=== PATIENT | male | born 1990 | race Caucasian/White ===

== ENCOUNTER 2017-02-22 13:22 | Emergency (ER) | payer OTHER ==
[~2017-02-22] VITALS: Ht 165.1 cm; Wt 83.9 kg
[~2017-02-22 13:22] MED LIST: BACTRIM DS TAB1 EACH PO; CLINDAMYCIN HC300 MG PO; LOVENOX80 MG SUB-Q; SUBOXONE 2 MG-1 EAC2 SL; WARFARIN SODIUM5 MG PO
[2017-02-22] MEDS ORDERED: CLONIDINE HCL0.1 MG PO (14:59)
[2017-02-22] MEDS ORDERED: LOMOTIL TABLET1 EACH PO (14:59)
[2017-02-22] MEDS ORDERED: ATIVAN1 MG PO (14:59)
[2017-02-22] MEDS ORDERED: ZOFRAN ODT4 MG PO (14:59)
== END 2017-02-22 15:17 | disposition home or self-care (01) ==
LOC: ED 13:22
DX: F10.239 Alcohol dependence with withdrawal, unspecified (principal); F11.23 Opioid dependence with withdrawal; R56.9 Unspecified convulsions; F17.200 Nicotine dependence, unspecified, uncomplicated; Z88.0 Allergy status to penicillin
CPT/HCPCS: 36415; 80053; 81001; 85025; 96374; 99284; G0480; J2060

== ENCOUNTER 2019-08-14 18:57 | Inpatient (IN) | payer OTHER ==
[~2019-08-14] VITALS: Ht 165.1 cm; Wt 89.4 kg
--- OUTSIDE RECORDS SUMMARY | ~2019-08-14 | XMS | Encounter Summary ---
Demographics + + + | Address | [address] | | | [place] [address] | + + + | Home Phone | | + + + | Preferred Language | Unknown | + + + | Marital Status | Single | + + + | Restorationism Affiliation | NRP | + + + | Race | Unknown | + + + | Ethnic Group | Not or | + + + Author + + + | Author | [facility] | + + + | Organization | [facility] | + + + | Address | Unknown | + + + | Phone | Unavailable | + + + Support + + +---------+ + | Name | Relationship | Address | Phone | + + +---------+ + | Isabel Pablo | ECON | Unknown | | + + +---------+ + Care Team Providers + +------+ + | Care Dietary Services Director Name | Role | Phone | + +------+ + | Jessica Bal PA-C | PCP | | + +------+ + Encounter Details +--------+ + + + + | Date | Type | Department | Care Team | Description | +--------+ + + + + | 01/15/ | Procedure | Diagnostic Imaging | | | | 2017 | Pass | Services at [facility] | | | | | | [address] | | | | | | Adeola Shah [facility] | | | | | | [address] | | | | | | [place], [place] | | | | | | [address] | | | | | | [phone] | | | +--------+ + + + + Social History + +-------+ +--------+ + | Tobacco Use | Types | Packs/Day | Years | Date | | | | | Used | | + +-------+ +--------+ + | Current Every Day | | 0.5 | | Started: 2005 | | Smoker | | | | | + +-------+ +--------+ + + +------+---+---+ | Smokeless Tobacco: | Chew | | | | Former User | | | | + +------+---+---+ + + +---------+ + | Alcohol Use | Drinks/Week | oz/Week | Comments | + + +---------+ + | No | | | | + + +---------+ + + + + | Sex Assigned at | Date Recorded | | | | + + + | Not on file | | + + + + + + + | Job Start Date | Occupation | Industry | + + + + | Not on file | Not on file | Not on file | + + + + + + + + | Travel History | Travel Start | Travel End | + + + + + + | No recent travel history available. | + + documented as of this encounter Functional Status + + + + | Functional Status | Response | Date of Assessment | + + + + | Because of a physical, mental, or emotional | No - was having | 01/15/2018 | | condition, do you have serious difficulty | coordination issues | | | doing errands alone such as visiting the | prior to admission | | | doctor? | | | + + + + + + + + | Cognitive Status | Response | Date of Assessment | + + + + | Because of a physical, mental, or emotional | No | 01/15/2018 | | condition, do you have serious difficulty | | | | concentrating, remembering, or making | | | | decisions? (5 years old or older) | | | + + + + documented as of this encounter Plan of Treatment Not on filedocumented as of this encounter Visit Diagnoses Not on filedocumented in this encounter Additional Health Concerns + + + + | Infection | Noted Time | Resolved Time | + + + + | Methicillin Resistant Staph Aureus | 01/16/2018 1:00 PM | | | | PDT | | + + + + documented as of this encounter"
--- OUTSIDE RECORDS SUMMARY | ~2019-08-14 | XMS | Encounter Summary ---
Demographics + + + | Address | [address] | | | [place] [address] | + + + | Home Phone | | + + + | Preferred Language | Unknown | + + + | Marital Status | Single | + + + | Anabaptist Affiliation | NRP | + + + | Race | Unknown | + + + | Ethnic Group | Not or | + + + Author + + + | Author | [facility] | + + + | Organization | [facility] | + + + | Address | Unknown | + + + | Phone | Unavailable | + + + Support + + +---------+ + | Name | Relationship | Address | Phone | + + +---------+ + | Isabel Pablo | ECON | Unknown | | + + +---------+ + Care Team Providers + +------+ + | Care Vascular Surgeon Name | Role | Phone | + +------+ + | Jessica Bal PA-C | PCP | | + +------+ + Encounter Details +--------+ + + + + | Date | Type | Department | Care Team | Description | +--------+ + + + + | 01/19/ | Pharmacy | Outpatient Retail | | | | 2017 | Visit | Clinic Pharmacy | | | | | | [address] | | | | | | [address] [place], [place] | | | | | | [address] | | | | | | [phone] | | | +--------+ + + + [...]
--- OUTSIDE RECORDS SUMMARY | ~2019-08-14 | XMS | Clinical Summary ---
Demographics + + + | Address | [address] | | | [place] [address] | + + + | Home Phone | | + + + | Preferred Language | Unknown | + + + | Marital Status | Single | + + + | Jehovah'S Witness Affiliation | NRP | + + + | Race | Unknown | + + + | Ethnic Group | Not or | + + + Author + + + | Author | [facility] | + + + | Organization | [facility] | + + + | Address | Unknown | + + + | Phone | Unavailable | + + + Support + + +---------+ + | Name | Relationship | Address | Phone | + + +---------+ + | Isabel Pablo | ECON | Unknown | | + + +---------+ + Care Team Providers + +------+ + | Care Woven Paper Hat Mender Name | Role | Phone | + +------+ + | Jessica Bal PA-C | PCP | | + +------+ + Source Comments TERESITA is fully live on both [facility] and [facility] Allergies + + + + + + | Active Allergy | Reactions | Severity | Noted | Comments | | | | | Date | | + + + + + + | Penicillins | Nausea and Vomiting | | 11/13/19 | | | | | | 14 | | + + + + + + Medications + + + +---------+------+------+-------+ | Medication | Sig | Dispensed | Refills | Star | End | Statu | | | | | | t | Date | s | | | | | | Date | | | + + + +---------+------+------+-------+ | naloxone 4 | Instill 1 spray in | 2 each | 0 | 09/2 | | Activ | | mg/actuation nasal | nose as needed for | | | 5/20 | | e | | spray,non-aerosol | suspected opioid | | | 18 | | | | | overdose. Repeat | | | | | | | | with second device | | | | | | | | into other nostril | | | | | | | | after 2-3 min if | | | | | | | | no/minimal response. | | | | | | + + + +---------+------+------+-------+ | apixaban 5 mg oral | Take 0.5 tablets by | 60 | 0 | 09/2 | | Activ | | tablet | mouth two times | tablet | | 9/20 | | e | | | daily. | | | 18 | | | + + + +---------+------+------+-------+ | doxycycline | Take 1 capsule by | 1 | 0 | 09/2 | | Activ | | monohydrate 100 mg | mouth two times | capsule | | 9/20 | | e | | oral | daily. (Pharmacist | | | 18 | | | | capsuleIndications: | to substitute salt | | | | | | | soft tissue | form as needed) | | | | | | | infection | Indications: skin | | | | | | | | infection | | | | | | + + + +---------+------+------+-------+ | pyridostigmine 60 | Take 1.5 tablets by | 180 | 3 | 09/2 | | Activ | | mg oral | mouth every six | tablet | | 01/11 | | e | | tabletIndications: | hours. | | | 18 | | | | Myasthenia (HCC) | | | | | | | + + + +---------+------+------+-------+ Active Problems + + + | Problem | Noted Date | + + + | Myasthenia gravis | 01/20/2018 | + + + | Congenital myasthenia gravis | 01/19/2018 | + + + | Dysphagia | 01/13/2018 | + + + + + | Last Assessment & Plan: Originally had increased difficulty | | swallowing. Failed first bedside and SPECIAL MAKEUP FX ARTIST INSTRUCTOR evaluation. - Appreciate | | SPECIAL MAKEUP FX ARTIST INSTRUCTOR following, per report swallow improved and recommend minimal | | chew thin liquid- DHT placed due to swallow failure, consider | | d/c if PO improves - TF d/c | + + + + + | Dysarthria | 01/13/2018 | + + + + + | Last Assessment & Plan: See dysphagia plan | + + +---------+ + | Abscess | 01/13/2018 | +---------+ + + + | Last Assessment & Plan: WBC decreased to 10. R hip induration | | and without clear pocket for drainage on soft tissue ultrasound. | | Open wound on L thigh without purulent drainage. CT lower | | extremities does not show any deep abcess. Wound cultures with 1+ | | MRSA. Blood cultures negative. -Vancomycin started 01/15 evening, | | originally on flagyl for botulism concern will cont. Per ID | | recs. -Appreciate ID assistance-Wound care recs: Cleanse gently | | with normal saline. Pat dry. Apply cavilon skin barrier to | | periwound skin. Cut Aquacel AG to just larger than wound and | | place onto wound bed. Cover with an allevyn 4 x 4 dressing. | | Change M-W-F. | + + + + + | Polysubstance abuse | 01/13/2018 | + + + + + | Last Assessment & Plan: History of methamphetamine, heroin, | | cocaine use. Last heroin use 01/12 - usual dose 1.5 g. Had been | | prescribed suboxone and took first dose 3x 8mg sublingual morning | | of 01/12. Mild withdrawal symptoms.- Now off Precedex, no | | withdrawal symptoms. Cover withdrawal symptoms with clonidine | | 0.1mg prn- Continue suboxone treatment- [facility] consult pending | + + + + + | Tobacco abuse | 01/13/2018 | + + + + + | Last Assessment & Plan: Active tobacco use. Consider nicotine | | patch PRN. | + + + + + | Respiratory distress | 01/13/2018 | + + + + + | Last Assessment & Plan: Progressive increased difficulty | | breathing. Comfortable at rest, saturating appropriately.- Q4H | | NIFs and FVCs - if down trending and concerning clinical picture, | | patient has agreed to elective intubation-NIF -40 most recently, | | improving | + + + + + | Weakness | 01/13/2018 | + + + + + | Last Assessment & Plan: Descending paralysis with notable | | ptosis, dysarthria/dysphagia, proximal arm weakness, mild | | ophthalmoplegia. Multiple family members with similar sxs | | concerning for environmental vs genetic component, grandmother | | diagnosed with LEMS, cousin dx'd with MG though work up unclear. | | Typical presentation for MG aside from demographic as males are | | more likely to present later in life. Botulism strongly | | considered as well given active skin popping and multiple soft | | tissue abscesses on exam. Family history raises concern for | | genetic condition, such as oculopharyngeal muscular dystrophy, | | though acute presentation would be atypical (pt does describe | | history of shoulder weakness in the past). 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 | + + + + + | Botulism, wound | 01/13/2018 | + + + + + | Last Assessment & Plan: On differential, s/p dose of botulism | | antitoxin. -Now on Vancomycin 01/16 (day 2)-re-start flagyl per | | ID recs for botulism concern, no stop date known at this time-EMG | | per above-supportive care per above-ID following | |-supportive care per above | |-ID following | + + + + + | At risk for electrolyte imbalance | 01/13/2018 | + + + + + | Last Assessment & Plan: ICU electrolyte protocol | | -repleted phos and K | + + Resolved Problems + + + + | Problem | Noted | Resolved | | | Date | Date | + + + + | SAH (subarachnoid hemorrhage) | 01/16/20 | | | | 18 | 8 | + + + + | Pulmonary embolism | 11/15/19 | | | | 14 | 8 | + + + + Family History + + +------+ + | Medical History | Relation | Name | Comments | + + +------+ + | No Known Problems | Brother | | | + + +------+ + | No Known Problems | Father | | | + + +------+ + | Neuromuscular | Grandmoth | | onset age 56, admitted to [facility] | | disorder | er | | 12/2017, bulbar onset | + + +------+ + | Other | Mother | | reported healthy but also has many skin | | | | | scabs and disheveled appearance, suspect | | | | | substance use | + + +------+ + | Neuromuscular | Paternal | | bulbar symptoms onset middle age, remitted | | disorder | Cousin | | | + + +------+ + | No Known Problems | Sister | | | + + +------+ + + +------+--------+ + | Relation | Name | Status | Comments | + +------+--------+ + | Brother | | Alive | | + +------+--------+ + | Father | | Alive | | + +------+--------+ + | Grandmother | | Alive | | + +------+--------+ + | Mother | | Alive | | + +------+--------+ + | Paternal Cousin | | Alive | | + +------+--------+ + | Sister | | Alive | | + +------+--------+ + Social History + +-------+ +--------+ + | Tobacco Use | Types | Packs/Day | Years | Date | | | | | Used | | + +-------+ +--------+ + | Current Every Day | | 0.5 | | Started: 2004 | | Smoker | | | | [...] recent travel history available. | + + Last Filed Vital Signs + + + + + | Vital Sign | Reading | Time Taken | Comments | + + + + + | Blood Pressure | 113/66 | 01/20/2018 3:30 PM | | | | | PDT | | + + + + + | Pulse | 84 | 01/20/2018 3:30 PM | | | | | PDT | | + + + + + | Temperature | 36.7 C (98.1 F) | 01/20/2018 3:30 PM | | | | | PDT | | + + + + + | Respiratory Rate | 16 | 01/20/2018 3:30 PM | | | | | PDT | | + + + + + | Oxygen Saturation | 96% | 01/20/2018 3:30 PM | | | | | PDT | | + + + + + | Inhaled Oxygen | - | - | | | Concentration | | | | + + + + + | Weight | 73 kg (161 lb) | 01/16/2018 4:30 AM | | | | | PDT | | + + + + + | Height | 170.2 cm (5' 7.01") | 01/16/2018 4:30 AM | | | | | PDT | | + + + + + | Body Mass Index | 25.21 | 01/16/2018 4:30 AM | | | | | PDT | | + + + + + Plan of Treatment + + + + + | Health Maintenance | Due Date | Last Done | Comments | + + + + + | Pneumococcal | | | | | vaccination (1 of 1 | 6 | | | | - PPSV23) | | | | + + + + + | Influenza (Flu) | | | | | vaccination (#1) | 9 | | | + + + + + Results Not on filefrom Last 3 Months Additional Health Concerns + + + + | Infection | Noted Time | Resolved Time | + + + + | Methicillin Resistant Staph Aureus | 01/16/2018 1:00 PM | | | | PDT | | + + + + Insurance + +--------+ +--------+-------+---------+--------+ | Payer | Benefi | Subscriber | Effect | Phone | Address | Type | | | t Plan | ID | rita | | | | | | / | | Dates | | | | | | Group | | | | | | + +--------+ +--------+-------+---------+--------+ | [employer] | [employer] | xxxxxxxx | Effect | | | Medica | | | [place] | | rita | | | id | | | [place] | | for | | | | | | | | all | | | | | | | | dates | | | | + +--------+ +--------+-------+---------+--------+ + +--------+ +--------+ + + | Guarantor Name | Accoun | Relation to | Date | Phone | Billing Address | | | t Type | Patient | of | | | | | | | | | | + +--------+ +--------+ + + | Dylna Pablo | Person | Self [birth year] | | [place] | al/Fam | | 1991 | [phone] | [place] [address] | | | [place] | | | 3 (Home) | | + +--------+ +--------+ + + Advance Directives + + + + + | Code Status | Date | Date | Comments | | | Activated | Inactivated | | + + + + + | Full Code | 01/13/2018 | 01/20/2018 | | | | 5:07 AM | 11:37 PM | | + + + + +
--- OUTSIDE RECORDS SUMMARY | ~2019-08-14 | XMS | Encounter Summary ---
Demographics + + + | Address | [address] | | | [place] [address] | + + + | Home Phone | | + + + | Preferred Language | Unknown | + + + | Marital Status | Single | + + + | Sikh Affiliation | NRP | + + + | Race | Unknown | + + + | Ethnic Group | Not or | + + + Author + + + | Author | [facility] | + + + | Organization | [facility] | + + + | Address | Unknown | + + + | Phone | Unavailable | + + + Support + + +---------+ + | Name | Relationship | Address | Phone | + + +---------+ + | Isabel Pablo | ECON | Unknown | | + + +---------+ + Care Team Providers + +------+ + | Care Supervisor Fusing Room Name | Role | Phone | + +------+ + | Jessica Bal PA-C | PCP | | + +------+ + Encounter Details +--------+ + + + + | Date | Type | Department | Care Team | Description | +--------+ + + + + | 01/20/ | Pharmacy | Outpatient Retail | | | | 2017 | Visit | Clinic Pharmacy | | | | | | [address] | | | | | | [address] [place], [place] | | | | | | [address] | | | | | | [phone] | | | +--------+ + + + [...]
--- OUTSIDE RECORDS SUMMARY | ~2019-08-14 | XMS | Encounter Summary ---
Demographics + + + | Address | [address] | | | [place] [address] | + + + | Home Phone | | + + + | Preferred Language | Unknown | + + + | Marital Status | Single | + + + | Buddhism Affiliation | NRP | + + + | Race | Unknown | + + + | Ethnic Group | Not or | + + + Author + + + | Author | [facility] | + + + | Organization | [facility] | + + + | Address | Unknown | + + + | Phone | Unavailable | + + + Support + + +---------+ + | Name | Relationship | Address | Phone | + + +---------+ + | Isabel Pablo | ECON | Unknown | | + + +---------+ + Care Team Providers + +------+ + | Care Fruit Buyer Name | Role | Phone | + +------+ + | Jessica Bal PA-C | PCP | | + +------+ + Encounter Details +--------+ + + + + | Date | Type | Department | Care Team | Description | +--------+ + + + + | 01/15/ | Procedure | Diagnostic Imaging | | | | 2017 | Pass | [facility] | | | | | | [address] | | | | | | [facility]ola [facility] | | | | | | [address] | | | | | | [place], [place] | | | | | | [address] | | | | | | [phone] | | | +--------+ + + + [...]
--- OUTSIDE RECORDS SUMMARY | ~2019-08-14 | XMS | Encounter Summary ---
Demographics + + + | Address | [address] | | | [place] [address] | + + + | Home Phone | | + + + | Preferred Language | Unknown | + + + | Marital Status | Single | + + + | Mu-Ism Affiliation | NRP | + + + | Race | Unknown | + + + | Ethnic Group | Not or | + + + Author + + + | Author | [facility] | + + + | Organization | [facility] | + + + | Address | Unknown | + + + | Phone | Unavailable | + + + Support + + +---------+ + | Name | Relationship | Address | Phone | + + +---------+ + | Isabel Pablo | ECON | Unknown | | + + +---------+ + Care Team Providers + +------+ + | Care Audio Experience Expert Name | Role | Phone | + +------+ + | eJssica Bal PA-C | PCP | | + +------+ + Reason for Referral Physical Therapy (Routine) +--------+--------+ + + + + | Status | Reason | Specialty | Diagnoses / | Referred By | Referred To | | | | | Procedures | Contact | Contact | +--------+--------+ + + + + | Closed | | Physical | Diagnoses | Gage | | | | | Therapy | Weakness | Selene Hughes, | | | | | | Myasthenia | [address] | | | | | | ([facility]) | [address] | | | | | | Procedures | [address] | | | | | | PHYSICAL | Rd | | | | | | THERAPY | [place], [place] | | | | | | REFERRAL | [address] | | | | | | | Phone: | | | | | | | [phone] | | | | | | | Fax: | | | | | | | [phone] | | +--------+--------+ + + + + Reason for Visit + + + | Reason | Comments | + + + | Weakness | | + + + AUTH/CERT +--------+--------+ + + + + | Status | Reason | Specialty | Diagnoses / | Referred By | Referred To | | | | | Procedures | Contact | Contact | +--------+--------+ + + + + | | | Adult | | | [facility] | | | | Critical Care | | | [facility] | | | | | | | [address] | | | | | | | [address] | | | | | | | Pablo | | | | | | | [id number] | | | | | | | [facility] | | | | | | | [place], | | | | | | | [place] [address] | | | | | | | Phone: | | | | | | | [phone] | | | | | | | Fax: | | | | | | | [phone] | +--------+--------+ + + + + Encounter Details +--------+ + + + + | Date | Type | Department | Care Team | Description | +--------+ + + + + | 01/12/ | Hospital | [facility] [address] | [place], | | | 2018 - | Encounter | [address] | [address] | | | | | /[id number] [facility] | [facility] | | | 01/20/ | | [facility], | [place], [place] | | | 2018 | | [place] [address] | [address] | | | | | [phone] | [phone] | | | | | | | | | | | | Amina Voss, | | | | | | Armaan Salazar | | | | | | MD Yaakov [address] | | | | | | e [place], [place] | | | | | | [address] | | | | | | [phone] | | | | | | | | +--------+ + + + [...] + + documented as of this encounter Last Filed Vital Signs + + + [...] | | + + + + + documented in this encounter Functional Status + + + [...] + + documented as of this encounter Discharge Summaries Dashawn Fitzpatrick MD - 01/20/2018 9:39 AM PDT INPATIENT PHYSICIAN DISCHARGE SUMMARY Admission Date: 01/12/2018 Discharge Date: 01/20/2018 Service: Neurology inpatient Patient PCP: Jessica Bal PA-C Discharging Attending: Armaan Herrmann MD Discharging Resident: Tip Roe Principal Final Diagnosis: #Myasthenia Gravis, congenital type Other Diagnoses Treated During Hospitalization: #Left lateral thigh SSTI Procedures: EMG/NCS [01/16/18] Summary Nerve conduction studies: 1. Left median-APB CMAP had normal amplitude, distal latency and conduction velocity. There was no facilitation after 10 seconds of exercise. 2. Left ulnar-ADM CMAP had normal amplitude, distal latency and slowed conduction velocity across the elbow. 3. Left peroneal-EDB CMAP had normal amplitude, distal latency and conduction velocity. 4. Left tibial-AH CMAP had low amplitude, normal DL and CV. 5. Left spinal accessory-trapezius CMAP had low amplitude. There was no facilitation after 10 seconds of exercise. 6. Left median-DII SNAP had prolonged peak latency and low amplitude. 7. Left ulnar-DV SNAP had normal amplitude and peak latency.. 8. Left sural SNAP had normal amplitude and peak latency. 9. Two Hz repetitive stimulation of the left facial-nasalis at rest was performed for 6 imp ulses repeated three times, 1 minute. Two Hz repetitive stimulation was repeated after maxim al voluntary exercise for 1 minute immediately and at 1, 2, 3 and 4 minutes apart. There was no significant decrement during the test. 10. Two Hz repetitive stimulation of the left ulnar-ADM at rest was performed for 6 impulse s repeated three times, 1 minute. Two Hz repetitive stimulation was repeated after maximal v oluntary exercise for 1 minute immediately and at 1, 2, 3 and 4 minutes apart. There was no significant decrement during the test. 11. Two Hz repetitive stimulation of the left spinal accessory-trapezius at rest was perfor med for 6 impulses repeated three times, 1 minute. Two Hz repetitive stimulation was repeate d after maximal voluntary exercise for 1 minute immediately and at 1, 2, 3 and 4 minutes apa rt. There was some technical issues with the study, but there appear to be consistent decrem ent at baseline with maximum of 38% with repair of the decrement to 16% after exercise and p ost exercise exhaustion to maximum of 31%. EMG: Needle examination of selected muscles of the left upper limb showed myopathic MUP's i n the muscles examined. Conclusion Abnormal study. There is a suggestive evidence for postsynaptic defect of neuromuscular tra nsmission as can be seen in MG. There is no evidence for presynaptic defect or GBS. Admitting Presentation: From H&P of Emile Jewell MD on 01/13/18 "27 year old man with history of polysubstance abuse (IV heroin, cocaine, meth, tobacco) an d possible history of unprovoked PE many years ago, who presents to [facility] ER on 01/12/18 by pr ivate vehicle (mom) for second opinion regarding sudden onset rapidly progressive bulbar wea kness, shortness of breath, and proximal arm weakness which began 1 week prior to arrival. P kris initially presented to [facility] for evaluation and was admitted from 01/08 to 01/10 but h e left AMA 01/10. During that admission he had a CTA and a MRI brain and c-spine. Pt reports that multiple family members living in the same home on the [facility] have been diagnosed with myasthenia and lambert eaton over the last year. All family members are IVDU. Pt's grandmother, 56 yo, was diagnosed in 01/2017. Pt denies michelle. Galdino cribes a transient episode of upper extremity weakness approximately a year ago. Pt also has a poorly healing wound on his L thigh and new area of fluctuance on his R thigh. Patient had ongoing and progressive symptoms so his mom drove him to [facility]. In the ED, shahzad nt was mildly tachycardic to the low 100s with labile blood pressures ranging from the low 1 00s to the 130s. No labs were able to be obtained given poor access given his significant dr sanchez use. NIF was (-) 30 which was reportedly decreased from [facility] where is was less than (-) 35. Patient was seen by Neurology with recommendation for NSICU admission for close monitor ing of his respiratory status and further work-up of his symptoms." Brief Hospital Course: #Myasthenia Gravis, suspect congenital cause # bulbar weakness # dysphagia - improved # neuromuscular respiratory failure (NIF -30 in ER at 0230 on 01/13) improved #right hip induration w/out pocket for drainage Etiology of acute presentation of bulbar and extremity weakness initially unclear. Presenta tion was suggestive of a NMJ disorder, although not a perfect fit with either LEMS or MG. Tee tulism considered, but intact pupillary responses suggests against this. Absence of sensory symptoms suggests against demyelinating polyneuropathy. Not likely GBS variant like Roe F isher given normal reflexes. Not likely MMN or vasculitis process given symmetric presentati on. Given some family history of similar presentations in the past, especially the mother wi th similar symptoms, congenital/familial association considered. Underwent EMG/NCS which betzaida wed post synaptic NMJ dysfunction. With the help of our neuromuscular colleagues, it was det ermined that his presentation and EMG/NCS that a congenital Myasthenic syndrome was most lik dejan overall. Received 5 daily infusions of IVIg, was started on pyridostigmine. Patient sign ificantly improved throughout hospital course with improved speech, return to normal swallow ing function, better proximal BUE strength. Seen by PT, OT, who recommended home with assist and outpatient PT and OT referrals. SOIL CHECKER consulted who followed and guided us with patient s afely eating, initially requiring DHT placement and TF, but improved to take PO allowing for DHT removal and subsequently returned to normal PO intake without issue. Respiratory status was monitored during his stay via NIF and FVC which improved throughout course. Initially b renate treatment with prednisone, but after decision that most consistent with congenital myas thenic syndrome, stopped this as congenital mg syndromes are not immune mediated. - continue pyridostigmine 90 mg PO q6h - follow up results of [facility] congenital myasthenic syndrome genetic panel (10-21 day turn ound after arriving at lab) - outpatient neuromuscular follow up - f/u botulism toxin results - no immune suppression treatment given suspecting congenital myasthenic syndrome instead o f classical MG. #Left lateral thigh SSTI Secondary to patients IM heroin drug use beginning 2 months prior to discharge. Initial con cern given unclear depth of wound. US and CT of LE without drainable abscess nor osteomyelit is. Initially treated with vancomycin, then transitioned to oral doxycycline. Last dose on to complete 7 day course. #Polysubstance abuse Seen by tang at this hospital stay. Prior to admission, was followed by provider and pres cribed suboxone for heroin addiction. Suboxone continued during this hospital stay. Thanks t o the assistance of [employer], coordinating with outpatient suboxone provider to ensure smooth transition and prescription availability on discharge. Some anxiety present during hospital stay, treated with intermittent clonidine that improved during hospital stay. -continue suboxone - [employer] already involved and helping to coordinate with outpatient suboxone provider to en sure smooth transition when discharging back to outpatient. - naloxone kit on discharge #HCV, new diagnosis Given IVDU, HCV Ab obtained with positive result. Subsequent HCV quantitative viral load wi . Discussed this with patient and mother, who seemed to understand. No concern for a cute hepatitis or hepatic encephalopathy during hospital stay. Primary next step is repeat H CV viral load in 3-6 via PCP. Some patients can resolve HCV acute infections, but if load is increased, would recommend referral to mold shifter for management. 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 He was on therapeutic AC for 1 year. He presented thereafter with superficial phle bitis 2/2 venipuncture. Due to clinical history and that he is a carrier for factor V Leiden , long-term AC (coumadin or novel oral agents) was recommended. After further discussions, likely that original PE was actually unprovoked and will require lifelong anticoag. Patient self discontinued coumadin as he felt there were too many diet restrictions. Patient amenabl e to restarting anticoagulation. Given somewhat unclear nature of his PE, although confirmed unprovoked, would recommend that patient follow up with transit planning director on outpatient, which p kris already knows and will obtain appointment within 1 month of discharge. - recommend outpatient transit planning director follow up; patient amenable and will schedule. - Apixaban 2.5 mg PO BID Labs: ACh R binding ab: 0.1 (ARUP) MuSK antibody negative 0.0 Hepatitis A screen positive; IgM neg HBV S ag neg HBV core ab positive HBV surface ab positive HCV ab positive HCV pcr positive HCV QNT 62597 IU/mL HIV PCR negative Anti-MOG negative Arsenic <10 Lead <2 Mercury <3 CK 50 UDS: Amphetamines >5400 Opiates positive Opiate conc >75524 Cannabinoids positive Cannabinoid conc 115 Methadone negative Oxycodone negative Imaging: CT c/a/p [01/16/18] FINDINGS: CHEST: Heart and great vessels are unremarkable. No lymphadenopathy. There is a small amoun t of residual thymic tissue in the anterior mediastinum, within normal limits for age, witho ut evidence of thymoma. The lungs are clear aside from minimal dependent atelectasis. No pneumothorax or effusion. LIVER: Unremarkable. BILIARY: Unremarkable. PANCREAS: Unremarkable. SPLEEN: Unremarkable. ADRENALS: Unremarkable. KIDNEYS/URETERS: Unremarkable. PELVIC ORGANS/BLADDER: Unremarkable. GI TRACT: Dobbhoff tube terminates in the 2nd portion of duodenum. The bowel is otherwise n ormal. PERITONEUM: Small amount of free fluid in the pelvis. No pneumoperitoneum. LYMPH NODES: No lymphadenopathy. VESSELS: Unremarkable. BONES AND SOFT TISSUES: Soft tissue infiltration in the right upper gluteal subcutaneous fa t is nonspecific and may be contusion /small hematoma versus medication injection site. No suspicious bone lesion. IMPRESSION: 1. Normal appearance of the thymus without evidence of thymoma. 2. No evidence of malignancy. CT Left Lower Extremity [01/15/18] FINDINGS: No CT evidence of acute osteomyelitis. No radiodense foreign bodies. Within the limits of a CT, no significant hip joint effusion. No knee joint effusion. No organized, drainable fluid collection to suggest abscess formation. No subcutaneous kevin facial gas. Scattered regions of focal subcutaneous soft tissue thickening are present. Induration of t he subcutaneous soft tissues overlying the lateral aspect of the thigh may represent a contu ruth in the posttraumatic setting. Focal subcutaneous gas along the lateral aspect of the di stal thigh with overlying soft tissue defect. Within the limits of CT, no significant fascial thickening. Preservation of normal musculat ure architecture. No lymphadenopathy. Limited views of the pelvis demonstrate no atypical free fluid. IMPRESSION: Scattered regions of focal subcutaneous soft tissue thickening without abscess formation. US LE 01/13/2018 Subtle echogenic focus in the right hip soft tissues, surrounding hypoechoic fluid may repr esent a developing injection granuloma, resolving infectious/inflammatory change, or possibl y a retained foreign body with surrounding edema. Further evaluation can be obtained with CT as clinically indicated. No soft tissue drainable collection. Discharge Medications: Medication List START taking these medications apixaban 5 mg Tab Commonly known as: ELIQUIS Take 0.5 tablets by mouth two times daily. Requesting to run through insurance to evaluate for cost. Please page wayne to [phone]. Thanks! doxycycline monohydrate 100 mg Cap Commonly known as: MONODOX Take 1 capsule by mouth two times daily. (Pharmacist to substitute salt form as needed) Ind ications: skin infection naloxone 4 mg/actuation [place] Instill 1 spray in nose as needed for suspected opioid overdose. Repeat with second device into other nostril after 2-3 min if no/minimal response. pyridostigmine 60 mg Tab Commonly known as: MESTINON Take 1.5 tablets by mouth every six hours. STOP taking these medications buprenorphine HCl 8 mg Subl Commonly known as: SUBUTEX Diet: Regular Diet Discharge Activity: You may be tired and still somewhat weak on discharge. You can return to your regular activ ities for the most part, but would recommend that you take it easy, especially at first. Ple ase avoid over exerting yourself. Pay close attention to your level of fatigue. Follow Up Appointments: - Please call to schedule outpatient neuromuscular appointment with Myrtle Martínez MD with in 1-2 months following discharge. Schedule the following appointment(s) when you get home Jessica Bal PA-C. Go on 02/01/2018. Specialty: Physician Lead Network Architect Why: Follow-up Appointment at 11am. Please bring your hospital discharge documents with marisol andriy. Contact information [address] [place] [address] Zully Villalpando On 01/23/2018. Why: 12 pm, individual outpatient counseling Contact information [facility] [address], [address] [place] [address] Dr. Raza On 02/01/2018. Why: 5:45 pm, Suboxone follow up Contact information [facility] [address], [address] [place] [address] Outstanding labs/studies: Lab Orders - In Process (Through next 24h) Start Ordered 01/16/181999 LAB OTHER: antibodies to lipoprotein-related protein 4 (LRP4) sent to [facility] ADD ON Question: Test Name? Answer: antibodies to lipoprotein-related protein 4 (LRP4) sent to [facility] 01/16/18 1951 01/15/18 0900 LAB OTHER: Botulinum toxin testing ONCE Question: Test Name? Answer: Botulinum toxin testing 01/15/18 0854 01/14/18 2230 MG/LES EVALUATION W/REFLEX Entered by lab 01/14/182230 Discharge Physical Exam: BP 118/67 | Pulse 88 | Temp 37 C (98.6 F) | RR 16 | Ht 1.702 m (5' 7.01") | Wt 73 kg (1 61 lb) | SpO2 95% | BMI 25.21 kg/(m^2) Constitutional: young well nourished, man with numerous tattoos and skin lesions Neurological: Mental Status: AAOX3, Cooperative and follows commands. Cranial Nerves: II: Pupils 3 mm and equally reactive, visual loyola full to finger counting bilaterally III, IV, : EOM normal, sustained upgaze V: Sensation intact and symmetric to light touch V1-V3 VII: orbicularis oculi 5/5 bilat. orbicularis brock 4/5, cheek puff 4/5 VIII: Intact to finger rub bilaterally IX: Palate elevates symmetrically, phonation and voice improved. X: weak cough XI: SCMs 5/5 bilaterally, traps/shrug 5/5 bilaterally XII: Tongue protrudes midline, 3/5 strength Motor: Normal tone in all groups. Patient continues to have weakness with arm raise. Delt Tri Bi WE DI HF KF KE APF ADF Left 4 4 5- 5 5 5 5 5 5 5 Right 4 4 5- 5 5 5 5 5 5 5 Neck flexion 4+/5 Neck extension 5-/5 Sensation: Light touch: Intact and symmetric in the bilateral upper and lower extremiti es. Temp: Intact and symmetric in the bilateral upper and lower extremities. Pin prick: Intact and symmetric in the bilateral upper and lower extremities . Vibration: Intact and symmetric in the bilateral upper and lower extremities . Proprioception: Intact and symmetric in the bilateral upper and lower extrem ities. DTRs: Biceps Triceps Brachioradialis Knee Ankle Left 2+ 2+ 2+ 2+ 2+ Right 2+ 2+ 2+ 2+ 2+ Plantar response is flexors bilaterally Coordination: Fine finger movements are of normal speed and fluency. HEENT: non icteric, moist mucus membranes Cardiovascular: RRR Respiratory: clear lungs GI: non tender, nondistended, no masses Extremities: no edema, cyanosis, or clubbing Skin: multiple tattoos, skin abrasions and lesions all over arms and legs Tip [place] Neu[facility] Resident, PGY-2 Neurology wards pager [phone] Associated attestation - Armaan Herrmann MD - 01/20/2018 11:55 AM PDTFormatting of this no te might be different from the original. NEUROLOGY ATTENDING ATTESTATION I personally interviewed the patient, performed the pertinent parts of the history & physic al examination and personally formulated the plan with the resident. I reviewed the document ed findings, all data and the recent imaging available. I saw and evaluated the patient at t he bedside. I agree with the resident's documentation and have documented any additions or e xceptions. Patient Active Problem List Diagnosis Dysphagia Dysarthria Abscess Polysubstance abuse Tobacco abuse Respiratory distress Weakness Bulbar palsy (HCC) Botulism, wound At risk for electrolyte imbalance Congenital myasthenia gravis (HCC) Myasthenia gravis (HCC) I spent 36 minutes in the care of this patient. Greater than 50% of the time was spent on c ounseling and coordination of care, including bulbar palsy, dysphagia, dysarthria secondary to congenital myasthenia gravis. Date of service: 01/20/2018 Armaan Herrmann MD [employer] Department of Neurology [facility] Pager [phone] in this encounter Discharge Instructions Instructions Dashawn Fitzpatrick MD - 01/20/2018Some other items of importance that you should b e aware of. 1. I would like to mention that it would be great if you would signed up for the MGFA MG Pa tient Registry if you have not already done so. Let me know if I have not given you one of the handouts about this new program. Please go to the [email or web address] web site for more infor matmichelle. This MG Registry is teaching us more about the manifestations, natural history and t reatments of MG. Please consider signing up for this voluntary program. Thank you. 2. Please report any worsening of your MG. If significant (e.g. worsening shortness of rita th, neck weakness, slurred speech, swallowing trouble), you should consider the emergency ro om. 3. Please note that there are certain drugs, that might be prescribed by other doctors, ryan t can potentially worsen your MG (see below). Also, this list of drugs can be found on the " MyMG" cell phone claudio or at the [email or web address] website. If your doctor wants to start a medic ation, please review with him or her this list. Below is the statement we (the Medical/Scien tific Advisory Board of the MGFA) created (see below) in 2013. The MGFA statement below als o provides advice on vaccinations (see below also). Drugs to Avoid, if possible: "Many different drugs have been associated with worsening myas thenia gravis (MG). However, these drug associations do not necessarily mean that a patient with MG should not be prescribed these medications because in many instances the reports are very rare and in some instances they might only be a chance association (i.e. not cau faina). Also some of these drugs may be necessary for a patient s treatment. Therefore, some of these drugs should not necessarily be considered off limits for MG patients. Careful thought needs to go into decisions about prescription. It is advisable that patient s and physicians recognize and discuss the possibility that a particular drug might worsen t he patient s MG. They should also consider, when appropriate, the pros and cons of an alte rnate treatment, if available. It is important that the patient notify his or her physicians if the symptoms of MG worsen after starting any new medication." Read more here. Below, I am only listing the more common prescription drugs with the strongest evidence sug gesting an association with worsening MG. Should you have ANY questions about medications th at your are prescribed please call the office or have your physician call us. Some of the more common prescription drugs associated with worsening MG. (See read this first for more information. Also see [email or web address] for more information.) Telithromycin (Ketek) inpatient drug for serious pneumonia. Should not be used in patie nts with MG. FDA has designated a BLACK BOX warning on this drug in MG patients. Ciprofloxacin and levofloxacin commonly prescribed antibiotics that are rarely associat ed with worsening MG. FDA has designated a BLACK BOX warning on Ciprofloxacin. Use cau tiously, if at all. Zithromax (e.g. Z-tricia ) commonly prescribed but potentially dangerous in MG. Use c autiously, if at all. Gentamycin, neomycin (aminoglycoside antibiotics; tobramycin may be least offensive) us e cautiously if no alternative treatment available. Other antibiotics have been rarely reported with worsening MG. Please discuss with physicia n. Botulinum toxin (e.g. Botox ) avoid. Steroids (e.g. prednisone) steroids are a common treatment for MG but patients who star t steroids may have transient worsening of their MG during the first two weeks prior to an i mprovement in their MG. Thus, patients need to monitor carefully for this possibility. Quinine - sometimes used for leg cramps. Procainamide - cardiac drug used for irregular heart rhythm. Magnesium in patients with kidney disease; potentially dangerous if given intravenous, for example, for eclampsia treatment during late . (Many multivitamins contain small am ounts of magnesium, which is okay.) D-penicillamine - drug rarely used these days but strongly associated with causing MG. Beta-blockers commonly prescribed for hypertension, heart disease and migraine but pote ntially dangerous in MG. Use cautiously, if necessary. Some are safer than others. Call if there are questions. Vaccinations Vaccinations: It is generally believed that vaccinations (e.g. influenza) are safe in patie nts with MG (with a major caveat below). The evidence suggests that vaccine-related worsenin g of MG is rare and thus most MG specialists believe the benefits of immunization outweigh a ny small risk related to possible transient worsening of MG symptoms. Exception/caveat: If you are taking immunosuppressive medication, such as Prednisone, Azath ioprine or Mycophenolate, it is usually recommended that you avoid LIVE, ATTENUATED vaccines . Examples of live, attenuated vaccines include the shingles vaccine and the nasal spray for m of the influenza vaccine (the influenza injection is inactivated and thus not alive, so it is much safer in immunosuppressed patients). You need to discuss this with any doctor when considering a vaccine. If you are not sure, you should ask your doctor if you are taking imm unosuppressive drugs and, if so, if the vaccine is safe in that setting. It s worth noting that most vaccines are inactivated (e.g. or built in a test tube), but because there a re a few vaccines that are live and attenuated (i.e. the pathogen is alive but not very viru lent and thus immunizes the patient without causing the disease) and because the live, atten uated vaccines carry higher risk for those who are immunosuppressed, this technicality about vaccines is important and is always worth consideration. 4. The [employer] publishes a comprehensive book for healthcare providers that you should be awar e of; Myasthenia Gravis. Handbook for the Healthcare Provider is available on line at [email or web address], or may be purchased from the [employer] in book format. It is also available as a n iBook through the [employer] claudio on you iPhone or iPad. I recommend that you download the Titl e Page, Table of Contents and the appropriate chapter(s) for your particular healthcare prov ider, e.g. primary care physician, dentist, pharmacist, etc. There are additional special c hapters for therapists, anesthesiologists, social workers that you will find valuable. 5. The "MyMG" cell phone claudio is available in both iPhone or Android versions from [employer] respectively. This claudio will allow you to track your MG symptoms, record notes that you may think explain changes in your symptoms. The claudio will chart your results so yo u can discuss these changes with your physician at the time of your visit. If you have the "MyMG" cell phone claudio please bring it with you to each clinic visit in order that we may rev iew the data you have gathered. 6. Should you need prescription refills please give us at least 5 days to complete your req uest. Often pharmacies must order specialty drugs and do not have them in stock. 7. Please call the office if you have any questions. documented in this encounter Medications at Time of Discharge + + + +---------+ + + | Medication | Sig | Dispensed | Refills | Start | End Date | | | | | | Date | | + + + +---------+ + + | apixaban 5 mg oral | Take 0.5 tablets by | 60 | 0 | 01/21/20 | | | tablet | mouth two times | tablet | | 18 | | | | daily. | | | | | + + + +---------+ + + | doxycycline | Take 1 capsule by | 1 | 0 | 01/21/20 | | | monohydrate 100 mg | mouth two times | capsule | | 18 | | | oral | daily. (Pharmacist | | | | | | capsuleIndications: | to substitute salt | | | | | | soft tissue | form as needed) | | | | | | infection | Indications: skin | | | | | | | infection | | | | | + + + +---------+ + + | naloxone 4 | Instill 1 spray in | 2 each | 0 | 01/17/20 | | | mg/actuation nasal | nose as needed for | | | 18 | | | spray,non-aerosol | suspected opioid | | | | | | | overdose. Repeat | | | | | | | with second device | | | | | | | into other nostril | | | | | | | after 2-3 min if | | | | | | | no/minimal response. | | | | | + + + +---------+ + + | pyridostigmine 60 | Take 1.5 tablets by | 180 | 3 | 01/21/20 | | | mg oral | mouth every six | tablet | | 18 | | | tabletIndications: | hours. | | | | | | Myasthenia (HCC) | | | | | | + + + +---------+ + + documented as of this encounter Progress Notes Donna Nino - 01/19/2018 2:59 PM PDTFormatting of this note might be different from the o riginal. Neurology Follow Up Note Author: DONNA NINO Follow Up Time: 01/19/2018 3:00 PM Requesting Attending: Armaan Herrmann MD ID: Dylan Pablo is a 27 year old right handed male with a history of polysubsta nce abuse (IV heroin, cocaine, meth, tobacco), history of unprovoked pulmonary embolism in 2 008, and a family history of neuromuscular junction disorders, who presented to [facility] ED on for a second opinion regarding sudden onset of rapidly progressive bulbar weakness, prox imal arm weakness and shortness of breath that began one week prior to arrival. Interval Events: - DHT removed yesterday, patient has been eating a lot more since removal - Discussed with neuromuscular who believes this is a congenital form of MG - Checked patient insurance policy for DOAC pricing upon discharge, which will be free for patient. -NIF has remained stable at -40, FVC 2.35 - Patient feels better/a little stronger today Current Facility-Administered Medications Medication Dose Route Frequency acetaminophen (TYLENOL) tablet 650 mg 650 mg oral Q6H PRN alteplase (CATHFLO ACTIVASE) injection 2 mg 2 mg Intracatheter DAILY PRN apixaban (ELIQUIS) tablet 5 mg 5 mg oral BID bisacodyl (DULCOLAX) suppository 10 mg 10 mg rectal DAILY PRN buprenorphine-naloxone (SUBOXONE) 8-2 mg film 3 Film 3 Film sublingual DAILY cloNIDine HCl (CATAPRES) tablet 0.1 mg 0.1 mg oral BID PRN doxycycline monohydrate (MONODOX) capsule 100 mg 100 mg oral BID nicotine (NICOTROL) 14 mg/24 hr 1 patch 1 patch transdermal DAILY ondansetron (ZOFRAN) injection 4 mg 4 mg intravenous Q12H PRN polyethylene glycol (MIRALAX) packet 34 g 34 g oral TID PRN pyridostigmine (MESTINON) 30 mg, pyridostigmine (MESTINON) 60 mg 90 mg oral Q6H senna-docusate (SENOKOT S) 8.6-50 mg 1 tablet 1 tablet oral BID PE: BP 120/74 | Pulse 85 | Temp 36.9 C (98.4 F) | RR 15 | Ht 1.702 m (5' 7.01") | Wt 73 kg (161 lb) | SpO2 98% | BMI 25.21 kg/(m^2) Admission Weight: Weight: 73 kg (161 lb) (01/16/18 0430) Constitutional:Cooperative and pleasant youngman laying comfortably in bed in no acute distress Neurological: Mental Status: Level of consciousness: Awake, alert Orientation: Oriented to person, place, time and situation Concentration/Attention Span: Normal Comprehension/Praxis: Able to perform a three step command. Language: Fluent and linearwithout evidence of aphasia. Mild slurred speech present. Comp rehension and repetition intact. Cranial Nerves: I: Not tested II: PERRL, VFF III, IV, : EOMI, no nystagmus, sustained upgaze V: Sensation intact and symmetric to light touch VII: Eye closure strength normal. Decreased strength in puffing of cheeks VIII: Intact to finger rub bilaterally IX: Palate elevates symmetrically X: Weakcough XI: Normal shrug bilaterally XII: Tongue midline. Weak bilaterally, only slight indentation of c heek present. No fasciculations Motor: Normal tone in all groups. Patient continues to have weakness with arm raise. Delt Tri Bi WE DI HF KF KE APF ADF Left 4 5 5- 5 5 5 5 5 5 5 Right 4 5 5- 5 5 5 5 5 5 5 Neck flexion 4/5 Neck extension 5-/5 Sensation: Light touch: Intact and symmetric in the bilateral upper and lower extremities. Temp: Intact and symmetric in the bilateral upper and lower e xtremities. Pin prick: Intact and symmetric in the bilateral upper and lo wer extremities. Vibration: Intact and symmetric in the bilateral upper and lo wer extremities. Proprioception: Intact and symmetric in the bilateral upper a nd lower extremities. DTRs: Biceps Triceps Brachioradialis Knee Ankle Left 2+ 2+ 2+ 2+ 2+ Right 2+ 2+ 2+ 2+ 2+ Plantar response is flexors bilaterally Coordination: Fine finger movements are of normal speed and fluency. HEENT:non icteric,moist mucus membranes Cardiovascular:RRR Respiratory:clear to auscultation GI:non tender, nondistended, no masses Extremities: no edema, cyanosis, or clubbing Skin:skin abrasions and lesions coveringarms and legs. Multiple tattoos. Labs: Recent Labs 01/13/18 0543 01/14/18 0120 01/15/18 0135 01/17/18 1245 01/17/18 1729 01/18/18 0941 01/18/18 1221 NA 136 | 136 140 137 -- 135* -- -- -- K 3.9 | 3.9 3.7 3.7 -- 4.1 -- -- -- CL 101 | 101 107 105 -- 101 -- -- -- BICARB 26 | 26 26 25 -- 27 -- -- -- BUN 17 | 17 15 13 -- 11 -- -- -- CR 0.60* | 0.60* 0.50* 0.50* -- 0.54* -- -- -- GLU 93 | 93 99 95 < > 122* 98 73 89 CA 9.2 | 9.2 8.8 8.4* -- 8.9 -- -- -- AST 47* -- -- -- -- -- -- -- ALT 132* -- -- -- -- -- -- -- AP 78 -- -- -- -- -- -- -- TBILI 0.8 -- -- -- -- -- -- -- TP 9.6* -- -- -- -- -- -- -- ALB 3.6 | 3.6 3.0* 2.7* -- 2.9* -- -- -- < > = values in this interval not displayed. Recent Labs 01/13/18 0543 01/14/18 0120 01/15/18 0135 WBC 17.56* 12.43* 10.20 HB 16.2 13.1* 12.0* HCT 46.7 38.1* 35.0* PLT 376 282 265 ACh R binding ab: 0.1 ([facility]) MuSK antibody negative 0.0 Hepatitis A screen positive; IgM neg HBV S ag neg HBV core ab positive HBV surface ab positive HCV ab positive HCV pcr positive HCV QNT 21,265 IU/mL HIV pcr negative Pending: Botulinum toxin testing LRP-4 ab (sent after IVIG initation, results may be inaccurate) IMAGING: CTA abdomen and pelvis w IV contrast01/17/2018 IMPRESSION - Normal appearance of thymus without evidence of thymoma No evidence of malignancy MRI brain wwo 01/09/2018 ([facility]): IMPRESSION - No acute intracranial abnormality identified. No suspicious enhancement or other evidence for mass or mass effect. 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 MRI cervical spine 01/09/2018 ([facility]): IMPRESSION- 1. No acute abnormality. 2. No contour or signal abnormality or abnormal enhancement of the cervical or upper thoracic spinal cord. 3. No significant disc protrusion.Minimal bulging disc annulus at several levels.No central canal stenosis or foraminal stenosis. 4. Normal bone marrow. CTA head and neck 01/09/2018 ([facility]): IMPRESSION 1.No evidence of intracranial disease. Intracranial and cervical arterial systems are w idely patent 2. Low lying cerebellar tonsils 3.Straightened cervical lordosis with left foraminal narrowing at C3-4 4.Dental caries PROCEDURES: EMG/NERVE CONDUCTION STUDY IMPRESSION - There is suggestive evidence for postsynaptic defect of neuromuscular transmission as can b e seen in MG. There is no evidence of presynaptic defect or GBS. Assessment: Mr. Pablo is a 27yo male who presented to [facility] on 01/12 with bulbar weakness, proximal upper extremity weakness and shortness of breath concerning for myasthenia gravis. #Myasthenia Gravis #Bulbar weakness #Proximal UE weakness Myasthenia Gravis suspected. EMG showed postsynaptic defect suggestive of MG process. Argum ents against MG include improved weakness with muscle use and family history of LEMS. Howev er, symptoms seem to be improving with pyridostigmine. NIF and FVC have remained stable.CT chest shows normal thymus with no evidence of thymoma which could have been a potential cau se of MG. 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 This is autosomal dominant and can present later in life. Genetic anshu ting will be sent for evaluation. Prednisone will be discontinued as an immunologic process is no longer suspected. Drug induced exacerbation of patient's congenital MG was considered , as patient reports taking antibiotics two days before his symptoms began. However, after emma schaefer review, it was found that patient was taking cephalexin, which is not commonly associ ated with myasthenic exacerbations. Botulism is possible, however intact pupillary responses argue against this along with EMG results showing a postsynaptic defect. Botulism toxin res ults are pending. Pyridostigmine dose changed to 90mg q6h Prednisone discontinued Send genetic testing regarding congenital myasthenic syndrome caused by GFPT1 mutation Patient has received botulism antitoxin. #Left thigh abscess MRSA+ ID following, last day of doxycycline will be tomorrow, 01/20 #Polysubstance abuse Continue suboxone 3 film sublingual once daily Clonidine 0.1mg BID PRN IMPACT involved in patient's care #Hx of unprovoked PE #Hx of superficial thrombophlebitis #Factor V Leiden carrier Per note from 10/2013, patient had an unprovoked pulmonary embolism at age 17. He was on therapeutic anticoagulation for one year, but then decided to discontinue this on his own. Nallely quiroz subsequently had an episode of superficial phlebitis during venipuncture. Patient is a car rier for factor V Leiden. 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 We discussed this with the patient and he is willing to begin anticoagulation again. After checking with patient insur juan m, found apixaban would be of no cost to patient. Will start patient on apixaban today. P atient can follow up with hematology in an outpatient setting On lovenox for DVT prophylaxis as inpatient Start apixaban 5mg oral tablet BID Follow up at hematology clinic as outpatient. #Hepatitis C Ab and pcr detected HCV QNT 21,265 IU/mL - Will send order to check levels in 3-6 months upon discharge. PCP to review results, if still increased at that time may refer to hepatology. Discharge planned for tomorrow 01/20 This patient has been seen and staffed with Dr. Herrmann, attending physician, who agrees with the above assessment and plan. DONNA NINO Medical Student [facility] Pager: [phone] Associated attestation - Tip Roe MD - 01/19/2018 6:45 PM PDTAgree with excellent medical student progress note. Tip Roe Neurology PGY2 [facility]ards pager [phone] Donna Nino - 01/18/2018 1:17 PM PDTFormatting of this note might be different from the o riginal. Neurology Follow Up Note Author: DONNA NINO Follow Up Time: 01/18/2018 1:20 PM Requesting Attending: Armaan Herrmann MD ID: Dylan Pablo is a 27 year old right handed male with a history of polysubstan ce abuse (IV heroin, cocaine, meth, tobacco), possible history of unprovoked pulmonary embol ism in 2007, and a family history of neuromuscular junction disorders, who presented to [facility] ED on 01/12 for a second opinion regarding sudden onset of rapidly progressive bulbar weakne ss, proximal arm weakness and shortness of breath that began one week prior to arrival. Interval Events: - Episode of nausea and emesis this morning when taking meds - Patient began prednisone 20mg yesterday and has been tolerating well - IVIG course completed yesterday - NIF has remained stable at -40, FVC 1.65 - Patient feels better/a little stronger today Current Facility-Administered Medications Medication Dose Route Frequency acetaminophen (TYLENOL) tablet 650 mg 650 mg feeding tube Q6H PRN alteplase (CATHFLO ACTIVASE) injection 2 mg 2 mg Intracatheter DAILY PRN bisacodyl (DULCOLAX) suppository 10 mg 10 mg rectal DAILY PRN buprenorphine-naloxone (SUBOXONE) 8-2 mg film 3 Film 3 Film sublingual DAILY cloNIDine HCl (CATAPRES) tablet 0.1 mg 0.1 mg oral BID PRN diphenhydrAMINE (BENADRYL) injection 25-50 mg 25-50 mg intravenous PRN doxycycline monohydrate (MONODOX) capsule 100 mg 100 mg oral BID enoxaparin (LOVENOX) injection 40 mg 40 mg subcutaneous QPM EPINEPHrine HCl (PF) (ADRENALIN PF) injection 0.3 mg 0.3 mg intramuscular PRN famotidine (PEPCID) injection 20 mg 20 mg intravenous PRN hydrocortisone sodium succinate (PF) (SOLU-CORTEF) injection 100 mg 100 mg intravenous PRN nicotine (NICOTROL) 21 mg/24 hr patch 1 patch 1 patch transdermal DAILY ondansetron (ZOFRAN) injection 4 mg 4 mg intravenous Q12H PRN polyethylene glycol (MIRALAX) packet 34 g 34 g oral TID PRN [START ON 01/19/2018] predniSONE (DELTASONE) tablet 40 mg 40 mg oral DAILY pyridostigmine (MESTINON) tablet 60 mg 60 mg feeding tube Q4H senna-docusate (SENOKOT S) 8.6-50 mg 1 tablet 1 tablet feeding tube BID sodium chloride 0.9 % (NS) IV infusion 1,000 mL intravenous PRN PE: BP 118/73 | Pulse 78 | Temp 37.3 C (99.1 F) | RR 18 | Ht 1.702 m (5' 7.01") | Wt 73 kg (161 lb) | SpO2 97% | BMI 25.21 kg/(m^2) Admission Weight: Weight: 73 kg (161 lb) (01/16/18 0430) Constitutional:Cooperative and pleasant young man laying comfortably in bed in no acute d istress Neurological: Mental Status: Level of consciousness: Awake, alert Orientation: Oriented to person, place, time and situation Concentration/Attention Span: Normal Comprehension/Praxis: Able to perform a three step command. Language: Fluent and linearwithout evidence of aphasia. Mild slurred speech present. Comp rehension and repetition intact. Cranial Nerves: I: Not tested II: PERRL, VFF III, IV, : EOMI, no nystagmus, sustained upgaze V: Sensation intact and symmetric to light touch VII: Eye closure strength normal. Decreased strength in puffing of cheeks VIII: Intact to finger rub bilaterally IX: Palate elevates symmetrically X: Weak cough XI: Normal shrug bilaterally XII: Tongue midline. Weak bilaterally, only slight indentation of c heek present. No fasciculations Motor: Normal tone in all groups. Patient continues to have weakness with arm raise. Delt Tri Bi WE DI HF KF KE APF ADF Left 4 5 5- 5 5 5 5 5 5 5 Right 4 5 5- 5 5 5 5 5 5 5 Neck flexion 4/5 Neck extension 5-/5 Sensation: Light touch: Intact and symmetric in the bilateral upper and lower extremities. Temp: Intact and symmetric in the bilateral upper and lower e xtremities. Pin prick: Intact and symmetric in the bilateral upper and lo wer extremities. Vibration: Intact and symmetric in the bilateral upper and lo wer extremities. Proprioception: Intact and symmetric in the bilateral upper a nd lower extremities. DTRs: Biceps Triceps Brachioradialis Knee Ankle Left 2+ 2+ 2+ 2+ 2+ Right 2+ 2+ 2+ 2+ 2+ Plantar response is flexors bilaterally Coordination: Fine finger movements are of normal speed and fluency. HEENT:non icteric,moist mucus membranes Cardiovascular:RRR Respiratory:clear to auscultation GI:non tender, nondistended, no masses Extremities: no edema, cyanosis, or clubbing Skin:skin abrasions and lesions covering arms and legs. Multiple tattoos. Labs: Recent Labs 01/13/18 0543 01/14/18 0120 01/15/18 0135 01/17/18 1245 01/17/18 1729 01/18/18 0941 01/18/18 1221 NA 136 | 136 140 137 -- 135* -- -- -- K 3.9 | 3.9 3.7 3.7 -- 4.1 -- -- -- CL 101 | 101 107 105 -- 101 -- -- -- BICARB 26 | 26 26 25 -- 27 -- -- -- BUN 17 | 17 15 13 -- 11 -- -- -- CR 0.60* | 0.60* 0.50* 0.50* -- 0.54* -- -- -- GLU 93 | 93 99 95 < > 122* 98 73 89 CA 9.2 | 9.2 8.8 8.4* -- 8.9 -- -- -- AST 47* -- -- -- -- -- -- -- ALT 132* -- -- -- -- -- -- -- AP 78 -- -- -- -- -- -- -- TBILI 0.8 -- -- -- -- -- -- -- TP 9.6* -- -- -- -- -- -- -- ALB 3.6 | 3.6 3.0* 2.7* -- 2.9* -- -- -- < > = values in this interval not displayed. Recent Labs 01/13/18 0543 01/14/18 01201/15/18 0135 WBC 17.56* 12.43* 10.20 HB 16.2 13.1* 12.0* HCT 46.7 38.1* 35.0* PLT 376 282 265 ACh R binding ab: 0.1 ([facility]) MuSK antibody negative 0.0 Hepatitis A screen positive; IgM neg HBV S ag neg HBV core ab positive HBV surface ab positive HCV ab positive HCV pcr positive HCV QNT 21,265 IU/mL Pending: Botulinum toxin testing HIV pcr LRP-4 ab (sent after IVIG initation, results may be inaccurate) IMAGING: CTA abdomen and pelvis w IV contrast 01/17/2018 IMPRESSION - Normal appearance of thymus without evidence of thymoma No evidence of malignancy MRI brain wwo 01/09/2018 ([facility]): IMPRESSION - No acute intracranial abnormality identified. No suspicious enhancement or other evidence for mass or mass effect. 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 MRI cervical spine 01/09/2018 ([facility]): IMPRESSION- 1. No acute abnormality. 2. No contour or signal abnormality or abnormal enhancement of the cervical or upper thoracic spinal cord. 3. No significant disc protrusion.Minimal bulging disc annulus at several levels.No central canal stenosis or foraminal stenosis. 4. Normal bone marrow. CTA head and neck 01/09/2018 ([facility]): IMPRESSION 1.No evidence of intracranial disease. Intracranial and cervical arterial systems are w idely patent 2. Low lying cerebellar tonsils 3.Straightened cervical lordosis with left foraminal narrowing at C3-4 4.Dental caries PROCEDURES: EMG/NERVE CONDUCTION STUDY IMPRESSION - There is suggestive evidence for postsynaptic defect of neuromuscular transmission as can b e seen in MG. There is no evidence of presynaptic defect or GBS. Assessment: Mr. Pablo is a 27yo male who presented to [facility] on 01/12 with bulbar weakness, p roximal upper extremity weakness and shortness of breath concerning for myasthenia gravis. #Myasthenia Gravis #Bulbar weakness #Proximal UE weakness Myasthenia Gravis suspected. EMG showed postsynaptic defect suggestive of MG process. Argum ents against MG include improved weakness with muscle use and family history of LEMS. Howeve r, symptoms seem to be improving with IVIG, pyridostigmine and prednisone, which is consiste nt with MG. NIF and FVC have remained stable. CT chest shows normal thymus with no evidence of thymoma which could have been a potential cause of MG. A Randomized Trial of Thymectomy in Myasthenia Gravis ([facility] 2016) showed that thymectomy improved clinical outcomes over a 3 year period in patients with nonthymomatous MG. However, patient has inconsistent symptoms, making the results of this study less applicable. Because patient has symptoms inconsistent with autoimmune MG, congenital MG is something to consider. Neuromuscular department will be consulted regarding the workup of congenital MG. Botulism is possible, however intact pupil tom responses argue against this along with EMG results showing a postsynaptic defect. Botu lism toxin results are pending. Continue pyridostigmine 60mg q4h. Continue prednisone 20mg, increase to 40mg on 01/19, gradually to 60mg to avoid MG exacer bation. Calorie count to evaluate if DHT still needed. NIF and FVC have remained stable, check q8hrs while awake. Consult neuromuscular regarding congenital MG for possible diagnosis. Patient has received botulism antitoxin. #Left thigh abscess MRSA+ ID following, last day of doxycycline will be 01/20 #Polysubstance abuse Continue suboxone 3 film sublingual once daily Clonidine 0.1mg BID PRN #Hx of unprovoked PE #Hx of superficial thrombophlebitis #Factor V Leiden carrier Per note from 10/2013, patient had an unprovoked pulmonary embolism at age 17. He was on the rapeutic anticoagulation for one year, but then decided to discontinue this on his own. He s ubsequently had an episode of superficial phlebitis during venipuncture. Patient is a sarah r for factor V Leiden. USP anticoagulation is indicated. We discussed this with the jolanta reynoso today and he is willing to begin anticoagulation again. Patient can follow up with hem atology in an outpatient setting to discuss what therapy will be most beneficial/manageable (warfarin vs. DOAC). On lovenox for DVT prophylaxis as inpatient Follow up at hematology clinic as outpatient. #Hepatitis C Ab and pcr detected HCV QNT 21,265 IU/mL - ID is following. Will check levels in 3-6 months, if still increa sed at that time will refer to hepatology. This patient has been seen and staffed with Dr. Herrmann, attending physician, who agrees with the above assessment and plan. DONNA NINO Medical Student [employer] [place] [facility] Pager: [phone] signed by Tip Roe MD at 01/18/2018 7:52 PM PDT Associated attestation - Tip Roe MD - 01/18/2018 7:52 PM PDTAgree with excellent medical student progress note. Tip Roe Neurology PGY2 Wards pager [phone] Donna Nino - 01/17/2018 1:08 PM PDTFormatting of this note might be different from the o riginal. Neurology Follow Up Note Author: DONNA NINO Follow Up Time: 01/17/2018 1:08 PM Requesting Attending: Armaan Herrmann MD ID: Dylan Pablo is a 27 year old right handed male with a history of polysubstan ce abuse (IV heroin, cocaine, meth, tobacco), possible history of unprovoked pulmonary embol ism in 2007, and a family history of neuromuscular junction disorders, who presented to [facility] ED on 01/12 for a second opinion regarding sudden onset of rapidly progressive bulbar weakne ss, proximal arm weakness and shortness of breath that began one week prior to arrival. Interval Events: - NAEO - Patient slept well - Ptosis is improved today - NIF has remained stable at -40 - Patient feels better/a little stronger today Current Facility-Administered Medications Medication Dose Route Frequency acetaminophen (TYLENOL) tablet 650 mg 650 mg feeding tube Q6H PRN alteplase (CATHFLO ACTIVASE) injection 2 mg 2 mg Intracatheter DAILY PRN bisacodyl (DULCOLAX) suppository 10 mg 10 mg rectal DAILY PRN buprenorphine-naloxone (SUBOXONE) 8-2 mg film 3 Film 3 Film sublingual DAILY cloNIDine HCl (CATAPRES) tablet 0.1 mg 0.1 mg oral BID PRN diphenhydrAMINE (BENADRYL) injection 25-50 mg 25-50 mg intravenous PRN doxycycline monohydrate (MONODOX) capsule 100 mg 100 mg oral BID enoxaparin (LOVENOX) injection 40 mg 40 mg subcutaneous QPM EPINEPHrine HCl (PF) (ADRENALIN PF) injection 0.3 mg 0.3 mg intramuscular PRN famotidine (PEPCID) injection 20 mg 20 mg intravenous PRN hydrocortisone sodium succinate (PF) (SOLU-CORTEF) injection 100 mg 100 mg intravenous PRN immune globulin (GAMUNEX-C) 10% IV 25 g intravenous DAILY nicotine (NICOTROL) 21 mg/24 hr patch 1 patch 1 patch transdermal DAILY ondansetron (ZOFRAN) injection 4 mg 4 mg intravenous Q12H PRN polyethylene glycol (MIRALAX) packet 34 g 34 g oral TID PRN predniSONE (DELTASONE) tablet 20 mg 20 mg oral DAILY pyridostigmine (MESTINON) tablet 60 mg 60 mg feeding tube Q8H senna-docusate (SENOKOT S) 8.6-50 mg 1 tablet 1 tablet feeding tube BID sodium chloride 0.9 % (NS) IV infusion 1,000 mL intravenous PRN PE: BP 140/86 | Pulse 64 | Temp 36.6 C (97.9 F) | RR 16 | Ht 1.702 m (5' 7.01") | Wt 73 kg (161 lb) | SpO2 98% | BMI 25.21 kg/(m^2) Admission Weight: Weight: 73 kg (161 lb) (01/16/18 0430) Constitutional: Cooperative and pleasant young man laying comfortably in bed in no acute di stress Neurological: Mental Status: Level of consciousness: Awake, alert Orientation: Oriented to person, place, time and situation Concentration/Attention Span: Normal Comprehension/Praxis: Able to perform a three step command. Language: Fluent and linear without evidence of aphasia. Mild slurred speech present. Compr ehension and repetition intact. Cranial Nerves: I: Not tested II: PERRL, VFF III, IV, : EOMI, no nystagmus, sustained upgaze V: Sensation intact and symmetric to light touch VII: Eye closure strength normal. Decreased strength in puffing of cheeks VIII: Intact to finger rub bilaterally IX: Palate elevates symmetrically X: Weak cough XI: Normal shrug bilaterally XII: Tongue midline. Weak bilaterally, cannot indent cheek bilaterally. No fasc iculations Motor: Normal tone in all groups. Patient continues to have weakness with arm raise. Delt Tri Bi WE DI HF KF KE APF ADF Left 3 4 5- 5 5 5 5 5 5 5 Right 3 4 5- 5 5 5 5 5 5 5 Neck flexion 4/5 Neck extension 5-/5 Sensation: Light touch: Intact and symmetric in the bilateral upper and lower extremiti es. Temp: Intact and symmetric in the bilateral upper and lower extremities. Pin prick: Intact and symmetric in the bilateral upper and lower extremities . Vibration: Intact and symmetric in the bilateral upper and lower extremities . Proprioception: Intact and symmetric in the bilateral upper and lower extrem ities. DTRs: Biceps Triceps Brachioradialis Knee Ankle Left 2+ 2+ 2+ 2+ 2+ Right 2+ 2+ 2+ 2+ 2+ Plantar response is flexors bilaterally Coordination: Fine finger movements are of normal speed and fluency. HEENT: non icteric, moist mucus membranes Cardiovascular: RRR Respiratory: clear to auscultation GI: non tender, nondistended, no masses Extremities: no edema, cyanosis, or clubbing Skin: skin abrasions and lesions covering arms and legs. Multiple tattoos. Labs: Recent Labs 01/13/18 0501/14/18 01201/15/18 0135 01/17/18 1128 NA 136 | 136 140 137 -- K 3.9 | 3.9 3.7 3.7 -- CL 101 | 101 107 105 -- BICARB 26 | 26 26 25 -- BUN 17 | 17 15 13 -- CR 0.60* | 0.60* 0.50* 0.50* -- GLU 93 | 93 99 95 85 CA 9.2 | 9.2 8.8 8.4* -- AST 47* -- -- -- ALT 132* -- -- -- AP 78 -- -- -- TBILI 0.8 -- -- -- TP 9.6* -- -- -- ALB 3.6 | 3.6 3.0* 2.7* -- Recent Labs 01/13/1854201/14/1811901/15/18 013 WBC 17.56* 12.43* 10.20 HB 16.2 13.1* 12.0* HCT 46.7 38.1* 35.0* PLT 376 282 265 ACh R binding ab: 0.1 ([facility]) MuSK antibody negative 0.0 Hepatitis A screen positive; IgM neg HBV S ag neg HBV core ab positive HBV surface ab positive HCV ab positive HCV pcr positive HCV QNT 21,265 IU/mL Pending: Botulinum toxin testing HIV pcr LRP-4 ab IMAGING: CTA abdomen and pelvis w IV contrast 01/17/2018 IMPRESSION - Normal appearance of thymus without evidence of thymoma No evidence of malignancy MRI brain o 01/09/2018 ([facility]): IMPRESSION - No acute intracranial abnormality identified. No suspicious enhancement or other evidence for mass or mass effect. 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 MRI cervical spine 01/09/2018 ([facility]): IMPRESSION- 1. No acute abnormality. 2. No contour or signal abnormality or abnormal enhancement of the cervical or upper thoracic spinal cord. 3. No significant disc protrusion.Minimal bulging disc annulus at several levels.No central canal stenosis or foraminal stenosis. 4. Normal bone marrow. CTA head and neck 01/09/2018 ([facility]): IMPRESSION 1.No evidence of intracranial disease. Intracranial and cervical arterial systems are w idely patent 2. Low lying cerebellar tonsils 3.Straightened cervical lordosis with left foraminal narrowing at C3-4 4.Dental caries PROCEDURES: EMG/NERVE CONDUCTION STUDY IMPRESSION - There is suggestive evidence for postsynaptic defect of neuromuscular transmission as can b e seen in MG. There is no evidence of presynaptic defect or GBS. Assessment: Mr. Pablo is a 27yo male who presented to [facility] on 01/12 with bulbar weakness, p roximal upper extremity weakness and shortness of breath concerning for myasthenia gravis. #Myasthenia Gravis #Bulbar weakness #Proximal UE weakness Myasthenia Gravis suspected. EMG showed postsynaptic defect suggestive of MG process. Argum ents against MG include improved weakness with muscle use and family history of LEMS. Howeve r, symptoms seem to be improving with IVIG and pyridostigmine which is consistent with MG. C T chest shows normal thymus with no evidence of thymoma which could have been a potential ca use of MG. However, A Randomized Trial of Thymectomy in Myasthenia Gravis (NEJ 2016) showed that thymectomy improved clinical outcomes over a 3 year period in patients with nonthymoma tous MG. Thymectomy should therefore be considered for this patient. Botulism is possible, however intact pupillary responses argue against this along with EMG results showing a posts ynaptic defect. Botulism toxin results are pending. IVIG course complete today 01/17 Continue pyridostigmine 60mg q4h Consulted neuromuscular, start prednisone 20mg, increase to 40mg on 01/19, gradually to 6 0mg to avoid MG exacerbation. Consult neurology fellow regarding thymectomy, as study results show potential benefit. Patient has received botulism antitoxin. #Left thigh abscess MRSA+ ID following, changed vancomycin and metronidazole treatment to only doxycycline 100mg B ID #Polysubstance abuse Continue suboxone 3 film sublingual once daily Clonidine 0.1mg BID PRN #Hx of unprovoked PE #Hx of superficial thrombophlebitis #Factor V Leiden carrier Per note from 10/2013, patient had an unprovoked pulmonary embolism at age 17. He was on the rapeutic anticoagulation for one year, but then decided to discontinue this on his own. He s ubsequently had an episode of superficial phlebitis during venipuncture. Patient is a sarah r for factor V Leiden. Although retirement anticoagulation is indicated, due to previous zoya ent self-discontinuation of anticoagulation, further follow-up does not appear to be indicat ed at this time. Patient can follow up with hematology in an outpatient setting. On lovenox for DVT prophylaxis as inpatient Follow up at hematology clinic as outpatient. #Hepatitis C Ab and pcr detected HCV QNT 21,265 IU/mL - ID has been notified. Will continue to follow-up. This patient has been seen and staffed with Dr. Herrmann, attending physician, who agrees with the above assessment and plan. DONNA NINO Medical Student [facility] [place] [facility] Pager: [phone] ealy, Gagan Khalil MD - 01/16/2018 11:10 AM PDT . Neuroscience Intensive Care Unit Attending Progress Note Attending Pager #[phone] Hospital admission dx: Data Unavailable 3 Days in ICU 4 Days in Hospital Abbreviated HPI / Daily Assessment 27 year old man with history of polysubstance abuse (IV heroin, cocaine, meth, tobacco) an d possible history of unprovoked PE many years ago, who presents to [facility] ER on 01/12/18 by pr ivate vehicle (mom) for second opinion regarding sudden onset rapidly progressive bulbar wea kness, shortness of breath, and proximal arm weakness which began 1 week prior to arrival. Felix ponce initially presented to [facility] for evaluation and was admitted from 01/08 to 01/10 but h e left AMA 01/10. During that admission he had a CTA and a MRI brain and c-spine. Pt reports that multiple family members living in the same home on the [facility] have been diagnosed with myasthenia and lambert eaton over the last year. All family members are IVDU. Pt's grandmother, 56 yo, was diagnosed in 01/2017. Pt denies michelle. Galdino cribes a transient episode of upper extremity weakness approximately a year ago. Pt also has a poorly healing wound on his L thigh and new area of fluctuance on his R thigh. Patient had ongoing and progressive symptoms so his mom drove him to [facility]. In the ED, patie nt was mildly tachycardic to the low 100s with labile blood pressures ranging from the low 1 00s to the 130s. No labs were able to be obtained given poor access given his significant dr sanchez use. NIF was (-) 30 which was reportedly decreased from [facility] where is was less than (-) 35. Patient was seen by Neurology with recommendation for NSICU admission for close monitor ing of his respiratory status and further work-up of his symptoms. Medical Decision Making 27 yo M presenting with progressive worsening bulbar weakness, etiology unclear: myastheni a v concern for botulism infection (reported history of cohabitants suffering from similar). Diagnostic workup is still in process, CSF and serum assays are pending, EMG to be complete d this morning. Will get CT chest and abdomen to screen for thymoma contributing to MG or po ssible malignancy that would make lambert-eaton myasthenia more likely. Neurology follows, d eferring steroids for now. Overall his strength has improved substantially, NIFs are maxed a nd FVCs have steadily increased to 40%+ of predicted (1.91 liters). We are concurrently adrian ating for myasthenic-type process with mestinon and IVIg, he also received botulinum antitox in for concern for wound botulism associated with subcutaneous/intramuscular injection of he roin and possible right hip abscess. We are continuing to monitor him closely given risk for progressive respiratory insufficiency requiring intubation. I think that this risk is subst antially lower at this point, will discuss transfer with Neurology team. ID follows for poss ible infectious etiology related to soft-tissue abscesses, MRSA grown out of culture. Contin ue vanc and metronidazole (for possible botulism) for now. For anxiety and history of IVDU/o pioid dependence on suboxone maintenance, we are continuing his suboxone. For anxiety, restl essness and agitation related to recent suboxone induction and nature of his disease we are continuing clonidine with additional PRN doses. Dysphagia: SOIL CHECKER follows and approved for soft diet. We will stop TFs and allow him to eat, keep DHT until he proves intake. SCDs and enox aparin for DVT PPX. [facility] team has been consulted will see him today. Constitutional: He appears well-developed and well-nourished Cardiovascular: normal rate and regular rhythm Pulmonary: effort normal. vitals and nursing note reviewed. Physical exam His GCS eye subscore is 4 (Eyes open spontaneously). GCS verbal subscore is 5 (Fully orient ed verbal response). GCS motor subscore is 6 (Obeys commands). GCS Score is 15. Hospital Problems Priority POA Nervous * (Principal)Bulbar palsy (HCC) Yes Respiratory/Chest Respiratory distress Yes Digestive Dysphagia Yes Infectious Disease Botulism, wound Yes Other Dysarthria Yes Abscess Yes Polysubstance abuse Yes Tobacco abuse Yes Weakness At risk for electrolyte imbalance Yes NSICU treatment team members Provider Role Specialty Ipt Critical Care Nsicu #[id number] Treatment Team Ipt Neuro Non Stroke #[id number] Treatment Team Neurology Code Status Code Status Full Code Quality section CVC necessity reviewed: Poor peripheral IV access I have spent a total of 41 minutes in the direct care and management of this patient indepe ndent of any time spent teaching or performing any separately billable procedures. I reviewe d the documented findings, all data and the recent imaging available. I saw and evaluated t he patient at the bedside together with Dr. Jessy Alberto.Please see their note for details . I agree with the assessment and plan as described in the resident's note with the followin g exceptions/additions as noted. Date of Service: 01/16/2018 [facility] DEPARTMENT: ANE ICU NEURO Place of Service:- Inpatient CSN: [id number] Suggested Modifier: GC - Resident Involved Suggested CPT: TO TRAVELING SECRETARY Author:GAGAN BROOKS MD [address] [place] [id number] signed by Gagan Brooks MD at 01/16/2018 11:12 AM Jessy Payne MD - 01/16/2018 7:22 AM PDT . Neuroscience Intensive Care Unit Team Progress Note NSICU ASSIGNED #[id number] Admission dx: Data Unavailable 3 Days in ICU 4 Days in Hospital Abbreviated HPI / Daily Assessment 27 year old man with history of polysubstance abuse (IV heroin, cocaine, meth, tobacco) an d possible history of unprovoked PE many years ago, who presents to [facility] ER on 01/12/18 by pr ivate vehicle (mom) for second opinion regarding sudden onset rapidly progressive bulbar wea kness, shortness of breath, and proximal arm weakness which began 1 week prior to arrival. Felix ponce initially presented to [facility] for evaluation and was admitted from 01/08 to 01/10 but h e left AMA 01/10. During that admission he had a CTA and a MRI brain and c-spine. Pt reports that multiple family members living in the same home on the [facility] have been diagnosed with myasthenia and lambert eaton over the last year. All family members are IVDU. Pt's grandmother, 56 yo, was diagnosed in 01/2017. Pt denies michelle. Galdino cribes a transient episode of upper extremity weakness approximately a year ago. Pt also has a poorly healing wound on his L thigh and new area of fluctuance on his R thigh. Patient had ongoing and progressive symptoms so his mom drove him to [facility]. In the ED, patie nt was mildly tachycardic to the low 100s with labile blood pressures ranging from the low 1 00s to the 130s. No labs were able to be obtained given poor access given his significant dr ug use. NIF was (-) 30 which was reportedly decreased from [facility] where is was less than (-) 35. Patient was seen by Neurology with recommendation for NSICU admission for close monitor ing of his respiratory status and further work-up of his symptoms. 24 Hour events -Off precedex overnight, no withdrawal symptoms -Strength improving -No acute events, IVIG day 3 -1+ MRSA in wound culture, switched to Vancomycin overnight, flagyl discontinued Active Diagnosis with Assessment & Plan Priority Class POA Nervous * (Principal)Bulbar palsy (HCC) Yes Current Assessment & Plan - see plan in weakness Respiratory/Chest Respiratory distress Yes Current Assessment & Plan Progressive increased difficulty breathing. Comfortable at rest, saturating appropriately . - Q4H NIFs and FVCs - if down trending and concerning clinical picture, patient has agreed to elective intubation Digestive Dysphagia Yes Current Assessment & Plan Increased difficulty swallowing. Failed bedside and SOIL CHECKER evaluation. Plan for further rafat um swallow eval on 01/15 - appreciate SOIL CHECKER following - DHT placed due to swallow failure - TF at goal Infectious Disease Botulism, wound Yes Current Assessment & Plan On differential, s/p dose of botulism antitoxin. -Originally on Flagyl for open wound, now on Vancomycin 01/16 (day 2) -f/u ID consult -EMG per above -supportive care per above Other Dysarthria Yes Current Assessment & Plan See dysphagia plan Abscess Yes Current Assessment & Plan WBC decreased to 10. R hip induration and without clear pocket for drainage on soft tissu e ultrasound. Open wound on L thigh without purulent drainage. CT lower extremities does not show any deep abcess. Wound cultures with 1+ MRSA. Blood cultures negative. -Vancomycin started 01/15 evening, originally on flagyl for botulism concern -Appreciate ID assistance -Wound care recs: Cleanse gently with normal saline. Pat dry. Apply cavilon skin barrier to periwound skin. Cut Aquacel AG to just larger than wound and place onto wound bed. Cover wi th an allevyn 4 x 4 dressing. Change M-W-F. Polysubstance abuse Yes Current Assessment & Plan History of methamphetamine, heroin, cocaine use. Last heroin use 01/12 - usual dose 1.5 g. Had been prescribed suboxone and took first dose 3x 8mg sublingual morning of 01/12. Mild wi thdrawal symptoms. - Now off Precedex, no withdrawal symptoms. Cover withdrawal symptoms with clonidine 0.1mg TID - Continue suboxone treatment - IMPACT consult pending Tobacco abuse Yes Current Assessment & Plan Active tobacco use. Consider nicotine patch PRN. Weakness Current Assessment & Plan Descending paralysis with notable ptosis, dysarthria/dysphagia, proximal arm weakness, mi ld ophthalmoplegia. Multiple family members with similar sxs concerning for environmental vs genetic component, grandmother diagnosed with LEMS, cousin dx'd with MG though work up uncl ear. Typical presentation for MG aside from demographic as males are more likely to present later in life. Botulism strongly considered as well given active skin popping and multiple s oft tissue abscesses on exam. Family history raises concern for genetic condition, such as o culopharyngeal muscular dystrophy, though acute presentation would be atypical (pt does desc ribe history of shoulder weakness in the past). - f/u [facility] medical records - LP, MRI brain, MRI C-spine - neurology primary, appreciate recs - Continue mestinon - obtain anti-AChR, MuSK Antibodies, LEMS abs - heavy metals panel - HIV PCR pending/HCV/Hep B - IVIG 2g/kg over 5 days (day #4) - f/u Blood cultures - r/o thymoma, obtain CT C/A/P per Neurology team recs - received single dose botulism antitoxin 01/13/18 - neurology to arrange for inpatient EMG with rep stim on 01/16 At risk for electrolyte imbalance Yes Current Assessment & Plan ICU electrolyte protocol -repleted phos and K Code Status Code Status Full Code HENT: Head:normocephalic Neck: normal range of motion Pulmonary: effort normal and breath sounds normal. Abdominal: Abdomen is soft. Physical exam Comments Constitutional: He appears well-developed and well-nourished HENT: Head:normocephalic Neck: normal range of motion neck supple Cardiovascular: normal rate Pulmonary: effort normal. Abdominal: Abdomen is soft. Musculoskeletal: normal range of motion. Skin: Skin is warm and dry. vitals and nursing note reviewed. Physical exam His GCS eye subscore is 4 (Eyes open spontaneously). GCS verbal subscore is 5 (Fully orient ed verbal response). GCS motor subscore is 6 (Obeys commands). GCS Score is 15. He is alert He is oriented. Comments Moderate cheek puff bilaterally Neck flexion 3/5 Neck extension 4-/5 Fatigable upgaze.. NSICU treatment team members Provider Role Specialty Ipt Critical Care Nsicu #[id number] Treatment Team Ipt Neuro Non Stroke #[id number] Treatment Team Neurology Patient Lines/Drains/Airways Status Active Lines, Drains and Airways Name: Placement date: Placement time: Site: Days: PICC - Double Lumen Non-tunneled;Valved Right Arm Basilic 5 Fr 1:Red 2:Purple 01/13/18 1 115 Basilic 2 Wound Left Lateral leg Abscess 01/13/18 1200 leg 2 Feeding Tube Small-bore feeding tube Left Nare 01/14/18 1345 Left Nare 1 Quality section CVC necessity reviewed: Poor peripheral IV access, Medication requires central access and L callie term IV medication FAST HUG Feeding: Tube Feeds: PO diet Analgesia: Tylenol scheduled Sedation: n/a Thromboprophylaxis: Lovenox Head of Bed: Head of Bed Ad myles Ulcer Prophylaxis: Famotidine Glycemic Control: not indicated Created by MD Jessy MANCUSO MD Author:JESSY ALBERTO MD [address] [place] [id number] signed by Jsesy Alberto MD at 01/16/2018 2:01 PM PDTLuke Krishnamurthy MD - 01/15/2018 1:09 PM PDTFormatting of this note might be different f rom the original. . Neuroscience Intensive Care Unit Team Progress Note NSICU ASSIGNED #[id number] Admission dx: Data Unavailable 2 Days in ICU 3 Days in Hospital Abbreviated HPI / Daily Assessment 27 year old man with history of polysubstance abuse (IV heroin, cocaine, meth, tobacco) an d possible history of unprovoked PE many years ago, who presents to [facility] ER on 01/12/18 by pr ivate vehicle (mom) for second opinion regarding sudden onset rapidly progressive bulbar wea kness, shortness of breath, and proximal arm weakness which began 1 week prior to arrival. Felix ponce initially presented to [facility] for evaluation and was admitted from 01/08 to 01/10 but h e left AMA 01/10. During that admission he had a CTA and a MRI brain and c-spine. Pt reports that multiple family members living in the same home on the [facility] have been diagnosed with myasthenia and lambert eaton over the last year. All family members are IVDU. Pt's grandmother, 56 yo, was diagnosed in 01/2017. Pt denies michelle. Galdino cribes a transient episode of upper extremity weakness approximately a year ago. Pt also has a poorly healing wound on his L thigh and new area of fluctuance on his R thigh. Patient had ongoing and progressive symptoms so his mom drove him to [facility]. In the ED, shahzad nt was mildly tachycardic to the low 100s with labile blood pressures ranging from the low 1 00s to the 130s. No labs were able to be obtained given poor access given his significant dr ug use. NIF was (-) 30 which was reportedly decreased from [facility] where is was less than (-) 35. Patient was seen by Neurology with recommendation for NSICU admission for close monitor ing of his respiratory status and further work-up of his symptoms. 24 Hour events Improved strength this AM. Active Diagnosis with Assessment & Plan Priority Class POA Nervous * (Principal)Bulbar palsy (HCC) Yes Current Assessment & Plan - see plan in weakness Respiratory/Chest Respiratory distress Yes Current Assessment & Plan Progressive increased difficulty breathing. Comfortable at rest, saturating appropriately . - Q4H NIFs and FVCs - if down trending and concerning clinical picture, patient has agreed to elective intubation Digestive Dysphagia Yes Current Assessment & Plan Increased difficulty swallowing. Failed bedside and SOIL CHECKER evaluation. Plan for further rafat um swallow eval on 01/15 - appreciate SOIL CHECKER following - DHT placed due to swallow failure - TF at goal Infectious Disease Botulism, wound Yes Current Assessment & Plan On differential, s/p dose of botulism antitoxin. -On empiric flagyl for open wound -f/u ID consult -EMG per above -supportive care per above Other Dysarthria Yes Current Assessment & Plan See dysphagia plan Abscess Yes Current Assessment & Plan WBC decreased to 10. R hip induration and without clear pocket for drainage on soft tissu e ultrasound. Open wound on L thigh without purulent drainage. CT lower extremities does not show any deep abcess. Wound cultures with GPC (initially listed GPR on prelim). -On flagyl for empiric anaerobic coverage (pencillin allergy) -Appreciate ID assistance Polysubstance abuse Yes Current Assessment & Plan History of methamphetamine, heroin, cocaine use. Last heroin use 01/12 - usual dose 1.5 g. Had been prescribed suboxone and took first dose 3x 8mg sublingual morning of 01/12. Mild wi thdrawal symptoms. - On Precedex at low dose (0.2) and will wean as possible. Cover withdrawal symptoms with c lonidine 0.1mg prn - Continue suboxone treatment - [facility] consult Tobacco abuse Yes Current Assessment & Plan Active tobacco use. Consider nicotine patch PRN. Weakness Current Assessment & Plan Descending paralysis with notable ptosis, dysarthria/dysphagia, proximal arm weakness, mi ld ophthalmoplegia. Multiple family members with similar sxs concerning for environmental vs genetic component, grandmother diagnosed with LEMS, cousin dx'd with MG though work up uncl ear. Typical presentation for MG aside from demographic as males are more likely to present later in life. Botulism strongly considered as well given active skin popping and multiple s oft tissue abscesses on exam. Family history raises concern for genetic condition, such as o culopharyngeal muscular dystrophy, though acute presentation would be atypical (pt does desc ribe history of shoulder weakness in the past). - f/u [facility] medical records - LP, MRI brain, MRI C-spine - neurology primary, appreciate recs - Restarted mestinon - obtain anti-AChR, MuSK Antibodies, LEMS abs - heavy metals panel - IVIG 2g/kg over 5 days (day #3) - f/u Blood cultures - r/o thymoma, obtain CT C/A/P per Neurology team recs - received single dose botulism antitoxin 01/13/18 - neurology to arrange for inpatient EMG with rep stim on 01/16 At risk for electrolyte imbalance Yes Current Assessment & Plan ICU electrolyte protocol -repleted phos and K Code Status Code Status Full Code Constitutional: He appears well-developed and well-nourished HENT: Head:normocephalic Neck: normal range of motion neck supple Cardiovascular: normal rate Pulmonary: effort normal. Abdominal: Abdomen is soft. Musculoskeletal: normal range of motion. Skin: Skin is warm and dry. vitals and nursing note reviewed. Physical exam His GCS eye subscore is 4 (Eyes open spontaneously). GCS verbal subscore is 5 (Fully orient ed verbal response). GCS motor subscore is 6 (Obeys commands). GCS Score is 15. He is alert He is oriented. Comments Moderate cheek puff bilaterally Neck flexion 3/5 Neck extension 4-/5 Fatigable upgaze. NSICU treatment team members Provider Role Specialty Ipt Critical Care Nsicu #[id number] Treatment Team Ipt Neuro Non Stroke #[id number] Treatment Team Neurology Patient Lines/Drains/Airways Status Active Lines, Drains and Airways Name: Placement date: Placement time: Site: Days: PICC - Double Lumen Non-tunneled;Valved Right Arm Basilic 5 Fr 1:Red 2:Purple 01/13/18 1 115 Basilic 2 Wound Left Lateral leg Abscess 01/13/18 1200 leg 2 Feeding Tube Small-bore feeding tube Left Nare 01/14/18 1345 Left Nare less than 1 Quality section CVC necessity reviewed: Medication requires central access FAST HUG Feeding: Tube Feeds: Replete @ 50 mL/hr Analgesia: adequate Sedation: none Thromboprophylaxis: SCDs, Lovenox Head of Bed: Head of Bed Ad myles Ulcer Prophylaxis: not indicated Glycemic Control: not indicated Created by MD Luke GUAMAN MD Author:LUKE KRISHNAMURTHY MD [address] [id number] signed by Gagan Brooks MD at 01/15/2018 2:59 PM PDTKim, Gagan Khalil MD - 01/15/2018 11:05 AM PDT . Neuroscience Intensive Care Unit Attending Progress Note Attending Pager #[phone] Hospital admission dx: Data Unavailable 2 Days in ICU 3 Days in Hospital Abbreviated HPI / Daily Assessment 27 year old man with history of polysubstance abuse (IV heroin, cocaine, meth, tobacco) an d possible history of unprovoked PE many years ago, who presents to [facility] ER on 01/12/18 by pr ivate vehicle (mom) for second opinion regarding sudden onset rapidly progressive bulbar wea kness, shortness of breath, and proximal arm weakness which began 1 week prior to arrival. Felix ponce initially presented to [facility] for evaluation and was admitted from 01/08 to 01/10 but h e left AMA 01/10. During that admission he had a CTA and a MRI brain and c-spine. Pt reports that multiple family members living in the same home on the [facility] have been diagnosed with myasthenia and lambert eaton over the last year. All family members are IVDU. Pt's grandmother, 56 yo, was diagnosed in 01/2017. Pt denies michelle. Galdino cribes a transient episode of upper extremity weakness approximately a year ago. Pt also has a poorly healing wound on his L thigh and new area of fluctuance on his R thigh. Patient had ongoing and progressive symptoms so his mom drove him to [facility]. In the ED, shahzad martines was mildly tachycardic to the low 100s with labile blood pressures ranging from the low 1 00s to the 130s. No labs were able to be obtained given poor access given his significant dr ug use. NIF was (-) 30 which was reportedly decreased from [facility] where is was less than (-) 35. Patient was seen by Neurology with recommendation for NSICU admission for close monitor ing of his respiratory status and further work-up of his symptoms. Medical Decision Making 27 yo M presenting with progressive worsening bulbar weakness, etiology unclear: myastheni a v concern for botulism infection (reported history of cohabitants suffering from similar). Diagnostic workup is still in process, CSF and serum assays are pending, EMG to be complete d tomorrow. Neurology follows, deferring steroids for now. Will get CT chest and abdomen to screen for thymoma contributing to MG or possible malignancy that would make lambert-eaton m yasthenia more likely. We are concurrently treating for myasthenic-type process with mestino n and IVIg, he also received botulinum antitoxin for concern for wound botulism associated w ith subcutaneous/intramuscular injection of heroin and possible right hip abscess. His NIFs and FVC have been stable (though FVCs are depressed in the 30 - 35% of predicted range), bul bar strength seems gradually improved. We are continuing to monitor him closely given risk f or progressive respiratory insufficiency requiring intubation. ID follows for possible infec tious etiology related to soft-tissue abscesses, Staph aureus growing from wound culture, se nsitivities pending. Continue vanc and metronidazole for now. CT wwo of his hip does not dem onstrate a focus for additional aspiration or debridement. EGS follows for these wounds. For anxiety and history of IVDU/opioid dependence on suboxone maintenance, we are continuing hi s suboxone. For anxiety, restlessness and agitation, he has been requiring dexmedetomidine i nfusion which we will attempt to stop today, planning to replace with clonidine if needed. H e denies symptoms of opiate withdrawal at this time. Dysphagia: continue TFs via DHT. SCDs a nd enoxaparin for DVT PPX. [facility] team has been consulted and hopefully will be able to see him today. Constitutional: He appears well-developed and well-nourished Cardiovascular: normal rate and regular rhythm Pulmonary: effort normal. vitals and nursing note reviewed. Physical exam His GCS eye subscore is 3 (Eyes open to speech). GCS verbal subscore is 5 (Fully oriented v erbal response). GCS motor subscore is 6 (Obeys commands). GCS Score is 14. Hospital Problems Priority POA Nervous * (Principal)Bulbar palsy (HCC) Yes Respiratory/Chest Respiratory distress Yes Digestive Dysphagia Yes Infectious Disease Botulism, wound Yes Other Dysarthria Yes Abscess Yes Polysubstance abuse Yes Tobacco abuse Yes Weakness At risk for electrolyte imbalance Yes NSICU treatment team members Provider Role Specialty Ipt Critical Care Nsicu #[id number] Treatment Team Ipt Neuro Non Stroke #[id number] Treatment Team Neurology Code Status Code Status Full Code Quality section CVC necessity reviewed: Poor peripheral IV access I have spent a total of 42 minutes in the direct care and management of this patient indepe ndent of any time spent teaching or performing any separately billable procedures. I reviewe d the documented findings, all data and the recent imaging available. I saw and evaluated t he patient at the bedside together with Dr. Luke Krishnamurthy.Please see their note for details. I agree with the assessment and plan as described in the resident's note with the following e xceptions/additions as noted. Date of Service: 01/15/2018 [facility] DEPARTMENT: ANE ICU NEURO Place of Service:- Inpatient CSN: [id number] Suggested Modifier: GC - Resident Involved Suggested CPT: TO TRAVELING SECRETARY Author:GAGAN BROOKS MD [address] [phone] signed by Gagan Brooks MD at 01/15/2018 4:39 PM Gagan Dominique RCP - 01/15/2018 6:00 AM PDTWith trending trials of NIF/FVC unsure i f it is just poor effort or if during therapy pt is progressively getting weaker. Pts NIF ayoub s been great, both trials during my shift were with great effort. During FVC trials pt was m ore awake during my first round and not in any distress. My early childhood aide classroom second round with attempting the FVC pt was not widely awake and during therapy pt did have some coughing spel ls along with SOB. Pt needed sxt in which he was able to sxt himself via the yaunker. So I w as unable to distinguish and accomplish great therapy and effort. Hector Roberts MD - 01/14/2018 10:46 PM PDTF ormatting of this note might be different from the original. . Neuroscience Intensive Care Unit Attending Progress Note Attending Pager #[phone] Hospital admission dx: Data Unavailable 1 Days in ICU 2 Days in Hospital Abbreviated HPI / Daily Assessment 27 year old man with history of polysubstance abuse (IV heroin, cocaine, meth, tobacco) an d possible history of unprovoked PE many years ago, who presents to [facility] ER on 01/12/18 by pr ivate vehicle (mom) for second opinion regarding sudden onset rapidly progressive bulbar wea kness, shortness of breath, and proximal arm weakness which began 1 week prior to arrival. Felix ponce initially presented to [facility] for evaluation and was admitted from 01/08 to 01/10 but h gabriella left AMA 01/10. During that admission he had a CTA and a MRI brain and c-spine. Pt reports that multiple family members living in the same home on the [facility] have been diagnosed with myasthenia and lambert eaton over the last year. All family members are IVDU. Pt's grandmother, 56 yo, was diagnosed in 01/2017. Pt denies michelle. Galdino cribes a transient episode of upper extremity weakness approximately a year ago. Pt also has a poorly healing wound on his L thigh and new area of fluctuance on his R thigh. Patient had ongoing and progressive symptoms so his mom drove him to [facility]. In the ED, shahzad martines was mildly tachycardic to the low 100s with labile blood pressures ranging from the low 1 00s to the 130s. No labs were able to be obtained given poor access given his significant dr ug use. NIF was (-) 30 which was reportedly decreased from [facility] where is was less than (-) 35. Patient was seen by Neurology with recommendation for NSICU admission for close monitor ing of his respiratory status and further work-up of his symptoms. Medical Decision Making Received botulinum antitoxin last night for concern for wound botulism associated with sub cutaneous/intramuscular injection of heroin and possible right hip abscess. Neurologic exam: significant bulbar weakness, dysarthria, dysphagia. This evening has improved strength of neck flexors, proximal UE muscles and tongue. Monito ring NIF and VC; remains at risk of respiratory insufficiency due to neuromuscular weakness and need for intubation. . We are continuing to treat for possible myasthenia gravis and crisis concurrently, giving IVIG and mestinon, as diagnosis remains unclear. The strong family history of neuromuscular weakness suggests an infectious source such as botulism. Blood was sent to [facility] for testing. No clear abscess fluid on US of R hip lesion, so have not been able to obtain wound material for cultures. Thigh wound growing Staph aureus today. ID consulted; requests CT of leg. Continue flagyl and vanc. Neuromuscular antibody panel was sent to [place], results are pending. Will obtain EMG with r epetitive stimulation on Monday, which will help with diagnosis. Waiting another day for johnnie roid Rx, in view of concern for exacerbation of weakness and risk of needing intubation. ID consulted for abx treatment for potential botulism. Cultures from the superficial thigh wound are non-conclusive, and would not be the source of an anaerobic infection in any case. Blood cultures are pending. Leukocytosis is improving, which is reassuring. Mr. Pablo was q uite anxious and agitated overnight, removing his DHT and refusing replacement. He required dexmedetomidine for safety. This morning, he is tired and cooperative. Denies symptoms of op iate withdrawal. Didn't need dexmedetomidine this morning. He agreed to DHT placement. Co ntinuing suboxone therapy. [facility] team has been consulted and hopefully will be able to see him on Monday. Code Status Updated to: FULL Hospital Problems Priority POA Nervous * (Principal)Bulbar palsy (HCC) Yes Respiratory/Chest Respiratory distress Unknown Digestive Dysphagia Infectious Disease Botulism, wound Yes Other Dysarthria Unknown Abscess Polysubstance abuse Unknown Tobacco abuse Unknown Weakness At risk for electrolyte imbalance Unknown NSICU treatment team members Provider Role Specialty Ipt Critical Care Nsicu #[id number] Treatment Team Ipt Neuro Non Stroke #[id number] Treatment Team Neurology Code Status Code Status Full Code This patient does not have an Advanced Care Note for this Admission. Please use the Goal of care section of your ICU navigator to document the advanced care discussion. Quality section CVC necessity reviewed: Poor peripheral IV access I have spent a total of 36 minutes in the direct care and management of this patient indepe ndent of any time spent teaching or performing any separately billable procedures. I reviewe d the documented findings, all data and the recent imaging available. Date of Service: 01/14/2018 Author:HECTOR PAIZ MD [address] [place] [id number] signed by Hector Paiz MD at 01/14/2018 10:46 PM PD Eduar Conner MD - 01/14/2018 1:04 PM PDT . Neuroscience Intensive Care Unit Team Progress Note NSICU ASSIGNED #[id number] Admission dx: Data Unavailable 1 Days in ICU 2 Days in Hospital Abbreviated HPI / Daily Assessment 27 year old man with history of polysubstance abuse (IV heroin, cocaine, meth, tobacco) an d possible history of unprovoked PE many years ago, who presents to [facility] ER on 01/12/18 by pr ivate vehicle (mom) for second opinion regarding sudden onset rapidly progressive bulbar wea kness, shortness of breath, and proximal arm weakness which began 1 week prior to arrival. Felix ponce initially presented to [facility] for evaluation and was admitted from 01/08 to 01/10 but h e left AMA 01/10. During that admission he had a CTA and a MRI brain and c-spine. Pt reports that multiple family members living in the same home on the [facility] have been diagnosed with myasthenia and lambert eaton over the last year. All family members are IVDU. Pt's grandmother, 56 yo, was diagnosed in 01/2017. Pt denies michelle. Galdino cribes a transient episode of upper extremity weakness approximately a year ago. Pt also has a poorly healing wound on his L thigh and new area of fluctuance on his R thigh. Patient had ongoing and progressive symptoms so his mom drove him to [facility]. In the ED, shahzad martines was mildly tachycardic to the low 100s with labile blood pressures ranging from the low 1 00s to the 130s. No labs were able to be obtained given poor access given his significant dr sanchez use. NIF was (-) 30 which was reportedly decreased from [facility] where is was less than (-) 35. Patient was seen by Neurology with recommendation for NSICU admission for close monitor ing of his respiratory status and further work-up of his symptoms. 24 Hour events Received botulism antitoxin yesterday. Became agitated overnight, requesting additional pain meds and Ativan by name, pulled out DHT and refused replacement. Started on precedex gtt and has since done better from behavioral perspective. Otherwise unchanged subjectively. Active Diagnosis with Assessment & Plan Priority Class POA Nervous * (Principal)Bulbar palsy (HCC) Yes Current Assessment & Plan - see plan in weakness Respiratory/Chest Respiratory distress Unknown Current Assessment & Plan Progressive increased difficulty breathing. Comfortable at rest, saturating appropriately . - Q4H NIFs and FVCs - if down trending and concerning clinical picture, patient has agreed to elective intubation Digestive Dysphagia Current Assessment & Plan Increased difficulty swallowing. Failed bedside and SOIL CHECKER evaluation. Plan for further rafat um swallow eval on 01/15 - appreciate SOIL CHECKER following - barium swallow on 01/15 - attempt to replace DHT if pt is amenable - TF, nutrition consult Infectious Disease Botulism, wound Yes Current Assessment & Plan Suspected, s/p dose of botulism antitoxin. -started empiric flagyl for open wound -ID consult -EMG per above -supportive care per above Other Dysarthria Unknown Current Assessment & Plan See dysphagia plan Abscess Current Assessment & Plan WBC 17.56 but afebrile. R hip induration and without clear pocket for drainage on soft ti ssue ultrasound. Open wound on L thigh without purulent drainage. Concerning site of potenti al clostridium botulinum infection accounting for presenting sxs. Wound cultures with GPC (i nitially listed GPR on prelim). -started flagyl for empiric anaerobic coverage (pencillin allergy) -ID consult to further guide necessity of abx Polysubstance abuse Unknown Current Assessment & Plan History of methamphetamine, heroin, cocaine use. Last heroin use 01/12 - usual dose 1.5 g. Had been prescribed suboxone and took first dose 3x 8mg sublingual morning of 01/12. Mild wi thdrawal symptoms. - wean precedex as tolerated - Continue suboxone treatment - [facility] consult Tobacco abuse Unknown Current Assessment & Plan Active tobacco use. Consider nicotine patch PRN. Weakness Current Assessment & Plan Descending paralysis with notable ptosis, dysarthria/dysphagia, proximal arm weakness, mi ld ophthalmoplegia. Multiple family members with similar sxs concerning for environmental vs genetic component, grandmother diagnosed with LEMS, cousin dx'd with MG though work up uncl ear. Typical presentation for MG aside from demographic as males are more likely to present later in life. Botulism strongly considered as well given active skin popping and multiple s oft tissue abscesses on exam. Family history raises concern for genetic condition, such as o culopharyngeal muscular dystrophy, though acute presentation would be atypical (pt does desc ribe history of shoulder weakness in the past). - f/u [facility] medical records - LP, MRI brain, MRI C-spine - neurology primary, appreciate recs - consider restarting mestinon once DHT replaced and if pt can tolerate his secretions - obtain anti-AChR, MuSK Antibodies, LEMS abs - heavy metals panel - IVIG 2g/kg over 4 days (day #2) - f/u Blood cultures - r/o thymoma, consider CT if not obtained at OSH - received single dose botulism antitoxin 01/13/18 - neurology to arrange for possible inpatient EMG with rep stim on 01/15 At risk for electrolyte imbalance Unknown Current Assessment & Plan ICU electrolyte protocol Code Status Code Status Full Code Constitutional: He appears well-developed and well-nourished HENT: Head:normocephalic and atraumatic Neck: Weakness with flexion, o/w supple Cardiovascular: normal rate and regular rhythm Pulmonary: effort normal and breath sounds normal. Abdominal: Abdomen is soft. Skin: Innumerable small pinpoint areas of erythema and scabbing suggestive of skin popping on the limbs and torso, there is a 3cm ovoid open wound on the left lateral thigh without dr berkowitz with two small open tracts. There is an 8cm area of erythema with induration over the right hip/gluteus Physical exam NEURO: MS: awake, drowsy, AO x person, place, time. Follows commands. Mildly dysphoric. CN: PERRL, VF intact, mildly limited upgaze, facial diplegia with mild ptosis, symmetric, t ongue is weak when pushed into the cheek, mildly dysphonic Motor: reduced tone throughout, neck flexion is 2/5, delts 2/5, biceps 4/5, proximal legs 4 /5 NSICU treatment team members Provider Role Specialty Ipt Critical Care Nsicu #[id number] Treatment Team Ipt Neuro Non Stroke #[id number] Treatment Team Neurology Patient Lines/Drains/Airways Status Active Lines, Drains and Airways Name: Placement date: Placement time: Site: Days: PICC - Double Lumen Non-tunneled;Valved Right Arm Basilic 5 Fr 1:Red 2:Purple 01/13/18 1 115 Basilic 1 Wound Left Lateral leg Abscess 01/13/18 1200 leg 1 Quality section CVC necessity reviewed: Poor peripheral IV access and USP IV medication FAST HUG Feeding: NPO Analgesia: suboxone Sedation: precedex Thromboprophylaxis: Lovenox Head of Bed: Head of Bed >30 degrees Ulcer Prophylaxis: not clinically indicated Glycemic Control: not indicated Created by Eduar Lawton MD Author:Eduar Lawton MD [address] [id number] signed by Eduar Lawton MD at 01/14/2018 1:41 P M Kimberly Wilkerson MD - 01/14/2018 10:36 AM PDT . Neuroscience Intensive Care Unit Attending Progress Note Attending Pager #[phone] Hospital admission dx: Data Unavailable 1 Days in ICU 2 Days in Hospital Abbreviated HPI / Daily Assessment 27 year old man with history of polysubstance abuse (IV heroin, cocaine, meth, tobacco) an d possible history of unprovoked PE many years ago, who presents to [facility] ER on 01/12/18 by pr ivate vehicle (mom) for second opinion regarding sudden onset rapidly progressive bulbar wea kness, shortness of breath, and proximal arm weakness which began 1 week prior to arrival. Felix ponce initially presented to [facility] for evaluation and was admitted from 01/08 to 01/10 but h e left AMA 01/10. During that admission he had a CTA and a MRI brain and c-spine. Pt reports that multiple family members living in the same home on the [facility] have been diagnosed with myasthenia and lambert eaton over the last year. All family members are IVDU. Pt's grandmother, 56 yo, was diagnosed in 01/2017. Pt denies michelle. Galdino cribes a transient episode of upper extremity weakness approximately a year ago. Pt also has a poorly healing wound on his L thigh and new area of fluctuance on his R thigh. Patient had ongoing and progressive symptoms so his mom drove him to [facility]. In the ED, shahzad nt was mildly tachycardic to the low 100s with labile blood pressures ranging from the low 1 00s to the 130s. No labs were able to be obtained given poor access given his significant dr laura use. NIF was (-) 30 which was reportedly decreased from [facility] where is was less than (-) 35. Patient was seen by Neurology with recommendation for NSICU admission for close monitor ing of his respiratory status and further work-up of his symptoms. Medical Decision Making Received botulinum antitoxin last night for concern for wound botulism associated with sub cutaneous/intramuscular injection of heroin and possible right hip abscess. Neurologic exam is unchanged, still with significant bulbar weakness, dysarthria, dysphagia. breathes easily , pulmonary function has remained stable, no indication or intubation currently. We are cont inuing to treat for possible myasthenia gravis and crisis concurrently, giving IVIG and mest inon, as diagnosis remains unclear. Blood was [facility] to [facility] for testing. N o clear abscess fluid on US of R hip lesion, so have not been able to obtain wound material for cultures. Neuromuscular antibody panel was sent to [place], results are pending. Will obtai n EMG on Monday, which will help with diagnosis. Holding off on prednisone today, would star t tomorrow, as I am concerned about worsening respiratory function. Have also asked ID team to weigh in on need for abx treatment for potential botulism. Cultures from the superficial thigh wound are non-conclusive, and would not be the source of an anaerobic infection in any case. Blood cultures are pending. Leukocytosis is improving, which is reassuring. Mr. Pablo was quite anxious and agitated overnight, removing his DHT and refusing replacement. He req uired dexmedetomidine for safety. This morning, he is tired and cooperative. Denies symptoms of opiate withdrawal. Will stop dexmedetomidine. Continuing suboxone therapy. IMPACT team h as been consulted and hopefully will be able to see him on Monday. Continuing iv hydration, as we lack enteral access. Will replace DHT as soon as Mr. Pablo agrees, to be able to give him mestinon and provide enteral nutrition. Code Status Updated to: FULL Physical exam His GCS eye subscore is 4 (Eyes open spontaneously). GCS verbal subscore is 5 (Fully orient ed verbal response). GCS motor subscore is 6 (Obeys commands). GCS Score is 15. He is alert He is oriented. Comments Dysarthria, dysphagia. . Hospital Problems Priority POA Nervous * (Principal)Bulbar palsy (HCC) Yes Respiratory/Chest Respiratory distress Unknown Digestive Dysphagia Infectious Disease Botulism, wound Yes Other Dysarthria Unknown Abscess Polysubstance abuse Unknown Tobacco abuse Unknown Weakness At risk for electrolyte imbalance Unknown NSICU treatment team members Provider Role Specialty Ipt Critical Care Nsicu #[id number] Treatment Team Ipt Neuro Non Stroke #[id number] Treatment Team Neurology Code Status Code Status Full Code Quality section CVC necessity reviewed: Poor peripheral IV access I have spent a total of 65 minutes in the direct care and management of this patient indepe ndent of any time spent teaching or performing any separately billable procedures. I reviewe d the documented findings, all data and the recent imaging available. I saw and evaluated t he patient at the bedside together with Dr. Lawton.Please see their note for details. I ag ree with the assessment and plan as described in the resident's note with the following exce ptions/additions as noted. Date of Service: 01/14/2018 [facility] DEPARTMENT: [facility] ICU NEURO Place of Service:- Inpatient CSN: [id number] Suggested Modifier: GC - Resident Involved Suggested CPT: TO TRAVELING SECRETARY Author:KIMBERLY PLEITEZ MD [address] [id number] signed by Kimberly Pleitez MD at 01/14/2018 2:07 PM Hector Webb MD - 01/14/2018 12:33 AM PDTFormatting of this note might be different fro m the original. . Neuroscience Intensive Care Unit Attending Progress Note Attending Pager #[phone] Hospital admission dx: Data Unavailable 1 Days in ICU 2 Days in Hospital Abbreviated HPI / Daily Assessment 27 year old man with history of polysubstance abuse (IV heroin, cocaine, meth, tobacco) an d possible history of unprovoked PE many years ago, who presents to [facility] ER on 01/12/18 by pr ivate vehicle (mom) for second opinion regarding sudden onset rapidly progressive bulbar wea kness, shortness of breath, and proximal arm weakness which began 1 week prior to arrival. Felix ponce initially presented to [facility] for evaluation and was admitted from 01/08 to 01/10 but h e left AMA 01/10. During that admission he had a CTA and a MRI brain and c-spine. Pt reports that multiple family members living in the same home on the [facility] have been diagnosed with myasthenia and lambert eaton over the last year. All family members are IVDU. Pt's grandmother, 56 yo, was diagnosed in 01/2017. Pt denies michelle. Galdino cribes a transient episode of upper extremity weakness approximately a year ago. Pt also has a poorly healing wound on his L thigh and new area of fluctuance on his R thigh. Patient had ongoing and progressive symptoms so his mom drove him to [facility]. In the ED, patie nt was mildly tachycardic to the low 100s with labile blood pressures ranging from the low 1 00s to the 130s. No labs were able to be obtained given poor access given his significant dr laura use. NIF was (-) 30 which was reportedly decreased from [facility] where is was less than (-) 35. Patient was seen by Neurology with recommendation for NSICU admission for close monitor ing of his respiratory status and further work-up of his symptoms. Medical Decision Making Rapid-onset bulbar, oropharyngeal, extraocular and descending weakness with a curious conc urrent family history of similar sx. Wounds and clinical presentation raise deep concern fo r botulism. Per Neurology, plan is to continue Mestinon for now, along with IVIG, until EMG with repeti tive stimulation may clarify the diagnosis. Receiving antitoxin treatment tonight for botulism. Cultures and serology pending. He pulled out his DHT and is wildly emphatic that it not be re-inserted. Physically and emotionally agitated; will begin low dose dexmedetomidine. He may require intubation for airway protection/respiratory failure. Currently, protects h is airway well despite significant bulbar symptoms. no respiratory distress. NIF stable. Sav l monitor closely. On high dose suboxone and it's not entirely clear how exact his history r eflects what has recently happened. Will consult [facility] team to see him on Monday. He endors es motivation to break his addiction, feels it has been difficult with three generations of his family actively using heroin. Code Status Updated to: FULL Hospital Problems Priority POA Nervous * (Principal)Bulbar palsy (HCC) Yes Respiratory/Chest Respiratory distress Unknown Digestive Dysphagia Infectious Disease Botulism, wound Yes Other Dysarthria Unknown Abscess Polysubstance abuse Unknown Tobacco abuse Unknown Weakness At risk for electrolyte imbalance Unknown NSICU treatment team members Provider Role Specialty Ipt Critical Care Nsicu #[id number] Treatment Team Ipt Neuro Non Stroke #[id number] Treatment Team Neurology Code Status Code Status Full Code This patient does not have an Advanced Care Note for this Admission. Please use the Goal of care section of your ICU navigator to document the advanced care discussion. Quality section CVC necessity reviewed: Poor peripheral IV access I have spent a total of 39 minutes in the direct care and management of this patient indepe ndent of any time spent teaching or performing any separately billable procedures. I reviewe d the documented findings, all data and the recent imaging available. Date of Service: 01/13/2018 Author:HECTOR PAIZ MD [address] [id number] signed by Hector Paiz MD at 01/14/2018 12:33 AM PD Kimberly Blackwood MD - 01/13/2018 10:33 AM PDTFormatting of this note might be different fro m the original. . Neuroscience Intensive Care Unit Attending Progress Note Attending Pager #[phone] Hospital admission dx: Data Unavailable Days in ICU 1 Days in Hospital Abbreviated HPI / Daily Assessment 27 year old man with history of polysubstance abuse (IV heroin, cocaine, meth, tobacco) an d possible history of unprovoked PE many years ago, who presents to [facility] ER on 01/12/18 by pr ivate vehicle (mom) for second opinion regarding sudden onset rapidly progressive bulbar wea kness, shortness of breath, and proximal arm weakness which began 1 week prior to arrival. Felix ponce initially presented to [facility] for evaluation and was admitted from 01/08 to 01/10 but h e left AMA 01/10. During that admission he had a CTA and a MRI brain and c-spine. Pt reports that multiple family members living in the same home on the [facility] have been diagnosed with myasthenia and lambert eaton over the last year. All family members are IVDU. Pt's grandmother, 56 yo, was diagnosed in 01/2017. Pt denies michelle. Galdino cribes a transient episode of upper extremity weakness approximately a year ago. Pt also has a poorly healing wound on his L thigh and new area of fluctuance on his R thigh. Patient had ongoing and progressive symptoms so his mom drove him to [facility]. In the ED, patigabriella martines was mildly tachycardic to the low 100s with labile blood pressures ranging from the low 1 00s to the 130s. No labs were able to be obtained given poor access given his significant dr ug use. NIF was (-) 30 which was reportedly decreased from [facility] where is was less than (-) 35. Patient was seen by Neurology with recommendation for NSICU admission for close monitor ing of his respiratory status and further work-up of his symptoms. Medical Decision Making Young man presents with significant bulbar weakness, ptosis, proximal>distal weakness. Dif ferential is wide, suspicious for myasthenia gravis vs Lambert-Eaton syndrome. Interestingly , several family members (paternal grandmother and uncle) have had similar presentations in the last year, and have received varying diagnoses. Mr. Pablo shares that both family member s use heroin regularly, as does he, which raises my concern for wound botulism associated wi th black tar heroin. On examination, he has a 4 cm round open wound on his L thigh and a 10 cm fluctuating and erhythematous swelling on his R hip, suspicious for abscess associated wi th subcutaneous/intramuscular injection. Bulbar symptoms/descending weakness/dry mouth/absen ce of fever/present leukocytosis would all be in line with botulism. My concern is high enou gh that we discussed with the CDC and [facility] and decided to pursue empiric antitoxin treatment while awaiting toxin test results. Simultaneously, will continue further workup for possible myasthenia, sending antibody panel to [place]. Started pyridostigmine (wit hout improvement) and IVIG. We consulted the EGS team to help with evaluation/treatment of h is presumed abscesses. May need debridement for source control. Failed swallow eval, placed feeding tube for access. He may require intubation for airway protection/respiratory failure . Currently, protects his airway well despite significant bulbar symptoms. no respiratory di stress. NIF stable. Will monitor closely. He understands he may need intubation, and has agr eed to it. He is also dehydrated after not having been able to eat much for days. His headac he responded well to fluid bolus, will continue to hydrate. At risk for opiate withdrawal, r eports that he has initiated suboxone regimen yesterday, taking 24 mg (which he endorses hav ing taken all at once at 10 am yesterday). No symptoms of withdrawal currently, which would support high dose. We will continue suboxone protocol. Will consult IMP[employer] team to see him o n Monday. He endorses motivation to break his addiction, feels it has been difficult with th ree generations of his family actively using heroin. Code Status Updated to: FULL Physical exam His GCS eye subscore is 4 (Eyes open spontaneously). GCS verbal subscore is 5 (Fully orient ed verbal response). GCS motor subscore is 6 (Obeys commands). GCS Score is 15. He is alert He is oriented. Deltoid strength R 2/5 L 2/5. Bicep strength R 3/5 L 3/5. Tricep strength R 4/5 L 4/5. Comments Dysarthria, dysphagia. . Hospital Problems Priority POA Nervous * (Principal)Bulbar palsy (HCC) Yes Respiratory/Chest Respiratory distress Unknown Digestive Dysphagia Infectious Disease Botulism, wound Yes Other Dysarthria Unknown Abscess Polysubstance abuse Unknown Tobacco abuse Unknown Weakness At risk for electrolyte imbalance Unknown NSICU treatment team members Provider Role Specialty Ipt Critical Care Nsicu #[id number] Treatment Team Ipt Neuro Non Stroke #[id number] Treatment Team Neurology Code Status Code Status Full Code Quality section I have spent a total of 97 minutes in the direct care and management of this patient indepe ndent of any time spent teaching or performing any separately billable procedures. I reviewe d the documented findings, all data and the recent imaging available. I saw and evaluated t he patient at the bedside together with Dr. Jewell.Please see their note for details. I ag ree with the assessment and plan as described in the resident's note with the following exce ptions/additions as noted. Date of Service: 01/13/2018 [facility] DEPARTMENT: [facility] ICU NEURO Place of Service:- Inpatient CSN: [id number] Suggested Modifier: GC - Resident Involved Suggested CPT: TO TRAVELING SECRETARY Author:KIMBERLY PLEITEZ MD [address] [place] [id number] signed by Kimberly Pleitez MD at 01/13/2018 4:01 PM P DTdocumented in this encounter Plan of Treatment Not on filedocumented as of this encounter Procedures + +--------+ + + + | Procedure Name | Priori | Date/Time | Associated Diagnosis | Comments | | | ty | | | | + +--------+ + + + | LAB OTHER | Routin | 01/20/2018 | | Results for this | | | e | 10:28 AM | | procedure are in the | | | | PDT | | results section. | + +--------+ + + + | CARDIOLOGY | | 01/20/2018 | | Results for this | | | | 12:00 AM | | procedure are in the | | | | PDT | | results section. | + +--------+ + + + | CARDIOLOGY | | 01/19/2018 | | Results for this | | | | 12:00 AM | | procedure are in the | | | | PDT | | results section. | + +--------+ + + + | CARDIOLOGY | | 01/19/2018 | | Results for this | | | | 12:00 AM | | procedure are in the | | | | PDT | | results section. | + +--------+ + + + | CARDIOLOGY | | 01/19/2018 | | Results for this | | | | 12:00 AM | | procedure are in the | | | | PDT | | results section. | + +--------+ + + + | NURSING | Routin | 01/18/2018 | | | | COMMUNICATION #1 - | e | 4:24 PM | | | | [facility] | | PDT | | | + +--------+ + + + | CAPILLARY BLOOD | Routin | 01/18/2018 | Myasthenia (HCC) | Results for this | | GLUCOSE (NO CHG), | e | 12:21 PM | | procedure are in the | | POC | | PDT | | results section. | + +--------+ + + + | CAPILLARY BLOOD | Routin | 01/18/2018 | Myasthenia (HCC) | Results for this | | GLUCOSE (NO CHG), | e | 9:41 AM | | procedure are in the | | POC | | PDT | | results section. | + +--------+ + + + | CARDIOLOGY | | 01/18/2018 | | Results for this | | | | 12:00 AM | | procedure are in the | | | | PDT | | results section. | + +--------+ + + + | CARDIOLOGY | | 01/18/2018 | | Results for this | | | | 12:00 AM | | procedure are in the | | | | PDT | | results section. | + +--------+ + + + | CAPILLARY BLOOD | Routin | 01/17/2018 | Myasthenia (HCC) | Results for this | | GLUCOSE (NO CHG), | e | 5:29 PM | | procedure are in the | | POC | | PDT | | results section. | + +--------+ + + + | RENAL FUNCTION SET | Urgent | 01/17/2018 | | Results for this | | (NA,K,CL,CO2,BUN,CRE | | 12:45 PM | | procedure are in the | | AT,GLUC,CA,PHOS,ALB | | PDT | | results section. | | ) | | | | | + +--------+ + + + | CAPILLARY BLOOD | Routin | 01/17/2018 | Dysphasia | Results for this | | GLUCOSE (NO CHG), | e | 11:28 AM | | procedure are in the | | POC | | PDT | | results section. | + +--------+ + + + | CARDIOLOGY | | 01/17/2018 | | Results for this | | | | 12:00 AM | | procedure are in the | | | | PDT | | results section. | + +--------+ + + + | CARDIOLOGY | | 01/17/2018 | | Results for this | | | | 12:00 AM | | procedure are in the | | | | PDT | | results section. | + +--------+ + + + | CT CHEST, ABDOMEN | Routin | 01/16/2018 | | Results for this | | AND PELVIS W IV | e | 11:03 PM | | procedure are in the | | CONTRAST | | PDT | | results section. | + +--------+ + + + | VANCOMYCIN, TROUGH | Urgent | 01/16/2018 | | Results for this | | | | 5:40 PM | | procedure are in the | | | | PDT | | results section. | + +--------+ + + + | CARDIOLOGY | | 01/16/2018 | | Results for this | | | | 12:00 AM | | procedure are in the | | | | PDT | | results section. | + +--------+ + + + | CARDIOLOGY | | 01/16/2018 | | Results for this | | | | 12:00 AM | | procedure are in the | | | | PDT | | results section. | + +--------+ + + + | EMG/NERVE CONDUCTION | Routin | 01/16/2018 | | Results for this | | STUDIES,ADULT - | e | 12:00 AM | | procedure are in the | | NEUROLOGY | | PDT | | results section. | + +--------+ + + + | HIV QUANTITATIVE | Urgent | 01/15/2018 | | Results for this | | PCR, PLASMA | | 4:37 PM | | procedure are in the | | | | PDT | | results section. | + +--------+ + + + | HEPATITIS C | Urgent | 01/15/2018 | | Results for this | | QUANTITATIVE, PLASMA | | 4:37 PM | | procedure are in the | | | | PDT | | results section. | + +--------+ + + + | HEPATITIS B SURFACE | Urgent | 01/15/2018 | | Results for this | | AB QUAL, SERUM | | 4:37 PM | | procedure are in the | | | | PDT | | results section. | + +--------+ + + + | VANCOMYCIN, TROUGH | Urgent | 01/15/2018 | | Results for this | | | | 3:32 PM | | procedure are in the | | | | PDT | | results section. | + +--------+ + + + | CAPILLARY BLOOD | Routin | 01/15/2018 | Myasthenia (HCC) | Results for this | | GLUCOSE (NO CHG), | e | 12:01 PM | | procedure are in the | | POC | | PDT | | results section. | + +--------+ + + + | RAINBOW HOLD TUBE - | Urgent | 01/15/2018 | | | | RED TOP | | 10:07 AM | | | | | | PDT | | | + +--------+ + + + | LAB OTHER | Urgent | 01/15/2018 | | Results for this | | | | 10:07 AM | | procedure are in the | | | | PDT | | results section. | + +--------+ + + + | CBC (HEMOGRAM) ONLY | Urgent | 01/15/2018 | | Results for this | | | | 1:35 AM | | procedure are in the | | | | PDT | | results section. | + +--------+ + + + | RENAL FUNCTION SET | Urgent | 01/15/2018 | | Results for this | | (NA,K,CL,CO2,BUN,CRE | | 1:35 AM | | procedure are in the | | AT,GLUC,CA,PHOS,ALB | | PDT | | results section. | | ) | | | | | + +--------+ + + + | CBC ONLY | Urgent | 01/15/2018 | | Results for this | | | | 1:35 AM | | procedure are in the | | | | PDT | | results section. | + +--------+ + + + | CT LOWER EXTREMITY | Routin | 01/15/2018 | | Results for this | | LEFT W CONTRAST | e | 12:27 AM | | procedure are in the | | | | PDT | | results section. | + +--------+ + + + | MG/LES EVALUATION | Urgent | 01/14/2018 | | Results for this | | W/REFLEX | | 10:00 PM | | procedure are in the | | | | PDT | | results section. | + +--------+ + + + | HEPATITIS B SURFACE | Routin | 01/14/2018 | | Results for this | | AG W/REFLEX IF | e | 10:00 PM | | procedure are in the | | INDICATED | | PDT | | results section. | + +--------+ + + + | MUSK QUANTITATIVE | Urgent | 01/14/2018 | | Results for this | | ANTIBODY | | 10:00 PM | | procedure are in the | | | | PDT | | results section. | + +--------+ + + + | HEP C PCR | Routin | 01/14/2018 | | Results for this | | CONFIRMATION: REFLEX | e | 10:00 PM | | procedure are in the | | ONLY | | PDT | | results section. | + +--------+ + + + | LAB OTHER | Routin | 01/14/2018 | | Results for this | | | e | 10:00 PM | | procedure are in the | | | | PDT | | results section. | + +--------+ + + + | HIV-1,2 AB/HIV-1 P24 | Urgent | 01/14/2018 | | Results for this | | AG SCRN | | 10:00 PM | | procedure are in the | | | | PDT | | results section. | + +--------+ + + + | HEPATITIS A AB IGM, | Routin | 01/14/2018 | | Results for this | | SERUM | e | 10:00 PM | | procedure are in the | | | | PDT | | results section. | + +--------+ + + + | HEPATITIS B CORE AB, | Routin | 01/14/2018 | | Results for this | | SERUM | e | 10:00 PM | | procedure are in the | | | | PDT | | results section. | + +--------+ + + + | HEPATITIS A AB | Routin | 01/14/2018 | | Results for this | | SCREEN, SERUM | e | 10:00 PM | | procedure are in the | | | | PDT | | results section. | + +--------+ + + + | HEPATITIS C VIRUS | Routin | 01/14/2018 | | Results for this | | W/CONFIRMATION | e | 10:00 PM | | procedure are in the | | | | PDT | | results section. | + +--------+ + + + | X-RAY ABD LTD | Routin | 01/14/2018 | | Results for this | | FEEDING TUBE EVAL | e | 2:23 PM | | procedure are in the | | PORTABLE | | PDT | | results section. | + +--------+ + + + | CULTURE, BLOOD BACTI | Urgent | 01/14/2018 | | Results for this | | & YEAST [facility] | | 5:28 AM | | procedure are in the | | | | PDT | | results section. | + +--------+ + + + | CULTURE, BLOOD BACTI | Urgent | 01/14/2018 | | Results for this | | & YEAST | | 5:28 AM | | procedure are in the | | | | PDT | | results section. | + +--------+ + + + | CBC (HEMOGRAM) ONLY | Urgent | 01/14/2018 | | Results for this | | | | 1:20 AM | | procedure are in the | | | | PDT | | results section. | + +--------+ + + + | RENAL FUNCTION SET | Urgent | 01/14/2018 | | Results for this | | (NA,K,CL,CO2,BUN,CRE | | 1:20 AM | | procedure are in the | | AT,GLUC,CA,PHOS,ALB | | PDT | | results section. | | ) | | | | | + +--------+ + + + | CBC ONLY | Urgent | 01/14/2018 | | Results for this | | | | 1:20 AM | | procedure are in the | | | | PDT | | results section. | + +--------+ + + + | SPECIMEN ROUTING | Routin | 01/13/2018 | | | | | e | 6:53 PM | | | | | | PDT | | | + +--------+ + + + | LAB OTHER | Urgent | 01/13/2018 | | Results for this | | | | 6:53 PM | | procedure are in the | | | | PDT | | results section. | + +--------+ + + + | US LOWER EXT | Urgent | 01/13/2018 | | Results for this | | NON-VASCULAR RT | | 3:53 PM | | procedure are in the | | | | PDT | | results section. | + +--------+ + + + | CULTURE, WOUND | Urgent | 01/13/2018 | | Results for this | | ABSCESS OR ASPIRATE | | 2:35 PM | | procedure are in the | | W/ ANAEROBE | | PDT | | results section. | + +--------+ + + + | RAINBOW HOLD TUBE - | Urgent | 01/13/2018 | | | | BLUE TOP | | 2:35 PM | | | | | | PDT | | | + +--------+ + + + | HEAVY METALS | Urgent | 01/13/2018 | | Results for this | | (ARSENIC, LEAD, | | 2:35 PM | | procedure are in the | | MERCURY), BLOOD | | PDT | | results section. | + +--------+ + + + | CULTURE, BLOOD BACTI | Urgent | 01/13/2018 | | Results for this | | & YEAST [facility] | | 2:03 PM | | procedure are in the | | | | PDT | | results section. | + +--------+ + + + | CULTURE, BLOOD BACTI | Urgent | 01/13/2018 | | Results for this | | & YEAST | | 2:03 PM | | procedure are in the | | | | PDT | | results section. | + +--------+ + + + | X-RAY PORTABLE CHEST | Urgent | 01/13/2018 | | Results for this | | PICC LINE | | 12:11 PM | | procedure are in the | | CHECK | | PDT | | results section. | | | | | | | + +--------+ + + + | PICC LINE | Routin | 01/13/2018 | | Results for this | | | e | 11:24 AM | | procedure are in the | | | | PDT | | results section. | + +--------+ + + + | VAT: PICC INSERTION | Routin | 01/13/2018 | | Results for this | | W/US | e | 10:57 AM | | procedure are in the | | | | PDT | | results section. | + +--------+ + + + | OPIATE CONFIRM FOR | Routin | 01/13/2018 | | Results for this | | POC USE ONLY | e | 8:35 AM | | procedure are in the | | | | PDT | | results section. | + +--------+ + + + | AMPHETAMINE/METHAMPH | Routin | 01/13/2018 | | Results for this | | ETAMINE CONFIRM FOR | e | 8:35 AM | | procedure are in the | | POC USE ONLY | | PDT | | results section. | + +--------+ + + + | DRUG | Urgent | 01/13/2018 | | Results for this | | SCREEN,URINE;W/CONFI | | 8:35 AM | | procedure are in the | | RM | | PDT | | results section. | + +--------+ + + + | CONFIRMATORY ABO/RH | Routin | 01/13/2018 | | Results for this | | | e | 8:06 AM | | procedure are in the | | | | PDT | | results section. | + +--------+ + + + | CBC (HEMOGRAM) ONLY | Urgent | 01/13/2018 | | Results for this | | | | 5:43 AM | | procedure are in the | | | | PDT | | results section. | + +--------+ + + + | INR | Urgent | 01/13/2018 | | Results for this | | | | 5:43 AM | | procedure are in the | | | | PDT | | results section. | + +--------+ + + + | ACETYLCHOLINE | Urgent | 01/13/2018 | | Results for this | | RECEPTOR BINDING AB, | | 5:43 AM | | procedure are in the | | SERUM | | PDT | | results section. | + +--------+ + + + | COMPLETE METABOLIC | Urgent | 01/13/2018 | | Results for this | | SET | | 5:43 AM | | procedure are in the | | (NA,K,CL,CO2,BUN,CRE | | PDT | | results section. | | AT,GLUC,CA,AST,ALT,B | | | | | | RIDDHI TOTAL,ALK | | | | | | PHOS,ALB,PROT TOTAL) | | | | | + +--------+ + + + | RENAL FUNCTION SET | Urgent | 01/13/2018 | | Results for this | | (NA,K,CL,CO2,BUN,CRE | | 5:43 AM | | procedure are in the | | AT,GLUC,CA,PHOS,ALB | | PDT | | results section. | | ) | | | | | + +--------+ + + + | CBC ONLY | Urgent | 01/13/2018 | | Results for this | | | | 5:43 AM | | procedure are in the | | | | PDT | | results section. | + +--------+ + + + | ANTIBODY SCREEN | Urgent | 01/13/2018 | | Results for this | | | | 5:43 AM | | procedure are in the | | | | PDT | | results section. | + +--------+ + + + | TYPE AND SCREEN | Urgent | 01/13/2018 | | Results for this | | | | 5:43 AM | | procedure are in the | | | | PDT | | results section. | + +--------+ + + + | ABO & RH TYPE | Urgent | 01/13/2018 | | Results for this | | | | 5:43 AM | | procedure are in the | | | | PDT | | results section. | + +--------+ + + + | MAGNESIUM, PLASMA | Urgent | 01/13/2018 | | Results for this | | | | 5:43 AM | | procedure are in the | | | | PDT | | results section. | + +--------+ + + + | CK, PLASMA | Urgent | 01/13/2018 | | Results for this | | | | 5:43 AM | | procedure are in the | | | | PDT | | results section. | + +--------+ + + + documented in this encounter Results LAB OTHER (01/20/2018 10:28 AM PDT) + + + + + + | Component | Value | Ref Range | Performed | Pathologist | | | | | At | Signature | + + + + + + | MISC REF | [facility] | | [facility] | | | TEST NAME | Myasthenic Syndrome | | LABORATORY | | | | Panel, WB EDTA | | SERVICES, | | | | | | CORE | | + + + + + + | MISC REF | NegativeComment: No | | [facility] | | | TEST RESULT | Pathogenic sequence | | REFERENCE | | | | variants or | | LAB | | | | deletions/duplications | | | | | | identified. | | | | + + + + + + | NORMAL | | | [facility] | | | RANGE | | | REFERENCE | | | | | | LAB | | + + + + + + | REFERRAL | Test Performed by | | [facility] | | | LAB NAME | [id number] [facility] | | REFERENCE | | | | FANNY Garsia [id number]) | | LAB | | | | [phone] | | | | + + + + + + + + | Specimen | + + | Blood - Blood | | (substance) | + + + + + | Narrative | Performed At | + + + | See scanned | [facility] | | report for Technical Results and further Interpretation and Comments. | REFERENCE LAB | | | | | | | + + + + + + + + | Performing | Address | City/State/Zipcode | Phone Number | | Organization | | | | + + + + + | [facility] | | | | + + + + + | [facility] | [address] | [place] [address] | | | SERVICES, CORE | [address] [place] | | | + + + + + | [facility] | see below | | | + + + + + CARDIOLOGY (01/20/2018 12:00 AM PDT) + + + | Narrative | Performed At | + + + | | | + + + CARDIOLOGY (01/19/2018 12:00 AM PDT) + + + | Narrative | Performed At | + + + | | | + + + CARDIOLOGY (01/19/2018 12:00 AM PDT) + + + | Narrative | Performed At | + + + | | | + + + CARDIOLOGY (01/19/2018 12:00 AM PDT) + + + | Narrative | Performed At | + + + | | | + + + CAPILLARY BLOOD GLUCOSE (NO CHG), POC (01/18/2018 12:21 PM PDT) + +-------+ + + + | Component | Value | Ref Range | Performed | Pathologist | | | | | At | Signature | + +-------+ + + + | BLOOD | 89 | 60 - 99 mg/dL | [facility] | | | GLUCOSE, | | | [facility] | | | POC | | | [place] [place] | | | | | | OF CARE | | | | | | TESTS | | + +-------+ + + + + + | Specimen | + + | | + + + + + + + | Performing | Address | City/State/Zipcode | Phone Number | | Organization | | | | + + + + + | [facility] | [address] | [place], [place] | | | [facility] | [address] | [address] | | | TESTS | | | | + + + + + CAPILLARY BLOOD GLUCOSE (NO CHG), POC (01/18/2018 9:41 AM PDT) + +-------+ + + + | Component | Value | Ref Range | Performed | Pathologist | | | | | At | Signature | + +-------+ + + + | BLOOD | 73 | 60 - 99 mg/dL | [facility] | | | GLUCOSE, | | | [facility] | | | POC | | | [facility] | | | | | | OF CARE | | | | | | TESTS | | + +-------+ + + + + + | Specimen | + + | | + + + + + + + | Performing | Address | City/State/Zipcode | Phone Number | | Organization | | | | + + + + + | [facility] | [address] | [place], [place] | | | [facility] | [address] | [address] | | | TESTS | | | | + + + + + CARDIOLOGY (01/18/2018 12:00 AM PDT) + + + | Narrative | Performed At | + + + | | | + + + CARDIOLOGY (01/18/2018 12:00 AM PDT) + + + | Narrative | Performed At | + + + | | | + + + CAPILLARY BLOOD GLUCOSE (NO CHG), POC (01/17/2018 5:29 PM PDT) + +-------+ + + + | Component | Value | Ref Range | Performed | Pathologist | | | | | At | Signature | + +-------+ + + + | BLOOD | 98 | 60 - 99 mg/dL | [facility] | | | GLUCOSE, | | | [facility] | | | POC | | | [facility] | | | | | | OF CARE | | | | | | TESTS | | + +-------+ + + + + + | Specimen | + + | | + + + + + + + | Performing | Address | City/State/Zipcode | Phone Number | | Organization | | | | + + + + + | [facility] | [address] | [place], [place] | | | [facility] | [address] | [address] | | | TESTS | | | | + + + + + RENAL FUNCTION SET (NA,K,CL,CO2,BUN,CREAT,GLUC,CA,PHOS,ALB ) (01/17/2018 12:45 PM PDT) + + + + + + | Component | Value | Ref Range | Performed | Pathologist | | | | | At | Signature | + + + + + + | GLUCOSE, | 122 (H) | 70 - 99 mg/dL | [facility] | | | PLASMA | | | LABORATORY | | | (LAB) | | | SERVICES, | | | | | | CORE | | + + + + + + | BUN, PLASMA | 11 | 6 - 20 mg/dL | [facility] | | | (LAB) | | | LABORATORY | | | | | | SERVICES, | | | | | | CORE | | + + + + + + | CREATININE | 0.54 (L) | 0.70 - 1.30 | [facility] | | | PLASMA | | mg/dL | LABORATORY | | | (LAB) | | | SERVICES, | | | | | | CORE | | + + + + + + | EGFR | >60 | >60 mL/min | [facility] | | | - | | | LABORATORY | | | POLISH | | | SERVICES, | | | | | | CORE | | + + + + + + | EGFR NON | >60 | >60 mL/min | [facility] | | | -[place] | | | LABORATORY | | | RICAN | | | SERVICES, | | | | | | CORE | | + + + + + + | SODIUM, | 135 (L) | 136 - 145 | [facility] | | | PLASMA | | mmol/L | LABORATORY | | | (LAB) | | | SERVICES, | | | | | | CORE | | + + + + + + | POTASSIUM, | 4.1 | 3.4 - 5.0 | [facility] | | | PLASMA | | mmol/L | LABORATORY | | | (LAB) | | | SERVICES, | | | | | | CORE | | + + + + + + | CHLORIDE, | 101 | 97 - 108 mmol/L | [facility] | | | PLASMA | | | LABORATORY | | | (LAB) | | | SERVICES, | | | | | | CORE | | + + + + + + | TOTAL CO2, | 27 | 21 - 32 mmol/L | [facility] | | | PLASMA | | | LABORATORY | | | (LAB) | | | SERVICES, | | | | | | CORE | | + + + + + + | CALCIUM, | 8.9 | 8.6 - 10.2 | [facility] | | | PLASMA | | mg/dL | LABORATORY | | | (LAB) | | | SERVICES, | | | | | | CORE | | + + + + + + | CALCIUM(ALB | 9.8 | 8.6 - 10.2 | [facility] | | | CORRECTED) | | mg/dL | LABORATORY | | | | | | SERVICES, | | | | | | CORE | | + + + + + + | ALBUMIN, | 2.9 (L) | 3.5 - 4.7 g/dL | [facility] | | | PLASMA | | | LABORATORY | | | (LAB) | | | SERVICES, | | | | | | CORE | | + + + + + + | PHOSPHORUS, | 3.2 | 2.4 - 4.7 mg/dL | [facility] | | | PLASMA | | | LABORATORY | | | (LAB) | | | SERVICES, | | | | | | CORE | | + + + + + + | POTASSIUM | No Hemo | | [facility] | | | CMNT | | | LABORATORY | | | | | | SERVICES, | | | | | | CORE | | + + + + + + | ANION GAP | 7 | 4 - 11 mmol/L | [facility] | | | | | | LABORATORY | | | | | | SERVICES, | | | | | | CORE | | + + + + + + | ANION | 9 | 4 - 11 mmol/L | [facility] | | | GAP(ALB | | | LABORATORY | | | CORRECTED) | | | SERVICES, | | | | | | CORE | | + + + + + + + + | Specimen | + + | Blood - Blood | | (substance) | + + + + + | Narrative | Performed At | + + + | GFR is estimated using the MDRD equation recommended by the | [facility] | | National Kidney Disease Education Program. Estimated GFR | LABORATORY | | Interpretive Information: <60 mL/min/1.73 sq m | SERVICES, CORE | | Chronic Kidney Disease <15 mL/min/1.73 sq m | | | Kidney Failure Estimated GFR greater that 60 mL/min/1.73 sq m is of | | | limited clinical value. The MDRD equation is not valid in the | | | following situations: - Patients under 18 years of age - Severe | | | malnutrition or obesity - Vegetarian diet - Rapidly changing kidney | | | function - Amputees, paraplegics, or other muscle-wasting diseses | | + + + + + + + + | Performing | Address | City/State/Zipcode | Phone Number | | Organization | | | | + + + + + | [facility] | [address] | [place] [address] | | | SERVICES, [place] | [address] | | | + + + + + CAPILLARY BLOOD GLUCOSE (NO CHG), POC (01/17/2018 11:28 AM PDT) + +-------+ + + + | Component | Value | Ref Range | Performed | Pathologist | | | | | At | Signature | + +-------+ + + + | BLOOD | 85 | 60 - 99 mg/dL | [facility] | | | GLUCOSE, | | | [facility] | | | POC | | | [facility] | | | | | | OF CARE | | | | | | TESTS | | + +-------+ + + + + + | Specimen | + + | | + + + + + + + | Performing | Address | City/State/Zipcode | Phone Number | | Organization | | | | + + + + + | [facility] | [address] | [place], [place] | | | [facility] | [address] | [address] | | | TESTS | | | | + + + + + CARDIOLOGY (01/17/2018 12:00 AM PDT) + + + | Narrative | Performed At | + + + | | | + + + CARDIOLOGY (01/17/2018 12:00 AM PDT) + + + | Narrative | Performed At | + + + | | | + + + CT CHEST, ABDOMEN AND PELVIS W IV CONTRAST (01/16/2018 11:03 PM PDT) + + | Specimen | + + | | + + + + + | Narrative | Performed At | + + + | EXAM: CT of the chest, abdomen and pelvis WITH intravenous contrast. | [facility] | | HISTORY: new myasthenia vs Lambert-Eaton Syndrome, eval for | RADIOLOGY VOICE | | thymoma was well as occult malignancy COMPARISON: None available. | RECOGNITION 2 | | TECHNIQUE: CT of the chest, abdomen and pelvis WITH intravenous | | | contrast. Coronal and sagittal reformats were generated and reviewed. | | | FINDINGS: CHEST: Heart and great vessels are unremarkable. No | | | lymphadenopathy. There is a small amount of residual thymic tissue in | | | the anterior mediastinum, within normal limits for age, without | | | evidence of thymoma. The lungs are clear aside from minimal | | | dependent atelectasis. No pneumothorax or effusion. LIVER: | | | Unremarkable. BILIARY: Unremarkable. PANCREAS: Unremarkable. | | | SPLEEN: Unremarkable. ADRENALS: Unremarkable. KIDNEYS/URETERS: | | | Unremarkable. PELVIC ORGANS/BLADDER: Unremarkable. GI TRACT: | | | Dobbhoff tube terminates in the 2nd portion of duodenum. The bowel is | | | otherwise normal. PERITONEUM: Small amount of free fluid in the | | | pelvis. No pneumoperitoneum. LYMPH NODES: No lymphadenopathy. | | | VESSELS: Unremarkable. BONES AND SOFT TISSUES: Soft tissue | | | infiltration in the right upper gluteal subcutaneous fat is | | | nonspecific and may be contusion /small hematoma versus medication | | | injection site. No suspicious bone lesion. IMPRESSION: 1. | | | Normal appearance of the thymus without evidence of thymoma. 2. | | | No evidence of malignancy. I have personally reviewed the images | | | and, if necessary, edited the report. I agree with the report as now | | | presented. Final signature: Matthew Guillaume MD 01/17/2018 8:57 | | | AM Preliminary: Matthew Guillaume MD Dictation initiated: Matthew Guillaume MD 01/17/2018 8:51 AM | | + + + + + | Procedure Note | + + | Service Account, Radiant Res In Interface - 01/17/2018 8:58 AM PDT EXAM: CT of the | | chest, abdomen and pelvis WITH intravenous contrast. HISTORY: new myasthenia vs | | Lambert-Eaton Syndrome, eval for thymoma was well as occult malignancy COMPARISON: None | | available. TECHNIQUE: CT of the chest, abdomen and pelvis WITH intravenous contrast. | | Coronal and sagittal reformats were generated and reviewed. FINDINGS: CHEST: Heart and | | great vessels are unremarkable. No lymphadenopathy. There is a small amount of residual | | thymic tissue in the anterior mediastinum, within normal limits for age, without | | evidence of thymoma. The lungs are clear aside from minimal dependent atelectasis. No | | pneumothorax or effusion. LIVER: Unremarkable.BILIARY: Unremarkable.PANCREAS: | | Unremarkable. SPLEEN: Unremarkable.ADRENALS: Unremarkable.KIDNEYS/URETERS: | | Unremarkable.PELVIC ORGANS/BLADDER: Unremarkable. GI TRACT: Dobbhoff tube terminates in | | the 2nd portion of duodenum. The bowel is otherwise normal.PERITONEUM: Small amount of | | free fluid in the pelvis. No pneumoperitoneum. LYMPH NODES: No lymphadenopathy.VESSELS: | | Unremarkable. BONES AND SOFT TISSUES: Soft tissue infiltration in the right upper | | gluteal subcutaneous fat is nonspecific and may be contusion /small hematoma versus | | medication injection site. No suspicious bone lesion. IMPRESSION: 1. Normal appearance | | of the thymus without evidence of thymoma. 2. No evidence of malignancy. I have | | personally reviewed the images and, if necessary, edited the report. I agree with the | | report as now presented. Final signature: Matthew Guillaume MD 01/17/2018 8:57 AM | | Preliminary: Matthew Guillaume MD Dictation initiated: Matthew Guillaume MD 01/17/2018 | | 8:51 AM | |PELVIC ORGANS/BLADDER: Unremarkable. | | | |GI TRACT: Dobbhoff tube terminates in the 2nd portion of duodenum. The bowel is otherwise n ormal. | |PERITONEUM: Small amount of free fluid in the pelvis. No pneumoperitoneum. | | | |LYMPH NODES: No lymphadenopathy. | |VESSELS: Unremarkable. | | | |BONES AND SOFT TISSUES: Soft tissue infiltration in the right upper gluteal subcutaneous fa t is nonspecific and may be contusion /small hematoma versus medication injection site. | | | |No suspicious bone lesion. | | | |IMPRESSION: | | | |1. Normal appearance of the thymus without evidence of thymoma. | | | |2. No evidence of malignancy. | | | |I have personally reviewed the images and, if necessary, edited the report. I agree with th e report as now presented. | | | |Final signature: Matthew Guillaume MD 01/17/2018 8:57 AM | |Preliminary: Matthew Guillaume MD | |Dictation initiated: Matthew Guillaume MD 01/17/2018 8:51 AM | + + + +---------+ + + | Performing | Address | City/State/Zipcode | Phone Number | | Organization | | | | + +---------+ + + | [facility] | | | | | VOICE RECOGNITION 2 | | | | + +---------+ + + VANCOMYCIN, TROUGH (01/16/2018 5:40 PM PDT) + +-------+ + + + | Component | Value | Ref Range | Performed | Pathologist | | | | | At | Signature | + +-------+ + + + | VANCOMYCIN, | 12.6 | 10.0 - 20.0 | [facility] | | | TROUGH | | ug/mL | LABORATORY | | | | | | SERVICES, | | | | | | CORE | | + +-------+ + + + + + | Specimen | + + | Blood - Blood | | (substance) | + + + + + | Narrative | Performed At | + + + | Please draw vancomycin trough immediately prior to 1700 dose on | [facility] | | 01/16. Contact pharmacy with questions (pager [phone]). Thanks! | LABORATORY | | | SERVICES, CORE | + + + + + + + + | Performing | Address | City/State/Zipcode | Phone Number | | Organization | | | | + + + + + | [facility] | [address] | [place] [address] | | | SERVICES, [place] | [address] | | | + + + + + EMG/NERVE CONDUCTION STUDIES,ADULT - NEUROLOGY (01/16/2018 12:00 AM PDT) + + + | Impressions | Performed At | + + + | Patient Name: Dylan Pablo Date of : 1990 | [facility] - | | Date of Test: 01/16/2018 Place of | [facility] | | Service: [phone] Department: [id number] [facility] Nerve | POINT OF CARE | | Conduction Studies/Electromyography Patient History 27 y/o | TESTS | | male IV drug abuse and hepatitis C with rapid progressive, ptosis, | | | facial, bulbar and proximal muscle wekaness. Summary Nerve | | | conduction studies: 1. Left median-APB CMAP had normal amplitude, | | | distal latency and conduction velocity. There was no facilitation | | | after 10 seconds of exercise. 2. Left ulnar-ADM CMAP had normal | | | amplitude, distal latency and slowed conduction velocity across the | | | elbow. 3. Left peroneal-EDB CMAP had normal amplitude, distal | | | latency and conduction velocity. 4. Left tibial-AH CMAP had low | | | amplitude, normal DL and CV. 5. Left spinal accessory-trapezius CMAP | | | had low amplitude. There was no facilitation after 10 seconds of | | | exercise. 6. Left median-DII SNAP had prolonged peak latency and low | | | amplitude. 7. Left ulnar-DV SNAP had normal amplitude and peak | | | latency.. 8. Left sural SNAP had normal amplitude and peak latency. | | | 9. Two Hz repetitive stimulation of the left facial-nasalis at rest | | | was performed for 6 impulses repeated three times, 1 minute. Two Hz | | | repetitive stimulation was repeated after maximal voluntary exercise | | | for 1 minute immediately and at 1, 2, 3 and 4 minutes apart. There was | | | no significant decrement during the test. 10. Two Hz repetitive | | | stimulation of the left ulnar-ADM at rest was performed for 6 impulses | | | repeated three times, 1 minute. Two Hz repetitive stimulation was | | | repeated after maximal voluntary exercise for 1 minute immediately and | | | at 1, 2, 3 and 4 minutes apart. There was no significant decrement | | | during the test. 11. Two Hz repetitive stimulation of the left | | | spinal accessory-trapezius at rest was performed for 6 impulses | | | repeated three times, 1 minute. Two Hz repetitive stimulation was | | | repeated after maximal voluntary exercise for 1 minute immediately and | | | at 1, 2, 3 and 4 minutes apart. There was some technical issues with | | | the study, but there appear to be consistent decrement at baseline | | | with maximum of 38% with repair of the decrement to 16% after exercise | | | and post exercise exhaustion to maximum of 31%. 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 Conclusion Abnormal | | | study. There is a suggestive evidence for postsynaptic defect of | | | neuromuscular transmission as can be seen in MG. There is no evidence | | | for presynaptic defect or GBS. Marisol Kapoor MD Suggested | | | Modifier: None Suggested CPT: 42660 7-8 Nerve Conduction studies | | | 07833 EMG -Each Extremity, Limited (<4 Muscles) w/NCS, qty 1 [id number] | | | Neuromuscular Junction, qty 3 Suggested Dx: G70.01 Myasthenia | | | Gravis w/ Acute exacerbation Electronically signed on 01/16/2018 at | | | 9:03 PM Marisol Kapoor MD. | | + + + + + + | Narrative | Performed At | + + + | | | + + + + + + + + | Performing | Address | City/State/Zipcode | Phone Number | | Organization | | | | + + + + + | [facility] | [address] | [place], [place] | | | [facility] | [address] | [address] | | | TESTS | | | | + + + + + CARDIOLOGY (01/16/2018 12:00 AM PDT) + + + | Narrative | Performed At | + + + | | | + + + CARDIOLOGY (01/16/2018 12:00 AM PDT) + + + | Narrative | Performed At | + + + | | | + + + HEPATITIS C QUANTITATIVE, PLASMA (01/15/2018 4:37 PM PDT) + + + + + + | Component | Value | Ref Range | Performed | Pathologist | | | | | At | Signature | + + + + + + | HEP C PCR | 13,000 (H) | Undetected | [facility] | | | QUANT, | | IU/mL | DIAGNOSTIC | | | VALUE | | | | | | | | | LABORATORIE | | | | | | S | | + + + + + + + + | Specimen | + + | Blood - Blood | | (substance) | + + + + + | Narrative | Performed At | + + + | Reportable Range: 12-100,000,000 IU/mL Low levels or serial | [facility] | | declines in the HCV viral load may indicate the relative efficacy of | DIAGNOSTIC | | anti-viral therapy. Viral load changes of less than approximately 3 | LABORATORIES | | fold may not be biologically significant and should be interpreted | | | cautiously. Undetected results are suggestive of either the absence | | | of HCV viremia or the presence of low-level HCV viremia below the | | | assay's detection limit. | | + + + + + + + + | Performing | Address | City/State/[place] [facility] | Phone Number | | Organization | | | | + + + + + | [facility] | [address] | [place] [address] | | | DIAGNOSTIC | [address] | | | | LABORATORIES | | | | + + + + + HEPATITIS B SURFACE AB QUAL, SERUM (01/15/2018 4:37 PM PDT) + + + + + + | Component | Value | Ref Range | Performed | Pathologist | | | | | At | Signature | + + + + + + | HEP B | Detected (A) | Not Detected | [facility] | | | SURFACE AB | | | LABORATORY | | | QUAL | | | SERVICES, | | | | | | CORE | | + + + + + + + + | Specimen | + + | Blood - Blood | | (substance) | + + + + + | Narrative | Performed At | + + + | "Detected" >=10 mIU/mL indicates immunity to Hepatitis B. | [facility] | | | LABORATORY | | | [facility] [place] | + + + + + + + + | Performing | Address | City/State/Zipcode | Phone Number | | Organization | | | | + + + + + | [facility] | [address] | [place] [address] | | | [place] | [address] | | | + + + + + HIV QUANTITATIVE PCR, PLASMA (01/15/2018 4:37 PM PDT) + + + + + + | Component | Value | Ref Range | Performed | Pathologist | | | | | At | Signature | + + + + + + | HIV-1 RNA | Not Detected | Not Detected | [facility] | | | QUAL | | | DIAGNOSTIC | | | | | | | | | | | | LABORATORIE | | | | | | S | | + + + + + + | HIV-1 RNA | <40 | <40 copies/mL | [facility] | | | QUANT | | copies/mL | DIAGNOSTIC | | | | | | | | | | | | LABORATORIE | | | | | | S | | + + + + + + | HIV-1 RNA | <1.6 | <1.6 copies/mL | [facility] | | | LOG10 | | log copies/mL | DIAGNOSTIC | | | | | | | | | | | | LABORATORIE | | | | | | S | | + + + + + + | HIV-1 RNA | HIV-1 was not detected | | [facility] | | | INTERPRETAT | in this sample. These | | DIAGNOSTIC | | | ION | results are most likely | | | | | | suggestive of either the | | LABORATORIE | | | | absence of HIV viremia | | S | | | | or the presence of | | | | | | low-level HIV viremia at | | | | | | or below the assays | | | | | | lower limit of | | | | | | detection. Reportable | | | | | | Quantification Range: | | | | | | 40-10,000,000 HIV-1 RNA | | | | | | copies/mL (1.6-7.0 | | | | | | HIV-1 RNA log copies/mL) | | | | | | High or serially rising | | | | | | HIV viral loads are a | | | | | | poor prognostic | | | | | | indicator for antiviral | | | | | | therapy efficacy and | | | | | | predict a more rapid HIV | | | | | | disease progression. | | | | | | Viral load changes of | | | | | | less than approximately | | | | | | 3 fold may not be | | | | | | biologically significant | | | | | | and must be interpreted | | | | | | cautiously. | | | | + + + + + + + + | Specimen | + + | Blood - Blood | | (substance) | + + + + + + + | Performing | Address | City/State/Zipcode | Phone Number | | Organization | | | | + + + + + | [facility] | [address] | [place] [address] | | | DIAGNOSTIC | [address] | | | | LABORATORIES | | | | + + + + + VANCOMYCIN, TROUGH (01/15/2018 3:32 PM PDT) + +---------+ + + + | Component | Value | Ref Range | Performed | Pathologist | | | | | At | Signature | + +---------+ + + + | VANCOMYCIN, | 8.6 (L) | 10.0 - 20.0 | [facility] | | | TROUGH | | ug/mL | LABORATORY | | | | | | SERVICES, | | | | | | CORE | | + +---------+ + + + + + | Specimen | + + | Blood - Blood | | (substance) | + + + + + | Narrative | Performed At | + + + | Please draw vancomycin trough immediately prior to 1600 dose on | [facility] | | 01/15. Questions, contact pharmacy (pager [phone]). Thanks! | LABORATORY | | | SERVICES, CORE | + + + + + + + + | Performing | Address | City/State/Zipcode | Phone Number | | Organization | | | | + + + + + | [facility] | [address] | [place] [address] | | | SERVICES, CORE | [address] | | | + + + + + CAPILLARY BLOOD GLUCOSE (NO CHG), POC (01/15/2018 12:01 PM PDT) + +---------+ + + + | Component | Value | Ref Range | Performed | Pathologist | | | | | At | Signature | + +---------+ + + + | BLOOD | 113 (H) | 60 - 99 mg/dL | [facility] | | | GLUCOSE, | | | [facility] | | | POC | | | [facility] | | | | | | OF CARE | | | | | | TESTS | | + +---------+ + + + + + | Specimen | + + | | + + + + + + + | Performing | Address | City/State/Zipcode | Phone Number | | Organization | | | | + + + + + | [facility] | [address] | [place], [place] | | | ANASTACIA SMITH | [facility] | [address] | | | TESTS | | | | + + + + + LAB OTHER (01/15/2018 10:07 AM PDT) + + + + + + | Component | Value | Ref Range | Performed | Pathologist | | | | | At | Signature | + + + + + + | MISC REF | Muscle-Specific Kinase | | [facility] | | | TEST NAME | (MuSK) Autoantibody, | | LABORATORY | | | | Serum | | SERVICES, | | | | | | CORE | | + + + + + + | MISC REF | 0.00 nmol/L | | [facility] | | | TEST RESULT | | | REFERENCE | | | | | | LAB | | + + + + + + | NORMAL | 0.00-0.02 | | [facility] | | | RANGE | | | REFERENCE | | | | | | LAB | | + + + + + + | REFERRAL | Test performed by: | | [facility] | | | LAB NAME | [facility] | | REFERENCE | | | | [address] | | LAB | | | | [place] [address] | | | | + + + + + + + + | Specimen | + + | Blood - Blood | | (substance) | + + + + + | Narrative | Performed At | + + + | See scanned | [facility] | | report for Technical Results and further Interpretation and Comments. | REFERENCE LAB | | | | | | | + + + + + + + + | Performing | Address | City/State/Zipcode | Phone Number | | Organization | | | | + + + + + | [facility] | | | | + + + + + | [facility] | [address] | [place] [address] | | | SERVICES, CORE | [address] | | | + + + + + | [facility] | see below | | | + + + + + RAINBOW HOLD TUBE - RED TOP (01/15/2018 10:07 AM PDT) + + | Specimen | + + | Blood - Blood | | (substance) | + + + + + + + | Performing | Address | City/State/Zipcode | Phone Number | | Organization | | | | + + + + + | [facility] | [address] | [place] [address] | | | SERVICES, CORE | [address] | | | + + + + + CBC (HEMOGRAM) ONLY (01/15/2018 1:35 AM PDT) + + + + + + | Component | Value | Ref Range | Performed | Pathologist | | | | | At | Signature | + + + + + + | WHITE CELL | 10.20 | 3.50 - 10.80 | [facility] | | | COUNT | | K/cu mm | LABORATORY | | | | | | SERVICES, | | | | | | CORE | | + + + + + + | RED CELL | 4.22 (L) | 4.50 - 6.00 | [facility] | | | COUNT | | M/cu mm | LABORATORY | | | | | | SERVICES, | | | | | | CORE | | + + + + + + | HEMOGLOBIN | 12.0 (L) | 13.5 - 17.5 | [facility] | | | | | g/dL | LABORATORY | | | | | | SERVICES, | | | | | | CORE | | + + + + + + | HEMATOCRIT | 35.0 (L) | 41.0 - 53.0 % | [facility] | | | | | | LABORATORY | | | | | | SERVICES, | | | | | | CORE | | + + + + + + | MCV | 82.9 | 80.0 - 100.0 fL | [facility] | | | | | | LABORATORY | | | | | | SERVICES, | | | | | | CORE | | + + + + + + | MCHC | 34.3 | 32.0 - 36.0 | [facility] | | | | | g/dL | LABORATORY | | | | | | SERVICES, | | | | | | CORE | | + + + + + + | RDW SD | 38.5 | 35.1 - 46.3 fL | [facility] | | | | | | LABORATORY | | | | | | SERVICES, | | | | | | CORE | | + + + + + + | PLATELET | 265 | 150 - 400 K/cu | [facility] | | | COUNT | | mm | LABORATORY | | | | | | SERVICES, | | | | | | CORE | | + + + + + + | MPV | 9.4 (L) | 9.7 - 12.3 fL | [facility] | | | | | | LABORATORY | | | | | | SERVICES, | | | | | | CORE | | + + + + + + | NRBC% | 0.0 | 0.0 - 0.3 % | [facility] | | | | | | LABORATORY | | | | | | SERVICES, | | | | | | CORE | | + + + + + + | NRBC# | 0.00 | 0.00 - 0.02 | [facility] | | | | | K/cu mm | LABORATORY | | | | | | SERVICES, | | | | | | CORE | | + + + + + + + + | Specimen | + + | Blood - Blood | | (substance) | + + + + + | Narrative | Performed At | + + + | New reference ranges for MCV, MCHC, PLT, IG% and IG# effective | [facility] | | 08/31/2017 | LABORATORY | | | SERVICES, CORE | + + + + + + + + | Performing | Address | City/State/Zipcode | Phone Number | | Organization | | | | + + + + + | [facility] | [address] | [place] [address] | | | SERVICES, CORE | [address] | | | + + + + + RENAL FUNCTION SET (NA,K,CL,CO2,BUN,CREAT,GLUC,CA,PHOS,ALB ) (01/15/2018 1:35 AM PDT) + + + + + + | Component | Value | Ref Range | Performed | Pathologist | | | | | At | Signature | + + + + + + | GLUCOSE, | 95 | 70 - 99 mg/dL | [facility] | | | PLASMA | | | LABORATORY | | | (LAB) | | | SERVICES, | | | | | | CORE | | + + + + + + | BUN, PLASMA | 13 | 6 - 20 mg/dL | [facility] | | | (LAB) | | | LABORATORY | | | | | | SERVICES, | | | | | | CORE | | + + + + + + | CREATININE | 0.50 (L) | 0.70 - 1.30 | [facility] | | | PLASMA | | mg/dL | LABORATORY | | | (LAB) | | | SERVICES, | | | | | | CORE | | + + + + + + | EGFR | >60 | >60 mL/min | [facility] | | | - | | | LABORATORY | | | POLISH | | | SERVICES, | | | | | | CORE | | + + + + + + | EGFR NON | >60 | >60 mL/min | [facility] | | | -[place] | | | LABORATORY | | | RICAN | | | SERVICES, | | | | | | CORE | | + + + + + + | SODIUM, | 137 | 136 - 145 | [facility] | | | PLASMA | | mmol/L | LABORATORY | | | (LAB) | | | SERVICES, | | | | | | CORE | | + + + + + + | POTASSIUM, | 3.7 | 3.4 - 5.0 | [facility] | | | PLASMA | | mmol/L | LABORATORY | | | (LAB) | | | SERVICES, | | | | | | CORE | | + + + + + + | CHLORIDE, | 105 | 97 - 108 mmol/L | [facility] | | | PLASMA | | | LABORATORY | | | (LAB) | | | SERVICES, | | | | | | CORE | | + + + + + + | TOTAL CO2, | 25 | 21 - 32 mmol/L | [facility] | | | PLASMA | | | LABORATORY | | | (LAB) | | | SERVICES, | | | | | | CORE | | + + + + + + | CALCIUM, | 8.4 (L) | 8.6 - 10.2 | [facility] | | | PLASMA | | mg/dL | LABORATORY | | | (LAB) | | | SERVICES, | | | | | | CORE | | + + + + + + | CALCIUM(ALB | 9.4 | 8.6 - 10.2 | [facility] | | | CORRECTED) | | mg/dL | LABORATORY | | | | | | SERVICES, | | | | | | CORE | | + + + + + + | ALBUMIN, | 2.7 (L) | 3.5 - 4.7 g/dL | [facility] | | | PLASMA | | | LABORATORY | | | (LAB) | | | SERVICES, | | | | | | CORE | | + + + + + + | PHOSPHORUS, | 2.0 (L) | 2.4 - 4.7 mg/dL | [facility] | | | PLASMA | | | LABORATORY | | | (LAB) | | | SERVICES, | | | | | | CORE | | + + + + + + | POTASSIUM | No Hemo | | [facility] | | | CMNT | | | LABORATORY | | | | | | SERVICES, | | | | | | CORE | | + + + + + + | ANION GAP | 7 | 4 - 11 mmol/L | [facility] | | | | | | LABORATORY | | | | | | SERVICES, | | | | | | CORE | | + + + + + + | ANION | 10 | 4 - 11 mmol/L | [facility] | | | GAP(ALB | | | LABORATORY | | | CORRECTED) | | | SERVICES, | | | | | | CORE | | + + + + + + + + | Specimen | + + | Blood - Blood | | (substance) | + + + + + | Narrative | Performed At | + + + | GFR is estimated using the MDRD equation recommended by the | [facility] | | National Kidney Disease Education Program. Estimated GFR | LABORATORY | | Interpretive Information: <60 mL/min/1.73 sq m | [facility] | | Chronic Kidney Disease <15 mL/min/1.73 sq m | | | Kidney Failure Estimated GFR greater that 60 mL/min/1.73 sq m is of | | | limited clinical value. The MDRD equation is not valid in the | | | following situations: - Patients under 18 years of age - Severe | | | malnutrition or obesity - Vegetarian diet - Rapidly changing kidney | | | function - Amputees, paraplegics, or other muscle-wasting diseses | | + + + + + + + + | Performing | Address | City/State/Zipcode | Phone Number | | Organization | | | | + + + + + | [facility] | [address] | [place] [address] | | | [facility] AD[facility] | [address] | | | + + + + + CT LOWER EXTREMITY LEFT W CONTRAST (01/15/2018 12:27 AM PDT) + + | Specimen | + + | | + + + + + | Narrative | Performed At | + + + | EXAM: CT EXT LWR LEFT W CONTRAST HISTORY: Left upper leg wound, | [facility] | | eval for occult abscess COMPARISON: Chest 2018 TECHNIQUE: | RADIOLOGY VOICE | | Axial CT images of the left upper leg were acquired. Sagittal and | RECOGNITION 2 | | coronal reformations were completed. Iodinated IV contrast was | | | administered. FINDINGS: No CT evidence of acute osteomyelitis. | | | No radiodense foreign bodies. Within the limits of a CT, no | | | significant hip joint effusion. No knee joint effusion. No | | | organized, drainable fluid collection to suggest abscess formation. No | | | subcutaneous perifacial gas. Scattered regions of focal | | | subcutaneous soft tissue thickening are present. Induration of the | | | subcutaneous soft tissues overlying the lateral aspect of the thigh | | | may represent a contusion in the posttraumatic setting. Focal | | | subcutaneous gas along the lateral aspect of the distal thigh with | | | overlying soft tissue defect. Within the limits of CT, no | | | significant fascial thickening. Preservation of normal musculature | | | architecture. No lymphadenopathy. Limited views of the pelvis | | | demonstrate no atypical free fluid. IMPRESSION: Scattered | | | regions of focal subcutaneous soft tissue thickening without abscess | | | formation. I have personally reviewed the images and, if | | | necessary, edited the report. I agree with the report as now | | | presented. Final signature: Lucio Esteban MD 01/15/2018 | | | 9:15 AM Preliminary: Anirudh Shell MD Dictation initiated: | | | Anirudh Shell MD 01/15/2018 12:50 AM | | + + + + + | Procedure Note | + + | Service Account, Radiant Res In Interface - 01/15/2018 9:16 AM PDT EXAM: CT EXT LWR | | LEFT W CONTRAST HISTORY: Left upper leg wound, eval for occult abscess COMPARISON: Chest | | 2018 TECHNIQUE: Axial CT images of the left upper leg were acquired. Sagittal and | | coronal reformations were completed. Iodinated IV contrast was administered. FINDINGS: | | No CT evidence of acute osteomyelitis. No radiodense foreign bodies. Within the limits | | of a CT, no significant hip joint effusion. No knee joint effusion. No organized, | | drainable fluid collection to suggest abscess formation. No subcutaneous perifacial gas. | | Scattered regions of focal subcutaneous soft tissue thickening are present. Induration | | of the subcutaneous soft tissues overlying the lateral aspect of the thigh may represent | | a contusion in the posttraumatic setting. Focal subcutaneous gas along the lateral | | aspect of the distal thigh with overlying soft tissue defect. Within the limits of CT, | | no significant fascial thickening. Preservation of normal musculature architecture. No | | lymphadenopathy. Limited views of the pelvis demonstrate no atypical free fluid. | | IMPRESSION: Scattered regions of focal subcutaneous soft tissue thickening without | | abscess formation. I have personally reviewed the images and, if necessary, edited the | | report. I agree with the report as now presented. Final signature: Lucio Esteban MD | | 01/15/2018 9:15 AM Preliminary: Anirudh Shell MD Dictation initiated: Anirudh | Sonny Shell MD 01/15/2018 12:50 AM | | | |Within the limits of CT, no significant fascial thickening. Preservation of normal musculat ure architecture. | | | |No lymphadenopathy. Limited views of the pelvis demonstrate no atypical free fluid. | | | |IMPRESSION: | | | |Scattered regions of focal subcutaneous soft tissue thickening without abscess formation. | | | |I have personally reviewed the images and, if necessary, edited the report. I agree with th e report as now presented. | | | |Final signature: Lucio Esteban MD 01/15/2018 9:15 AM | |Preliminary: Anirudh Shell MD | |Dictation initiated: Anirudh Shell MD 01/15/2018 12:50 AM | + + + +---------+ + + | Performing | Address | City/State/Zipcode | Phone Number | | Organization | | | | + +---------+ + + | [facility] | | | | | VOICE RECOGNITION 2 | | | | + +---------+ + + HEPATITIS A AB IGM, SERUM (01/14/2018 10:00 PM PDT) + + + + + + | Component | Value | Ref Range | Performed | Pathologist | | | | | At | Signature | + + + + + + | HEPATITIS A | Negative | Negative | [facility] | | | AB, IGM | | | [facility] | | | | | | [place] | | + + + + + + + + | Specimen | + + | Blood - Blood | | (substance) | + + + + + + + | Performing | Address | City/State/Zipcode | Phone Number | | Organization | | | | + + + + + | [facility] | [address] | [place] [address] | | | [place] | | | | + + + + + HEP C PCR CONFIRMATION: REFLEX ONLY (01/14/2018 10:00 PM PDT) + + + + + + | Component | Value | Ref Range | Performed | Pathologist | | | | | At | Signature | + + + + + + | HCV QNT BY | 21,265 | IU/mL | [facility] | | | NAAT | | | REG UNIV | | | (IU/ML) | | | PTH - [facility] | | + + + + + + | HCV QNT BY | 4.33Comment: | log IU/mL | [facility] | | | NAAT (LOG | INTERPRETIVE | | REG UNIV | | | IU/ML) | INFORMATION: HCV by | | PTH - [facility] | | | | Quantitative NAAT Normal | | | | | | range for this assay is | | | | | | "Not Detected".The | | | | | | quantitative range of | | | | | | this assay is 10 - | | | | | | 100,000,000 IU/mL (1.0 - | | | | | | 8.0 log IU/mL). Lower | | | | | | limit of quantitation | | | | | | (LLoQ):10 IU/mL (1.0 log | | | | | | IU/mL)LLoQ values do | | | | | | not apply to diluted | | | | | | specimens.A result of | | | | | | "Not Detected" does not | | | | | | rule out the presence of | | | | | | inhibitors in the | | | | | | patient specimen or | | | | | | hepatitis C virus RNA | | | | | | concentrations below the | | | | | | level of detection of | | | | | | the test. Care should be | | | | | | taken when interpreting | | | | | | any single viral load | | | | | | determination. This test | | | | | | should not be used for | | | | | | blood donor screening, | | | | | | associated re-entry | | | | | | protocols, or for | | | | | | screening Human Cell, | | | | | | Tissues and Cellular | | | | | | Tissue-Based Products | | | | | | (HCT/P).Performed by | | | | | | [facility] | | | | | [address], [facility] [place] | | | | | | [address] | | | | | | [phone] | | | | | | Lex briones MD, | | | | | | Lab. Director | | | | + + + + + + + + | Specimen | + + | Blood - Blood | | (substance) | + + + + + + + | Performing | Address | City/State/[facility] | Phone Number | | Organization | | | | + + + + + | [facility] | [address] | [place], [place] | | | UNIV PTH - [facility] | | [address] | | + + + + + MUSK QUANTITATIVE ANTIBODY (01/14/2018 10:00 PM PDT) + + + + + + | Component | Value | Ref Range | Performed | Pathologist | | | | | At | Signature | + + + + + + | MUSK | 0.00Comment: A negative | 0.00 - 0.02 | [facility] | | | ANTIBODY | result does not exclude | nmol/L | MEDICAL | | | QUANT | the diagnosis of | | LAB-[facility] | | | | autoimmune myasthenia | | | | | | gravis. Testing for | | | | | | acetylcholine receptor | | | | | | binding and modulating | | | | | | antibodies, and | | | | | | striational antibody | | | | | | should be considered. | | | | | | ADD | | | | | | ITIONAL | | | | | | INFORMATION | | | | | | ------ This test was | | | | | | developed using an | | | | | | analyte specific | | | | | | reagent. Its | | | | | | performance | | | | | | characteristics were | | | | | | determined by [facility] | | | | | | [facility] in a manner | | | | | | consistent with CLIA | | | | | | requirements. This | | | | | | test has not been | | | | | | cleared or approved by | | | | | | the U.S. Food and Drug | | | | | | Administration. Test | | | | | | Performed by: [facility] | | | | | | [facility] - | | | | | | [facility] | | | | | | [address], | | | | | | [place] [address] | | | | + + + + + + + + | Specimen | + + | Blood - Blood | | (substance) | + + + + + + + | Performing | Address | City/State/[facility] | Phone Number | | Organization | | | | + + + + + | [facility] | [address] | [place], [place] | | | [facility] | [place] | [address] | | + + + + + MG/LES EVALUATION W/REFLEX (01/14/2018 10:00 PM PDT) + + + + + + | Component | Value | Ref Range | Performed | Pathologist | | | | | At | Signature | + + + + + + | MG | SEE COMMENTSComment: A | | [facility] | | | LAMBERT-EAT | negative result does not | | MEDICAL | | | ON | exclude autoimmune | | [facility] | | | INTERPRETAT | myasthenia gravis or | | | | | ION, S | Lambert-Eaton syndrome. | | | | + + + + + + | P/Q-TYPE | 0.00Comment: | <=0.02 nmol/L | [facility] | | | CALCIUM | ADD | | MEDICAL | | | CHANNEL AB | ITIONAL | | [facility] | | | | INFORMATION | | | | | | ------ This test was | | | | | | developed and its | | | | | | performance | | | | | | characteristics | | | | | | determined by [facility] | | | | | | [facility] in a manner | | | | | | consistent with CLIA | | | | | | requirements. This | | | | | | test has not been | | | | | | cleared or approved by | | | | | | the U.S. Food and Drug | | | | | | Administration. | | | | + + + + + + | N-TYPE | 0.00Comment: | <=0.03 nmol/L | [facility] | | | CALCIUM | ADD | | MEDICAL | | | CHANNEL AB | ITIONAL | | [facility] | | | | INFORMATION | | | | | | ------ This test was | | | | | | developed and its | | | | | | performance | | | | | | characteristics | | | | | | determined by [facility] | | | | | | [facility] in a manner | | | | | | consistent with CLIA | | | | | | requirements. This | | | | | | test has not been | | | | | | cleared or approved by | | | | | | the U.S. Food and Drug | | | | | | Administration. | | | | + + + + + + | [facility] | 0.00Comment: | <=0.02 nmol/L | [facility] | | | RECEPTOR | ADD | | MEDICAL | | | (MUSCLE) | ITIONAL | | [facility] | | | BINDING AB | INFORMATION | | | | | | ------ This test was | | | | | | developed and its | | | | | | performance | | | | | | characteristics | | | | | | determined by [facility] | | | | | | [facility] in a manner | | | | | | consistent with CLIA | | | | | | requirements. This | | | | | | test has not been | | | | | | cleared or approved by | | | | | | the U.S. Food and Drug | | | | | | Administration. | | | | + + + + + + | [facility] | 0Comment: | % | [facility] | | | RECEPTOR | REF | | MEDICAL | | | (MUSCLE) | ERENCE | | [facility] | | | MODULATING | VALUE | | | | | AB | ------- 0-20% (reported | | | | | | as _% loss of [facility]ChR) | | | | | | ADD | | | | | | ITIONAL | | | | | | INFORMATION | | | | | | ------ This test was | | | | | | developed and its | | | | | | performance | | | | | | characteristics | | | | | | determined by [facility] | | | | | | [facility] in a manner | | | | | | consistent with CLIA | | | | | | requirements. This | | | | | | test has not been | | | | | | cleared or approved by | | | | | | the U.S. Food and Drug | | | | | | Administration. | | | | + + + + + + | STRIATED | NegativeComment: | <1:120 titer | [facility] | | | MUSCLE AB | ADD | | MEDICAL | | | TITER | ITIONAL | | [facility] | | | | INFORMATION | | | | | | ------ This test was | | | | | | developed and its | | | | | | performance | | | | | | characteristics | | | | | | determined by [facility] | | | | | | [facility] in a manner | | | | | | consistent with CLIA | | | | | | requirements. This | | | | | | test has not been | | | | | | cleared or approved by | | | | | | the U.S. Food and Drug | | | | | | Administration. Test | | | | | | Performed by: [facility] | | | | | | [facility] - | | | | | | [facility] | | | | | | [address], | | | | | | [place] [address] | | | | + + + + + + + + | Specimen | + + | Blood - Blood | | (substance) | + + + + + + + | Performing | Address | City/State/Zipcode | Phone Number | | Organization | | | | + + + + + | [facility] | [address] | [place] | | | [facility] | [place] | [address] | | + + + + + LAB OTHER (01/14/2018 10:00 PM PDT) + + + + + + | Component | Value | Ref Range | Performed | Pathologist | | | | | At | Signature | + + + + + + | MISC REF | Myelin Oligodendrocyte | | [facility] | | | TEST NAME | Glycoprotein (MOG-IgG1) | | LABORATORY | | | | Fluorescence-Activated | | SERVICES, | | | | Cell Sorting (FACS) | | CORE | | | | Assay, Serum | | | | + + + + + + | MISC REF | Negative | | [facility] | | | TEST RESULT | | | REFERENCE | | | | | | LAB | | + + + + + + | NORMAL | Negative | | [facility] | | | RANGE | | | REFERENCE | | | | | | LAB | | + + + + + + | REFERRAL | Test performed by: | | [facility] | | | LAB NAME | [facility] | | REFERENCE | | | | [address] | | LAB | | | | [place] [address] | | | | + + + + + + + + | Specimen | + + | Blood - Blood | | (substance) | + + + + + | Narrative | Performed At | + + + | See scanned | [facility] | | report for Technical Results and further Interpretation and Comments. | REFERENCE LAB | | | | | | | + + + + + + + + | Performing | Address | City/State/Zipcode | Phone Number | | Organization | | | | + + + + + | [facility] | | | | + + + + + | [facility] | [address] | [place] [address] | | | SERVICES, CORE | [address] | | | + + + + + | [facility] | see below | | | + + + + + HEP C AB; W/CONFIRMATION BY QUANTITATIVE PCR (01/14/2018 10:00 PM PDT) + + + + + + | Component | Value | Ref Range | Performed | Pathologist | | | | | At | Signature | + + + + + + | HEP C AB | Detected (A) | Not Detected | [facility] | | | | | | LABORATORY | | | | | | SERVICES, | | | | | | CORE | | + + + + + + + + | Specimen | + + | Blood - Blood | | (substance) | + + + + + | Narrative | Performed At | + + + | Confirmation by Quantitative PCR. | [facility] | | | LABORATORY | | | [facility] | + + + + + + + + | Performing | Address | City/State/Zipcode | Phone Number | | Organization | | | | + + + + + | [facility] | [address] | [place] [address] | | | [facility] | [address] | | | + + + + + HEPATITIS B CORE AB, SERUM (01/14/2018 10:00 PM PDT) + + + + + + | Component | Value | Ref Range | Performed | Pathologist | | | | | At | Signature | + + + + + + | HEP B CORE | Detected (A) | Not Detected | [facility] | | | AB | | | LABORATORY | | | | | | SERVICES, | | | | | | CORE | | + + + + + + + + | Specimen | + + | Blood - Blood | | (substance) | + + + + + + + | Performing | Address | City/State/Zipcode | Phone Number | | Organization | | | | + + + + + | [facility] | [address] | [place] [address] | | | SERVICES, CORE | [address] | | | + + + + + HEPATITIS B SURFACE AG W/REFLEX CONFIRMATION IF INDETERMINATE RESULTS (01/14/2018 10:00 PM PDT) + + + + + + | Component | Value | Ref Range | Performed | Pathologist | | | | | At | Signature | + + + + + + | HEPATITIS B | | | [facility] | | | SURFACE | | | LABORATORY | | | AG, SERUM | | | SERVICES, | | | | | | CORE | | + + + + + + | HEP B | Not Detected | Not Detected | [facility] | | | SURFACE AG | | | LABORATORY | | | | | | SERVICES, | | | | | | CORE | | + + + + + + + + | Specimen | + + | Blood - Blood | | (substance) | + + + + + + + | Performing | Address | City/State/Zipcode | Phone Number | | Organization | | | | + + + + + | [facility] | [address] | [place] [address] | | | SERVICES, CORE | [address] | | | + + + + + HEPATITIS A AB SCREEN, SERUM (01/14/2018 10:00 PM PDT) + + + + + + | Component | Value | Ref Range | Performed | Pathologist | | | | | At | Signature | + + + + + + | HEPATITIS A | Positive (A) | Negative | [facility] - | | | AB TOTAL | | | [facility] | | | | | | [place] | | + + + + + + + + | Specimen | + + | Blood - Blood | | (substance) | + + + + + + + | Performing | Address | City/State/Zipcode | Phone Number | | Organization | | | | + + + + + | [facility] | [id number] | [place] [address] | | | [place] | | | | + + + + + HIV-1,2 AB/HIV-1 P24 AG SCRN (01/14/2018 10:00 PM PDT) + + + + + + | Component | Value | Ref Range | Performed | Pathologist | | | | | At | Signature | + + + + + + | HIV-1,2 | Negative | Negative | [facility] | | | AB/HIV-1 | | | LABORATORY | | | P24 AG | | | SERVICES, | | | SCREEN | | | SPECIAL [facility] | | | | | | + [place] | | + + + + + + + + | Specimen | + + | Blood - Blood | | (substance) | + + + + + | Narrative | Performed At | + + + | HIV-1 p24 Ag and HIV-1,2 Ab not detected. Test modified from | [facility] | | original medical research assistant's approved specifications. The performance | LABORATORY | | of the PERFUMER HIV Combo test, with or without confirmation, was not | SERVICES, | | tested in pediatric patients less than 2 years of age. [facility] | SPECIAL IMM + | | guidelines recommend virologic assays (i.e. HIV 1 VIRAL LOAD) that | [employer] | | directly detect HIV for diagnosis of HIV infection in infants younger | | | than 2 years. | | + + + + + + + + | Performing | Address | City/State/Zipcode | Phone Number | | Organization | | | | + + + + + | [facility] | [address] | [place] [address] | | | SERVICES, SPECIAL | [address] | | | | IMM + [place] | | | | + + + + + X-RAY ABD LTD FEEDING TUBE EVAL PORTABLE (01/14/2018 2:23 PM PDT) + + | Specimen | + + | | + + + + + | Narrative | Performed At | + + + | EXAM: PA ABD LTD FEEDING TUBE EVAL INDICATION: Feeding tube | [facility] | | placement. TECHNIQUE: Semi-upright portable view of the upper | RADIOLOGY VOICE | | abdomen. Comparison: Same-day chest radiograph. | RECOGNITION 2 | | FINDINGS/IMPRESSION: The Dobbhoff tube has been advanced, now | | | with tip projecting over the peripyloric region/proximal duodenum. | | | Partially visualized right PICC, with tip projecting over the | | | cavoatrial junction. The visualized colon is stool and air-filled but | | | nondilated. Paucity of small bowel gas limits its evaluation. I | | | have personally reviewed the images and, if necessary, edited the | | | report. I agree with the report as now presented. Final | | | signature: Gopi Curiel MD 01/14/2018 3:57 PM Preliminary: Gopi Cisse | | | MD Moisés Dictation initiated: Gopi Curiel MD 01/14/2018 3:55 PM | | + + + + + | Procedure Note | + + | Service Account, Radiant Res In Interface - 01/14/2018 3:58 PM PDT EXAM: PA ABD LTD | | FEEDING TUBE EVAL INDICATION: Feeding tube placement. TECHNIQUE: Semi-upright portable | | view of the upper abdomen. Comparison: Same-day chest radiograph. FINDINGS/IMPRESSION: | | The Dobbhoff tube has been advanced, now with tip projecting over the peripyloric | | region/proximal duodenum. Partially visualized right PICC, with tip projecting over the | | cavoatrial junction. The visualized colon is stool and air-filled but nondilated. | | Paucity of small bowel gas limits its evaluation. I have personally reviewed the images | | and, if necessary, edited the report. I agree with the report as now presented. Final | | signature: Gopi Curiel MD 01/14/2018 3:57 PM Preliminary: Gopi Curiel MD Dictation | | initiated: Gopi Curiel MD 01/14/2018 3:55 PM | |The Dobbhoff tube has been advanced, now with tip projecting over the peripyloric region/pr oximal duodenum. Partially visualized right PICC, with tip projecting over the cavoatrial ju nction. The visualized colon is | |stool and air-filled but nondilated. Paucity of small bowel gas limits its evaluation. | | | |I have personally reviewed the images and, if necessary, edited the report. I agree with th e report as now presented. | | | |Final signature: Gopi Curile MD 01/14/2018 3:57 PM | |Preliminary: Gopi Curiel MD | |Dictation initiated: Gopi Curiel MD 01/14/2018 3:55 PM | + + + +---------+ + + | Performing | Address | City/State/Zipcode | Phone Number | | Organization | | | | + +---------+ + + | [facility] | | | | | VOICE RECOGNITION 2 | | | | + +---------+ + + CULTURE, BLOOD BACTI & YEAST TERESITA (01/14/2018 5:28 AM PDT) + + + + + + | Component | Value | Ref Range | Performed | Pathologist | | | | | At | Signature | + + + + + + | CULTURE | Final Report:No Bacteria | | [facility] | | | RESULT | or Yeast isolated at 5 | | LABORATORY | | | | days. | | SERVICES, | | | | | | CORE | | + + + + + + + + | Specimen | + + | Blood - Radial | + + + + + + + | Performing | Address | City/State/Zipcode | Phone Number | | Organization | | | | + + + + + | [facility] | [address] | [place] [address] | | | SERVICES, CORE | [address] | | | + + + + + CBC (HEMOGRAM) ONLY (01/14/2018 1:20 AM PDT) + + + + + + | Component | Value | Ref Range | Performed | Pathologist | | | | | At | Signature | + + + + + + | WHITE CELL | 12.43 (H) | 3.50 - 10.80 | [facility] | | | COUNT | | K/cu mm | LABORATORY | | | | | | SERVICES, | | | | | | CORE | | + + + + + + | RED CELL | 4.69 | 4.50 - 6.00 | [facility] | | | COUNT | | M/cu mm | LABORATORY | | | | | | SERVICES, | | | | | | CORE | | + + + + + + | HEMOGLOBIN | 13.1 (L) | 13.5 - 17.5 | [facility] | | | | | g/dL | LABORATORY | | | | | | SERVICES, | | | | | | CORE | | + + + + + + | HEMATOCRIT | 38.1 (L) | 41.0 - 53.0 % | [facility] | | | | | | LABORATORY | | | | | | SERVICES, | | | | | | CORE | | + + + + + + | MCV | 81.2 | 80.0 - 100.0 fL | [facility] | | | | | | LABORATORY | | | | | | SERVICES, | | | | | | CORE | | + + + + + + | MCHC | 34.4 | 32.0 - 36.0 | [facility] | | | | | g/dL | LABORATORY | | | | | | SERVICES, | | | | | | CORE | | + + + + + + | RDW SD | 37.4 | 35.1 - 46.3 fL | [facility] | | | | | | LABORATORY | | | | | | SERVICES, | | | | | | CORE | | + + + + + + | PLATELET | 282 | 150 - 400 K/cu | [facility] | | | COUNT | | mm | LABORATORY | | | | | | SERVICES, | | | | | | CORE | | + + + + + + | MPV | 9.1 (L) | 9.7 - 12.3 fL | [facility] | | | | | | LABORATORY | | | | | | SERVICES, | | | | | | CORE | | + + + + + + | NRBC% | 0.0 | 0.0 - 0.3 % | [facility] | | | | | | LABORATORY | | | | | | SERVICES, | | | | | | CORE | | + + + + + + | NRBC# | 0.00 | 0.00 - 0.02 | [facility] | | | | | K/cu mm | LABORATORY | | | | | | SERVICES, | | | | | | CORE | | + + + + + + + + | Specimen | + + | Blood - Blood | | (substance) | + + + + + | Narrative | Performed At | + + + | New reference ranges for MCV, MCHC, PLT, IG% and IG# effective | [facility] | | 08/31/2017 | LABORATORY | | | SERVICES, CORE | + + + + + + + + | Performing | Address | City/State/Zipcode | Phone Number | | Organization | | | | + + + + + | [facility] | [address] | [place] [address] | | | SERVICES, CORE | [address] | | | + + + + + RENAL FUNCTION SET (NA,K,CL,CO2,BUN,CREAT,GLUC,CA,PHOS,ALB ) (01/14/2018 1:20 AM PDT) + + + + + + | Component | Value | Ref Range | Performed | Pathologist | | | | | At | Signature | + + + + + + | GLUCOSE, | 99 | 70 - 99 mg/dL | [facility] | | | PLASMA | | | LABORATORY | | | (LAB) | | | SERVICES, | | | | | | CORE | | + + + + + + | BUN, PLASMA | 15 | 6 - 20 mg/dL | [facility] | | | (LAB) | | | LABORATORY | | | | | | SERVICES, | | | | | | CORE | | + + + + + + | CREATININE | 0.50 (L) | 0.70 - 1.30 | [facility] | | | PLASMA | | mg/dL | LABORATORY | | | (LAB) | | | SERVICES, | | | | | | CORE | | + + + + + + | EGFR | >60 | >60 mL/min | [facility] | | | - | | | LABORATORY | | | POLISH | | | SERVICES, | | | | | | CORE | | + + + + + + | EGFR NON | >60 | >60 mL/min | [facility] | | | -[place] | | | LABORATORY | | | RICAN | | | SERVICES, | | | | | | CORE | | + + + + + + | SODIUM, | 140 | 136 - 145 | [facility] | | | PLASMA | | mmol/L | LABORATORY | | | (LAB) | | | SERVICES, | | | | | | CORE | | + + + + + + | POTASSIUM, | 3.7 | 3.4 - 5.0 | [facility] | | | PLASMA | | mmol/L | LABORATORY | | | (LAB) | | | SERVICES, | | | | | | CORE | | + + + + + + | CHLORIDE, | 107 | 97 - 108 mmol/L | [facility] | | | PLASMA | | | LABORATORY | | | (LAB) | | | SERVICES, | | | | | | CORE | | + + + + + + | TOTAL CO2, | 26 | 21 - 32 mmol/L | [facility] | | | PLASMA | | | LABORATORY | | | (LAB) | | | SERVICES, | | | | | | CORE | | + + + + + + | CALCIUM, | 8.8 | 8.6 - 10.2 | [facility] | | | PLASMA | | mg/dL | LABORATORY | | | (LAB) | | | SERVICES, | | | | | | CORE | | + + + + + + | CALCIUM(ALB | 9.6 | 8.6 - 10.2 | [facility] | | | CORRECTED) | | mg/dL | LABORATORY | | | | | | SERVICES, | | | | | | CORE | | + + + + + + | ALBUMIN, | 3.0 (L) | 3.5 - 4.7 g/dL | [facility] | | | PLASMA | | | LABORATORY | | | (LAB) | | | SERVICES, | | | | | | CORE | | + + + + + + | PHOSPHORUS, | 2.4 | 2.4 - 4.7 mg/dL | [facility] | | | PLASMA | | | LABORATORY | | | (LAB) | | | SERVICES, | | | | | | CORE | | + + + + + + | POTASSIUM | No Hemo | | [facility] | | | CMNT | | | LABORATORY | | | | | | SERVICES, | | | | | | CORE | | + + + + + + | ANION GAP | 7 | 4 - 11 mmol/L | [facility] | | | | | | LABORATORY | | | | | | SERVICES, | | | | | | CORE | | + + + + + + | ANION | 9 | 4 - 11 mmol/L | [facility] | | | GAP(ALB | | | LABORATORY | | | CORRECTED) | | | SERVICES, | | | | | | CORE | | + + + + + + + + | Specimen | + + | Blood - Blood | | (substance) | + + + + + | Narrative | Performed At | + + + | GFR is estimated using the MDRD equation recommended by the | [facility] | | National Kidney Disease Education Program. Estimated GFR | LABORATORY | | Interpretive Information: <60 mL/min/1.73 sq m | SERVICES, CORE | | Chronic Kidney Disease <15 mL/min/1.73 sq m | | | Kidney Failure Estimated GFR greater that 60 mL/min/1.73 sq m is of | | | limited clinical value. The MDRD equation is not valid in the | | | following situations: - Patients under 18 years of age - Severe | | | malnutrition or obesity - Vegetarian diet - Rapidly changing kidney | | | function - Amputees, paraplegics, or other muscle-wasting diseses | | + + + + + + + + | Performing | Address | City/State/Zipcode | Phone Number | | Organization | | | | + + + + + | [facility] | [address] | [place] [address] | | | SERVICES, CORE | [address] | | | + + + + + LAB OTHER (01/13/2018 6:53 PM PDT) + + + + + + | Component | Value | Ref Range | Performed | Pathologist | | | | | At | Signature | + + + + + + | MISC REF | Botulinum Toxin; Serum | | [facility] | | | TEST NAME | and E-swab | | REFERENCE | | | | | | LAB | | + + + + + + | MISC REF | | | [facility] | | | TEST RESULT | | | REFERENCE | | | | | | LAB | | + + + + + + | NORMAL | | | [facility] | | | RANGE | | | REFERENCE | | | | | | LAB | | + + + + + + | REFERRAL | Test performed by: | | [facility] | | | LAB NAME | [facility] | | REFERENCE | | | | [facility] [id number] | | LAB | | | | [address] | | | | | | [address] [place] [address] | | | | | | | | | | + + + + + + + + | Specimen | + + | Blood - Blood | | (substance) | + + + + + | Narrative | Performed At | + + + | See scanned | [facility] | | report for Technical Results and further Interpretation and Comments. | REFERENCE LAB | | | | | | | + + + + + + + + | Performing | Address | City/State/Zipcode | Phone Number | | Organization | | | | + + + + + | [facility] | | | | + + + + + | [facility] | see below | | | + + + + + SPECIMEN ROUTING (01/13/2018 6:53 PM PDT) + + | Specimen | + + | Blood - Blood | | (substance) | + + + + + + + | Performing | Address | City/State/Zipcode | Phone Number | | Organization | | | | + + + + + | [facility] | [address] | [place] [address] | | | ANGIE, YANNA | [address] | | | + + + + + US LOWER EXT NON-VASCULAR RT (01/13/2018 3:53 PM PDT) + + | Specimen | + + | | + + + + + | Narrative | Performed At | + + + | EXAM: US LWR EXT Non-vascular RIGHT HISTORY: Abscess - RLE at | [facility] | | hip/gluteus COMPARISON: None TECHNIQUE: Grayscale sonographic | RADIOLOGY VOICE | | evaluation of the right hip soft tissues. FINDINGS: Focused | RECOGNITION 2 | | ultrasound in the area of clinical concern demonstrates an echogenic | | | to isoechoic focus with surrounding hypoechoic fluid, this measures in | | | total 1.1 x 1.3 x 0.6 cm and demonstrates little to no vascularity. | | | There is mild subcutaneous edema. No abscess or fluid collection. | | | IMPRESSION: Subtle echogenic focus in the right hip soft tissues, | | | surrounding hypoechoic fluid may represent a developing injection | | | granuloma, resolving infectious/inflammatory change, or possibly a | | | retained foreign body with surrounding edema. Further evaluation can | | | be obtained with CT as clinically indicated. No soft tissue | | | drainable collection. These results were discussed with Dr. Baptiste | | | Best on 01/13/2018 4:15 PM by Cipriano Cisneros MD. I have | | | personally reviewed the images and, if necessary, edited the report. | | | I agree with the report as now presented. Final signature: Demi Sonny | | Emilio Grant MD 01/14/2018 10:16 AM Preliminary: Cipriano Dennis | Sonny Cisneros MD Dictation initiated: Cipriano Cisneros MD | | | 01/13/2018 3:50 PM | | + + + + + | Procedure Note | + + | Service Account, Radiant Res In Interface - 01/14/2018 10:17 AM PDT EXAM: US LWR EXT | | Non-vascular RIGHT HISTORY: Abscess - RLE at hip/gluteus COMPARISON: None TECHNIQUE: | | Grayscale sonographic evaluation of the right hip soft tissues. FINDINGS: Focused | | ultrasound in the area of clinical concern demonstrates an echogenic to isoechoic focus | | with surrounding hypoechoic fluid, this measures in total 1.1 x 1.3 x 0.6 cm and | | demonstrates little to no vascularity. There is mild subcutaneous edema. No abscess or | | fluid collection. IMPRESSION: Subtle echogenic focus in the right hip soft tissues, | | surrounding hypoechoic fluid may represent a developing injection granuloma, resolving | | infectious/inflammatory change, or possibly a retained foreign body with surrounding | | edema. Further evaluation can be obtained with CT as clinically indicated. No soft | | tissue drainable collection. These results were discussed with Dr. Emile Jewell on | | 01/13/2018 4:15 PM by Cipriano Cisneros MD. I have personally reviewed the images | | and, if necessary, edited the report. I agree with the report as now presented. Final | | signature: Demi Grant MD 01/14/2018 10:16 AM Preliminary: Cipriano Cisneros | | Dictation initiated: Cipriano Cisneros MD 01/13/2018 3:50 PM | |Subtle echogenic focus in the right hip soft tissues, surrounding hypoechoic fluid may repr esent a developing injection granuloma, resolving infectious/inflammatory change, or possibl y a retained foreign body with | |surrounding edema. Further evaluation can be obtained with CT as clinically indicated. | | | |No soft tissue drainable collection. | | | |These results were discussed with Dr. Emile Jewell on 01/13/2018 4:15 PM by Cipriano peterson MD. | | | |I have personally reviewed the images and, if necessary, edited the report. I agree with th e report as now presented. | | | |Final signature: Demi Grant MD 01/14/2018 10:16 AM | |Preliminary: Cipriano Cisneros MD | |Dictation initiated: Cipriano Cisneros MD 01/13/2018 3:50 PM | + + + +---------+ + + | Performing | Address | City/State/Zipcode | Phone Number | | Organization | | | | + +---------+ + + | [facility] | | | | | VOICE RECOGNITION 2 | | | | + +---------+ + + RAINBOW HOLD TUBE - BLUE TOP (01/13/2018 2:35 PM PDT) + + | Specimen | + + | Blood - Blood | | (substance) | + + + + + + + | Performing | Address | City/State/Zipcode | Phone Number | | Organization | | | | + + + + + | [facility] | [address] | [place] [address] | | | SERVICES, CORE | [address] | | | + + + + + CULTURE, WOUND ABSCESS OR ASPIRATE W/ ANAEROBE (01/13/2018 2:35 PM PDT) + + + + + + | Component | Value | Ref Range | Performed | Pathologist | | | | | At | Signature | + + + + + + | CULTURE | Staphylococcus aureus, | | [facility] | | | RESULT | Methicillin Resistant | | [facility] | | | | (A) | | [place] | | + + + + + + + + | Specimen | + + | Aspirate - Wound | | (morphologic | | abnormality) | + + + + + | Narrative | Performed At | + + + | Culture Report: 1+ Methicillin Resistant Staphylococcus aureus | [facility] | | No anaerobic organisms isolated Gram Stain: No squamous | [facility] - | | epithelial cells Moderate polymorphonuclear cells Few Gram | [place] | | positive cocci | | + + + + + + + + | Organism | Antibiotic | Method | Susceptibility | + + + + + | Staphylococcus | Cefazolin | [facility] | Resistant | | aureus, Methicillin | | | | | Resistant | | | | + + + + + | Staphylococcus | Clindamycin | [facility] | Sensitive | | aureus, Methicillin | | | | | Resistant | | | | + + + + + | Staphylococcus | Erythromycin | [facility] | Resistant | | aureus, Methicillin | | | | | Resistant | | | | + + + + + | Staphylococcus | Oxacillin | [facility] | Resistant | | aureus, Methicillin | | | | | Resistant | | | | + + + + + | Staphylococcus | Penicillin | [facility] | Resistant | | aureus, Methicillin | | | | | Resistant | | | | + + + + + | Staphylococcus | Trimethoprim/Sulfa | [facility] | Sensitive | | aureus, Methicillin | | | | | Resistant | | | | + + + + + | Staphylococcus | Tetracycline | [facility] | Sensitive | | aureus, Methicillin | | | | | Resistant | | | | + + + + + | Staphylococcus | Vancomycin | [facility] | Sensitive | | aureus, Methicillin | | | | | Resistant | | | | + + + + + + + + + + | Performing | Address | City/State/Zipcode | Phone Number | | Organization | | | | + + + + + | [facility] | [address] | [place] [address] | | | [place] | | | | + + + + + HEAVY METALS (ARSENIC, LEAD, MERCURY), BLOOD (01/13/2018 2:35 PM PDT) + + + + + + | Component | Value | Ref Range | Performed | Pathologist | | | | | At | Signature | + + + + + + | ARSENIC | <10.0Comment: | 0.0 - 13.0 ug/L | [facility] | | | BLOOD | INTERPRETIVE | | REG UNIV | | | | INFORMATION: Arsenic, | | PTH - [facility] | | | | Blood Potentially toxic | | | | | | ranges for blood | | | | | | arsenic: Greater than | | | | | | or equal to 600 ug/L. | | | | | | Blood arsenic is for the | | | | | | detection of recent | | | | | | exposure only. Blood | | | | | | arsenic levels in | | | | | | healthy subjects vary | | | | | | considerably with | | | | | | exposure to arsenic in | | | | | | the diet and the | | | | | | environment. A 24-hour | | | | | | urine arsenic is useful | | | | | | for the detection of | | | | | | chronic exposure. Test | | | | | | developed and | | | | | | characteristics | | | | | | determined by [facility] | | | | | | Laboratories. See | | | | | | Compliance Statement B: | | | | | | [email or web address] | | | | + + + + + + | LEAD, BLOOD | <2.0Comment: | 0.0 - 4.9 ug/dL | [facility] | | | | INTERPRETIVE | | REG UNIV | | | | INFORMATION: Lead, Blood | | PTH - [facility] | | | | (Venous) Elevated | | | | | | results may be due to | | | | | | skin or | | | | | | collection-related | | | | | | contamination, including | | | | | | use of a noncertified | | | | | | lead-free tube. Elevated | | | | | | levels of blood lead | | | | | | should be confirmed with | | | | | | a second specimen | | | | | | collected in a lead-free | | | | | | tube. Information | | | | | | sources for reference | | | | | | intervals and | | | | | | interpretive comments | | | | | | include the CDC Response | | | | | | to the 2012 Advisory | | | | | | Committee on Childhood | | | | | | Lead Poisoning | | | | | | Prevention Report and | | | | | | the Recommendations for | | | | | | Medical Management of | | | | | | Adult Lead Exposure, | | | | | | Environmental Health | | | | | | Perspectives, 2007. | | | | | | Thresholds and time | | | | | | intervals for retesting, | | | | | | medical evaluation, and | | | | | | response vary by state | | | | | | and regulatory body. | | | | | | Contact your State | | | | | | Department of Health | | | | | | and/or applicable | | | | | | regulatory agency for | | | | | | specific guidance on | | | | | | medical management | | | | | | recommendations. Age | | | | | | | | | | | | Concentration | | | | | | Comment All ages | | | | | | 5-9.9 ug/dL | | | | | | Adverse health effects | | | | | | are | | | | | | | | | | | | possible, | | | | | | particularly in | | | | | | | | | | | | children | | | | | | under 6 years of | | | | | | | | | | | | age and | | | | | | women. | | | | | | | | | | | | Discuss | | | | | | health risks | | | | | | | | | | | | associated | | | | | | with continued | | | | | | | | | | | | lead | | | | | | exposure. For children | | | | | | | | | | | | and | | | | | | women who are or may | | | | | | | | | | | | | | | | | | become , reduce | | | | | | | | | | | | | | | | | | lead exposure. | | | | | | All ages | | | | | | 10-19.9 ug/dL | | | | | | Reduced lead exposure | | | | | | and | | | | | | | | | | | | increased biological | | | | | | | | | | | | | | | | | | monitoring are | | | | | | recommended. All ages | | | | | | 20-69.9 ug/dL | | | | | | Removal from lead | | | | | | exposure | | | | | | | | | | | | and prompt medical | | | | | | | | | | | | | | | | | | evaluation are | | | | | | recommended. | | | | | | | | | | | | Consider | | | | | | chelation therapy | | | | | | | | | | | | when | | | | | | concentrations exceed | | | | | | | | | | | | 50 | | | | | | ug/dL and symptoms of | | | | | | | | | | | | lead | | | | | | toxicity are present. | | | | | | Less than 19 | | | | | | Greater than Critical. | | | | | | Immediate medicalyears | | | | | | of age 44.9 ug/dL | | | | | | evaluation is | | | | | | recommended. | | | | | | | | | | | | Consider | | | | | | chelation therapy | | | | | | | | | | | | when | | | | | | symptoms of lead | | | | | | | | | | | | toxicity | | | | | | are present. Greater | | | | | | than 19 Greater than | | | | | | Critical. Immediate | | | | | | medicalyears of age | | | | | | 69.9 ug/dL | | | | | | evaluation is | | | | | | recommended | | | | | | | | | | | | Consider | | | | | | chelation therapy | | | | | | | | | | | | when | | | | | | symptoms of lead | | | | | | | | | | | | toxicity | | | | | | are present. Test | | | | | | developed and | | | | | | characteristics | | | | | | determined by [facility] | | | | | | Laboratories. See | | | | | | Compliance Statement B: | | | | | | [email or web address] | | | | + + + + + + | MERCURY,BLO | <3Comment: INTERPRETIVE | 0 - 10 ug/L | [facility] | | | OD | INFORMATION: Mercury, | | REG UNIV | | | | Blood Blood mercury | | PTH - [facility] | | | | levels predominantly | | | | | | reflect recent exposure | | | | | | and are most useful in | | | | | | the diagnosis of acute | | | | | | poisoning as blood | | | | | | mercury concentrations | | | | | | rise sharply and fall | | | | | | quickly over several | | | | | | days after ingestion. | | | | | | Blood concentrations in | | | | | | unexposed individuals | | | | | | rarely exceed 20 ug/L. | | | | | | The provided reference | | | | | | interval relates to | | | | | | inorganic mercury | | | | | | concentrations. Dietary | | | | | | and non-occupational | | | | | | exposure to organic | | | | | | mercury forms may | | | | | | contribute to an | | | | | | elevated total mercury | | | | | | result. Clinical | | | | | | presentation after toxic | | | | | | exposure to organic | | | | | | mercury may include | | | | | | dysarthria, ataxia and | | | | | | constricted vision | | | | | | loyola with mercury | | | | | | blood concentrations | | | | | | from 20 to 50 ug/L. | | | | | | Test developed and | | | | | | characteristics | | | | | | determined by [facility] | | | | | | Laboratories. See | | | | | | Compliance Statement B: | | | | | | [email or web address] | | | | | | by [facility],[address] | | | | | [address] [facility] [place] | | | | | | [address] | | | | | | [phone]. | | | | | | comLex MD, | | | | | | Lab. Director | | | | + + + + + + + + | Specimen | + + | Blood - Blood | | (substance) | + + + + + + + | Performing | Address | City/State/Zipcode | Phone Number | | Organization | | | | + + + + + | [facility] | [address] | [place], [place] | | | UNIV PTH - INT[facility] | | [phone] | | + + + + + CULTURE, BLOOD BACTI & YEAST TERESITA (01/13/2018 2:03 PM PDT) + + + + + + | Component | Value | Ref Range | Performed | Pathologist | | | | | At | Signature | + + + + + + | CULTURE | Final Report:No Bacteria | | [facility] | | | RESULT | or Yeast isolated at 5 | | LABORATORY | | | | days. | | SERVICES, | | | | | | CORE | | + + + + + + + + | Specimen | + + | Blood - PICC red | | port | + + + + + + + | Performing | Address | City/State/Zipcode | Phone Number | | Organization | | | | + + + + + | [facility] | [address] | [place] [address] | | | SERVICES, CORE | [address] | | | + + + + + X-RAY PORTABLE CHEST PICC LINE CHECK (01/13/2018 12:11 PM PDT) + + | Specimen | + + | | + + + + + | Narrative | Performed At | + + + | EXAM: PA CHEST PICC LINE CHECK HISTORY: new picc placement | [facility] | | COMPARISON: None available at the time of dictation. FINDINGS: | RADIOLOGY VOICE | | There is a right upper extremity PICC, with tip projecting over the | RECOGNITION 2 | | cavoatrial junction. An enteric tube is in place, which is looped | | | within the gastric body, with tip projecting over the proximal gastric | | | body, in proximity to the gastroesophageal junction. The | | | cardiomediastinal contour is normal. The lungs are hypoexpanded but | | | clear. No definite pleural effusion or appreciable pneumothorax. No | | | acute osseous abnormality. IMPRESSION: 1. Right upper | | | extremity PICC tip projects over the cavoatrial junction. 2. | | | Enteric tube is looped within the stomach, its tip projecting over the | | | proximal gastric body, in close proximity to the gastroesophageal | | | junction. 3. No acute cardiopulmonary disease. I have | | | personally reviewed the images and, if necessary, edited the report. I | | | agree with the report as now presented. Final signature: Gopi Dennis | | MD Moisés 01/13/2018 12:54 PM Preliminary: Gopi Curiel MD | | | Dictation initiated: Gopi Curiel MD 01/13/2018 12:52 PM | | + + + + + | Procedure Note | + + | Service Account, Radiant Res In Interface - 01/13/2018 12:55 PM PDT EXAM: PA CHEST | | PICC LINE CHECK HISTORY: new picc placement COMPARISON: None available at the time of | | dictation. FINDINGS: There is a right upper extremity PICC, with tip projecting over the | | cavoatrial junction. An enteric tube is in place, which is looped within the gastric | | body, with tip projecting over the proximal gastric body, in proximity to the | | gastroesophageal junction. The cardiomediastinal contour is normal. The lungs are | | hypoexpanded but clear. No definite pleural effusion or appreciable pneumothorax. No | | acute osseous abnormality. IMPRESSION: 1. Right upper extremity PICC tip projects over | | the cavoatrial junction. 2. Enteric tube is looped within the stomach, its tip | | projecting over the proximal gastric body, in close proximity to the gastroesophageal | | junction. 3. No acute cardiopulmonary disease. I have personally reviewed the images | | and, if necessary, edited the report. I agree with the report as now presented. Final | | signature: Gopi Curiel MD 01/13/2018 12:54 PM Preliminary: Gopi Curiel MD Dictation | | initiated: Gopi Curiel MD 01/13/2018 12:52 PM | | | |1. Right upper extremity PICC tip projects over the cavoatrial junction. | | | |2. Enteric tube is looped within the stomach, its tip projecting over the proximal gastric body, in close proximity to the gastroesophageal junction. | | | |3. No acute cardiopulmonary disease. | | | |I have personally reviewed the images and, if necessary, edited the report. I agree with th e report as now presented. | | | |Final signature: Gopi Curiel MD 01/13/2018 12:54 PM | |Preliminary: Gopi Curiel MD | |Dictation initiated: Gopi Curiel MD 01/13/2018 12:52 PM | + + + +---------+ + + | Performing | Address | City/State/Zipcode | Phone Number | | Organization | | | | + +---------+ + + | [facility] | | | | | VOICE RECOGNITION 2 | | | | + +---------+ + + PICC LINE (01/13/2018 11:24 AM PDT) + + + | Narrative | Performed At | + + + | Patricia Allen RN 01/13/2018 12:10 PM PICC LINE | | | Performed by: PATRICIA ALLEN Authorized by: AMINA VOSS | | | L PICC/Midline Insertion Procedure Note | | | Indications:Administration IV fluids and meds and Frequent lab draws | | | (Difficult Access) Procedure location: Unit:N Room: 11 | | | Providers: Attending name: Attending physically present: No PICC | | | Nurse name: Patricia Allen RN,BSN,VAT Assisted by Opal Muhammad | | | RN Pre-Procedure Consent: written consent obtained Consent | | | given by: Patient Patient identity confirmed per protocol: Yes | | | Team Pause: Immediatly prior to the procedure a pause per protocol was | | | called. A pause verifies correct patient, procedure, equipment, | | | call center support consultant and site/side marked as required. CLABSI Prevention | | | Bundle: Skin preparation: Chloraprep Protective barrier: | | | Cap, Mask, Hand scrub, Gown, Gloves and Full body drape. Cap and | | | mask worn by assistive personnel.Sterile Ultrasound techniques | | | (sterile gel, and sterile probe cover) used Dressing: | | | Dressing applied prior of removal of full barrier drape | | | and hemostatic agent applied Procedure Details Patient was placed | | | in appropriate position The vascular anatomy was identified by | | | Ultrasound Guidance.wire through the needle, introducer over the | | | wire, then catheter through the introducer Tip was placed using TLS | | | (Tip Locating System) and TPS (Tip Positioning System). . A | | | non-tunneled PICC Double lumen 5 Fr was placed in the Right Arm | | | area Basilic vein. Catheter lot number: [id number] with a length of 55 | | | cm was selected and trimmed 8 to a remaining length of 47 cm | | | All ports aspirated for blood and flushed with saline Procedure | | | comments: Vessel diameter .43 In diameter arm cicrumference 30. | | | Bilateral UE weakness. Power-injectable line: yes Attempts 1 | | | attempt(s) were made Complications None PICC catheter tip | | | location Chest radiograph ordered to verify placement and Line | | | verified by radiograph Adjustments made after chest film obtained: | | | none External measurement of catheter exposed: 4 cm. PICC catheter | | | tip location: Cavo-Atrial Junction Estimated blood loss: <10mL | | + + + VAT: PICC INSERTION W/US (01/13/2018 10:57 AM PDT) + + | Specimen | + + | | + + + + + | Narrative | Performed At | + + + | See procedure note. | | + + + OPIATE CONFIRM FOR POC USE ONLY (01/13/2018 8:35 AM PDT) + + + + + + | Component | Value | Ref Range | Performed | Pathologist | | | | | At | Signature | + + + + + + | CODEINE UR, | 178.6 (H) | <25 ng/mL | [facility] | | | CONFIRM | | | LABORATORY | | | | | | SERVICES, | | | | | | SPECIAL IMM | | | | | | + COAG | | + + + + + + | MORPHINE | [phone] (H) | <25 ng/mL | [facility] | | | UR, CONFIRM | | | LABORATORY | | | | | | SERVICES, | | | | | | SPECIAL IMM | | | | | | + COAG | | + + + + + + | HYDROCODONE | <25 | <25 ng/mL | [facility] | | | UR, | | | LABORATORY | | | CONFIRM | | | SERVICES, | | | | | | SPECIAL IMM | | | | | | + COAG | | + + + + + + | HYDROMORPHO | 31.3 (H) | <25 ng/mL | [facility] | | | NE UR, | | | LABORATORY | | | CONFRIM | | | SERVICES, | | | | | | SPECIAL IMM | | | | | | + COAG | | + + + + + + | OXYCODONE | <25 | <25 ng/mL | [facility] | | | UR, CONFIRM | | | LABORATORY | | | | | | SERVICES, | | | | | | SPECIAL IMM | | | | | | + COAG | | + + + + + + | OXYMORPHONE | <25 | <25 ng/mL | [facility] | | | UR, | | | LABORATORY | | | CONFIRM | | | SERVICES, | | | | | | SPECIAL IMM | | | | | | + COAG | | + + + + + + | CODEINE-GLU | [phone] (H) | <50 ng/ml | [facility] | | | CURONIDE | | | LABORATORY | | | CONFIRM | | | SERVICES, | | | | | | SPECIAL IMM | | | | | | + COAG | | + + + + + + | OPIATE | Positive (A) | Not Detected | [facility] | | | METABOLITE | | | LABORATORY | | | CONFIRM | | | SERVICES, | | | | | | SPECIAL IMM | | | | | | + COAG | | + + + + + + + + | Specimen | + + | Urine - Urine | | (substance) | + + + + + + + | Performing | Address | City/State/Zipcode | Phone Number | | Organization | | | | + + + + + | [facility] | [address] | [place] [address] | | | SERVICES, SPECIAL | [address] | | | | IMM + COAG | | | | + + + + + AMPHETAMINE/METHAMPHETAMINE CONFIRM FOR POC USE ONLY (01/13/2018 8:35 AM PDT) + + + + + + | Component | Value | Ref Range | Performed | Pathologist | | | | | At | Signature | + + + + + + | AMPHETAMINE | 624 (H) | Not Detected | [facility] | | | UR, | | ng/mL | LABORATORY | | | CONFIRM | | | SERVICES, | | | | | | SPECIAL IMM | | | | | | + COAG | | + + + + + + | METHAMPHETA | >5000 (H) | Not Detected | [facility] | | | MINE UR, | | ng/mL | LABORATORY | | | CONFIRM | | | SERVICES, | | | | | | SPECIAL IMM | | | | | | + COAG | | + + + + + + | MDMA UR, | <200 | Not Detected | [facility] | | | CONFIRM | | ng/mL | LABORATORY | | | | | | SERVICES, | | | | | | SPECIAL IMM | | | | | | + COAG | | + + + + + + | MDA, | Not Detected | Not Detected | [facility] | | | CONFIRM | | | LABORATORY | | | | | | SERVICES, | | | | | | SPECIAL IMM | | | | | | + COAG | | + + + + + + | MDEA, | Not Detected | Not Detected | [facility] | | | CONFIRM | | | LABORATORY | | | | | | SERVICES, | | | | | | SPECIAL IMM | | | | | | + COAG | | + + + + + + | EPHED/PSEUD | Not Detected | Not Detected | [facility] | | | OEPHEDRINE, | | | LABORATORY | | | CONF | | | SERVICES, | | | | | | SPECIAL IMM | | | | | | + COAG | | + + + + + + | METHYLPHENI | Not Detected | Not Detected | [facility] | | | DATE UR | | | LABORATORY | | | CONFIRM | | | SERVICES, | | | | | | SPECIAL IMM | | | | | | + COAG | | + + + + + + + + | Specimen | + + | Urine - Urine | | (substance) | + + + + + | Narrative | Performed At | + + + | A result of "<" means no drug was detected above the cutoff, | [facility] | | interpret this as negative. Confirmation Cut-off: | LABORATORY | | Amphetamine, Methamphetamine, MDA, MDMA, and MDEA are reported as | SERVICES, | | positive if >200ng/ml Ephedrine/Pseudoephedrine are reported | SPECIAL IMM + | | as positive if >50ng/ml Methylphenidate is reported as positive | COAG | | if >25ng/ml The presence of amphetamines in urine at | | | concentrations >500 ng/mL is a strong indicator that the patient has | | | used these drugs within the past 3 days. Methylenedioxyamphetamine | | | (MDA) is a metabolite of MDMA and MDEA. This test will produce | | | positive results for urine specimens collected from patients who are | | | administered Adderall and Benzedrine; Desoxyn and Vicks Vaporub; | | | Selegiline (metabolized to methamphetamine and amphetamine); and | | | clobenzorex, famprofazone, fenethylline, fenproporex, and mefenorex, | | | which are amphetamine pro-drugs. Results confirmed by mass | | | spectroscopy. This is a lab-developed test not evaluated by the FDA. | | | The results are not intended to be used as the sole means for clinical | | | diagnosis or patient management decisions. | | + + + + + + + + | Performing | Address | City/State/Zipcode | Phone Number | | Organization | | | | + + + + + | [facility] | [address] | [place] [address] | | | SERVICES, SPECIAL | [address] | | | | IMM + COAG | | | | + + + + + DRUG SCREEN,URINE;W/CONFIRM (01/13/2018 8:35 AM PDT) + + + + + + | Component | Value | Ref Range | Performed | Pathologist | | | | | At | Signature | + + + + + + | AMPHETAMINE | Positive (A)Comment: To | Negative | [facility] | | | , URINE | be confirmed by | | LABORATORY | | | | alternate method | | SERVICES, | | | | | | CORE | | + + + + + + | AMPHETAMINE | >5400 (H) | <1,000 ng/mL | [facility] | | | CONC, | | | LABORATORY | | | URINE | | | SERVICES, | | | | | | CORE | | + + + + + + | BARBITURATE | Negative | Negative | [facility] | | | S, URINE | | | LABORATORY | | | | | | SERVICES, | | | | | | CORE | | + + + + + + | BARBITURATE | <20 | <200 ng/mL | [facility] | | | S CONC, | | | LABORATORY | | | URINE | | | SERVICES, | | | | | | CORE | | + + + + + + | BENZODIAZEP | Negative | Negative | [facility] | | | KIMBERLY, URINE | | | LABORATORY | | | | | | SERVICES, | | | | | | CORE | | + + + + + + | BENZODIAZEP | <30 | <200 ng/mL | [facility] | | | INE CONC, | | | LABORATORY | | | URINE | | | SERVICES, | | | | | | CORE | | + + + + + + | Cocaine, | Negative | Negative | [facility] | | | Urine | | | LABORATORY | | | | | | SERVICES, | | | | | | CORE | | + + + + + + | COCAINE | <35 | <300 ng/mL | [facility] | | | CONC, URINE | | | LABORATORY | | | | | | SERVICES, | | | | | | CORE | | + + + + + + | OPIATES, | Positive (A)Comment: To | Negative | [facility] | | | URINE | be confirmed by | | LABORATORY | | | | alternate method | | SERVICES, | | | | | | CORE | | + + + + + + | OPIATE | >23815 (H) | <300 ng/mL | [facility] | | | CONC, URINE | | | LABORATORY | | | | | | SERVICES, | | | | | | CORE | | + + + + + + | CANNABINOID | Positive (A)Comment: Not | Negative | [facility] | | | S, URINE | confirmed. | | LABORATORY | | | | | | SERVICES, | | | | | | CORE | | + + + + + + | CANNABINOID | 115 (H) | <50 ng/mL | [facility] | | | CONC, | | | LABORATORY | | | URINE | | | SERVICES, | | | | | | CORE | | + + + + + + | METHADONE, | Negative | Negative | [facility] | | | URINE | | | LABORATORY | | | | | | SERVICES, | | | | | | CORE | | + + + + + + | METHADONE | <107 | <300 ng/mL | [facility] | | | CONC, URINE | | | LABORATORY | | | | | | SERVICES, | | | | | | CORE | | + + + + + + | OXYCODONE, | Negative | Negative | [facility] | | | URINE | | | LABORATORY | | | | | | SERVICES, | | | | | | CORE | | + + + + + + + + | Specimen | + + | Urine - Urine | | (substance) | + + + + + | Narrative | Performed At | + + + | Minimum drug concentration yielding a positive urine drug screen | [facility] | | Amphetamines >=1000 ng/mL | LABORATORY | | Barbiturates >=200 ng/mL | SERVICES, CORE | | Benzodiazepine >=200 ng/mL Cocaine | | | >=300 ng/mL Methadone | | | >=300 ng/mL Opiates >=300 ng/mL | | | Oxycodone >=100 ng/mL THC - | | | Cannabinoid >=50 ng/mL Screening results are not | | | confirmed by alternate method unless requested. Results are to be | | | used for medical (i.e. treatment) purposes only. The reported | | | result is an estimated concentration of drug that can be detected by | | | the method of analysis. Amphetamine Note: Benzphetamine and | | | Selegiline may produce positive results with this assay. Opiates | | | Notes: Therapeutic doses of Ofloxcin (Floxin) or Levofloxacin | | | (Levaquin) may produce positive results with this assay. The | | | substaces being tested for must include Amphetamines, Benzodiazepines, | | | Cocaine, Alcohol, Cannabinoids, Opiates. | | + + + + + + + + | Performing | Address | City/State/Zipcode | Phone Number | | Organization | | | | + + + + + | [facility] | [address] | [place] [address] | | | YANNA ADAMS | [address] | | | + + + + + CONFIRMATORY ABO/RH (01/13/2018 8:06 AM PDT) + + + + + + | Component | Value | Ref Range | Performed | Pathologist | | | | | At | Signature | + + + + + + | ABO Group | A | | [facility] | | | | | | LABORATORY | | | | | | SERVICES, | | | | | | TRANSFUSION | | | | | | MEDICINE | | + + + + + + | Rh Type | Positive | | [facility] | | | | | | LABORATORY | | | | | | SERVICES, | | | | | | TRANSFUSION | | | | | | MEDICINE | | + + + + + + + + | Specimen | + + | Blood - Blood | | (substance) | + + + + + + + | Performing | Address | City/State/Zipcode | Phone Number | | Organization | | | | + + + + + | [facility] | [address] | [place] [address] | | | SERVICES, | [address] | | | | TRANSFUSION MEDICINE | | | | + + + + + CK, PLASMA (01/13/2018 5:43 AM PDT) + +-------+ + + + | Component | Value | Ref Range | Performed | Pathologist | | | | | At | Signature | + +-------+ + + + | CK | 50 | 49 - 397 U/L | [facility] | | | | | | LABORATORY | | | | | | SERVICES, | | | | | | CORE | | + +-------+ + + + + + | Specimen | + + | Blood - Blood | | (substance) | + + + + + + + | Performing | Address | City/State/Zipcode | Phone Number | | Organization | | | | + + + + + | [facility] | [address] | [place] [address] | | | SERVICES, CORE | [address] | | | + + + + + CBC (HEMOGRAM) ONLY (01/13/2018 5:43 AM PDT) + + + + + + | Component | Value | Ref Range | Performed | Pathologist | | | | | At | Signature | + + + + + + | WHITE CELL | 17.56 (H) | 3.50 - 10.80 | [facility] | | | COUNT | | K/cu mm | LABORATORY | | | | | | SERVICES, | | | | | | CORE | | + + + + + + | RED CELL | 5.69 | 4.50 - 6.00 | [facility] | | | COUNT | | M/cu mm | LABORATORY | | | | | | SERVICES, | | | | | | CORE | | + + + + + + | HEMOGLOBIN | 16.2 | 13.5 - 17.5 | [facility] | | | | | g/dL | LABORATORY | | | | | | SERVICES, | | | | | | CORE | | + + + + + + | HEMATOCRIT | 46.7 | 41.0 - 53.0 % | [facility] | | | | | | LABORATORY | | | | | | SERVICES, | | | | | | CORE | | + + + + + + | MCV | 82.1 | 80.0 - 100.0 fL | [facility] | | | | | | LABORATORY | | | | | | SERVICES, | | | | | | CORE | | + + + + + + | MCHC | 34.7 | 32.0 - 36.0 | [facility] | | | | | g/dL | LABORATORY | | | | | | SERVICES, | | | | | | CORE | | + + + + + + | RDW SD | 39.1 | 35.1 - 46.3 fL | [facility] | | | | | | LABORATORY | | | | | | SERVICES, | | | | | | CORE | | + + + + + + | PLATELET | 376 | 150 - 400 K/cu | [facility] | | | COUNT | | mm | LABORATORY | | | | | | SERVICES, | | | | | | CORE | | + + + + + + | MPV | 9.1 (L) | 9.7 - 12.3 fL | [facility] | | | | | | LABORATORY | | | | | | SERVICES, | | | | | | CORE | | + + + + + + | NRBC% | 0.0 | 0.0 - 0.3 % | [facility] | | | | | | LABORATORY | | | | | | SERVICES, | | | | | | CORE | | + + + + + + | NRBC# | 0.00 | 0.00 - 0.02 | [facility] | | | | | K/cu mm | LABORATORY | | | | | | SERVICES, | | | | | | CORE | | + + + + + + + + | Specimen | + + | Blood - Blood | | (substance) | + + + + + | Narrative | Performed At | + + + | New reference ranges for MCV, MCHC, PLT, IG% and IG# effective | [facility] | | 08/31/2017 | LABORATORY | | | SERVICES, CORE | + + + + + + + + | Performing | Address | City/State/Zipcode | Phone Number | | Organization | | | | + + + + + | [facility] | [address] | [place] [address] | | | SERVICES, CORE | [address] | | | + + + + + ANTIBODY SCREEN (01/13/2018 5:43 AM PDT) + + + + + + | Component | Value | Ref Range | Performed | Pathologist | | | | | At | Signature | + + + + + + | Antibody | Negative | | [facility] | | | Screen | | | LABORATORY | | | | | | SERVICES, | | | | | | TRANSFUSION | | | | | | MEDICINE | | + + + + + + + + | Specimen | + + | Blood - Blood | | (substance) | + + + + + + + | Performing | Address | City/State/Zipcode | Phone Number | | Organization | | | | + + + + + | [facility] | [address] | [place] [address] | | | SERVICES, | [address] | | | | TRANSFUSION MEDICINE | | | | + + + + + ABO & RH TYPE (01/13/2018 5:43 AM PDT) + + + + + + | Component | Value | Ref Range | Performed | Pathologist | | | | | At | Signature | + + + + + + | ABO Group | A | | [facility] | | | | | | LABORATORY | | | | | | SERVICES, | | | | | | TRANSFUSION | | | | | | MEDICINE | | + + + + + + | Rh Type | Positive | | [facility] | | | | | | LABORATORY | | | | | | SERVICES, | | | | | | TRANSFUSION | | | | | | MEDICINE | | + + + + + + + + | Specimen | + + | Blood - Blood | | (substance) | + + + + + + + | Performing | Address | City/State/Zipcode | Phone Number | | Organization | | | | + + + + + | [facility] | [address] | [place] [address] | | | SERVICES, | [address] | | | | TRANSFUSION MEDICINE | | | | + + + + + ACETYLCHOLINE RECEPTOR BINDING AB, SERUM (01/13/2018 5:43 AM PDT) + + + + + + | Component | Value | Ref Range | Performed | Pathologist | | | | | At | Signature | + + + + + + | ACETYLCHOLI | 0.1Comment: INTERPRETIVE | 0.0 - 0.4 | [facility] | | | NE RECEPTOR | INFORMATION: | nmol/L | REG UNIV | | | BINDING AB | Acetylcholine Binding Ab | | PTH - INTFC | | | | Negative ....... 0.0 | | | | | | - 0.4 nmol/L Positive | | | | | | ....... 0.5 nmol/L or | | | | | | greater Approximately | | | | | | 85-90 percent of | | | | | | patients with myasthenia | | | | | | gravis (MG) express | | | | | | antibodies to the | | | | | | acetylcholine receptor | | | | | | (AChR), which can be | | | | | | divided into binding, | | | | | | blocking, and modulating | | | | | | antibodies. Binding | | | | | | antibody can activate | | | | | | complement and lead to | | | | | | loss of AChR. Blocking | | | | | | antibody may impair | | | | | | binding of acetylcholine | | | | | | to the receptor, | | | | | | leading to poor muscle | | | | | | contraction. Modulating | | | | | | antibody causes receptor | | | | | | endocytosis resulting | | | | | | in loss of AChR | | | | | | expression, which | | | | | | correlates most closely | | | | | | with clinical severity | | | | | | of disease. | | | | | | Approximately 10-15 | | | | | | percent of individuals | | | | | | with confirmed | | | | | | myasthenia gravis have | | | | | | no measurable binding, | | | | | | blocking, or modulating | | | | | | antibodies. Test | | | | | | developed and | | | | | | characteristics | | | | | | determined by [facility] | | | | | | Laboratories. See | | | | | | Compliance Statement B: | | | | | | [facility]CSPerformed | | | | | | by [facility] | | | | | | [address] [facility] [place] | | | | | | [phone] | | | | | | [phone]. | | | | | | [facility], Lex Rivas MD, | | | | | | Lab. Director | | | | + + + + + + + + | Specimen | + + | Blood - Blood | | (substance) | + + + + + + + | Performing | Address | City/State/Zipcode | Phone Number | | Organization | | | | + + + + + | [facility] | [address] | [place], [place] | | | UNIV PTH - INT[facility] | | [phone] | | + + + + + RENAL FUNCTION SET (NA,K,CL,CO2,BUN,CREAT,GLUC,CA,PHOS,ALB ) (01/13/2018 5:43 AM PDT) + + + + + + | Component | Value | Ref Range | Performed | Pathologist | | | | | At | Signature | + + + + + + | GLUCOSE, | 93 | 70 - 99 mg/dL | [facility] | | | PLASMA | | | LABORATORY | | | (LAB) | | | SERVICES, | | | | | | CORE | | + + + + + + | BUN, PLASMA | 17 | 6 - 20 mg/dL | [facility] | | | (LAB) | | | LABORATORY | | | | | | SERVICES, | | | | | | CORE | | + + + + + + | CREATININE | 0.60 (L) | 0.70 - 1.30 | [facility] | | | PLASMA | | mg/dL | LABORATORY | | | (LAB) | | | SERVICES, | | | | | | CORE | | + + + + + + | EGFR | >60 | >60 mL/min | [facility] | | | - | | | LABORATORY | | | POLISH | | | SERVICES, | | | | | | CORE | | + + + + + + | EGFR NON | >60 | >60 mL/min | [facility] | | | -[place] | | | LABORATORY | | | RICAN | | | SERVICES, | | | | | | CORE | | + + + + + + | SODIUM, | 136 | 136 - 145 | [facility] | | | PLASMA | | mmol/L | LABORATORY | | | (LAB) | | | SERVICES, | | | | | | CORE | | + + + + + + | POTASSIUM, | 3.9 | 3.4 - 5.0 | [facility] | | | PLASMA | | mmol/L | LABORATORY | | | (LAB) | | | SERVICES, | | | | | | CORE | | + + + + + + | CHLORIDE, | 101 | 97 - 108 mmol/L | [facility] | | | PLASMA | | | LABORATORY | | | (LAB) | | | SERVICES, | | | | | | CORE | | + + + + + + | TOTAL CO2, | 26 | 21 - 32 mmol/L | [facility] | | | PLASMA | | | LABORATORY | | | (LAB) | | | SERVICES, | | | | | | CORE | | + + + + + + | CALCIUM, | 9.2 | 8.6 - 10.2 | [facility] | | | PLASMA | | mg/dL | LABORATORY | | | (LAB) | | | SERVICES, | | | | | | CORE | | + + + + + + | CALCIUM(ALB | 9.5 | 8.6 - 10.2 | [facility] | | | CORRECTED) | | mg/dL | LABORATORY | | | | | | SERVICES, | | | | | | CORE | | + + + + + + | ALBUMIN, | 3.6 | 3.5 - 4.7 g/dL | [facility] | | | PLASMA | | | LABORATORY | | | (LAB) | | | SERVICES, | | | | | | CORE | | + + + + + + | PHOSPHORUS, | 3.6 | 2.4 - 4.7 mg/dL | [facility] | | | PLASMA | | | LABORATORY | | | (LAB) | | | SERVICES, | | | | | | CORE | | + + + + + + | POTASSIUM | No Hemo | | [facility] | | | CMNT | | | LABORATORY | | | | | | SERVICES, | | | | | | CORE | | + + + + + + | ANION GAP | 9 | 4 - 11 mmol/L | [facility] | | | | | | LABORATORY | | | | | | SERVICES, | | | | | | CORE | | + + + + + + | ANION | 10 | 4 - 11 mmol/L | [facility] | | | GAP(ALB | | | LABORATORY | | | CORRECTED) | | | SERVICES, | | | | | | CORE | | + + + + + + + + | Specimen | + + | Blood - Blood | | (substance) | + + + + + | Narrative | Performed At | + + + | GFR is estimated using the MDRD equation recommended by the | [facility] | | National Kidney Disease Education Program. Estimated GFR | LABORATORY | | Interpretive Information: <60 mL/min/1.73 sq m | SERVICES, CORE | | Chronic Kidney Disease <15 mL/min/1.73 sq m | | | Kidney Failure Estimated GFR greater that 60 mL/min/1.73 sq m is of | | | limited clinical value. The MDRD equation is not valid in the | | | following situations: - Patients under 18 years of age - Severe | | | malnutrition or obesity - Vegetarian diet - Rapidly changing kidney | | | function - Amputees, paraplegics, or other muscle-wasting diseses | | + + + + + + + + | Performing | Address | City/State/Zipcode | Phone Number | | Organization | | | | + + + + + | [facility] | [address] | [place] [address] | | | SERVICES, CORE | [address] | | | + + + + + INR (01/13/2018 5:43 AM PDT) + + + + + + | Component | Value | Ref Range | Performed | Pathologist | | | | | At | Signature | + + + + + + | INR | 1.21 (H) | 0.90 - 1.20 INR | [facility] | | | | | | LABORATORY | | | | | | SERVICES, | | | | | | CORE | | + + + + + + + + | Specimen | + + | Blood - Blood | | (substance) | + + + + + | Narrative | Performed At | + + + | INR Therapeutic ranges for full anticoagulation: INR for | [facility] | | Venous Thromboembolism (2.0 - 3.0) INR INR for | LABORATORY | | most patients with mech. valves (2.5 - 3.5) INR | SERVICES, CORE | + + + + + + + + | Performing | Address | City/State/Zipcode | Phone Number | | Organization | | | | + + + + + | [facility] | [address] | [place] [address] | | | SERVICES, CORE | [address] | | | + + + + + MAGNESIUM, PLASMA (01/13/2018 5:43 AM PDT) + +-------+ + + + | Component | Value | Ref Range | Performed | Pathologist | | | | | At | Signature | + +-------+ + + + | MAGNESIUM,P | 2.1 | 1.6 - 2.6 mg/dL | [facility] | | | LASMA | | | LABORATORY | | | | | | SERVICES, | | | | | | CORE | | + +-------+ + + + + + | Specimen | + + | Blood - Blood | | (substance) | + + + + + | Narrative | Performed At | + + + | Reference range change effective 12/06/16. | [facility] | | | LABORATORY | | | ANGIE, YANNA | + + + + + + + + | Performing | Address | City/State/Zipcode | Phone Number | | Organization | | | | + + + + + | [facility] | [address] | [place] [address] | | | SERVICES, CORE | [address] | | | + + + + + COMPLETE METABOLIC SET (NA,K,CL,CO2,BUN,CREAT,GLUC,CA,AST,ALT,BILI TOTAL,ALK PHOS,ALB,PROT TOTAL) (01/13/2018 5:43 AM PDT) + + + + + + | Component | Value | Ref Range | Performed | Pathologist | | | | | At | Signature | + + + + + + | GLUCOSE, | 93 | 70 - 99 mg/dL | [facility] | | | PLASMA | | | LABORATORY | | | (LAB) | | | SERVICES, | | | | | | CORE | | + + + + + + | BUN, PLASMA | 17 | 6 - 20 mg/dL | [facility] | | | (LAB) | | | LABORATORY | | | | | | SERVICES, | | | | | | CORE | | + + + + + + | CREATININE | 0.60 (L) | 0.70 - 1.30 | [facility] | | | PLASMA | | mg/dL | LABORATORY | | | (LAB) | | | SERVICES, | | | | | | CORE | | + + + + + + | EGFR | >60 | >60 mL/min | [facility] | | | - | | | LABORATORY | | | POLISH | | | SERVICES, | | | | | | CORE | | + + + + + + | EGFR NON | >60 | >60 mL/min | [facility] | | | -[place] | | | LABORATORY | | | RICAN | | | SERVICES, | | | | | | CORE | | + + + + + + | SODIUM, | 136 | 136 - 145 | [facility] | | | PLASMA | | mmol/L | LABORATORY | | | (LAB) | | | SERVICES, | | | | | | CORE | | + + + + + + | POTASSIUM, | 3.9 | 3.4 - 5.0 | [facility] | | | PLASMA | | mmol/L | LABORATORY | | | (LAB) | | | SERVICES, | | | | | | CORE | | + + + + + + | CHLORIDE, | 101 | 97 - 108 mmol/L | [facility] | | | PLASMA | | | LABORATORY | | | (LAB) | | | SERVICES, | | | | | | CORE | | + + + + + + | TOTAL CO2, | 26 | 21 - 32 mmol/L | [facility] | | | PLASMA | | | LABORATORY | | | (LAB) | | | SERVICES, | | | | | | CORE | | + + + + + + | CALCIUM, | 9.2 | 8.6 - 10.2 | [facility] | | | PLASMA | | mg/dL | LABORATORY | | | (LAB) | | | SERVICES, | | | | | | CORE | | + + + + + + | CALCIUM(ALB | 9.5 | 8.6 - 10.2 | [facility] | | | CORRECTED) | | mg/dL | LABORATORY | | | | | | SERVICES, | | | | | | CORE | | + + + + + + | BILIRUBIN | 0.8 | 0.3 - 1.2 mg/dL | [facility] | | | TOTAL | | | LABORATORY | | | | | | SERVICES, | | | | | | CORE | | + + + + + + | TOTAL | 9.6 (H) | 6.4 - 8.2 g/dL | [facility] | | | PROTEIN, | | | LABORATORY | | | PLASMA | | | SERVICES, | | | (LAB) | | | CORE | | + + + + + + | ALBUMIN, | 3.6 | 3.5 - 4.7 g/dL | [facility] | | | PLASMA | | | LABORATORY | | | (LAB) | | | SERVICES, | | | | | | CORE | | + + + + + + | ALK PHOS | 78 | 53 - 128 U/L | [facility] | | | | | | LABORATORY | | | | | | SERVICES, | | | | | | CORE | | + + + + + + | AST(SGOT) | 47 (H) | <=41 U/L | [facility] | | | | | | LABORATORY | | | | | | SERVICES, | | | | | | CORE | | + + + + + + | ALT (SGPT) | 132 (H) | <=60 U/L | [facility] | | | | | | LABORATORY | | | | | | SERVICES, | | | | | | CORE | | + + + + + + | ANION GAP | 9 | 4 - 11 mmol/L | [facility] | | | | | | LABORATORY | | | | | | SERVICES, | | | | | | CORE | | + + + + + + | ANION | 10 | 4 - 11 mmol/L | [facility] | | | GAP(ALB | | | LABORATORY | | | CORRECTED) | | | SERVICES, | | | | | | CORE | | + + + + + + | POTASSIUM | No Hemo | | [facility] | | | CMNT | | | LABORATORY | | | | | | SERVICES, | | | | | | CORE | | + + + + + + | BILI T CMNT | No Hemo | | [facility] | | | | | | LABORATORY | | | | | | SERVICES, | | | | | | CORE | | + + + + + + | AST CMNT | No Hemo | | [facility] | | | | | | LABORATORY | | | | | | SERVICES, | | | | | | CORE | | + + + + + + + + | Specimen | + + | Blood - Blood | | (substance) | + + + + + | Narrative | Performed At | + + + | GFR is estimated using the MDRD equation recommended by the | [facility] | | National Kidney Disease Education Program. Estimated GFR | LABORATORY | | Interpretive Information: <60 mL/min/1.73 sq m | SERVICES, CORE | | Chronic Kidney Disease <15 mL/min/1.73 sq m | | | Kidney Failure Estimated GFR greater that 60 mL/min/1.73 sq m is of | | | limited clinical value. The MDRD equation is not valid in the | | | following situations: - Patients under 18 years of age - Severe | | | malnutrition or obesity - Vegetarian diet - Rapidly changing kidney | | | function - Amputees, paraplegics, or other muscle-wasting diseses | | + + + + + + + + | Performing | Address | City/State/Zipcode | Phone Number | | Organization | | | | + + + + + | [facility] | [address] | [place] [address] | | | SERVICES, CORE | [address] | | | + + + + + documented in this encounter Visit Diagnoses + + | Diagnosis | + + | Bulbar palsy (HCC) - Primary Progressive bulbar palsy | + + | Dysphasia Other speech disturbance | + + | Dysarthria | + + | Weakness Other malaise and fatigue | + + | Myasthenia (HCC) Myasthenia gravis without exacerbation | + + | Dysphagia | + + | Abscess Cellulitis and abscess of unspecified site | + + | Polysubstance abuse (HCC) Other, mixed, or unspecified nondependent drug abuse, | | unspecified | + + | Tobacco abuse Tobacco use disorder | + + | Respiratory distress Other dyspnea and respiratory abnormality | + + | Botulism, wound Wound botulism | + + | At risk for electrolyte imbalance Other specified conditions influencing health | | status | + + | SAH (subarachnoid hemorrhage) (HCC) Subarachnoid hemorrhage | + + | Congenital myasthenia gravis (HCC) Myasthenia gravis without exacerbation | + + | Myasthenia gravis (HCC) | + + documented in this encounter Administered Medications + +--------+ +--------+------+------+ | Medication Order | MAR | Action | Dose | Rate | Site | | | Action | Date | | | | + +--------+ +--------+------+------+ | acetaminophen (TYLENOL) tablet | Given | 01/14/20 | 650 mg | | | | 325-650 mg 325-650 mg, oral, | | 18 12:32 | | | | | EVERY 4 HOURS NEEDED, Starting | | PM PDT | | | | | 01/13/18 at 1228, Until Sun | | | | | | | 01/14/18 at 1227, mild pain, | | | | | | | headache, fever, malaise | | | | | | + +--------+ +--------+------+------+ +---+---+ | | | +---+---+ + +-------+ +--------+---+---+ | acetaminophen (TYLENOL) tablet | Given | 01/16/20 | 650 mg | | | | 650 mg 650 mg, feeding tube, | | 18 11:54 | | | | | DAILY, 3 doses, First dose (after | | AM PDT | | | | | last modification) on Mon | | | | | | | 01/15/18 at 1200, Last dose on Mon | | | | | | | 01/17/18 at 1200 | | | | | | + +-------+ +--------+---+---+ +---+---+ | | | +---+---+ + +-------+ +--------+---+---+ | acetaminophen (TYLENOL) tablet | Given | 01/17/20 | 650 mg | | | | 650 mg 650 mg, oral, DAILY, | | 18 12:11 | | | | | doses, First dose (after last | | PM PDT | | | | | modification) on Mon01/16/18 at | | | | | | | 1200, Last dose on Mon01/17/18 at | | | | | | | 1200 | | | | | | + +-------+ +--------+---+---+ +---+---+ | | | +---+---+ + +-------+ +--------+---+---+ | acetaminophen (TYLENOL) tablet | Given | 01/17/20 | 650 mg | | | | 650 mg 650 mg, oral, EVERY | | 18 8:43 | | | | | HOURS NEEDED, Starting Mon | | PM PDT | | | | | 01/16/18 at 2002, Until Mon | | | | | | | 01/17/18 at 5, mild pain | | | | | | + +-------+ +--------+---+---+ +---+---+ | | | +---+---+ + +-------+ +--------+---+---+ | acetaminophen (TYLENOL) tablet | Given | 01/18/20 | 650 mg | | | | 650 mg 650 mg, feeding tube, | | 18 1:04 | | | | | DAILY, 1 dose, First dose (after | | PM PDT | | | | | last modification) on Mon01/17/18 | | | | | | | at 1300 | | | | | | + +-------+ +--------+---+---+ +---+---+ | | | +---+---+ + +-------+ +--------+---+---+ | acetaminophen (TYLENOL) tablet | Given | 01/18/20 | 650 mg | | | | 650 mg 650 mg, feeding tube, | | 18 9:31 | | | | | EVERY 6 HOURS NEEDED, Starting | | PM PDT | | | | | 01/17/18 at 0114, Until Fri | | | | | | | 01/19/18 at 1439, mild pain | | | | | | + +-------+ +--------+---+---+ + +---+ | | | + +---+ | acetaminophen (TYLENOL) tablet | | | 650 mg 650 mg, oral, EVERY 6 | | | HOURS NEEDED, Starting Fri | | | 01/19/18 at 1438, Until Sat | | | 01/20/18 at 2332, mild pain, | | | multimodal pain control | | + +---+ | | | + +---+ + + + +------+---+------+ | alteplase (CATHFLO ACTIVASE) | Line | 01/18/20 | 2 mg | | PICC | | injection 2 mg 2 mg, | Lock | 18 4:47 | | | | | Intracatheter, DAILY NEEDED, | Instille | AM PDT | | | | | Starting 01/17/18 at 0404, | d | | | | | | Until 01/20/18 at 2332, For | | | | | | | PICC clearance | | | | | | + + + +------+---+------+ +---+---+ | | | +---+---+ + +-------+ +--------+---+---+ | apixaban (ELIQUIS) tablet 2.5 | Given | 01/21/20 | 2.5 mg | | | | mg 2.5 mg, oral, TWICE DAILY, | | 18 11:48 | | | | | First dose (after last | | AM PDT | | | | | modification) on Mon01/19/18 at | | | | | | | 2100, Until Discontinued | | | | | | + +-------+ +--------+---+---+ +-------+ +--------+---+---+ | Given | 01/20/20 | 2.5 mg | | | | | 18 9:46 | | | | | | PM PDT | | | | +-------+ +--------+---+---+ +---+---+ | | | +---+---+ + +-------+ +-------+---+---+ | bisacodyl (DULCOLAX) | Given | 01/16/20 | 10 mg | | | | suppository 10 mg 10 mg, rectal, | | 18 12:02 | | | | | DAILY NEEDED, Starting Sat | | PM PDT | | | | | 01/13/18 at 0507, Until Sat | | | | | | | 01/20/18 at 2332, 2nd line for no | | | | | | | BM in past 2 days or if no | | | | | | | response to MIRALAX or if patient | | | | | | | unable to tolerate oral | | | | | | + +-------+ +-------+---+---+ +---+---+ | | | +---+---+ + +-------+ +------+---+---+ | buprenorphine-naloxone | Given | 01/14/20 | 2 mg | | | | (SUBOXONE) 2 mg 2 mg, | | 18 3:21 | | | | | sublingual, EVERY 2 HOURS | | PM PDT | | | | | NEEDED, 4 doses, Starting Sat | | | | | | | 01/13/18 at 0959, Until Sat | | | | | | | 01/13/18 at 1956, COWS score 10 OR | | | | | | | GREATER or patient report of | | | | | | | craving | | | | | | + +-------+ +------+---+---+ +---+---+ | | | +---+---+ + +-------+ +--------+---+---+ | buprenorphine-naloxone | Given | 01/16/20 | 1 Film | | | | (SUBOXONE) 8-2 mg film 1 Film 1 | | 18 11:46 | | | | | Film, sublingual, EVERY 8 HOURS, | | PM PDT | | | | | 8 doses, First dose on Sat | | | | | | | 01/13/18 at 1645, Last dose on Mon | | | | | | | 01/16/18 at 0045 | | | | | | + +-------+ +--------+---+---+ +-------+ +--------+---+---+ | Given | 01/16/20 | 1 Film | | | | | 18 4:55 | | | | | | PM PDT | | | | +-------+ +--------+---+---+ | Given | 01/16/20 | 1 Film | | | | | 18 8:37 | | | | | | AM PDT | | | | +-------+ +--------+---+---+ +---+---+ | | | +---+---+ + +-------+ +--------+---+---+ | buprenorphine-naloxone | Given | 01/21/20 | 3 Film | | | | (SUBOXONE) 8-2 mg film 3 Film 3 | | 18 11:48 | | | | | Film, sublingual, DAILY, First | | AM PDT | | | | | dose on Mon01/16/18 at 0900, | | | | | | | Until Discontinued | | | | | | + +-------+ +--------+---+---+ +-------+ +--------+---+---+ | Given | 01/20/20 | 3 Film | | | | | 18 11:32 | | | | | | AM PDT | | | | +-------+ +--------+---+---+ | Given | 01/19/20 | 3 Film | | | | | 18 8:39 | | | | | | AM PDT | | | | +-------+ +--------+---+---+ +---+---+ | | | +---+---+ + +-------+ +--------+---+---+ | cloNIDine HCl (CATAPRES) tablet | Given | 01/17/20 | 0.1 mg | | | | 0.1 mg 0.1 mg, feeding tube, | | 18 8:16 | | | | | THREE TIMES DAILY, First dose on | | AM PDT | | | | | 01/15/18 at 1700, Until | | | | | | | Discontinued | | | | | | + +-------+ +--------+---+---+ +-------+ +--------+---+---+ | Given | 01/16/20 | 0.1 mg | | | | | 18 9:16 | | | | | | PM PDT | | | | +-------+ +--------+---+---+ | Given | 01/16/20 | 0.1 mg | | | | | 18 4:54 | | | | | | PM PDT | | | | +-------+ +--------+---+---+ +---+---+ | | | +---+---+ + +-------+ +--------+---+---+ | cloNIDine HCl (CATAPRES) tablet | Given | 01/17/20 | 0.1 mg | | | | 0.1 mg 0.1 mg, oral, THREE | | 18 7:47 | | | | | TIMES DAILY NEEDED, Starting | | PM PDT | | | | | 01/16/18 at 1246, Until Wed | | | | | | | 01/17/18 at 0115, | | | | | | | sweating/agitation. Hold for | | | | | | | sedation/dizziness | | | | | | + +-------+ +--------+---+---+ +---+---+ | | | +---+---+ + +-------+ +--------+---+---+ | cloNIDine HCl (CATAPRES) tablet | Given | 01/20/20 | 0.1 mg | | | | 0.1 mg 0.1 mg, oral, TWICE | | 18 11:20 | | | | | DAILY NEEDED, Starting Wed | | PM PDT | | | | | 01/17/18 at 1138, Until Sat | | | | | | | 01/20/18 at 2332, anxiety | | | | | | + +-------+ +--------+---+---+ +-------+ +--------+---+---+ | Given | 01/19/20 | 0.1 mg | | | | | 18 10:34 | | | | | | PM PDT | | | | +-------+ +--------+---+---+ | Given | 01/19/20 | 0.1 mg | | | | | 18 3:22 | | | | | | AM PDT | | | | +-------+ +--------+---+---+ +---+---+ | | | +---+---+ + + + + +-------+---+ | dexmedetomidine (PRECEDEX) 400 | Rate/Dos | 01/16/20 | 0.2 | 3.71 | | | mcg in NaCl 0.9 % (NS) 100 mL (4 | e Verify | 18 3:40 | mcg/kg/h | mL/hr | | | mcg/mL) IV infusion 0.2-0.7 | | PM PDT | r | | | | mcg/kg/hr | | | | | | | 74.2 kg (3.71-12.985 mL/hr, | | | | | | | rounded to 3.71-12.99 mL/hr), | | | | | | | intravenous, CONTINUOUS, Starting | | | | | | | 01/14/18 at 0030, Until Mon | | | | | | | 01/15/18 at 1640 | | | | | | + + + + +-------+---+ + + + +-------+---+ | Rate/Dose Verify | 01/16/20 | 0.2 | 3.71 | | | | 18 2:00 | mcg/kg/h | mL/hr | | | | PM PDT | r | | | + + + +-------+---+ | Rate/Dose Verify | 01/16/20 | 0.2 | 3.71 | | | | 18 1:50 | mcg/kg/h | mL/hr | | | | PM PDT | r | | | + + + +-------+---+ +---+---+ | | | +---+---+ + +-------+ +-------+---+---+ | diphenhydrAMINE (BENADRYL) | Given | 01/14/20 | 25 mg | | | | capsule 25 mg 25 mg, oral, | | 18 12:32 | | | | | DAILY, 5 doses, First dose on Sat | | PM PDT | | | | | 01/13/18 at 1200, Last dose on | | | | | | | Mon01/17/18 at 1200 | | | | | | + +-------+ +-------+---+---+ +---+---+ | | | +---+---+ + +-------+ +--------+---+---+ | doxycycline monohydrate | Given | 01/19/20 | 100 mg | | | | (MONODOX) capsule 100 mg 100 mg, | | 18 10:34 | | | | | oral, TWICE DAILY, First dose on | | PM PDT | | | | | 01/17/18 at 1200, Until | | | | | | | Discontinued | | | | | | + +-------+ +--------+---+---+ +-------+ +--------+---+---+ | Given | 01/19/20 | 100 mg | | | | | 18 8:39 | | | | | | AM PDT | | | | +-------+ +--------+---+---+ | Given | 01/18/20 | 100 mg | | | | | 18 8:36 | | | | | | PM PDT | | | | +-------+ +--------+---+---+ +---+---+ | | | +---+---+ + +-------+ +--------+---+---+ | doxycycline monohydrate | Given | 01/21/20 | 100 mg | | | | (MONODOX) capsule 100 mg 100 mg, | | 18 11:48 | | | | | oral, TWICE DAILY, 4 doses, | | AM PDT | | | | | First dose (after last | | | | | | | modification) on Mon01/19/18 at | | | | | | | 0900, Last dose on Mon01/20/18 at | | | | | | | 2100 | | | | | | + +-------+ +--------+---+---+ +-------+ +--------+---+---+ | Given | 01/20/20 | 100 mg | | | | | 18 9:46 | | | | | | PM PDT | | | | +-------+ +--------+---+---+ | Given | 01/20/20 | 100 mg | | | | | 18 9:38 | | | | | | AM PDT | | | | +-------+ +--------+---+---+ +---+---+ | | | +---+---+ + +-------+ +-------+---+---------+ | enoxaparin (LOVENOX) injection | Given | 01/19/20 | 40 mg | | Abdomen | | 40 mg 40 mg, subcutaneous, EVERY | | 18 9:17 | | | | | EVENING, First dose on Sat | | PM PDT | | | | | 01/13/18 at 2100, Until | | | | | | | Discontinued | | | | | | + +-------+ +-------+---+---------+ +-------+ +-------+---+---------+ | Given | 01/18/20 | 40 mg | | Abdomen | | | 18 8:37 | | | | | | PM PDT | | | | +-------+ +-------+---+---------+ | Given | 01/17/20 | 40 mg | | Abdomen | | | 18 9:19 | | | | | | PM PDT | | | | +-------+ +-------+---+---------+ +---+---+ | | | +---+---+ + + + +------+-------+---+ | immune globulin (GAMUNEX-C) 10% | Rate/Dos | 01/18/20 | 25 g | 280 | | | IV 25 g, intravenous, DAILY, 5 | e Change | 18 3:53 | | mL/hr | | | doses, First dose on Mon01/13/18 | | PM PDT | | | | | at 1300, Last dose on Mon01/17/18 | | | | | | | at 1400 | | | | | | + + + +------+-------+---+ + + +------+ +---+ | Rate/Dose Change | 01/18/20 | 25 g | 140 | | | | 18 3:15 | | mL/hr | | | | PM PDT | | | | + + +------+ +---+ | Rate/Dose Change | 01/18/20 | 25 g | 70 mL/hr | | | | 18 2:42 | | | | | | PM PDT | | | | + + +------+ +---+ +---+---+ | | | +---+---+ + +---------+ +--------+---+---+ | iohexol (OMNIPAQUE) 350 mg | IV Push | 01/16/20 | 100 mL | | | | iodine/mL injection 100 mL 100 | | 18 12:26 | | | | | mL, intravenous, PROCEDURE ONCE, | | AM PDT | | | | | 1 dose, 01/15/18 at 0030 | | | | | | + +---------+ +--------+---+---+ +---+---+ | | | +---+---+ + +---------+ +--------+---+---+ | iohexol (OMNIPAQUE) 350 mg | IV Push | 01/17/20 | 100 mL | | | | iodine/mL injection 100 mL 100 | | 18 11:45 | | | | | mL, intravenous, ONCE, 1 dose, | | PM PDT | | | | | 01/16/18 at 2345 | | | | | | + +---------+ +--------+---+---+ +---+---+ | | | +---+---+ + +---------+ + +---+---+ | lactated Ringers IV 1,000 mL, | New Bag | 01/14/20 | 1,000 mL | | | | intravenous, ONCE, 1 dose, Sat | | 18 5:59 | | | | | 01/13/18 at 0100 | | AM PDT | | | | + +---------+ + +---+---+ +---+---+ | | | +---+---+ + +---------+ + +-------+---+ | lactated Ringers IV 1,000 mL, | New Bag | 01/14/20 | 1,000 mL | 999 | | | intravenous, ONCE, 1 dose, Sat | | 18 12:24 | | mL/hr | | | 01/13/18 at 1115 | | PM PDT | | | | + +---------+ + +-------+---+ +---+---+ | | | +---+---+ + +---------+ + +-------+---+ | lactated Ringers IV 1,000 mL, | New Bag | 01/14/20 | 1,000 mL | 500 | | | intravenous, ONCE, 1 dose, Sat | | 18 4:45 | | mL/hr | | | 01/13/18 at 1715 | | PM PDT | | | | + +---------+ + +-------+---+ +---+---+ | | | +---+---+ + +---------+ +--------+---+---+ | metroNIDAZOLE (FLAGYL) IV 500 | New Bag | 01/16/20 | 500 mg | | | | mg 500 mg, intravenous, EVERY 8 | | 18 10:34 | | | | | HOURS, First dose on 01/14/18 | | PM PDT | | | | | at 0730, Until Discontinued | | | | | | + +---------+ +--------+---+---+ +---------+ +--------+---+---+ | New Bag | 01/16/20 | 500 mg | | | | | 18 3:40 | | | | | | PM PDT | | | | +---------+ +--------+---+---+ | New Bag | 01/16/20 | 500 mg | | | | | 18 7:41 | | | | | | AM PDT | | | | +---------+ +--------+---+---+ +---+---+ | | | +---+---+ + +-------+ +--------+---+---+ | metroNIDAZOLE (FLAGYL) tablet | Given | 01/17/20 | 500 mg | | | | 500 mg 500 mg, oral, THREE TIMES | | 18 4:08 | | | | | DAILY, First dose on Mon01/16/18 | | PM PDT | | | | | at 1200, Until Discontinued | | | | | | + +-------+ +--------+---+---+ +-------+ +--------+---+---+ | Given | 01/17/20 | 500 mg | | | | | 18 12:11 | | | | | | PM PDT | | | | +-------+ +--------+---+---+ +---+---+ | | | +---+---+ + +-------+ +--------+---+---+ | metroNIDAZOLE (FLAGYL) tablet | Given | 01/18/20 | 500 mg | | | | 500 mg 500 mg, feeding tube, | | 18 8:34 | | | | | THREE TIMES DAILY, First dose | | AM PDT | | | | | (after last modification) on Mon | | | | | | | 01/17/18 at 0000, Until | | | | | | | Discontinued | | | | | | + +-------+ +--------+---+---+ +-------+ +--------+---+---+ | Given | 01/18/20 | 500 mg | | | | | 18 1:18 | | | | | | AM PDT | | | | +-------+ +--------+---+---+ +---+---+ | | | +---+---+ + +-------+ +---+---+---+ | NaCl 0.9 % (NS) 160 mL with | Given | 01/14/20 | | | | | botulism antitoxin heptavalent | | 18 8:36 | | | | | 4,500-3,300 unit 1 vial | | PM PDT | | | | | intravenous, ONCE, 1 dose, Sat | | | | | | | 01/13/18 at 2100 | | | | | | + +-------+ +---+---+---+ +---+---+ | | | +---+---+ + + + +---+ +---+ | NaCl 0.9%-KCl 20 mEq/L IV | Rate/Dos | 01/17/20 | | 75 mL/hr | | | infusion intravenous, | e Verify | 18 12:00 | | | | | CONTINUOUS, Starting 01/13/18 | | PM PDT | | | | | at 0515, Until 01/16/18 at | | | | | | | 1249, at 75 mL/hr | | | | | | + + + +---+ +---+ + + +---+ +---+ | Rate/Dose Verify | 01/17/20 | | 75 mL/hr | | | | 18 11:00 | | | | | | AM PDT | | | | + + +---+ +---+ | Rate/Dose Verify | 01/17/20 | | 75 mL/hr | | | | 18 10:00 | | | | | | AM PDT | | | | + + +---+ +---+ +---+---+ | | | +---+---+ + + + +---------+---+ + | nicotine (NICOTROL) 14 mg/24 hr | Applied | 01/21/20 | 1 patch | | Left | | 1 patch 1 patch, transdermal, | Patch | 18 11:48 | | | Shoulder | | DAILY, First dose on Mon01/19/18 | | AM PDT | | | | | at 1115, Until Discontinued | | | | | | + + + +---------+---+ + + + +---------+---+ + | Applied Patch | 01/20/20 | 1 patch | | Left | | | 18 11:29 | | | Shoulder | | | AM PDT | | | | + + +---------+---+ + +---+---+ | | | +---+---+ + + + +---------+---+ + | nicotine (NICOTROL) 21 mg/24 hr | Applied | 01/19/20 | 1 patch | | Left Arm | | patch 1 patch 1 patch, | Patch | 18 8:39 | | | | | transdermal, DAILY, First dose on | | AM PDT | | | | | 01/16/18 at 1730, Until | | | | | | | Discontinued | | | | | | + + + +---------+---+ + + + +---------+---+ + | Applied Patch | 01/18/20 | 1 patch | | Left | | | 18 8:34 | | | Shoulder | | | AM PDT | | | | + + +---------+---+ + | Applied Patch | 01/17/20 | 1 patch | | Left Arm | | | 18 5:45 | | | | | | PM PDT | | | | + + +---------+---+ + +---+---+ | | | +---+---+ + +-------+ +------+---+---+ | ondansetron (ZOFRAN) injection | Given | 01/14/20 | 4 mg | | | | 4 mg 4 mg, intravenous, EVERY 12 | | 18 5:56 | | | | | HOURS, 2 doses, First dose on | | PM PDT | | | | | 01/13/18 at 0600, Last dose on | | | | | | | 01/13/18 at 1800 | | | | | | + +-------+ +------+---+---+ +-------+ +------+---+---+ | Given | 01/14/20 | 4 mg | | | | | 18 12:32 | | | | | | PM PDT | | | | +-------+ +------+---+---+ +---+---+ | | | +---+---+ + +-------+ +------+---+---+ | ondansetron (ZOFRAN) injection | Given | 01/19/20 | 4 mg | | | | 4 mg 4 mg, intravenous, EVERY 12 | | 18 10:52 | | | | | HOURS NEEDED, Starting Sun | | AM PDT | | | | | 01/14/18 at 0600, Until Sat | | | | | | | 01/20/18 at 2332, nausea/vomiting, | | | | | | | first line | | | | | | + +-------+ +------+---+---+ +-------+ +------+---+---+ | Given | 01/17/20 | 4 mg | | | | | 18 9:19 | | | | | | PM PDT | | | | +-------+ +------+---+---+ | Given | 01/16/20 | 4 mg | | | | | 18 12:46 | | | | | | AM PDT | | | | +-------+ +------+---+---+ +---+---+ | | | +---+---+ + +-------+ +------+---+---+ | polyethylene glycol (MIRALAX) | Given | 01/16/20 | 34 g | | | | packet 34 g 34 g, feeding tube, | | 18 8:37 | | | | | THREE TIMES DAILY NEEDED, | | AM PDT | | | | | Starting 01/13/18 at 0953, | | | | | | | Until 01/16/18 at 1109, 1st | | | | | | | line - for no BM for 2 days | | | | | | + +-------+ +------+---+---+ + +---+ | | | + +---+ | polyethylene glycol (MIRALAX) | | | packet 34 g 34 g, oral, THREE | | | TIMES DAILY NEEDED, Starting | | | 01/16/18 at 1108, Until Sat | | | 01/20/18 at 2332, 1st line - for | | | no BM for 2 days | | + +---+ | | | + +---+ + +-------+ + +---+---+ | potassium, sodium phosphates | Given | 01/16/20 | 1 packet | | | | (NEUTRA-PHOS, PHOS-NAK) | | 18 11:54 | | | | | 280-160-250 mg packet 1 packet 1 | | AM PDT | | | | | packet, feeding tube, ONCE, 1 | | | | | | | dose, 01/15/18 at 1130 | | | | | | + +-------+ + +---+---+ +---+---+ | | | +---+---+ + +-------+ + +---+---+ | potassium, sodium phosphates | Given | 01/17/20 | 1 packet | | | | (NEUTRA-PHOS, PHOS-NAK) | | 18 8:16 | | | | | 280-160-250 mg packet 1 packet 1 | | AM PDT | | | | | packet, feeding tube, ONCE, 1 | | | | | | | dose, Tugabriella 01/16/18 at 0800 | | | | | | + +-------+ + +---+---+ +---+---+ | | | +---+---+ + +-------+ +-------+---+---+ | predniSONE (DELTASONE) tablet | Given | 01/18/20 | 20 mg | | | | 20 mg 20 mg, oral, DAILY, First | | 18 11:26 | | | | | dose on Mon01/17/18 at 1100, | | AM PDT | | | | | Until Discontinued | | | | | | + +-------+ +-------+---+---+ +---+---+ | | | +---+---+ + +-------+ +-------+---+---+ | predniSONE (DELTASONE) tablet | Given | 01/19/20 | 20 mg | | | | 20 mg 20 mg, oral, DAILY, 1 | | 18 8:39 | | | | | dose, First dose (after last | | AM PDT | | | | | modification) on Jyoti 01/18/18 at | | | | | | | 0900 | | | | | | + +-------+ +-------+---+---+ +---+---+ | | | +---+---+ + +-------+ +-------+---+---+ | predniSONE (DELTASONE) tablet | Given | 01/20/20 | 40 mg | | | | 40 mg 40 mg, oral, DAILY, First | | 18 9:37 | | | | | dose on Mon01/19/18 at 0900, | | AM PDT | | | | | Until Discontinued | | | | | | + +-------+ +-------+---+---+ +---+---+ | | | +---+---+ + +-------+ +-------+---+---+ | pyridostigmine (MESTINON) 30 | Given | 01/20/20 | 90 mg | | | | mg, pyridostigmine (MESTINON) 60 | | 18 1:40 | | | | | mg 90 mg, feeding tube, EVERY 6 | | PM PDT | | | | | HOURS, First dose (after last | | | | | | | modification) on Mon01/19/18 at | | | | | | | 1145, Until Discontinued | | | | | | + +-------+ +-------+---+---+ +---+---+ | | | +---+---+ + +-------+ +-------+---+---+ | pyridostigmine (MESTINON) 30 | Given | 01/21/20 | 90 mg | | | | mg, pyridostigmine (MESTINON) 60 | | 18 11:47 | | | | | mg 90 mg, oral, EVERY 6 HOURS, | | AM PDT | | | | | First dose (after last | | | | | | | modification) on Mon01/19/18 at | | | | | | | 2000, Until Discontinued | | | | | | + +-------+ +-------+---+---+ +-------+ +-------+---+---+ | Given | 01/20/20 | 90 mg | | | | | 18 8:00 | | | | | | PM PDT | | | | +-------+ +-------+---+---+ +---+---+ | | | +---+---+ + +-------+ +-------+---+---+ | pyridostigmine (MESTINON) | Given | 01/17/20 | 60 mg | | | | liquid 60 mg 60 mg, feeding | | 18 6:37 | | | | | tube, EVERY 8 HOURS, First dose | | AM PDT | | | | | (after last modification) on Sun | | | | | | | 01/14/18 at 1615, Until | | | | | | | Discontinued | | | | | | + +-------+ +-------+---+---+ +-------+ +-------+---+---+ | Given | 01/16/20 | 60 mg | | | | | 18 10:45 | | | | | | PM PDT | | | | +-------+ +-------+---+---+ | Given | 01/16/20 | 60 mg | | | | | 18 2:23 | | | | | | PM PDT | | | | +-------+ +-------+---+---+ +---+---+ | | | +---+---+ + +-------+ +-------+---+---+ | pyridostigmine (MESTINON) | Given | 01/14/20 | 60 mg | | | | tablet 60 mg 60 mg, feeding | | 18 5:49 | | | | | tube, EVERY 6 HOURS, First dose | | PM PDT | | | | | (after last modification) on Sat | | | | | | | 01/13/18 at 1200, Until | | | | | | | Discontinued | | | | | | + +-------+ +-------+---+---+ +-------+ +-------+---+---+ | Given | 01/14/20 | 60 mg | | | | | 18 12:32 | | | | | | PM PDT | | | | +-------+ +-------+---+---+ +---+---+ | | | +---+---+ + +-------+ +-------+---+---+ | pyridostigmine (MESTINON) | Given | 01/17/20 | 60 mg | | | | tablet 60 mg 60 mg, oral, EVERY | | 18 1:46 | | | | | 8 HOURS, First dose on Tue | | PM PDT | | | | | 01/16/18 at 1400, Until | | | | | | | Discontinued | | | | | | + +-------+ +-------+---+---+ +---+---+ | | | +---+---+ + +-------+ +-------+---+---+ | pyridostigmine (MESTINON) | Given | 01/18/20 | 60 mg | | | | tablet 60 mg 60 mg, feeding | | 18 2:10 | | | | | tube, EVERY 8 HOURS, First dose | | PM PDT | | | | | (after last modification) on Mon | | | | | | | 01/17/18 at 0000, Until | | | | | | | Discontinued | | | | | | + +-------+ +-------+---+---+ +-------+ +-------+---+---+ | Given | 01/18/20 | 60 mg | | | | | 18 8:34 | | | | | | AM PDT | | | | +-------+ +-------+---+---+ | Given | 01/18/20 | 60 mg | | | | | 18 1:18 | | | | | | AM PDT | | | | +-------+ +-------+---+---+ +---+---+ | | | +---+---+ + +-------+ +-------+---+---+ | pyridostigmine (MESTINON) | Given | 01/19/20 | 60 mg | | | | tablet 60 mg 60 mg, feeding | | 18 10:34 | | | | | tube, EVERY 4 HOURS, First dose | | PM PDT | | | | | (after last modification) on Mon | | | | | | | 01/17/18 at 1800, Until | | | | | | | Discontinued | | | | | | + +-------+ +-------+---+---+ +-------+ +-------+---+---+ | Given | 01/19/20 | 60 mg | | | | | 18 6:24 | | | | | | PM PDT | | | | +-------+ +-------+---+---+ | Given | 01/19/20 | 60 mg | | | | | 18 3:22 | | | | | | PM PDT | | | | +-------+ +-------+---+---+ +---+---+ | | | +---+---+ + +-------+ + +---+---+ | senna-docusate (SENOKOT S) | Given | 01/16/20 | 1 tablet | | | | 8.6-50 mg 1 tablet 1 tablet, | | 18 8:37 | | | | | feeding tube, TWICE DAILY, First | | AM PDT | | | | | dose (after last modification) on | | | | | | | 01/13/18 at 2100, Until | | | | | | | Discontinued | | | | | | + +-------+ + +---+---+ +-------+ + +---+---+ | Given | 01/15/20 | 1 tablet | | | | | 18 10:24 | | | | | | PM PDT | | | | +-------+ + +---+---+ +---+---+ | | | +---+---+ + +-------+ + +---+---+ | senna-docusate (SENOKOT S) | Given | 01/19/20 | 1 tablet | | | | 8.6-50 mg 1 tablet 1 tablet, | | 18 9:17 | | | | | feeding tube, TWICE DAILY, First | | PM PDT | | | | | dose (after last modification) on | | | | | | | 01/17/18 at 0900, Until | | | | | | | Discontinued | | | | | | + +-------+ + +---+---+ +-------+ + +---+---+ | Given | 01/19/20 | 1 tablet | | | | | 18 8:39 | | | | | | AM PDT | | | | +-------+ + +---+---+ | Given | 01/18/20 | 1 tablet | | | | | 18 8:36 | | | | | | PM PDT | | | | +-------+ + +---+---+ + +---+ | | | + +---+ | senna-docusate (SENOKOT S) | | | 8.6-50 mg 1 tablet 1 tablet, | | | oral, TWICE DAILY, First dose | | | (after last modification) on Mon | | | 01/19/18 at 2100, Until | | | Discontinued | | + +---+ | | | + +---+ + +---------+ + +-------+---+ | vancomycin (VANCOCIN) IV 1,250 | New Bag | 01/16/20 | 1,250 mg | 200 | | | mg 1,250 mg, intravenous, EVERY | | 18 8:33 | | mL/hr | | | 8 HOURS, First dose on Sun | | AM PDT | | | | | 01/14/18 at 1600, Until | | | | | | | Discontinued | | | | | | + +---------+ + +-------+---+ +---------+ + +-------+---+ | New Bag | 01/16/20 | 1,250 mg | 200 | | | | 18 1:29 | | mL/hr | | | | AM PDT | | | | +---------+ + +-------+---+ | New Bag | 01/15/20 | 1,250 mg | | | | | 18 4:13 | | | | | | PM PDT | | | | +---------+ + +-------+---+ +---+---+ | | | +---+---+ + +---------+ + +---+---+ | vancomycin (VANCOCIN) IV 1,500 | New Bag | 01/18/20 | 1,500 mg | | | | mg 1,500 mg, intravenous, EVERY | | 18 3:55 | | | | | 8 HOURS, First dose (after last | | AM PDT | | | | | modification) on Mon01/15/18 at | | | | | | | 1700, Until Discontinued | | | | | | + +---------+ + +---+---+ +---------+ + +---+---+ | New Bag | 01/17/20 | 1,500 mg | | | | | 18 5:30 | | | | | | PM PDT | | | | +---------+ + +---+---+ | New Bag | 01/17/20 | 1,500 mg | | | | | 18 9:30 | | | | | | AM PDT | | | | +---------+ + +---+---+ +---+---+ | | | +---+---+ documented in this encounter Additional Health Concerns + + + + | Infection | Noted Time | Resolved Time | + + + + | Methicillin Resistant Staph Aureus | 01/16/2018 1:00 PM | | | | PDT | | + + + + documented as of this encounter
--- OUTSIDE RECORDS SUMMARY | ~2019-08-14 | XMS | Encounter Summary ---
Demographics + + + | Address | [address] | | | [place] [address] | + + + | Home Phone | | + + + | Preferred Language | Unknown | + + + | Marital Status | Single | + + + | Latter Day Affiliation | NRP | + + + | Race | Unknown | + + + | Ethnic Group | Not or | + + + Author + + + | Author | [facility] | + + + | Organization | [facility] | + + + | Address | Unknown | + + + | Phone | Unavailable | + + + Support + + +---------+ + | Name | Relationship | Address | Phone | + + +---------+ + | Isabel Pablo | ECON | Unknown | | + + +---------+ + Care Team Providers + +------+ + | Care Plate Cleaner Name | Role | Phone | + +------+ + | Jessica Bal PA-C | PCP | | + +------+ + Encounter Details +--------+ + + + + | Date | Type | Department | Care Team | Description | +--------+ + + + + | 04/25/ | Pharmacy | Outpatient Retail | | | | 2019 | Visit | Clinic Pharmacy | | | | | | [address] | | | | | | [address] [place], [place] | | | | | | [address] | | | | | | [phone] | | | +--------+ + + + [...]
--- OUTSIDE RECORDS SUMMARY | ~2019-08-14 | XMS | Encounter Summary ---
Demographics + + + | Address | [address] | | | [place] [address] | + + + | Home Phone | | + + + | Preferred Language | Unknown | + + + | Marital Status | Single | + + + | Latter-Day Affiliation | NRP | + + + | Race | Unknown | + + + | Ethnic Group | Not or | + + + Author + + + | Author | [facility] | + + + | Organization | [facility] | + + + | Address | Unknown | + + + | Phone | Unavailable | + + + Support + + +---------+ + | Name | Relationship | Address | Phone | + + +---------+ + | Isabel Pablo | ECON | Unknown | | + + +---------+ + Care Team Providers + +------+ + | Care Crib Tender Name | Role | Phone | + +------+ + | No Pcp Per Patient | PCP | Unavailable | + +------+ + Encounter Details +--------+ + + + + | Date | Type | Department | Care Team | Description | +--------+ + + + + | 11/12/ | Document-Sc | Hematology/Medical | Jaswinder Thompson | | | 2013 | anned | Oncology at [facility] | MD Betito | | | | | [address] | | | | | | Mailcode: CH7M | | | | | | [facility] | | | | | | and Healing, | | | | | | [facility] | | | | | | Floor [place], [place] | | | | | | [address] | | | | | | [phone] | | | +--------+ + + + + Social History + +-------+ +--------+------+ | Tobacco Use | Types | Packs/Day | Years | Date | | | | | Used | | + +-------+ +--------+------+ | Current Every Day | | | | | | Smoker | | | | | + +-------+ +--------+------+ + +------+---+---+ | Smokeless Tobacco: | Chew | | | | Former User | | | | + +------+---+---+ + + +---------+ + | Alcohol Use | Drinks/Week | oz/Week | Comments | + + +---------+ + | Not Asked | | | | + + +---------+ [...] | + +--------+ + + + | RADIOLOGY | | 08/08/2013 | | Results for this | | | | 12:00 AM | | procedure are in the | | | | PDT | | results section. | + +--------+ + + + | LAB REPORTS | | 08/01/2013 | | Results for this | | | | 12:00 AM | | procedure are in the | | | | PDT | | results section. | + +--------+ + + + documented in this encounter Results RADIOLOGY (08/08/2013 12:00 AM PDT) + + + | Narrative | Performed At | + + + | | | | | | + + + + + | Procedure Note | + + | Mere Carlos - 11/11/2013 9:34 AM PDT | + + LAB REPORTS (08/01/2013 12:00 AM PDT) + + + | Narrative | Performed At | + + + | | | | | | + + + + + | Procedure Note | + + | Mere Carlos - 11/11/2013 9:34 AM PDT | + + documented in this encounter Visit Diagnoses Not on filedocumented in this encounter"
--- OUTSIDE RECORDS SUMMARY | ~2019-08-14 | XMS | Encounter Summary ---
Demographics + + + | Address | [address] | | | [place] [address] | + + + | Home Phone | | + + + | Preferred Language | Unknown | + + + | Marital Status | Single | + + + | Christian Affiliation | NRP | + + + | Race | Unknown | + + + | Ethnic Group | Not or | + + + Author + + + | Author | [facility] | + + + | Organization | [facility] | + + + | Address | Unknown | + + + | Phone | Unavailable | + + + Support + + +---------+ + | Name | Relationship | Address | Phone | + + +---------+ + | Isabel Pablo | ECON | Unknown | | + + +---------+ + Care Team Providers + +------+ + | Care Pediatric Associate Name | Role | Phone | + +------+ + | Jessica Bal PA-C | PCP | | + +------+ + Encounter Details +--------+ + + + + | Date | Type | Department | Care Team | Description | +--------+ + + + + | 01/15/ | Procedure | Diagnostic Imaging | | | | 2017 | Pass | Services at [facility] | | | | | | [address] | | | | | | Adeola Shah [facility] | | | | | | [address] | | | | | | [place], [place] | | | | | | [address] | | | | | | [phone] | | | +--------+ + + + [...]
--- OUTSIDE RECORDS SUMMARY | ~2019-08-14 | XMS | Encounter Summary ---
Demographics + + + | Address | [address] | | | [place] [address] | + + + | Home Phone | | + + + | Preferred Language | Unknown | + + + | Marital Status | Single | + + + | Mormon Affiliation | NRP | + + + [...] Team Providers + +------+ + | Care Manager Style Name | Role | Phone | + +------+ + | Jessica Bal PA-C | PCP | | + +------+ + Encounter Details +--------+ + + + + | Date | Type | Department | Care Team | Description | +--------+ + + + + | 01/16/ | Pharmacy | Outpatient Retail | | | | 2017 | Visit | Clinic Pharmacy | | | | | | [address] | | | | | | [address] [place], [place] | | | | | | [address] | | | | | | [phone] | | | +--------+ + + + [...]
--- OUTSIDE RECORDS SUMMARY | ~2019-08-14 | XMS | Encounter Summary ---
Demographics + + + | Address | [address] | | | [place] [address] | + + + | Home Phone [...] Author + + + | Author | [facility] | + + + | Organization | [facility] | + + + | Address | Unknown | + + + | Phone | Unavailable | + + + Support + + +---------+ + | Name | Relationship | Address | Phone | + + +---------+ + | Isabel Pablo | ECON | Unknown | | + + +---------+ + Care Team Providers + +------+ + | Care Poly Area Supervisor Name | Role | Phone | + [...] Pharmacy | | | | | | [address] | | | | | | [address] [place], [place] | | | | | | [address] | | | | | | [phone] | | | +--------+ + + + [...]
--- OUTSIDE RECORDS SUMMARY | ~2019-08-14 | XMS | Encounter Summary ---
Demographics + + + | Address | [address] | | | [place] [address] | + + + | Home Phone | | + + + | Preferred Language | Unknown | + + + | Marital Status | Single | + + + | Mosque Affiliation | NRP | + + + [...] Team Providers + +------+ + | Care Operations Team Leader Name | Role | Phone | + [...] Pharmacy | | | | | | [address] | | | | | | [address] [place], [place] | | | | | | [address] | | | | | | [phone] | | | +--------+ + + + [...]
--- OUTSIDE RECORDS SUMMARY | ~2019-08-14 | XMS | Encounter Summary ---
Demographics + + + | Address | [address] | | | [place] [address] | + + + | Home Phone | | + + + | Preferred Language | Unknown | + + + | Marital Status | Single | + + + | Orthodox Affiliation | NRP | + + + | Race | Unknown | + + + | Ethnic Group | Not or | + + + Author + + + | Author | [facility] | + + + | Organization | [facility] | + + + | Address | Unknown | + + + | Phone | Unavailable | + + + Support + + +---------+ + | Name | Relationship | Address | Phone | + + +---------+ + | Isabel Pablo | ECON | Unknown | | + + +---------+ + Care Team Providers + +------+ + | Care Vfx Artist Name | Role | Phone | + [...] Pharmacy | | | | | | [address] | | | | | | [address] [place], [place] | | | | | | [address] | | | | | | [phone] | | | +--------+ + + + [...]
--- OUTSIDE RECORDS SUMMARY | ~2019-08-14 | XMS | Encounter Summary ---
Demographics + + + | Address | [address] | | | [place] [address] | + + + | Home Phone [...] Author + + + | Author | [facility] | + + + | Organization | [facility] | + + + | Address | Unknown | + + + | Phone | Unavailable | + + + Support + + +---------+ + | Name | Relationship | Address | Phone | + + +---------+ + | Isabel Pablo | ECON | Unknown | | + + +---------+ + Care Team Providers + +------+ + | Care Ribbon Blocker Name | Role | Phone | + [...] Pharmacy | | | | | | [address] | | | | | | [address] [place], [place] | | | | | | [address] | | | | | | [phone] | | | +--------+ + + + [...]
--- OUTSIDE RECORDS SUMMARY | ~2019-08-14 | XMS | Encounter Summary ---
Demographics + + + | Address | [address] | | | [place] [address] | + + + | Home Phone | | + + + | Preferred Language | Unknown | + + + | Marital Status | Single | + + + | Pentecostal Affiliation | NRP | + + + | Race | Unknown | + + + | Ethnic Group | Not or | + + + Author + + + | Author | [facility] | + + + | Organization | [facility] | + + + | Address | Unknown | + + + | Phone | Unavailable | + + + Support + + +---------+ + | Name | Relationship | Address | Phone | + + +---------+ + | Isabel Pablo | ECON | Unknown | | + + +---------+ + Care Team Providers + +------+ + | Care Stone Cleaner Name | Role | Phone | [...] | 2013 | anned | Oncology at [facility] | MD [facility] | | | | | [address] | | | | | | Mailcode: CH7M | | | | | | [facility] | | | | | | and Healing, | | | | | | [facility] | | | | | | Floor [place], [place] | | | | | | [address] | | | | | | [phone] | | | +--------+ + + + [...]
--- OUTSIDE RECORDS SUMMARY | ~2019-08-14 | XMS | Encounter Summary ---
Demographics + + + | Address | [address] | | | [place] [address] | + + + | Home Phone | | + + + | Preferred Language | Unknown | + + + | Marital Status | Single | + + + | Church Affiliation | NRP | + + + | Race | Unknown | + + + | Ethnic Group | Not or | + + + Author + + + | Author | [facility] | + + + | Organization | [facility] | + + + | Address | Unknown | + + + | Phone | Unavailable | + + + Support + + +---------+ + | Name | Relationship | Address | Phone | + + +---------+ + | Isabel Pablo | ECON | Unknown | | + + +---------+ + Care Team Providers + +------+ + | Care Waste/Materials Exchange Specialist Name | Role | Phone | + [...] Pharmacy | | | | | | [address] | | | | | | [address] [place], [place] | | | | | | [address] | | | | | | [phone] | | | +--------+ + + + [...]
--- OUTSIDE RECORDS SUMMARY | ~2019-08-14 | XMS | Encounter Summary ---
Demographics + + + | Address | [address] | | | [place] [address] | + + + | Home Phone | | + + + | Preferred Language | Unknown | + + + | Marital Status | Single | + + + | Adventist Affiliation | NRP | + + + | Race | Unknown | + + + | Ethnic Group | Not or | + + + Author + + + | Author | [facility] | + + + | Organization | [facility] | + + + | Address | Unknown | + + + | Phone | Unavailable | + + + Support + + +---------+ + | Name | Relationship | Address | Phone | + + +---------+ + | Isabel Pablo | ECON | Unknown | | + + +---------+ + Care Team Providers + +------+ + | Care Peer Health Promoter Name | Role | Phone | + +------+ + | No Pcp Per Patient | PCP | Unavailable | + +------+ + Reason for Visit Consultation (Routine) +--------+--------+ + + + + | Status | Reason | Specialty | Diagnoses / | Referred By | Referred To | | | | | Procedures | Contact | Contact | +--------+--------+ + + + + | Closed | | Hematology & | Diagnoses | Non[facility] | Jay | | | | Oncology | thrombosis | Epic Dept | Jaswinder Cisse MD | | | | | Procedures | | [address] | | | | | | | [address] | | | | | [address]-coagula | | [address] [place], | | | | | tion | | [place] | | | | | | | [address] | +--------+--------+ + + + + Encounter Details +--------+---------+ + + + | Date | Type | Department | Care Team | Description | +--------+---------+ + + + | 11/12/ | Office | [facility] | Jaswinder Thompson | Pulmonary embolism | | 2013 | Visit | Clinics at [facility] Cisse MD | ([facility]) (Primary Dx) | | | | [facility] | | | | | | [facility] and | | | | | | Healing [address] | | | | | | [address] [place], | | | | | | [place] [address] | | | | | | [phone] | | | +--------+---------+ + + + Social History + +-------+ [...] + + + | Blood Pressure | 143/78 | 11/12/2013 3:56 PM | | | | | PDT | | + + + + + | Pulse | 69 | 11/12/2013 3:56 PM | | | | | PDT | | + + + + + | Temperature | 36.1 C (97 F) | 11/12/2013 3:56 PM | | | | | PDT | | + + + + + | Respiratory Rate | 16 | 11/12/2013 3:56 PM | | | | | PDT | | + + + + + | Oxygen Saturation | 99% | 11/12/2013 3:56 PM | | | | | PDT | | + + + + + | Inhaled Oxygen | - | - | | | Concentration | | | | + + + + + | Weight | 91 kg (200 lb 11.2 | 11/12/2013 3:56 PM | | | | oz) | PDT | | + + + + + | Height | 167.6 cm (5' 6") | 11/12/2013 3:56 PM | | | | | PDT | | + + + + + | Body Mass Index | 32.39 | 11/12/2013 3:56 PM | | | | | PDT | | + + + + + documented in this encounter Progress Notes Jaswinder Thompson MD - 11/14/2013 1:40 PM PDTRFR: Mr. Pablo is a 22-year-old referred by Dr. Batista in [place] for an opinion regarding venous thromboembolic disease. HPI: Review of records from Dr. Batista and [facility] reveals he was diagn osed with a pulmonary embolus at the age of 17 that was unprovoked. It presented as a 1 week history of back pain. He had an 8 hour car trip 3 weeks before that, though I don't think t hat was recent enough to have provoked the event. He had no other acquired thromboembolic ri sk factors associated with the event. He received Coumadin for 1 year following this and had been off it until August 2013. At that point he had a blood draw in the right antecubital arun a on September 03. 4 days later he noticed a palpable cord extending up the arm above the elbow th at was clearly superficial phlebitis related to the blood draw. He was restarted on therapeu tic anticoagulation at some point and he has remained on this until now. Family history is n otable for a maternal uncle in his 50s with a pulmonary embolus and this was approximately 1 year ago. He the patient has had no major surgery or cancer in the past. He has been found to be heterozygous for factor V Leiden. PMH: Per HPI FH: Per HPI ROS: Per scanned questionnaire that I reviewed SH: 2 cigarettes every 3 days, no alcohol for the past 2 months, unemployed P/E: GENERAL: Well looking patient in no acute distress. EYES: Pupils equal and reactive to light. Sclerae white without icterus. Conjunctivae normal. ENT: Oropharynx has normal mucosa with no erythema, exudates, or ulceration. HEME/LN: No palpable cervical, supraclavicular, axillary, or inguinal lymphadenopathy. RESP: Chest clear to percussion bilaterally. Breath sounds normal bilaterally. CARDIOVASCULAR: No JVD. Normal S1 and S2. No extra sounds, murmurs, or rubs heard. GASTROINTESTINAL: Abdominal palpation: Soft, non-distended with no masses or tenderness. No hepatosplenomegaly. EXTREMITIES: No peripheral cyanosis or edema. SKIN: No rash or jaundice. Assessment: Mr. Pablo is a 22-year-old with an unprovoked pulmonary embolus at the age of [age] for which he was on therapeutic anticoagulation for 1 year. It was then discontinued elect ively and he presented last August with a right arm superficial phlebitis related to a venipunc ture 4 days prior to symptom onset. This trauma-associated superficial phlebitis would typic ally not warrant anticoagulation. However the fact that the event 4 years ago was unprovoked suggests that he should ideally be on long-term anticoagulation per 2012 ACCP guidelines. O ff anticoagulation his risk of a second venous thromboembolic event would be about 30% over the next 5 years. The fact he is a carrier for factor V Leiden has no implications here with respect to the recommendation for long-term anticoagulation. He will therefore continue on Coumadin at the present time. He has had no bleeding problems with Coumadin. Dr. Batista may want to consider switching him to one of the novel oral anticoagulants such as rivaroxaban, apixaban, or dabigatran. These do not require lab monitoring and have a preferable safety pr ofile to Coumadin. However insurance providers seem to vary in their decision-making regardi ng covering these agents. No plans were made for follow up and I would be happy to consult w giovanna Batista over the phone if necessary or see him back in clinic at any point in the fut ure. CC: Dr. Batista documented in this encounter Plan of Treatment Not on filedocumented as of this encounter Visit Diagnoses + + | Diagnosis | + + | Pulmonary embolism (HCC) - Primary Other pulmonary embolism and infarction | + + documented in this encounter
--- OUTSIDE RECORDS SUMMARY | ~2019-08-14 | XMS | Encounter Summary ---
Demographics + + + | Address | [address] | | | [place] [address] | + + + | Home Phone | | + + + | Preferred Language | Unknown | + + + | Marital Status | Single | + + + | Jainism Affiliation | NRP | + + + | Race | Unknown | + + + | Ethnic Group | Not or | + + + Author + + + | Author | [facility] | + + + | Organization | [facility] | + + + | Address | Unknown | + + + | Phone | Unavailable | + + + Support + + +---------+ + | Name | Relationship | Address | Phone | + + +---------+ + | Isabel Pablo | ECON | Unknown | | + + +---------+ + Care Team Providers + +------+ + | Care Instructor Programmable Controllers Name | Role | Phone | + [...] Pharmacy | | | | | | [address] | | | | | | [place], [place] | | | | | | [address] | | | | | | [phone] | | | +--------+ + + + [...]
--- OUTSIDE RECORDS SUMMARY | ~2019-08-14 | XMS | Encounter Summary ---
Demographics + + + | Address | [address] | | | [place] [address] | + + + | Home Phone [...] + + + | Author | [facility] | + + + | Organization | [facility] | + + + | Address | Unknown | + + + | Phone | Unavailable | + + + Support + + +---------+ + | Name | Relationship | Address | Phone | + + +---------+ + | Isabel Pablo | ECON | Unknown | | + + +---------+ + Care Team Providers + +------+ + | Care Photographic Equipment Technician Name | Role | Phone | + [...] | | | anti-coagula | | [address] [place], | | | | | tion | | [place] | | | | | | | [phone] | +--------+--------+ + + + + Encounter Details +--------+---------+ + + + | Date | Type | Department | Care Team | Description | +--------+---------+ + + + | 11/12/ | Office | [facility] | Jaswinder Thompson | Pulmonary embolism | | 2013 | Visit | [facility] | ([facility]) (Primary Dx) | | | | [facility] | | | | | | [facility] and | | | | | | Healing [address] | | | | | | [place] [address], | | | | | | [place] [address] | | | | | | [phone] | | | +--------+---------+ + + + [...] a 22-year-old referred by Dr. Batista in [place] for an opinion regarding venous thromboembolic disease. HPI: Review of records from Dr. Batista and [facility] reveals he was diagn osed with a [...]
--- OUTSIDE RECORDS SUMMARY | ~2019-08-14 | XMS | Encounter Summary ---
Demographics + + + | Address | [address] | | | [place] [address] | + + + | Home Phone | | + + + | Preferred Language | Unknown | + + + | Marital Status | Single | + + + | Amish Affiliation | NRP | + + + | Race | Unknown | + + + | Ethnic Group | Not or | + + + Author + + + | Author | [facility] | + + + | Organization | [facility] | + + + | Address | Unknown | + + + | Phone | Unavailable | + + + Support + + +---------+ + | Name | Relationship | Address | Phone | + + +---------+ + | Isabel Pablo | ECON | Unknown | | + + +---------+ + Care Team Providers + +------+ + | Care Convalescent Sitter Name | Role | Phone | + [...] | | | anti-coagula | | [address] [place], | | | | | tion | | [place] | | | | | | | [phone] | +--------+--------+ + + + + Encounter Details +--------+---------+ + + + | Date | Type | Department | Care Team | Description | +--------+---------+ + + + | 11/12/ | Office | [facility] | Jaswinder Thompson | Pulmonary embolism | | 2013 | Visit | [facility] | ([facility]) (Primary Dx) | | | | [facility] | | | | | | [facility] and | | | | | | Healing [address] | | | | | | [address] [place], | | | | | | [place] [address] | | | | | | [phone] | | | +--------+---------+ + + + [...] a 22-year-old referred by Dr. Batista in [place] for an opinion regarding venous thromboembolic disease. HPI: Review of records from Dr. Batista and [facility] reveals he was diagn osed with [...]
--- OUTSIDE RECORDS SUMMARY | ~2019-08-14 | XMS | Encounter Summary ---
Demographics + + + | Address | [address] | | | [place] [address] | + + + | Home Phone | | + + + | Preferred Language | Unknown | + + + | Marital Status | Single | + + + | Anglican Affiliation | NRP | + + + | Race | Unknown | + + + | Ethnic Group | Not or | + + + Author + + + | Author | [facility] | + + + | Organization | [facility] | + + + | Address | Unknown | + + + | Phone | Unavailable | + + + Support + + +---------+ + | Name | Relationship | Address | Phone | + + +---------+ + | Isabel Pablo | ECON | Unknown | | + + +---------+ + Care Team Providers + +------+ + | Care Bolt Man Name | Role | Phone | + [...] | | | | | Myasthenia | [address] | | | | | | ([facility]) | [address] | | | | | | Procedures | [address] | | | | | | PHYSICAL | Rd | | | | | | THERAPY | [place], [place] | | | | | | REFERRAL | [address] | | | | | | | Phone: | | | | | | | [phone] | | | | | | | Fax: | | | | | | | [phone] | | +--------+--------+ + + + + [...] | | | | | | | [address] | | | | | | | [address] | | | | | | | [place] | | | | | | | [id number] | | | | | | | [facility] | | | | | | | [place], | | | | | | | [place] [address] | | | | | | | Phone: | | | | | | | [phone] | | | | | | | Fax: | | | | | | | [phone] | +--------+--------+ + + + + Encounter Details +--------+ + + + + | Date | Type | Department | Care Team | Description | +--------+ + + + + | 01/12/ | Hospital | [facility] [address] | Sen [place], | | | 2018 - | Encounter | [address] | [address] | | | | | /[id number] [facility] | [facility] | | | 01/20/ | | [facility], | [place], [place] | | | 2018 | | [place] [address] | [address] | | | | | [phone] | [phone] | | | | | | | | | | | | Amina Voss, | | | | | | Armaan Salazar | | | | | | MD Yaakov [address] | | | | | | e [place], [place] | | | | | | [address] | | | | | | [phone] | | | | | | | [...] PE many years ago, who presents to [facility] ER on 01/12/18 by pr ivate vehicle (mom) for second opinion regarding sudden onset rapidly progressive bulbar wea kness, shortness of breath, and proximal arm weakness which began 1 week prior to arrival. P kris initially presented to [facility] for evaluation and was admitted from 01/08 to 01/10 but h e left AMA 01/10. During that admission he had a CTA and a MRI brain and c-spine. Pt reports that multiple family members living in the same home on the [facility] have been diagnosed with myasthenia and lambert [...] symptoms so his mom drove him to [facility]. In the ED, shahzad nt was mildly tachycardic to the low 100s with labile blood pressures ranging from the low 1 00s to the 130s. No labs were able to be obtained given poor access given his significant dr sanchez use. NIF was (-) 30 which was reportedly decreased from [facility] where is was less than (-) [...] assist and outpatient PT and OT referrals. COLLAR STITCHER consulted who followed and guided us with [...] load is increased, would recommend referral to bisque kiln drawer for management. - repeat HCV quantitative viral [...] would recommend that patient follow up with live out nanny on outpatient, which p kris already knows and will obtain appointment within 1 month of discharge. - recommend outpatient live out nanny follow up; patient amenable and will schedule. - Apixaban 2.5 mg PO BID Labs: ACh R binding ab: 0.1 ([facility]) MuSK antibody negative 0.0 Hepatitis A screen positive; IgM neg HBV S ag neg HBV core ab positive HBV surface ab positive HCV ab positive HCV pcr positive HCV QNT 31104 IU/mL HIV PCR negative Anti-MOG negative Arsenic <10 Lead <2 Mercury <3 CK 50 UDS: Amphetamines >5400 Opiates positive Opiate conc >66794 Cannabinoids positive Cannabinoid conc 115 Methadone negative [...] evaluate for cost. Please page wayne to [phone]. Thanks! doxycycline monohydrate 100 mg Cap Commonly known as: MONODOX Take 1 capsule by mouth two times daily. (Pharmacist to substitute salt form as needed) Ind ications: skin infection naloxone 4 mg/actuation Frostproof Instill 1 spray in nose as needed [...] Bal PA-C. Go on 02/01/2018. 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 Please bring your hospital discharge documents with marisol andriy. Contact information [address] [place] [address] Zully Villalpando On 01/23/2018. Why: 12 pm, individual outpatient counseling Contact information [facility] [address], [address] [place] [address] Dr. Raza On 02/01/2018. Why: 5:45 pm, Suboxone follow up Contact information [facility] [address], [address] [place] [address] Outstanding labs/studies: Lab Orders - In Process (Through next 24h) Start Ordered 01/16/181999 LAB OTHER: antibodies to lipoprotein-related protein 4 (LRP4) sent to [facility] ADD ON Question: Test Name? Answer: antibodies to lipoprotein-related protein 4 (LRP4) sent to [facility] 01/16/18 1951 01/15/18 0900 LAB OTHER: Botulinum [...] lesions all over arms and legs Tip Leland Neurology Resident, PGY-2 Neurology wards pager [phone] Associated attestation - Armaan Herrmann MD - [...] Date of service: 01/20/2018 Armaan Herrmann MD Plant Puller Department of Neurology [facility] Pager [phone] in this encounter Discharge Instructions Instructions Dashawn [...] [email or web address], or may be purchased from the iC[employer] in book format. It is also available as a n iBook through the [employer] claudio on you iPhone or iPad. I [...] in both iPhone or Android versions from iPayment respectively. This claudio will allow you to [...] of neuromuscular junction disorders, who presented to [facility] ED on for a second opinion [...] is a 27yo male who presented to [facility] on 01/12 with bulbar weakness, proximal [...] a car rier for factor V Leiden. 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 We discussed this with [...] assessment and plan. DONNA NINO Medical Student [facility] Pager: [phone] Associated attestation - Tip Roe MD - 01/19/2018 6:45 PM PDTAgree with excellent medical student progress note. Tip Roe Neurology PGY2 Wards pager [phone] Donna Nino - 01/18/2018 1:17 PM PDTFormatting [...] of neuromuscular junction disorders, who presented to [facility] ED on 01/12 for a second [...] is a 27yo male who presented to [facility] on 01/12 with bulbar weakness, p [...] a sarah r for factor V Leiden. shelter anticoagulation is indicated. We discussed this with [...] assessment and plan. DONNA NINO Medical Student [facility] Pager: [phone] signed by Tip Roe MD at 01/18/2018 7:52 PM PDT Associated attestation - Tip Roe MD - 01/18/2018 7:52 PM PDTAgree with excellent medical student progress note. Tip Roe Neurology PGY2 Wards pager [phone] Donna Nino - 01/17/2018 1:08 PM PDTFormatting [...] of neuromuscular junction disorders, who presented to [facility] ED on 01/12 for a second [...] is a 27yo male who presented to [facility] on 01/12 with bulbar weakness, p [...] sarah r for factor V Leiden. Although group home anticoagulation is indicated, due to previous zoya [...] assessment and plan. DONNA NINO Medical Student [facility] Pager: [phone] ealy, Gagan Khalil MD - 01/16/2018 11:10 AM PDT . Neuroscience Intensive Care Unit Attending Progress Note Attending Pager #[phone] Hospital admission dx: Data Unavailable 3 Days in ICU 4 Days in Hospital Abbreviated HPI / Daily Assessment 27 year old man with history of polysubstance abuse (IV heroin, cocaine, meth, tobacco) an d possible history of unprovoked PE many years ago, who presents to [facility] ER on 01/12/18 by pr ivate vehicle (mom) for second opinion regarding sudden onset rapidly progressive bulbar wea kness, shortness of breath, and proximal arm weakness which began 1 week prior to arrival. Felix ponce initially presented to [facility] for evaluation and was admitted from 01/08 to 01/10 but h e left AMA 01/10. During that admission he had a CTA and a MRI brain and c-spine. Pt reports that multiple family members living in the same home on the [facility] have been diagnosed with myasthenia and lambert [...] symptoms so his mom drove him to [facility]. In the ED, patie nt was mildly tachycardic to the low 100s with labile blood pressures ranging from the low 1 00s to the 130s. No labs were able to be obtained given poor access given his significant dr sanchez use. NIF was (-) 30 which was reportedly decreased from [facility] where is was less than (-) [...] continuing clonidine with additional PRN doses. Dysphagia: COLLAR STITCHER follows and approved for soft diet. We [...] Provider Role Specialty Ipt Critical Care Nsicu #[id number] Treatment Team Ipt Neuro Non Stroke #[id number] Treatment Team Neurology Code Status Code Status [...] patient at the bedside together with Dr. Jsesy Alberto.Please see their note for details . I agree with the assessment and plan as described in the resident's note with the followin g exceptions/additions as noted. Date of Service: 01/16/2018 [facility] DEPARTMENT: ANE ICU NEURO Place of Service:- Inpatient CSN: [id number] Suggested Modifier: GC - Resident Involved Suggested CPT: TO CELLULAR TOWER CLIMBER Author:GAGAN BROOKS MD [address] [address] [place] [id number] signed by Gagan Brooks MD at 01/16/2018 11:12 AM Jessy Payne MD - 01/16/2018 7:22 AM PDT . Neuroscience Intensive Care Unit Team Progress Note NSICU ASSIGNED #[id number] Admission dx: Data Unavailable 3 Days in ICU 4 Days in Hospital Abbreviated HPI / Daily Assessment 27 year old man with history of polysubstance abuse (IV heroin, cocaine, meth, tobacco) an d possible history of unprovoked PE many years ago, who presents to [facility] ER on 01/12/18 by pr ivate vehicle (mom) for second opinion regarding sudden onset rapidly progressive bulbar wea kness, shortness of breath, and proximal arm weakness which began 1 week prior to arrival. Felix ponce initially presented to [facility] for evaluation and was admitted from 01/08 to 01/10 but h e left AMA 01/10. During that admission he had a CTA and a MRI brain and c-spine. Pt reports that multiple family members living in the same home on the [facility] have been diagnosed with myasthenia and lambert [...] symptoms so his mom drove him to [facility]. In the ED, patie nt was mildly tachycardic to the low 100s with labile blood pressures ranging from the low 1 00s to the 130s. No labs were able to be obtained given poor access given his significant dr ug use. NIF was (-) 30 which was reportedly decreased from [facility] where is was less than (-) [...] Plan Increased difficulty swallowing. Failed bedside and COLLAR STITCHER evaluation. Plan for further rafat um swallow eval on 01/15 - appreciate COLLAR STITCHER following - DHT placed due to swallow [...] shoulder weakness in the past). - f/u [facility] medical records - LP, MRI brain, [...] Provider Role Specialty Ipt Critical Care Nsicu #[id number] Treatment Team Ipt Neuro Non Stroke #[id number] Treatment Team Neurology Patient Lines/Drains/Airways Status Active [...] MD Jessy MANCUSO MD Author:JESSY ALBERTO MD [address] [address] [place] [id number] signed by Jessy Alberto MD at 01/16/2018 2:01 PM PDTLuke Krishnamurthy MD - 01/15/2018 1:09 PM PDTFormatting of this note might be different f rom the original. . Neuroscience Intensive Care Unit Team Progress Note NSICU ASSIGNED #[id number] Admission dx: Data Unavailable 2 Days in ICU 3 Days in Hospital Abbreviated HPI / Daily Assessment 27 year old man with history of polysubstance abuse (IV heroin, cocaine, meth, tobacco) an d possible history of unprovoked PE many years ago, who presents to [facility] ER on 01/12/18 by pr ivate vehicle (mom) for second opinion regarding sudden onset rapidly progressive bulbar wea kness, shortness of breath, and proximal arm weakness which began 1 week prior to arrival. Felix ponce initially presented to [facility] for evaluation and was admitted from 01/08 to 01/10 but h e left AMA 01/10. During that admission he had a CTA and a MRI brain and c-spine. Pt reports that multiple family members living in the same home on the [facility] have been diagnosed with myasthenia and lambert [...] symptoms so his mom drove him to [facility]. In the ED, shahzad nt was mildly tachycardic to the low 100s with labile blood pressures ranging from the low 1 00s to the 130s. No labs were able to be obtained given poor access given his significant dr ug use. NIF was (-) 30 which was reportedly decreased from [facility] where is was less than (-) [...] Plan Increased difficulty swallowing. Failed bedside and COLLAR STITCHER evaluation. Plan for further rafat um swallow eval on 01/15 - appreciate COLLAR STITCHER following - DHT placed due to swallow [...] shoulder weakness in the past). - f/u [facility] medical records - LP, MRI brain, [...] Provider Role Specialty Ipt Critical Care Nsicu #[id number] Treatment Team Ipt Neuro Non Stroke #70768 Treatment Team Neurology Patient Lines/Drains/Airways Status Active [...] MD Luke GUAMAN MD Author:LUKE KRISHNAMURTHY MD [address] [id number] signed by Gagan Brooks MD at 01/15/2018 2:59 PM PDTKim, Gagan Khalil MD - 01/15/2018 11:05 AM PDT . Neuroscience Intensive Care Unit Attending Progress Note Attending Pager #[phone] Hospital admission dx: Data Unavailable 2 Days in ICU 3 Days in Hospital Abbreviated HPI / Daily Assessment 27 year old man with history of polysubstance abuse (IV heroin, cocaine, meth, tobacco) an d possible history of unprovoked PE many years ago, who presents to [facility] ER on 01/12/18 by pr ivate vehicle (mom) for second opinion regarding sudden onset rapidly progressive bulbar wea kness, shortness of breath, and proximal arm weakness which began 1 week prior to arrival. Felix ponce initially presented to [facility] for evaluation and was admitted from 01/08 to 01/10 but h e left AMA 01/10. During that admission he had a CTA and a MRI brain and c-spine. Pt reports that multiple family members living in the same home on the [facility] have been diagnosed with myasthenia and lambert [...] symptoms so his mom drove him to [facility]. In the ED, shahzad martines was mildly tachycardic to the low 100s with labile blood pressures ranging from the low 1 00s to the 130s. No labs were able to be obtained given poor access given his significant dr ug use. NIF was (-) 30 which was reportedly decreased from [facility] where is was less than (-) [...] Provider Role Specialty Ipt Critical Care Nsicu #36151 Treatment Team Ipt Neuro Non Stroke #33432 Treatment Team Neurology Code Status Code Status [...] xceptions/additions as noted. Date of Service: 01/15/2018 [facility] DEPARTMENT: ANE ICU NEURO Place of Service:- Inpatient CSN: [id number] Suggested Modifier: GC - Resident Involved Suggested CPT: TO CELLULAR TOWER CLIMBER Author:GAGAN BROOKS MD [address] [id number] signed by Gagan Brooks MD at 01/15/2018 [...] round and not in any distress. My oncology coordinator second round with attempting the FVC pt [...] Care Unit Attending Progress Note Attending Pager #[phone] Hospital admission dx: Data Unavailable 1 Days in ICU 2 Days in Hospital Abbreviated HPI / Daily Assessment 27 year old man with history of polysubstance abuse (IV heroin, cocaine, meth, tobacco) an d possible history of unprovoked PE many years ago, who presents to [facility] ER on 01/12/18 by pr ivate vehicle (mom) for second opinion regarding sudden onset rapidly progressive bulbar wea kness, shortness of breath, and proximal arm weakness which began 1 week prior to arrival. Felix ponce initially presented to [facility] for evaluation and was admitted from 01/08 to 01/10 but h gabriella left AMA 01/10. During that admission he had a CTA and a MRI brain and c-spine. Pt reports that multiple family members living in the same home on the [facility] have been diagnosed with myasthenia and lambert [...] symptoms so his mom drove him to [facility]. In the ED, shahzad martines was mildly tachycardic to the low 100s with labile blood pressures ranging from the low 1 00s to the 130s. No labs were able to be obtained given poor access given his significant dr ug use. NIF was (-) 30 which was reportedly decreased from [facility] where is was less than (-) [...] such as botulism. Blood was sent to [facility] for testing. No clear abscess fluid on US of R hip lesion, so have not been able to obtain wound material for cultures. Thigh wound growing Staph aureus today. ID consulted; requests CT of leg. Continue flagyl and vanc. Neuromuscular antibody panel was sent to [facility], results are pending. Will obtain EMG with [...] Provider Role Specialty Ipt Critical Care Nsicu #24479 Treatment Team Ipt Neuro Non Stroke #05987 Treatment Team Neurology Code Status Code Status [...] Date of Service: 01/14/2018 Author:HECTOR PAIZ MD [address] [address] [place] [id number] signed by Hector Paiz MD at 01/14/2018 10:46 PM PD Eduar Conner MD - 01/14/2018 1:04 PM PDT . Neuroscience Intensive Care Unit Team Progress Note NSICU ASSIGNED #[id number] Admission dx: Data Unavailable 1 Days in ICU 2 Days in Hospital Abbreviated HPI / Daily Assessment 27 year old man with history of polysubstance abuse (IV heroin, cocaine, meth, tobacco) an d possible history of unprovoked PE many years ago, who presents to [facility] ER on 01/12/18 by pr ivate vehicle (mom) for second opinion regarding sudden onset rapidly progressive bulbar wea kness, shortness of breath, and proximal arm weakness which began 1 week prior to arrival. Felix ponce initially presented to [facility] for evaluation and was admitted from 01/08 to 01/10 but h e left AMA 01/10. During that admission he had a CTA and a MRI brain and c-spine. Pt reports that multiple family members living in the same home on the [facility] have been diagnosed with myasthenia and lambert [...] symptoms so his mom drove him to [facility]. In the ED, shahzad martines was mildly tachycardic to the low 100s with labile blood pressures ranging from the low 1 00s to the 130s. No labs were able to be obtained given poor access given his significant dr sanchez use. NIF was (-) 30 which was reportedly decreased from [facility] where is was less than (-) [...] Plan Increased difficulty swallowing. Failed bedside and COLLAR STITCHER evaluation. Plan for further rafat um swallow eval on 01/15 - appreciate COLLAR STITCHER following - barium swallow on 01/15 - [...] shoulder weakness in the past). - f/u [facility] medical records - LP, MRI brain, [...] Provider Role Specialty Ipt Critical Care Nsicu #68642 Treatment Team Ipt Neuro Non Stroke #16475 Treatment Team Neurology Patient Lines/Drains/Airways Status Active Lines, Drains and Airways Name: Placement date: Placement time: Site: Days: PICC - Double Lumen Non-tunneled;Valved Right Arm Basilic 5 Fr 1:Red 2:Purple 01/13/18 1 115 Basilic 1 Wound Left Lateral leg Abscess 01/13/18 1200 leg 1 Quality section CVC necessity reviewed: Poor peripheral IV access and shelter IV medication FAST HUG Feeding: NPO Analgesia: suboxone Sedation: precedex Thromboprophylaxis: Lovenox Head of Bed: Head of Bed >30 degrees Ulcer Prophylaxis: not clinically indicated Glycemic Control: not indicated Created by Eduar Lawton MD Author:Eduar Lawton MD [address] [id number] signed by Eduar Lawton MD at 01/14/2018 1:41 P M Kimberly Wilkerson MD - 01/14/2018 10:36 AM PDT . Neuroscience Intensive Care Unit Attending Progress Note Attending Pager #[phone] Hospital admission dx: Data Unavailable 1 Days in ICU 2 Days in Hospital Abbreviated HPI / Daily Assessment 27 year old man with history of polysubstance abuse (IV heroin, cocaine, meth, tobacco) an d possible history of unprovoked PE many years ago, who presents to [facility] ER on 01/12/18 by pr ivate vehicle (mom) for second opinion regarding sudden onset rapidly progressive bulbar wea kness, shortness of breath, and proximal arm weakness which began 1 week prior to arrival. Felix ponce initially presented to [facility] for evaluation and was admitted from 01/08 to 01/10 but h e left AMA 01/10. During that admission he had a CTA and a MRI brain and c-spine. Pt reports that multiple family members living in the same home on the [facility] have been diagnosed with myasthenia and lambert [...] symptoms so his mom drove him to [facility]. In the ED, shahzad nt was mildly tachycardic to the low 100s with labile blood pressures ranging from the low 1 00s to the 130s. No labs were able to be obtained given poor access given his significant dr laura use. NIF was (-) 30 which was reportedly decreased from [facility] where is was less than (-) [...] diagnosis remains unclear. Blood was sent to [facility] for testing. N o clear abscess fluid on US of R hip lesion, so have not been able to obtain wound material for cultures. Neuromuscular antibody panel was sent to [facility], results are pending. Will obtai n EMG [...] Provider Role Specialty Ipt Critical Care Nsicu #10280 Treatment Team Ipt Neuro Non Stroke #[id number] Treatment Team Neurology Code Status Code Status [...] ptions/additions as noted. Date of Service: 01/14/2018 [facility] DEPARTMENT: [facility] ICU NEURO Place of Service:- Inpatient CSN: [id number] Suggested Modifier: GC - Resident Involved Suggested CPT: TO CELLULAR TOWER CLIMBER Author:KIMBERLY PLEITEZ MD [address] [id number] signed by Kimberly Pleitez MD at 01/14/2018 2:07 PM Hector Webb MD - 01/14/2018 12:33 AM PDTFormatting of this note might be different fro m the original. . Neuroscience Intensive Care Unit Attending Progress Note Attending Pager #[phone] Hospital admission dx: Data Unavailable 1 Days in ICU 2 Days in Hospital Abbreviated HPI / Daily Assessment 27 year old man with history of polysubstance abuse (IV heroin, cocaine, meth, tobacco) an d possible history of unprovoked PE many years ago, who presents to [facility] ER on 01/12/18 by pr ivate vehicle (mom) for second opinion regarding sudden onset rapidly progressive bulbar wea kness, shortness of breath, and proximal arm weakness which began 1 week prior to arrival. Felix ponce initially presented to [facility] for evaluation and was admitted from 01/08 to 01/10 but h e left AMA 01/10. During that admission he had a CTA and a MRI brain and c-spine. Pt reports that multiple family members living in the same home on the [facility] have been diagnosed with myasthenia and lambert [...] symptoms so his mom drove him to [facility]. In the ED, patie nt was mildly tachycardic to the low 100s with labile blood pressures ranging from the low 1 00s to the 130s. No labs were able to be obtained given poor access given his significant dr laura use. NIF was (-) 30 which was reportedly decreased from [facility] where is was less than (-) [...] Provider Role Specialty Ipt Critical Care Nsicu #43503 Treatment Team Ipt Neuro Non Stroke #17572 Treatment Team Neurology Code Status Code Status [...] Date of Service: 01/13/2018 Author:HECTOR PAIZ MD [address] [id number] signed by Hector Paiz MD at 01/14/2018 12:33 AM PD Kimberly Blackwood MD - 01/13/2018 10:33 AM PDTFormatting of this note might be different fro m the original. . Neuroscience Intensive Care Unit Attending Progress Note Attending Pager #[phone] Hospital admission dx: Data Unavailable Days in ICU 1 Days in Hospital Abbreviated HPI / Daily Assessment 27 year old man with history of polysubstance abuse (IV heroin, cocaine, meth, tobacco) an d possible history of unprovoked PE many years ago, who presents to [facility] ER on 01/12/18 by pr ivate vehicle (mom) for second opinion regarding sudden onset rapidly progressive bulbar wea kness, shortness of breath, and proximal arm weakness which began 1 week prior to arrival. Felix ponce initially presented to [facility] for evaluation and was admitted from 01/08 to 01/10 but h e left AMA 01/10. During that admission he had a CTA and a MRI brain and c-spine. Pt reports that multiple family members living in the same home on the [facility] have been diagnosed with myasthenia and lambert [...] symptoms so his mom drove him to [facility]. In the ED, patigabriella martines was mildly tachycardic to the low 100s with labile blood pressures ranging from the low 1 00s to the 130s. No labs were able to be obtained given poor access given his significant dr ug use. NIF was (-) 30 which was reportedly decreased from [facility] where is was less than (-) [...] that we discussed with the CDC and [facility] and decided to pursue empiric antitoxin treatment while awaiting toxin test results. Simultaneously, will continue further workup for possible myasthenia, sending antibody panel to [facility]. Started pyridostigmine (wit hout improvement) and IVIG. [...] Provider Role Specialty Ipt Critical Care Nsicu #96793 Treatment Team Ipt Neuro Non Stroke #88816 Treatment Team Neurology Code Status Code Status [...] ptions/additions as noted. 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 | [place], [place] | | | AARON SMITH OF [place] | [address] | [address] | | | TESTS | | | [...] | | POC | | | AARON SMIHT | | | | | | OF [...] [facility] | [address] | [place], [place] | | | SARAH POINT OF CARE | [address] | [address] | | | TESTS | | | [...] [facility] | [address] | [place], [place] | | | AARON SMITH OF CARE | [address] | [address] | | | TESTS | | | [...] | | | LABORATORY | | | [facility] | | | SERVICES, | | [...] | + + + + + | [facility] | [address] | [place] [address] | | | SERVICES, YANNA | FLORENTINO [...] [facility] | [address] | [place], [place] | | | SARAH POINT OF CARE | [address] | [address] | | | TESTS | | | [...] | 01/16. Contact pharmacy with questions (pager [phone]). Thanks! | LABORATORY | | | SERVICES, CORE | + + + + + + + + | Performing | Address | City/State/Zipcode | Phone Number | | Organization | | | | + + + + + | [facility] | [address] | [place] [address] | | | SERVICES, YANNA | [address] | | | + + + + + EMG/NERVE CONDUCTION STUDIES,ADULT - NEUROLOGY (01/16/2018 12:00 AM PDT) + + + | Impressions | Performed At | + + + | Patient Name: Dylan Pablo Date of : 1990 | [facility] - | | Date of Test: 01/16/2018 Place of | [facility] | | Service: (90) - [phone] Department: [id number] EMG [facility] Nerve | POINT OF CARE | | [...] | | | Modifier: None Suggested CPT: 04991 7-8 Nerve Conduction studies | | | [address] EMG -Each Extremity, Limited (<4 Muscles) w/NCS, qty 1 643[address] | | | Neuromuscular Junction, qty 3 [...] + + + | [facility] | [address] | [place], [place] | | | AARON SMITH OF [place] | [address] | [address] | | | TESTS | | | [...] + + | Performing | Address | City/State/[place] Service Unitcode | Phone Number | | Organization | | | | + + + + + | [facility] | [address] | [place] [address] | | | DIAGNOSTIC | [address] [...] | + + + + + | [facility] | [address] | [place] [address] | | | YANNA [place] | [address] [...] + + + + | [facility] | [address] | [place] [address] | | | DIAGNOSTIC | [address] [...] | | 01/15. Questions, contact pharmacy (pager [phone]). Thanks! | LABORATORY | | | SERVICES, CORE | + + + + + + + + | Performing | Address | City/State/Zipcode | Phone Number | | Organization | | | | + + + + + | [facility] | [address] | [place] [address] | | | SERVICES, CORE | FL[address]INO [...] (H) | 60 - 99 mg/dL | [facility] | | | GLUCOSE, | | | [facility] | | | POC | | | AARON SMIHT | | | | | | OF [...] [facility] | [address] | [place], [place] | | | ANASTACIA SMITH | [facility] | [address] | | | TESTS | | | [...] TERES[facility] | | | LAB NAME | [facility] | | REFERENCE | | | | [address] | | LAB | | | | [place] [address] | | | | + + + [...] | + + + + + | [facility] | [address] | [place] [address] | | | SERVICES, CORE | FLORENTINO [...] | + + + + + | [facility] | [address] | [place] [address] | | | SERVICES, CORE | FLORENTINO [...] | + + + + + | [facility] | [address] | [place] [address] | | | SERVICES, CORE | PARK [...] | | | LABORATORY | | | PUERTO RICAN | | | SERVICES, | | [...] | + + + + + | [facility] [employer] | [address] | [place] [address] | | | YANNA [place] | [address] [...] + | [facility] - | [address] | [place] [address] | | | [place] | | | | + + + [...] by | | | | | | [employer],[address] | | | | | | Deepthi Ag, [facility],[place] | | | | | | [address] | | | | | | [phone].[employer]. | | | | | | Lex briones MD, | | | | | | Lab. Director | | | | + + + + + + + + | Specimen | + + | Blood - Blood | | (substance) | + + + + + + + | Performing | Address | City/State/[place] Service Unitcode | Phone Number | | Organization | | | | + + + + + | [facility] | [address] | [place], [place] | | | UNIV PTH - INTFC | | [address] | | + + + + + [...] | | | | | determined by [facility] | | | | | | [facility] in a manner | | [...] | | | | | Performed by: [facility] | | | | | | [facility] - | | | | | | [facility] | | | | | | [address], | | | | | | [place] [address] | | | | + + + + + + + + | Specimen | + + | Blood - Blood | | (substance) | + + + + + + + | Performing | Address | City/State/[place] Service Unitcode | Phone Number | | Organization | | | | + + + + + | [facility] | [address] | [place], [place] | | | [facility] | [facility] | [address] | | + + + + + [...] | | | | | determined by [facility] | | | | | | [facility] in a manner | | [...] | | | | | determined by [facility] | | | | | | [facility] in a manner | | [...] | | | | | determined by [facility] | | | | | | [facility] in a manner | | [...] | | | | | determined by [facility] | | | | | | [facility] in a manner | | [...] STRIATED | NegativeComment: | <1:120 titer | [facility] | | | MUSCLE AB | ADD [...] | | | | | determined by [facility] | | | | | | [facility] in a manner | | [...] | | | | | Performed by: [facility] | | | | | | [facility] - | | | | | | [facility] | | | | | | [address], | | | | | | [place] [address] | | | | + + + [...] | | | [facility] | [facility] | [address] | | + + + + + [...] [facility] | | | LAB NAME | [facility] | | REFERENCE | | | | [address] | | LAB | | | | [place] [address] | | | | + + + [...] | + + + + + | [facility] | [address] | [place] [address] | | | SERVICES, CORE | PARK [...] | + + + + + | [facility] | [address] | [place] [address] | | | YANNA [place] | [address] [...] [facility] | [address] | [place] [address] | | | SERVICES, CORE | PARK [...] | + + + + + | [facility] | [address] | [place] [address] | | | SERVICES, CORE | FL[address] [...] + | [facility] - | [address] | [place] [address] | | | [place] | | | [...] modified from | [facility] | | original hardboard press operator's approved specifications. The performance | LABORATORY | | of the FLOOR BROKER HIV Combo test, with or without confirmation, was not | SERVICES, | | tested in pediatric patients less than 2 years of age. [facility] | SPECIAL IMM + | | guidelines [...] | + + + + + | [facility] | [address] | [place] [address] | | | SERVICES, SPECIAL | [address] | | | | IMM + COAG | | | | + + + + + X-RAY ABD LTD FEEDING TUBE EVAL PORTABLE (01/14/2018 2:23 PM PDT) + + | Specimen | + + | | + + + + + | Narrative | Performed At | + + + | EXAM: FL ABD LTD FEEDING TUBE EVAL INDICATION: Feeding [...] Interface - 01/14/2018 3:58 PM PDT EXAM: FL ABD LTD | | FEEDING TUBE EVAL [...] | | |Final signature: Gopi Curiel MD 01/14/2018 3:57 PM | |Preliminary: Gopi [...] [facility] | [address] | [place] [address] | | | SERVICES, CORE | PARK [...] | + + + + + | [facility] | [address] | [place] [address] | | | SERVICES, CORE | PARK [...] | | | LABORATORY | | | PUERTO RICAN | | | SERVICES, | | [...] | + + + + + | [facility] | [address] | [place] [address] | | | SERVICES, CORE | PARK [...] [facility] | | | LAB NAME | [facility] | | REFERENCE | | | | [address] | | LAB | | | | Faviola Rawls | | | | | | [address] [place] [address] | | | | | | | [...] | + + + + + | [facility] | see below | [...] | + + + + + | [facility] | [address] | [place] [address] | | | ANGIE, YANNA | [address] [...] | + + + + + | [facility] | [address] | [place] [address] | | | SERVICES, CORE | [address] [...] | CULTURE | Staphylococcus aureus, | | [facility] - | | | RESULT | Methicillin [...] + | [facility] - | [address] | [place] [address] | | | [place] | | | [...] B: | | | | | | [email or web address] | | | | + + + [...] | | | | | determined by [facility] | | | | | | Laboratories. See | | | | | | Compliance Statement B: | | | | | | [email or web address] | | | | | | by [facility],[address] | | | | | | Deepthi Ag [facility],[place] | | | | | | [address] | | | | | | [phone].[employer]. | | | | | | comLex [...] [facility] | [address] | [place], [place] | | | UN[facility] | | [address] | | + + + + + [...] [facility] | [address] | [place] [address] | | | SERVICES, CORE | [address] | | | + + + + + X-RAY PORTABLE CHEST PICC LINE CHECK (01/13/2018 12:11 PM PDT) + + | Specimen | + + | | + + + + + | Narrative | Performed At | + + + | EXAM: FL CHEST PICC LINE CHECK HISTORY: new picc [...] Interface - 01/13/2018 12:55 PM PDT EXAM: FL CHEST | | PICC LINE CHECK HISTORY: [...] correct patient, procedure, equipment, | | | technician support association and site/side marked as required. CLABSI Prevention [...] | area Basilic vein. Catheter lot number: [id number] with a length of 55 | | [...] | + + + + + | [facility] | [address] | [place] [address] | | | SERVICES, SPECIAL | [address] [...] | + + + + + | [facility] | [address] | [place] [address] | | | SERVICES, SPECIAL | [address] [...] + + + + | OPIATE | >96954 (H) | <300 ng/mL | [facility] | [...] | + + + + + | [facility] | [address] | [place] [address] | | | YANNA [place] | FLOR[address] [...] [facility] | [address] | [place] [address] | | | SERVICES, | [address] [...] | + + + + + | [facility] | [address] | [place] [address] | | | SERVICES, CORE | [address] [...] [facility] | [address] | [place] [address] | | | SERVICES, CORE | PARK [...] [facility] | [address] | [place] [address] | | | SERVICES, | [address] [...] [facility] | [address] | [place] [address] | | | SERVICES, | [address] [...] | | | | | determined by [employer] | | | | | | Laboratories. See | | | | | | Compliance Statement B: | | | | | | OhmData/CSPerformed | | | | | | by [employer],[address] | | | | | | Deepthi Ag [facility],[place] | | | | | | [address] | | | | | | [phone].[employer]. | | | | | | [facility], Lex Rivas MD, | | | | [...] [facility] | [address] | [place], [place] | | | UN[facility] | | [address] | | + + + + + [...] | | | LABORATORY | | | [facility] | | | SERVICES, | | [...] | + + + + + | [facility] | [address] | [place] [address] | | | SERVICES, CORE | PARK [...] (H) | 0.90 - 1.20 INR | [facility] | | | | | [...] | + + + + + | [facility] | [address] | [place] [address] | | | SERVICES, CORE | [address] [...] [facility] | [address] | [place] [address] | | | SERVICES, CORE | [address] [...] | | | LABORATORY | | | [address] | | | SERVICES, | | [...] the MDRD equation recommended by the | [facility] | | National Kidney Disease Education [...] | + + + + + | [facility] | [address] | [place] [address] | | | SERVICES, CORE | PARK [...]
--- OUTSIDE RECORDS SUMMARY | ~2019-08-14 | XMS | Encounter Summary ---
Demographics + + + | Address | [address] | | | [place] [address] | + + + | Home Phone | | + + + | Preferred Language | Unknown | + + + | Marital Status | Single | + + + | Synagogue Affiliation | NRP | + + + | Race | Unknown | + + + | Ethnic Group | Not or | + + + Author + + + | Author | [facility] | + + + | Organization | [facility] | + + + | Address | Unknown | + + + | Phone | Unavailable | + + + Support + + +---------+ + | Name | Relationship | Address | Phone | + + +---------+ + | Isabel Pablo | ECON | Unknown | | + + +---------+ + Care Team Providers + +------+ + | Care Supply Requirements Officer Name | Role | Phone | + +------+ + | Jessica Bal PA-C | PCP | | + +------+ + Encounter Details +--------+ + + + + | Date | Type | Department | Care Team | Description | +--------+ + + + + | 01/14/ | Procedure | Diagnostic Imaging | | | | 2017 | Pass | Services at [facility] | | | | | | [address] | | | | | | Adeola Shah [facility] | | | | | | [address] | | | | | | [place], [place] | | | | | | [address] | | | | | | [phone] | | | +--------+ + + + [...]
--- OUTSIDE RECORDS SUMMARY | ~2019-08-14 | XMS | Encounter Summary ---
Demographics + + + | Address | [address] | | | [place] [address] | + + + | Home Phone | | + + + | Preferred Language | Unknown | + + + | Marital Status | Single | + + + | Worship Affiliation | NRP | + + + | Race | Unknown | + + + | Ethnic Group | Not or | + + + Author + + + | Author | [facility] | + + + | Organization | [facility] | + + + | Address | Unknown | + + + | Phone | Unavailable | + + + Support + + +---------+ + | Name | Relationship | Address | Phone | + + +---------+ + | Isabel Pablo | ECON | Unknown | | + + +---------+ + Care Team Providers + +------+ + | Care Service Delivery Consultant Name | Role | Phone | + [...] | | | | | Myasthenia | [address] | | | | | | ([facility]) | [address] | | | | | | Procedures | [address] | | | | | | PHYSICAL | Rd | | | | | | THERAPY | [place], [place] | | | | | | REFERRAL | [address] | | | | | | | Phone: | | | | | | | [phone] | | | | | | | Fax: | | | | | | | [phone] | | +--------+--------+ + + + + [...] | | | | | | | [address] | | | | | | | [address] | | | | | | | Pablo | | | | | | | [id number] | | | | | | | [facility] | | | | | | | [place], | | | | | | | [place] [address] | | | | | | | Phone: | | | | | | | [phone] | | | | | | | Fax: | | | | | | | [phone] | +--------+--------+ + + + + Encounter Details +--------+ + + + + | Date | Type | Department | Care Team | Description | +--------+ + + + + | 01/12/ | Hospital | [facility] [address] | Sen [place], | | | 2018 - | Encounter | [address] | [address] | | | | | /[id number] [facility] | [facility] | | | 01/20/ | | [facility], | [place], [place] | | | 2018 | | [place] [address] | [address] | | | | | [phone] | [phone] | | | | | | | | | | | | Amina Voss, | | | | | | Armaan Salazar | | | | | | MD Yaakov [address] | | | | | | e [place], [place] | | | | | | [address] | | | | | | [phone] | | | | | | | [...] PE many years ago, who presents to [facility] ER on 01/12/18 by pr ivate vehicle (mom) for second opinion regarding sudden onset rapidly progressive bulbar wea kness, shortness of breath, and proximal arm weakness which began 1 week prior to arrival. P kris initially presented to [facility] for evaluation and was admitted from 01/08 to 01/10 but h e left AMA 01/10. During that admission he had a CTA and a MRI brain and c-spine. Pt reports that multiple family members living in the same home on the [facility] have been diagnosed with myasthenia and lambert [...] symptoms so his mom drove him to [facility]. In the ED, shahzad nt was mildly tachycardic to the low 100s with labile blood pressures ranging from the low 1 00s to the 130s. No labs were able to be obtained given poor access given his significant dr sanchez use. NIF was (-) 30 which was reportedly decreased from [facility] where is was less than (-) [...] assist and outpatient PT and OT referrals. MACHINE BURRER consulted who followed and guided us with [...] load is increased, would recommend referral to shoe sprayer for management. - repeat HCV quantitative viral [...] would recommend that patient follow up with information assoc on outpatient, which p kris already knows and will obtain appointment within 1 month of discharge. - recommend outpatient information assoc follow up; patient amenable and will schedule. - Apixaban 2.5 mg PO BID Labs: ACh R binding ab: 0.1 (ARUP) MuSK antibody negative 0.0 Hepatitis A screen positive; IgM neg HBV S ag neg HBV core ab positive HBV surface ab positive HCV ab positive HCV pcr positive HCV QNT 22282 IU/mL HIV PCR negative Anti-MOG negative Arsenic <10 Lead <2 Mercury <3 CK 50 UDS: Amphetamines >5400 Opiates positive Opiate conc >59923 Cannabinoids positive Cannabinoid conc 115 Methadone negative [...] evaluate for cost. Please page wayne to [phone]. Thanks! doxycycline monohydrate 100 mg Cap Commonly known as: MONODOX Take 1 capsule by mouth two times daily. (Pharmacist to substitute salt form as needed) Ind ications: skin infection naloxone 4 mg/actuation Orange Instill 1 spray in nose as needed [...] Bal PA-C. Go on 02/01/2018. Specialty: Physician Help Desk Manager Why: Follow-up Appointment at 11am. Please bring your hospital discharge documents with marisol andriy. Contact information [address] [place] [address] Zully Villalpando On 01/23/2018. Why: 12 pm, individual outpatient counseling Contact information [facility] [address], [address] [place] [address] Dr. Raza On 02/01/2018. Why: 5:45 pm, Suboxone follow up Contact information [facility] [address], [address] [place] [address] Outstanding labs/studies: Lab Orders - In Process (Through next 24h) Start Ordered 01/16/181999 LAB OTHER: antibodies to lipoprotein-related protein 4 (LRP4) sent to [facility] ADD ON Question: Test Name? Answer: antibodies to lipoprotein-related protein 4 (LRP4) sent to [facility] 01/16/18 1951 01/15/18 0900 LAB OTHER: Botulinum [...] lesions all over arms and legs [facility] Neu[facility] Resident, PGY-2 Neurology wards pager [phone] Associated attestation - Armaan Herrmann MD - [...] congenital myasthenia gravis. Date of service: 01/20/2018 Araman Herrmann MD Liaison Inspection Laboratory Assistant Department of Neurology [facility] Pager [phone] in this encounter Discharge Instructions Instructions Dashawn [...] [email or web address], or may be purchased from the [employer] in book format. It is also available as a n iBook through the [employer] claudio on you iPhone or iPad. I [...] in both iPhone or Android versions from [employer] respectively. This claudio will allow you to [...] of neuromuscular junction disorders, who presented to [facility] ED on for a second opinion regarding [...] is a 27yo male who presented to [facility] on 01/12 with bulbar weakness, proximal upper [...] a car rier for factor V Leiden. 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 We discussed this with [...] DONNA NINO Medical Student [facility] Pager: [phone] Associated attestation - Tip Roe MD - 01/19/2018 6:45 PM PDTAgree with excellent medical student progress note. Tip Roe Neurology PGY2 Wards pager [phone] Donna Nino - 01/18/2018 1:17 PM PDTFormatting [...] of neuromuscular junction disorders, who presented to [facility] ED on 01/12 for a second opinion [...] is a 27yo male who presented to [facility] on 01/12 with bulbar weakness, p roximal [...] a sarah r for factor V Leiden. jail anticoagulation is indicated. We discussed this with [...] DONNA NINO Medical Student [facility] Pager: [phone] signed by Tip Roe MD at 01/18/2018 7:52 PM PDT Associated attestation - Tip Roe MD - 01/18/2018 7:52 PM PDTAgree with excellent medical student progress note. Tip Roe Neurology PGY2 Wards pager [phone] Donna Nino - 01/17/2018 1:08 PM PDTFormatting [...] of neuromuscular junction disorders, who presented to [facility] ED on 01/12 for a second opinion [...] is a 27yo male who presented to [facility] on 01/12 with bulbar weakness, p roximal [...] sarah r for factor V Leiden. Although skilled nursing anticoagulation is indicated, due to previous zoya [...] DONNA NINO Medical Student [facility] Pager: [phone] ealy, Gagan Khalil MD - 01/16/2018 11:10 AM PDT . Neuroscience Intensive Care Unit Attending Progress Note Attending Pager #[phone] Hospital admission dx: Data Unavailable 3 Days in ICU 4 Days in Hospital Abbreviated HPI / Daily Assessment 27 year old man with history of polysubstance abuse (IV heroin, cocaine, meth, tobacco) an d possible history of unprovoked PE many years ago, who presents to [facility] ER on 01/12/18 by pr ivate vehicle (mom) for second opinion regarding sudden onset rapidly progressive bulbar wea kness, shortness of breath, and proximal arm weakness which began 1 week prior to arrival. Felix ponce initially presented to [facility] for evaluation and was admitted from 01/08 to 01/10 but h e left AMA 01/10. During that admission he had a CTA and a MRI brain and c-spine. Pt reports that multiple family members living in the same home on the [facility] have been diagnosed with myasthenia and lambert [...] symptoms so his mom drove him to [facility]. In the ED, patie nt was mildly tachycardic to the low 100s with labile blood pressures ranging from the low 1 00s to the 130s. No labs were able to be obtained given poor access given his significant dr sanchez use. NIF was (-) 30 which was reportedly decreased from [facility] where is was less than (-) [...] continuing clonidine with additional PRN doses. Dysphagia: MACHINE BURRER follows and approved for soft diet. We [...] Provider Role Specialty Ipt Critical Care Nsicu #55003 Treatment Team Ipt Neuro Non Stroke #74209 Treatment Team Neurology Code Status Code Status [...] exceptions/additions as noted. Date of Service: 01/16/2018 [facility] DEPARTMENT: ANE ICU NEURO Place of Service:- Inpatient CSN: [id number] Suggested Modifier: GC - Resident Involved Suggested CPT: TO CONTROLLER COAL OR ORE Author:GAGAN BROOKS MD [address] [address] [place] [address]Fpyeacfqzjcasz signed by Gagan Brooks MD at 01/16/2018 11:12 AM Jessy Payne MD - 01/16/2018 7:22 AM PDT . Neuroscience Intensive Care Unit Team Progress Note NSICU ASSIGNED #[id number] Admission dx: Data Unavailable 3 Days in ICU 4 Days in Hospital Abbreviated HPI / Daily Assessment 27 year old man with history of polysubstance abuse (IV heroin, cocaine, meth, tobacco) an d possible history of unprovoked PE many years ago, who presents to [facility] ER on 01/12/18 by pr ivate vehicle (mom) for second opinion regarding sudden onset rapidly progressive bulbar wea kness, shortness of breath, and proximal arm weakness which began 1 week prior to arrival. Felix ponce initially presented to [facility] for evaluation and was admitted from 01/08 to 01/10 but h e left AMA 01/10. During that admission he had a CTA and a MRI brain and c-spine. Pt reports that multiple family members living in the same home on the [facility] have been diagnosed with myasthenia and lambert [...] symptoms so his mom drove him to [facility]. In the ED, patie nt was mildly tachycardic to the low 100s with labile blood pressures ranging from the low 1 00s to the 130s. No labs were able to be obtained given poor access given his significant dr ug use. NIF was (-) 30 which was reportedly decreased from [facility] where is was less than (-) [...] Plan Increased difficulty swallowing. Failed bedside and MACHINE BURRER evaluation. Plan for further rafat um swallow eval on 01/15 - appreciate MACHINE BURRER following - DHT placed due to swallow [...] shoulder weakness in the past). - f/u [facility] medical records - LP, MRI brain, [...] Provider Role Specialty Ipt Critical Care Nsicu #10092 Treatment Team Ipt Neuro Non Stroke #96698 Treatment Team Neurology Patient Lines/Drains/Airways Status Active [...] MD Jessy MANCUSO MD Author:JESSY ALBERTO MD [address] [address] [place] [address]Sgacleawsqdxzd signed by Jessy Alberto MD at 01/16/2018 2:01 PM PDTLuke Krishnamurthy MD - 01/15/2018 1:09 PM PDTFormatting of this note might be different f rom the original. . Neuroscience Intensive Care Unit Team Progress Note NSICU ASSIGNED #[id number] Admission dx: Data Unavailable 2 Days in ICU 3 Days in Hospital Abbreviated HPI / Daily Assessment 27 year old man with history of polysubstance abuse (IV heroin, cocaine, meth, tobacco) an d possible history of unprovoked PE many years ago, who presents to [facility] ER on 01/12/18 by pr ivate vehicle (mom) for second opinion regarding sudden onset rapidly progressive bulbar wea kness, shortness of breath, and proximal arm weakness which began 1 week prior to arrival. Felix ponce initially presented to [facility] for evaluation and was admitted from 01/08 to 01/10 but h e left AMA 01/10. During that admission he had a CTA and a MRI brain and c-spine. Pt reports that multiple family members living in the same home on the [facility] have been diagnosed with myasthenia and lambert [...] symptoms so his mom drove him to [facility]. In the ED, shahzad nt was mildly tachycardic to the low 100s with labile blood pressures ranging from the low 1 00s to the 130s. No labs were able to be obtained given poor access given his significant dr ug use. NIF was (-) 30 which was reportedly decreased from [facility] where is was less than (-) [...] Plan Increased difficulty swallowing. Failed bedside and MACHINE BURRER evaluation. Plan for further rafat um swallow eval on 01/15 - appreciate MACHINE BURRER following - DHT placed due to swallow [...] shoulder weakness in the past). - f/u [facility] medical records - LP, MRI brain, [...] Provider Role Specialty Ipt Critical Care Nsicu #98268 Treatment Team Ipt Neuro Non Stroke #00089 Treatment Team Neurology Patient Lines/Drains/Airways Status Active [...] MD Luke GUAMAN MD Author:LUKE KRISHNAMURTHY MD [address] [address]Cuwnoloesllvpz signed by Gagan Brooks MD at 01/15/2018 2:59 PM PDTKim, Gagan Khalil MD - 01/15/2018 11:05 AM PDT . Neuroscience Intensive Care Unit Attending Progress Note Attending Pager #[phone] Hospital admission dx: Data Unavailable 2 Days in ICU 3 Days in Hospital Abbreviated HPI / Daily Assessment 27 year old man with history of polysubstance abuse (IV heroin, cocaine, meth, tobacco) an d possible history of unprovoked PE many years ago, who presents to [facility] ER on 01/12/18 by pr ivate vehicle (mom) for second opinion regarding sudden onset rapidly progressive bulbar wea kness, shortness of breath, and proximal arm weakness which began 1 week prior to arrival. Felix ponce initially presented to [facility] for evaluation and was admitted from 01/08 to 01/10 but h e left AMA 01/10. During that admission he had a CTA and a MRI brain and c-spine. Pt reports that multiple family members living in the same home on the [facility] have been diagnosed with myasthenia and lambert [...] symptoms so his mom drove him to [facility]. In the ED, shahzad martines was mildly tachycardic to the low 100s with labile blood pressures ranging from the low 1 00s to the 130s. No labs were able to be obtained given poor access given his significant dr ug use. NIF was (-) 30 which was reportedly decreased from [facility] where is was less than (-) [...] Provider Role Specialty Ipt Critical Care Nsicu #00670 Treatment Team Ipt Neuro Non Stroke #10582 Treatment Team Neurology Code Status Code Status [...] xceptions/additions as noted. Date of Service: 01/15/2018 [facility] DEPARTMENT: ANE ICU NEURO Place of Service:- Inpatient CSN: [id number] Suggested Modifier: GC - Resident Involved Suggested CPT: TO CONTROLLER COAL OR ORE Author:GAGAN BROOKS MD [address] [address]Liuhteybufvrca signed by Gagan Brooks MD at 01/15/2018 [...] round and not in any distress. My room attendant second round with attempting the FVC pt [...] Care Unit Attending Progress Note Attending Pager #[phone] Hospital admission dx: Data Unavailable 1 Days in ICU 2 Days in Hospital Abbreviated HPI / Daily Assessment 27 year old man with history of polysubstance abuse (IV heroin, cocaine, meth, tobacco) an d possible history of unprovoked PE many years ago, who presents to [facility] ER on 01/12/18 by pr ivate vehicle (mom) for second opinion regarding sudden onset rapidly progressive bulbar wea kness, shortness of breath, and proximal arm weakness which began 1 week prior to arrival. Felix ponce initially presented to [facility] for evaluation and was admitted from 01/08 to 01/10 but h gabriella left AMA 01/10. During that admission he had a CTA and a MRI brain and c-spine. Pt reports that multiple family members living in the same home on the [facility] have been diagnosed with myasthenia and lambert [...] symptoms so his mom drove him to [facility]. In the ED, shahzad martines was mildly tachycardic to the low 100s with labile blood pressures ranging from the low 1 00s to the 130s. No labs were able to be obtained given poor access given his significant dr ug use. NIF was (-) 30 which was reportedly decreased from [facility] where is was less than (-) [...] such as botulism. Blood was sent to [facility] for testing. No clear abscess fluid on US of R hip lesion, so have not been able to obtain wound material for cultures. Thigh wound growing Staph aureus today. ID consulted; requests CT of leg. Continue flagyl and vanc. Neuromuscular antibody panel was sent to [facility], results are pending. Will obtain EMG with [...] Provider Role Specialty Ipt Critical Care Nsicu #84882 Treatment Team Ipt Neuro Non Stroke #20125 Treatment Team Neurology Code Status Code Status [...] Date of Service: 01/14/2018 Author:HECTOR PAIZ MD [address] [place] [address]Whrgdujjydxuod signed by Hector Paiz MD at 01/14/2018 10:46 PM PD Eduar Conner MD - 01/14/2018 1:04 PM PDT . Neuroscience Intensive Care Unit Team Progress Note NSICU ASSIGNED #[id number] Admission dx: Data Unavailable 1 Days in ICU 2 Days in Hospital Abbreviated HPI / Daily Assessment 27 year old man with history of polysubstance abuse (IV heroin, cocaine, meth, tobacco) an d possible history of unprovoked PE many years ago, who presents to [facility] ER on 01/12/18 by pr ivate vehicle (mom) for second opinion regarding sudden onset rapidly progressive bulbar wea kness, shortness of breath, and proximal arm weakness which began 1 week prior to arrival. Felix ponce initially presented to [facility] for evaluation and was admitted from 01/08 to 01/10 but h e left AMA 01/10. During that admission he had a CTA and a MRI brain and c-spine. Pt reports that multiple family members living in the same home on the [facility] have been diagnosed with myasthenia and lambert [...] symptoms so his mom drove him to [facility]. In the ED, shahzad martines was mildly tachycardic to the low 100s with labile blood pressures ranging from the low 1 00s to the 130s. No labs were able to be obtained given poor access given his significant dr sanchez use. NIF was (-) 30 which was reportedly decreased from [facility] where is was less than (-) [...] Plan Increased difficulty swallowing. Failed bedside and MACHINE BURRER evaluation. Plan for further rafat um swallow eval on 01/15 - appreciate MACHINE BURRER following - barium swallow on 01/15 - [...] shoulder weakness in the past). - f/u [facility] medical records - LP, MRI brain, [...] Provider Role Specialty Ipt Critical Care Nsicu #61348 Treatment Team Ipt Neuro Non Stroke #25303 Treatment Team Neurology Patient Lines/Drains/Airways Status Active Lines, Drains and Airways Name: Placement date: Placement time: Site: Days: PICC - Double Lumen Non-tunneled;Valved Right Arm Basilic 5 Fr 1:Red 2:Purple 01/13/18 1 115 Basilic 1 Wound Left Lateral leg Abscess 01/13/18 1200 leg 1 Quality section CVC necessity reviewed: Poor peripheral IV access and jail IV medication FAST HUG Feeding: NPO Analgesia: suboxone Sedation: precedex Thromboprophylaxis: Lovenox Head of Bed: Head of Bed >30 degrees Ulcer Prophylaxis: not clinically indicated Glycemic Control: not indicated Created by Eduar Lawton MD Author:Eduar Lawton MD [address] [phone] signed by Eduar Lawton MD at 01/14/2018 1:41 P M Kimberly Wilkerson MD - 01/14/2018 10:36 AM PDT . Neuroscience Intensive Care Unit Attending Progress Note Attending Pager #[phone] Hospital admission dx: Data Unavailable 1 Days in ICU 2 Days in Hospital Abbreviated HPI / Daily Assessment 27 year old man with history of polysubstance abuse (IV heroin, cocaine, meth, tobacco) an d possible history of unprovoked PE many years ago, who presents to [facility] ER on 01/12/18 by pr ivate vehicle (mom) for second opinion regarding sudden onset rapidly progressive bulbar wea kness, shortness of breath, and proximal arm weakness which began 1 week prior to arrival. Felix ponce initially presented to [facility] for evaluation and was admitted from 01/08 to 01/10 but h e left AMA 01/10. During that admission he had a CTA and a MRI brain and c-spine. Pt reports that multiple family members living in the same home on the [facility] have been diagnosed with myasthenia and lambert [...] symptoms so his mom drove him to [facility]. In the ED, shahzad nt was mildly tachycardic to the low 100s with labile blood pressures ranging from the low 1 00s to the 130s. No labs were able to be obtained given poor access given his significant dr laura use. NIF was (-) 30 which was reportedly decreased from [facility] where is was less than (-) [...] diagnosis remains unclear. Blood was sent to [facility] for testing. N o clear abscess fluid on US of R hip lesion, so have not been able to obtain wound material for cultures. Neuromuscular antibody panel was sent to [facility], results are pending. Will obtai n EMG [...] Provider Role Specialty Ipt Critical Care Nsicu #54669 Treatment Team Ipt Neuro Non Stroke #47682 Treatment Team Neurology Code Status Code Status [...] ptions/additions as noted. Date of Service: 01/14/2018 [facility] DEPARTMENT: [facility] ICU NEURO Place of Service:- Inpatient CSN: [id number] Suggested Modifier: GC - Resident Involved Suggested CPT: TO CONTROLLER COAL OR ORE Author:KIMBERLY PLEITEZ MD [address] [address]Blarnvcnbpnxna signed by Kimberly Pleitez MD at 01/14/2018 2:07 PM Hector Webb MD - 01/14/2018 12:33 AM PDTFormatting of this note might be different fro m the original. . Neuroscience Intensive Care Unit Attending Progress Note Attending Pager #[phone] Hospital admission dx: Data Unavailable 1 Days in ICU 2 Days in Hospital Abbreviated HPI / Daily Assessment 27 year old man with history of polysubstance abuse (IV heroin, cocaine, meth, tobacco) an d possible history of unprovoked PE many years ago, who presents to [facility] ER on 01/12/18 by pr ivate vehicle (mom) for second opinion regarding sudden onset rapidly progressive bulbar wea kness, shortness of breath, and proximal arm weakness which began 1 week prior to arrival. Felix ponce initially presented to [facility] for evaluation and was admitted from 01/08 to 01/10 but h e left AMA 01/10. During that admission he had a CTA and a MRI brain and c-spine. Pt reports that multiple family members living in the same home on the [facility] have been diagnosed with myasthenia and lambert [...] symptoms so his mom drove him to [facility]. In the ED, patie nt was mildly tachycardic to the low 100s with labile blood pressures ranging from the low 1 00s to the 130s. No labs were able to be obtained given poor access given his significant dr laura use. NIF was (-) 30 which was reportedly decreased from [facility] where is was less than (-) [...] Provider Role Specialty Ipt Critical Care Nsicu #41826 Treatment Team Ipt Neuro Non Stroke #85653 Treatment Team Neurology Code Status Code Status [...] Date of Service: 01/13/2018 Author:HECTOR PAIZ MD [address] [id number] signed by Hector Paiz MD at 01/14/2018 12:33 AM PD Kimberly Blackwood MD - 01/13/2018 10:33 AM PDTFormatting of this note might be different fro m the original. . Neuroscience Intensive Care Unit Attending Progress Note Attending Pager #[phone] Hospital admission dx: Data Unavailable Days in ICU 1 Days in Hospital Abbreviated HPI / Daily Assessment 27 year old man with history of polysubstance abuse (IV heroin, cocaine, meth, tobacco) an d possible history of unprovoked PE many years ago, who presents to [facility] ER on 01/12/18 by pr ivate vehicle (mom) for second opinion regarding sudden onset rapidly progressive bulbar wea kness, shortness of breath, and proximal arm weakness which began 1 week prior to arrival. Felix ponce initially presented to [facility] for evaluation and was admitted from 01/08 to 01/10 but h e left AMA 01/10. During that admission he had a CTA and a MRI brain and c-spine. Pt reports that multiple family members living in the same home on the [facility] have been diagnosed with myasthenia and lambert [...] symptoms so his mom drove him to [facility]. In the ED, patigabriella martines was mildly tachycardic to the low 100s with labile blood pressures ranging from the low 1 00s to the 130s. No labs were able to be obtained given poor access given his significant dr ug use. NIF was (-) 30 which was reportedly decreased from [facility] where is was less than (-) [...] that we discussed with the CDC and [facility] and decided to pursue empiric antitoxin treatment while awaiting toxin test results. Simultaneously, will continue further workup for possible myasthenia, sending antibody panel to [facility]. Started pyridostigmine (wit hout improvement) and IVIG. [...] Provider Role Specialty Ipt Critical Care Nsicu #52735 Treatment Team Ipt Neuro Non Stroke #17342 Treatment Team Neurology Code Status Code Status [...] ptions/additions as noted. Date of Service: 01/13/2018 [facility] DEPARTMENT: ANE ICU NEURO Place of Service:- Inpatient CSN: [id number] Suggested Modifier: GC - Resident Involved Suggested CPT: TO CONTROLLER COAL OR ORE Author:KIMBERLY PLEITEZ MD [address] [address] [place] [address]Ysyhvxaxquveiw signed by Kimberly Pleitez MD at 01/13/2018 [...] [facility] | | | LAB NAME | [id number] [facility] | | REFERENCE | | | | FANNY Garsia [phone]) | | LAB | | | | [phone] | | | | + + + [...] [facility] | [address] | [place] [address] | | | SERVICES, CORE | FLORENTINO [...] [facility] | [address] | [place], [place] | | | AARON SMITH OF [facility] | [address] | [address] | | | TESTS | | | [...] [facility] | [address] | [place], [place] | | | SARAH POINT OF CARE | [address] | [address] | | | TESTS | | | [...] [facility] | [address] | [place], [place] | | | AARON SMITH OF CARE | [address] | [address] | | | TESTS | | | [...] | | | LABORATORY | | | TURKISH | | | SERVICES, | | | [...] | + + + + + | [facility] | [address] [facility] | [place] [address] | | | SERVICES, YANNA | FLORENTINO [...] [facility] | [address] | [place], [place] | | | SARAH POINT OF CARE | [address] | [address] | | | TESTS | | | [...] | 01/16. Contact pharmacy with questions (pager [phone]). Thanks! | LABORATORY | | | SERVICES, CORE | + + + + + + + + | Performing | Address | City/State/Zipcode | Phone Number | | Organization | | | | + + + + + | [facility] | [address] | [place] [address] | | | SERVICES, YANNA | [address] | | | + + + + + EMG/NERVE CONDUCTION STUDIES,ADULT - NEUROLOGY (01/16/2018 12:00 AM PDT) + + + | Impressions | Performed At | + + + | Patient Name: Dylan Pablo Date of : 1990 | [facility] - | | Date of Test: 01/16/2018 Place of | [facility] | | Service: (34) - [address] Department: [id number] EMG [facility] Nerve | POINT OF CARE | | [...] | | | Modifier: None Suggested CPT: 05821 7-8 Nerve Conduction studies | | | 76009 EMG -Each Extremity, Limited (<4 Muscles) w/NCS, qty 1 44928 | | | Neuromuscular Junction, qty 3 [...] + + + | [facility] | [address] | [place], [place] | | | A[facility]ON SMITH OF [place] | [address] | [address] | | | TESTS | | | [...] + + | Performing | Address | City/State/[facility] | Phone Number | | Organization | | | | + + + + + | [facility] | [address] | [place] [address] | | | DIAGNOSTIC | [address] [...] | + + + + + | [facility] | [address] [facility] [facility] [address] | [place] [address] | | | YANNA ADAMS | [address] [...] + + + + | [facility] | [address] | [place] [address] | | | DIAGNOSTIC | [address] [...] | | 01/15. Questions, contact pharmacy (pager [phone]). Thanks! | LABORATORY | | | SERVICES, CORE | + + + + + + + + | Performing | Address | City/State/Zipcode | Phone Number | | Organization | | | | + + + + + | [facility] | [address] | [place] [address] | | | SERVICES, CORE | FLORENTINO [...] (H) | 60 - 99 mg/dL | [facility] | | | GLUCOSE, | | [...] [facility] | [address] | [place], [place] | | | ANASTACIA SMITH | [facility] | [address] | | | TESTS | | | [...] [facility] | | | LAB NAME | [facility] | | REFERENCE | | | | [address] | | LAB | | | | [place] [address] | | | | + + + [...] | + + + + + | [facility] | [address] | [place] [address] | | | SERVICES, CORE | FLORENTINO [...] | + + + + + | [facility] | [address] [facility] | [place] [address] | | | SERVICES, CORE | FLORENTINO [...] | + + + + + | [facility] | [address] | [place] [address] | | | SERVICES, CORE | PARK [...] | | | LABORATORY | | | TURKISH | | | SERVICES, | | | [...] | + + + + + | [facility] | [address] [facility] | [place] [address] | | | YANNA ADAMS | [address] [...] + | [facility] - | [address] | [place] [address] | | | [place] | | | | + + + [...] by | | | | | | [employer],[address] | | | | | | Deepthi Ag, [facility],[place] | | | | | | [address] | | | | | | [phone].Bromiumlab. | | | | | | Lex briones MD, | | | | | | Lab. Director | | | | + + + + + + + + | Specimen | + + | Blood - Blood | | (substance) | + + + + + + + | Performing | Address | City/State/[facility]ode | Phone Number | | Organization | | | | + + + + + | [facility] | [address] | [place], [place] | | | UNIV PTH - INTFC | | [address] | | + + + + + [...] | | | | | determined by [facility] | | | | | | [facility] in a manner | | | | [...] | | | | | Performed by: [facility] | | | | | | [facility] - | | | | | | [facility] | | | | | | [address], | | | | | | [place] [address] | | | | + + + + + + + + | Specimen | + + | Blood - Blood | | (substance) | + + + + + + + | Performing | Address | City/State/[facility]ode | Phone Number | | Organization | | | | + + + + + | [facility] | [address] | [place], [place] | | | LAB-INTFC | [place] | [address] | | + + + + + [...] | | | | | determined by [facility] | | | | | | [facility] in a manner | | | | [...] | | | | | determined by [facility] | | | | | | [facility] in a manner | | | | [...] | | | | | determined by [facility] | | | | | | [facility] in a manner | | | | [...] | | | | | determined by [facility] | | | | | | [facility] in a manner | | | | [...] STRIATED | NegativeComment: | <1:120 titer | [facility] | | | MUSCLE AB | ADD [...] | | | | | determined by [facility] | | | | | | [facility] in a manner | | | | [...] | | | | | Performed by: [facility] | | | | | | [facility] - | | | | | | [facility] | | | | | | [address], | | | | | | [place] [address] | | | | + + + [...] | | | LAB-[facility] | [place] | [address] | | + + + + + [...] [facility] | | | LAB NAME | [facility] | | REFERENCE | | | | [address] | | LAB | | | | [place] [address] | | | | + + + [...] | + + + + + | [facility] | [address] | [place] [address] | | | SERVICES, CORE | PARK [...] | + + + + + | [facility] | [address] | [place] [address] | | | YANNA ADAMS | FL[address] [...] [facility] | [address] | [place] [address] | | | SERVICES, CORE | PARK [...] | + + + + + | [facility] | [address] | [place] [address] | | | SERVICES, CORE | FLORENTINO [...] + | [facility] - | [address] | [place] [address] | | | [place] | | | [...] modified from | [facility] | | original returned case inspector's approved specifications. The performance | LABORATORY | | of the SPORTS BOOK WRITER HIV Combo test, with or without confirmation, was not | SERVICES, | | tested in pediatric patients less than 2 years of age. [facility] | SPECIAL IMM + | | guidelines [...] | + + + + + | [facility] | [address] [facility] | [place] [address] | | | SERVICES, SPECIAL | [address] | | | | IMM + COAG | | | | + + + + + X-RAY ABD LTD FEEDING TUBE EVAL PORTABLE (01/14/2018 2:23 PM PDT) + + | Specimen | + + | | + + + + + | Narrative | Performed At | + + + | EXAM: AZ ABD LTD FEEDING TUBE EVAL INDICATION: Feeding [...] Interface - 01/14/2018 3:58 PM PDT EXAM: AZ ABD LTD | | FEEDING TUBE EVAL [...] [facility] | [address] | [place] [address] | | | SERVICES, CORE | PARK [...] | + + + + + | [facility] | [address] | [place] [address] | | | SERVICES, CORE | PARK [...] | | | LABORATORY | | | TURKISH | | | SERVICES, | | | [...] | + + + + + | [facility] | [address] | [place] [address] | | | SERVICES, CORE | PARK [...] [facility] | | | LAB NAME | [facility] | | REFERENCE | | | | [address] | | LAB | | | | [address] | | | | | | [address] [address] | | | | | | | [...] | + + + + + | [facility] REFERENCE [facility] | see below | | | + + + + + SPECIMEN ROUTING (01/13/2018 6:53 PM PDT) + + | Specimen | + + | Blood - Blood | | (substance) | + + + + + + + | Performing | Address | City/State/Zipcode | Phone Number | | Organization | | | | + + + + + | [facility] | [address] | [place] [address] | | | ANGIE, YANNA | [address] [...] | + + + + + | [facility] | [address] [facility] | [place] [address] | | | SERVICES, CORE | [address] [...] + | [facility] - | [address] | [place] [address] | | | [place] | | | [...] B: | | | | | | Bromium[facility].ProDeaf/CS | | | | + + + [...] | | | | | determined by [facility] | | | | | | Laboratories. See | | | | | | Compliance Statement B: | | | | | | Coinkite.ProDeaf/CSPerformed | | | | | | by [employer],[address] | | | | | | Deepthi Ag [facility],[place] | | | | | | [address] | | | | | | [phone].[facility]. | | | | | | comLex [...] [facility] | [address] | [place], [place] | | | [facility] | | [address] | | + + + + + [...] [facility] | [address] | [place] [address] | | | SERVICES, CORE | [address] | | | + + + + + X-RAY PORTABLE CHEST PICC LINE CHECK (01/13/2018 12:11 PM PDT) + + | Specimen | + + | | + + + + + | Narrative | Performed At | + + + | EXAM: AZ CHEST PICC LINE CHECK HISTORY: new picc [...] Interface - 01/13/2018 12:55 PM PDT EXAM: AZ CHEST | | PICC LINE CHECK HISTORY: [...] correct patient, procedure, equipment, | | | software support representative and site/side marked as required. CLABSI Prevention [...] | area Basilic vein. Catheter lot number: [id number] with a length of 55 | | [...] | + + + + + | [facility] | [address] | [place] [address] | | | SERVICES, SPECIAL | FL[address]INO [...] | + + + + + | [facility] | [address] | [place] [address] | | | SERVICES, SPECIAL | [address] [...] + + + + | OPIATE | >44011 (H) | <300 ng/mL | [facility] | [...] | + + + + + | [facility] | [address] | [place] [address] | | | YANNA ADAMS | [address] [...] [facility] | [address] | [place] [address] | | | SERVICES, | [address] [...] | + + + + + | [facility] | [address] | [place] [address] | | | SERVICES, CORE | FL[address] [...] [facility] | [address] | [place] [address] | | | SERVICES, CORE | PARK [...] [facility] | [address] | [place] [address] | | | SERVICES, | [address] [...] [facility] | [address] | [place] [address] | | | SERVICES, | [address] [...] | | | | | determined by [employer] | | | | | | Laboratories. See | | | | | | Compliance Statement B: | | | | | | bluebottlebiz/CSPerformed | | | | | | by [employer],[address] | | | | | | Deepthi Ag [facility],[place] | | | | | | [address] | | | | | | [phone].Coinkite. | | | | | | central [...] [facility] | [address] | [place], [place] | | | [facility] | | [address] | | + + + + + [...] | | | LABORATORY | | | TURKISH | | | SERVICES, | | | [...] | + + + + + | [facility] | [address] | [place] [address] | | | SERVICES, CORE | PARK [...] (H) | 0.90 - 1.20 INR | [facility] | | | | | | LABORATORY [...] | + + + + + | [facility] | [address] | [place] [address] | | | SERVICES, CORE | [address] [...] [facility] | [address] | [place] [address] | | | SERVICES, CORE | [address] [...] | | | LABORATORY | | | TURKISH | | | SERVICES, | | | [...] the MDRD equation recommended by the | [facility] | | National Kidney Disease Education Program. [...] | + + + + + | [facility] | [address] [facility] | [place] [address] | | | SERVICES, CORE | PARK [...]
--- OUTSIDE RECORDS SUMMARY | ~2019-08-14 | XMS | Encounter Summary ---
Demographics + + + | Address | [address] | | | [place] [address] | + + + | Home Phone [...] + + + | Author | [facility] | + + + | Organization | [facility] | + + + | Address | Unknown | + + + | Phone | Unavailable | + + + Support + + +---------+ + | Name | Relationship | Address | Phone | + + +---------+ + | Isabel Pablo | ECON | Unknown | | + + +---------+ + Care Team Providers + +------+ + | Care Plsql Developer Name | Role | Phone | + +------+ + | No Pcp Per Patient | PCP | Unavailable | + +------+ + Reason for Visit + + + | Reason | Comments | + + + | faxed communication | chart notes | + + + Encounter Details +--------+ + + + + | Date | Type | Department | Care Team | Description | +--------+ + + + + | 12/04/ | Telephone | [facility] | [facility] | faxed communication | | 2013 | | Clinics at [facility] Sonny Cisse MD | (chart notes) | | | | [facility] | | | | | | for Health and | | | | | | Healing [address] | | | | | | [address] [place], | | | | | | [place] [address] | | | | | | [phone] | | | +--------+ + + + [...]
--- OUTSIDE RECORDS SUMMARY | ~2019-08-14 | XMS | Encounter Summary ---
Demographics + + + | Address | [address] | | | [place] [address] | + + + | Home Phone | | + + + | Preferred Language | Unknown | + + + | Marital Status | Single | + + + | Congregation Affiliation | NRP | + + + [...] Team Providers + +------+ + | Care Doctor Of Naprapathy Name | Role | Phone | + +------+ + | Jessica Bal PA-C | PCP | | + +------+ + Encounter Details +--------+ + + + + | Date | Type | Department | Care Team | Description | +--------+ + + + + | 01/14/ | Procedure | Diagnostic Imaging | | | | 2017 | Pass | Services at [facility] | | | | | | [address] | | | | | | Adeola Shah [facility] | | | | | | [address] | | | | | | [place], [place] | | | | | | [address] | | | | | | [phone] | | | +--------+ + + + [...]
--- OUTSIDE RECORDS SUMMARY | ~2019-08-14 | XMS | Encounter Summary ---
Demographics + + + | Address | [address] | | | [place] [address] | + + + | Home Phone | | + + + | Preferred Language | Unknown | + + + | Marital Status | Single | + + + | Temple Affiliation | NRP | + + + [...] Team Providers + +------+ + | Care Outside Plant Field Engineer Name | Role | Phone | + +------+ + | Jessica Bal PA-C | PCP | | + +------+ + Encounter Details +--------+ + + + + | Date | Type | Department | Care Team | Description | +--------+ + + + + | 01/14/ | Procedure | Diagnostic Imaging | | | | 2017 | Pass | Services at [facility] | | | | | | [address] | | | | | | Adeola Shah [facility] | | | | | | [address] | | | | | | [place], [place] | | | | | | [address] | | | | | | [phone] | | | +--------+ + + + [...]
--- OUTSIDE RECORDS SUMMARY | ~2019-08-14 | XMS | Encounter Summary ---
Demographics + + + | Address | [address] | | | [place] [address] | + + + | Home Phone | | + + + | Preferred Language | Unknown | + + + | Marital Status | Single | + + + | Christianity Affiliation | NRP | + + + | Race | Unknown | + + + | Ethnic Group | Not or | + + + Author + + + | Author | [facility] | + + + | Organization | [facility] | + + + | Address | Unknown | + + + | Phone | Unavailable | + + + Support + + +---------+ + | Name | Relationship | Address | Phone | + + +---------+ + | Isabel Pablo | ECON | Unknown | | + + +---------+ + Care Team Providers + +------+ + | Care Winding Machine Operator Name | Role | Phone | + [...] Pharmacy | | | | | | [address] | | | | | | [place], [place] | | | | | | [address] | | | | | | [phone] | | | +--------+ + + + [...]
--- OUTSIDE RECORDS SUMMARY | ~2019-08-14 | XMS | Clinical Summary ---
Demographics + + + | Address | [address] | | | [place] [address] | + + + | Home Phone | | + + + | Preferred Language | Unknown | + + + | Marital Status | Single | + + + | Shinto Affiliation | NRP | + + + | Race | Unknown | + + + | Ethnic Group | Not or | + + + Author + + + | Author | [facility] | + + + | Organization | [facility] | + [...] Team Providers + +------+ + | Care Toll Line Repairer Name | Role | Phone | + +------+ + | Jessica Bal PA-C | PCP | | + +------+ + Source Comments [facility] is fully live on both [facility] and [facility] In[facility] Allergies + + + + + [...] | | swallowing. Failed first bedside and SUPERVISOR INCISING evaluation. - Appreciate | | SUPERVISOR INCISING following, per report swallow improved and recommend [...] plan in weakness- Swallow | | improved, SUPERVISOR INCISING following, recommend minimal chew liquid diet of [...] | | onset age 55, admitted to [place] | | disorder | er | | [...] | | | + +--------+ +--------+-------+---------+--------+ | PUBLIC ADDRESS SYSTEM INSTALLER MEDICAID | PUBLIC ADDRESS SYSTEM INSTALLER | [id number] | Effect | | | [...] | + +--------+ +--------+ + + | Dylan Pablo | Person | Self | [birth year] | | | [place] | al/Fam | | 1991 | [phone] | [place] [address] | | | javon | | | [...]
--- OUTSIDE RECORDS SUMMARY | ~2019-08-14 | XMS | Encounter Summary ---
Demographics + + + | Address | [address] | | | [place] [address] | + + + | Home Phone [...] Team Providers + +------+ + | Care Mail Manager Name | Role | Phone | + [...] | (chart notes) | | | | [facility] | | | | | | for Health and | | | | | | Healing [address] | | | | | | [address] [place], | | | | | | [place] [address] | | | | | | [phone] | | | +--------+ + + + [...]
--- OUTSIDE RECORDS SUMMARY | ~2019-08-14 | XMS | Encounter Summary ---
Demographics + + + | Address | [address] | | | [place] [address] | + + + | Home Phone | | + + + | Preferred Language | Unknown | + + + | Marital Status | Single | + + + | Caodaism Affiliation | NRP | + + + [...] Team Providers + +------+ + | Care Welder Gas Name | Role | Phone | + [...] Pharmacy | | | | | | [address] | | | | | | [place], [place] | | | | | | [address] | | | | | | [phone] | | | +--------+ + + + [...]
--- OUTSIDE RECORDS SUMMARY | ~2019-08-14 | XMS | Encounter Summary ---
Demographics + + + | Address | [address] | | | [place] [address] | + + + | Home Phone | | + + + | Preferred Language | Unknown | + + + | Marital Status | Single | + + + | Holiness Affiliation | NRP | + + + [...] Team Providers + +------+ + | Care Shuttle Fitting Supervisor Name | Role | Phone | [...] | (chart notes) | | | | [facility] | | | | | | for Health and | | | | | | Healing [address] | | | | | | [address] [place], | | | | | | [place] [address] | | | | | | [phone] | | | +--------+ + + + [...]
--- OUTSIDE RECORDS SUMMARY | ~2019-08-14 | XMS | Encounter Summary ---
Demographics + + + | Address | [address] | | | [place] [address] | + + + | Home Phone [...] Team Providers + +------+ + | Care Central Supply Clerk Name | Role | Phone | + [...] | 2013 | anned | Oncology at [facility] | MD Betito | | | | | [address] | | | | | | Mailcode: CH7M | | | | | | [facility] | | | | | | and Healing, | | | | | | [facility] | | | | | | Floor [place], [place] | | | | | | [address] | | | | | | [phone] | | | +--------+ + + + [...]
--- OUTSIDE RECORDS SUMMARY | ~2019-08-14 | XMS | Clinical Summary ---
Demographics + + + | Address | [address] | | | [place] [address] | + + + | Home Phone | | + + + | Preferred Language | Unknown | + + + | Marital Status | Single | + + + | Muslim Affiliation | NRP | + + + | Race | Unknown | + + + | Ethnic Group | Not or | + + + Author + + + | Author | [facility] | + + + | Organization | [facility] | + [...] Team Providers + +------+ + | Care Entry Processor Name | Role | Phone | + +------+ + | Jessica Bal PA-C | PCP | | + +------+ + Source Comments TERESITA is fully live on both [facility] and [facility] InPatient.[facility] Allergies + + + + + [...] | | swallowing. Failed first bedside and HERB COUNSELOR evaluation. - Appreciate | | HERB COUNSELOR following, per report swallow improved and recommend [...] plan in weakness- Swallow | | improved, HERB COUNSELOR following, recommend minimal chew liquid diet of [...] | | onset age 55, admitted to [facility] | | disorder | er | | [...] | | | + +--------+ +--------+-------+---------+--------+ | RADIOLOGICAL EQUIPMENT SPECIALIST MEDICAID | RADIOLOGICAL EQUIPMENT SPECIALIST | xxxxxxxx | Effect | | | [...] | 1991 | [phone] | [place] [address] | | | javon | | | [...]
[~2019-08-14 18:57] MED LIST changes: +ATIVAN1 MG PO; +CLONIDINE HCL0.1 MG PO; +LOMOTIL TABLET1 EACH PO; +ZOFRAN ODT4 MG PO
[2019-08-14] MEDS ORDERED: METHADOSE10 MG/1 ML PO (19:12)
--- NOTE | 2019-08-15 13:05 | OR ---
[facility] [address] [place], [place] [address] Signed DATE OF OPERATION: 08/15/2019 SURGEON: Lio Chamberlain MD PREOPERATIVE DIAGNOSES: 1. Systemic sepsis related to left abdominal wall abscess. 2. Left complex necrotizing infection of left lateral thigh. 3. Right deltoid abscess. 4. Right lateral thigh abscess. POSTOPERATIVE DIAGNOSES: 1. Systemic sepsis related to left abdominal wall abscess. 2. Left complex necrotizing infection of left lateral thigh. 3. Right deltoid abscess. 4. Right lateral thigh abscess. PROCEDURES: 1. Exam under anesthesia. 2. Incision, drainage, and debridement of left abdominal wall necrotic skin and subcutaneous tissue and drainage of purulence. 3. Incision and debridement of skin, fat, and subcutaneous tissue (deep) of complex left lateral thigh abscess. 4. Incision and drainage and placement of drains of right deltoid abscess. 5. Debridement of skin, subcutaneous tissue, and drainage of abscess, right lateral thigh. ANESTHESIA: General endotracheal, Luz Roper OCCUPATIONAL THERAPIST PER DIEM INDICATIONS: This 28-year-old white man has longstanding IV drug abuse including heroin and is currently on a methadone program. He has done "skin popping" for heroin administration. He is known to have hepatitis C. He presented to the emergency room last night with tachycardia, but without significant hypotension and systemic signs of sepsis, though his lactate was 1.9. His white count was 29,000, bandemia of 33%. He was found to have a draining multi-defect left lateral thigh complex soft tissue infection with necrotic skin as well as a similar, but not yet draining left abdominal lesion. Additionally, found was a right deltoid abscess which appears to be relatively new and in the right lower lateral thigh. In the posterior aspect, a similar necrotizing soft tissue infection. He was noted to be relatively hypotensive, and admitted to the Intensive Electronically Signed By: LIO CHAMBERLAIN MD 08/15/19 1305 PATIENT NAME: BARBARA BEAVERS OPERATIVE REPORT DATE OF : 88 REPORT #: [id number] PHYSICIAN: LIO CHAMBERLAIN MD PCP: ANA MIKE MD REPORT IS CONFIDENTIAL AND NOT TO BE RELEASED WITHOUT AUTHORIZATION [facility] [address] [place], [place] [address] Signed Care Unit, given broad-spectrum antibiotic meropenem as well as vancomycin. He is improved clinically, though he has required a pressor agent. He has been aggressively fluid resuscitated as well. He is now to undergo incision and drainage and debridement of the infective foci, which likely account for his sepsis. It was noted that he had an abnormal urinalysis as well with greater than 30 white cells per high-power field. He understands the risks of bleeding, infection, failure to cure the problem, and other unforeseen complications and wished to proceed. Notably, he does not have signs of COVID-19 infection at this time, and a chest x-ray performed in conjunction with a central line placed yesterday shows no sign of infiltrate or pneumonia. FINDINGS: The abdominal wall lesion showed necrotic skin and copious purulence as well as necrotic fat of the abdominal wall. Extended further than clinically suspected. It was completely debrided and packed. The left lateral thigh was a very complex wound extending inferiorly with several areas of skin defect necrotic fat extending down to the muscular fascia. Complete debridement was undertaken and placement of the Silvano drain as well as packing undertaken for that area. On the right side, the deltoid abscess was more subtle, but had copious amounts of thin purulent material. This was fully drained and two yellow vessel loops secured to allow for continued drainage. The right lateral lower thigh necrotic skin and fat similar to the left side was noted, this was fully debrided and packed. DESCRIPTION OF PROCEDURE: The patient was brought to the operating room, given a general endotracheal anesthetic per COVID-19 pandemic protocol. He had been on antibiotic meropenem and vancomycin. Examination of the areas in question was undertaken. Photographs taken. Preparation was undertaken on the left side initially including the abdomen and left lateral thigh. This was undertaken with a three-stage prep using ChloraPrep solution. Initial dissection was on the abdominal wall. An ellipse of the necrotic skin and subcutaneous tissue was excised and purulent drainage was noted. The underlying space was debrided of necrotic fat and purulent material including use of a Banjo curette. Debridement was taken down to viable tissue and the wound temporarily packed. Attention was turned to the left lateral thigh, which was already necessitating purulent material. The necrotic skin was excised as was the fat and the space seemed to tunnel inferiorly connecting to three separate necrotic defects within the skin itself. All necrotic tissue was debrided fully including portions of skin, fat, subcutaneous tissue, and so on. Copious irrigation was undertaken in this area. Ultimately, a quarter-inch [place] placed and tied in a loop. The wound was then packed with Kerlix for hemostatic benefit. The wound in the thigh was packed with a small amount of Kerlix as well. ABDs were applied and tape applied. Electronically Signed By: LIO CHAMBERLAIN MD 08/15/19 1305 PATIENT NAME: BARBARA BEAVERS OPERATIVE REPORT DATE OF : 88 REPORT #: [id number] PHYSICIAN: LIO CHAMBERLAIN MD PCP: ANA MIKE MD REPORT IS CONFIDENTIAL AND NOT TO BE RELEASED WITHOUT AUTHORIZATION [facility] [address] [place], [place] [address] Signed The drapes were then taken down. Attention turned towards the right side. Preparation of the right deltoid and right lateral thigh undertaken in a similar technique as before. In the right lateral thigh, necrotic skin and fat and subcutaneous tissue were excised. Copious purulent material was noted and Gram stain and cultures were obtained there as well as on the left lateral thigh previously and abdomen. Debridement was taken down to viable tissue. Irrigation undertaken and the wound temporarily packed. Attention turned towards the right deltoid area of edematous fluctuance was incised with an #11 blade, allowed for egress of copious amounts of thin purulent material. Hemostat was used to break down loculations and a counter incision made superiorly and inferiorly into yellow vessel loops placed for additional drainage. The area was packed with small amount of quarter-inch Nu Gauze for hemostatic benefit. Gauze was applied to both sites as were ABD dressings and tape. Attempts by the center specialists to place a left and right-sided arterial line were unsuccessful. Extubation per pandemic protocol was undertaken, and the patient was expected to return to the recovery room without problem. MD TIARRA Robbins/EMELY /[id number] cc: MD Amilcar Baltazar MD Cynthia Rasch, MD Copies: AGUILA PRESSLEY MD, DANIEL L MD RASCH, CYNTHIA MD ~ Electronically Signed By: LIO CHAMBERLAIN MD 08/15/19 1305 PATIENT NAME: BEAVERSBARBARA OPERATIVE REPORT DATE OF : 88 REPORT #: [id number] PHYSICIAN: LIO CHAMBERLAIN MD PCP: ANA MIKE MD REPORT IS CONFIDENTIAL AND NOT TO BE RELEASED WITHOUT AUTHORIZATION
--- NOTE | 2019-08-15 13:05 | OR ---
[facility] [address] [place], [place] [address] Signed DATE OF OPERATION: 08/14/2019 SURGEON: Lio Chamberlain MD PREOPERATIVE DIAGNOSES: 1. Systemic toxicity related to soft tissue abscesses, poor venous access. 2. Intravenous heroin abuse and hepatitis C. POSTOPERATIVE DIAGNOSES: 1. Systemic toxicity related to soft tissue abscesses, poor venous access. 2. Intravenous heroin abuse and hepatitis C. PROCEDURE PERFORMED: Left subclavian Arrow Blue Tip triple-lumen central venous catheter placement. ANESTHESIA: 1% lidocaine. INDICATIONS: This 28-year-old white male with chronic IV drug abuse and in a methadone program locally, and presented to the emergency room with systemic toxicity and erythematous appearance tachycardia, but without hypotension. He was noted to have a lactate level of 1.6. Attempts at peripheral access have been unsuccessful due to his longstanding IV drug abuse and the central venous catheter is indicated for additional fluids and IV antibiotics. The risks of bleeding, infection, pneumothorax, and other unforeseen complications was reviewed with him in detail. He understands and wished to proceed. FINDINGS: Left subclavian vein was accessed showing dark nonpulsatile blood. The catheter was placed without problem. A postprocedure chest x-ray showed good position of the catheter with the tip in the superior vena cava. No evidence of pneumothorax and no sign of infiltrate on x-ray. DESCRIPTION OF PROCEDURE: While in the ER in a mild Trendelenburg position, the left infraclavicular area and right neck and infraclavicular area prepared with a chlorhexidine solution and draped sterilely. A 1% lidocaine was injected for local anesthetic. Using the Seldinger technique with the syringe and needle provided in the kit, the left subclavian vein was accessed showing dark nonpulsatile blood. A flexible J-wire was passed down the needle and needle was removed. The site was incised with an #11 blade, dilated with the Electronically Signed By: LIO CHAMBERLAIN MD 08/15/19 1305 PATIENT NAME: BARBARA BEAVERS OPERATIVE REPORT DATE OF : [birth year] REPORT #: [id number] PHYSICIAN: LIO CHAMBERLAIN MD PCP: ANA MIKE MD REPORT IS CONFIDENTIAL AND NOT TO BE RELEASED WITHOUT AUTHORIZATION [facility] [address] [place] [address] Signed enclosed blue dilator and a previously inspected and irrigated Arrow Blue Tip triple-lumen catheter passed over the wire. The wire was removed. Aspiration on the distal port allowed for obtaining blood cultures. The catheter was capped and flushed, and secured to the skin in the usual way with a nylon suture and a silk suture and the white collar enclosed in a kit. An op-site dressing was applied. An upright postprocedure chest x-ray showed good position of the catheter. No evidence of pneumothorax or other complication. MD TIARRA Robbins/STEPHANIEL /[id number] cc: MD Amilcar Baltazar MD Copies: AGUILA PRESSLEY MD, DANIEL L MD ~ Electronically Signed By: LIO CHAMBERLAIN MD 08/15/19 1305 PATIENT NAME: BARBARA BEAVERS OPERATIVE REPORT DATE OF : [birth year] REPORT #: [id number] PHYSICIAN: LIO CHAMBERLAIN MD PCP: ANA MIKE MD REPORT IS CONFIDENTIAL AND NOT TO BE RELEASED WITHOUT AUTHORIZATION
--- NOTE | 2019-08-15 13:05 | HP ---
[facility] [address] [place], [place] [address] Signed ADMISSION DATE: 08/14/2019 REASON FOR ADMISSION: Sepsis related to chronic abdominal and left lateral leg wound related to subcutaneous injection of IV heroin. HISTORY OF PRESENT ILLNESS: This 28-year-old white man presented to the emergency room and was evaluated by Dr. Ch at about 7:30 p.m. He is well known to have IV drug abuse including heroin. He is on a methadone program under the direction of Dr. Amilcar rosario. He has had multiple skin infections due to injection sites in the past 6 days or so. He was noted to have an abscess or at least necrotic tissue of the left abdominal wall and left hip area with skin breakdown and drainage. The patient was noted to be systemically toxic with an erythematous skin and tachycardia with a heart rate of 117. He last ate earlier in the day. He had methadone earlier today as well. The patient attempted to "pop" the left thigh abscess yesterday and some drainage was noted. PAST MEDICAL HISTORY: Notable for pulmonary embolism in 2008, hepatitis C, alcohol abuse and heroin abuse. ALLERGIES: He is considered to be penicillin allergic (hives or rash in 2017). MEDICATIONS: His only medication noted is methadone 85 mg daily. I was initially consulted as regards intravenous access as multiple attempts have been unable to allow for intravenous access except for a transient episode in which blood tests were obtained. They are not yet back from the lab. REVIEW OF SYSTEMS: He denies any shortness of breath or chest pain. He does have generalized discomfort. PHYSICAL EXAMINATION: This is a well-developed white man, who has multiple tattoos including the right neck and right infraclavicular area. He does appear systemically erythematous. His heart rate is 117, blood pressure is 110 systolic. He is alert and oriented and able to answer questions well. He has well-developed muscles of the chest. He has multiple skin excoriations of his torso. In his left to mid abdomen, there is an area of some necrotic skin and deep subcutaneous tissue firmness and surrounding cellulitic changes. In his left lateral thigh area, there is a similar such lesion that appears more chronic Electronically Signed By: LIO CHAMBERLAIN MD 08/15/19 1305 PATIENT NAME: BARBARA BEAVERS HISTORY AND PHYSICAL DATE OF : [birth year] REPORT #: [id number] PHYSICIAN: LIO CHAMBERLAIN MD PCP: ANA MIKE MD REPORT IS CONFIDENTIAL AND NOT TO BE RELEASED WITHOUT AUTHORIZATION [facility] [address] [place], [place] [address] Signed and with an eschar. He has several areas of his lower extremities with scars and areas of probable skin popping in the past. IMAGING STUDIES: Chest x-ray was performed following placement of a left subclavian line by me showing no evidence of pneumonia and good position of his intravenous catheter in the superior vena cava and no evidence of pneumothorax. ASSESSMENT: The patient has soft tissue infection related to skin injection for heroin, which has caused some systemic toxicity as well. Central venous catheter has been placed to allow for fluid resuscitation and administration IV antibiotics. Due to his allergy profile including penicillin, he will be started on meropenem as a broad-spectrum agent and additionally on vancomycin given his systemic toxicity. Debridement and/or drainage are both will be needed of both the abdominal and the left lower extremity infectious areas. Fluid resuscitation is ongoing at this time. As the wounds are chronic and he is clinically somewhat dehydrated, operation will be performed in the morning unless indicated otherwise at this hour. We discussed this in detail and he understands. I have reviewed this plan with Dr. Ch also. Given his underlying heroin addiction and dependency on methadone, we will likely consult hospitalist for further input as regard to management of any potential withdrawal symptoms. It is unlikely to be problem at present as he was treated with methadone yesterday. MD TIARRA Robbins/MODL /[id number] cc: MD Aguila Jimenez MD Copies: AMILCAR COULTER MD Electronically Signed By: LIO CHAMBERLAIN MD 08/15/19 1305 PATIENT NAME: BARBARA BEAVERS HISTORY AND PHYSICAL DATE OF : [birth year] REPORT #: [id number] PHYSICIAN: LIO CHAMBERLAIN MD PCP: ANA MIKE MD REPORT IS CONFIDENTIAL AND NOT TO BE RELEASED WITHOUT AUTHORIZATION [facility] [address] [place], [place] [address] Signed AGUILA CH MD ~ Electronically Signed By: LIO CHAMBERLAIN MD 08/15/19 1305 PATIENT NAME: BARBARA BEAVERS HISTORY AND PHYSICAL DATE OF : [birth year] REPORT #: [id number] PHYSICIAN: LIO CHAMBERLAIN MD PCP: ANA MIKE MD REPORT IS CONFIDENTIAL AND NOT TO BE RELEASED WITHOUT AUTHORIZATION
--- NOTE | 2019-08-16 13:30 | PATH ---
[facility] [address] [place], [place] [address] Signed SPECIMEN(S): A LEFT ABDOMEN LEFT THIGH SPECIMEN(S): B RIGHT THIGH AND RIGHT SHOULDER SPECIMEN SOURCE: A. LEFT ABDOMEN LEFT THIGH B. RIGHT THIGH AND RIGHT SHOULDER CLINICAL HISTORY: Bilateral thighs, abdominal, left and right shoulder abscesses. FINAL PATHOLOGIC DIAGNOSIS: A. Products of debridement, left abdomen and left thigh, debridement: - Fragments of fibroadipose tissue with acute and chronic inflammation and tissue necrosis, see comment. B. Products of debridement, right thigh and shoulder, debridement: - Fragments of ulcerated and necrotic skin with underlying abscess formation. - Fragment of fibroadipose tissue with acute and chronic inflammation, see comment. COMMENT: Sections of specimen A and B demonstrate fibroadipose tissue with acute inflammation tracking along thick collagenous septa. Correlation with clinical and culture findings is recommended. NAL:cml:C2NR MICROSCOPIC EXAMINATION: Histologic sections of all submitted blocks are examined by light microscopy. These findings, together with the gross examination, support the pathologic diagnosis. GROSS DESCRIPTION: Two specimens are received in two containers, labeled "CV." A. The specimen, labeled "CV," and designated on the requisition "debridement, left abdomen and left thigh," is received in formalin and consists of numerous irregular shaped pieces of skin and fibroadipose tissue that aggregate measure 4.7 x 4.2 x 0.4 cm. The skin fragments are dark red and congested. Ad Taker sections are submitted in cassette (A1). B. The specimen, labeled "CV," and designated on the requisition "right thigh and shoulder," is received in formalin and consists of two pieces of irregular shaped, pink-godinez to red and focally PATIENT NAME: BARBARA BEAVERS PATHOLOGY DATE OF : [birth year] REPORT #: [id number] PHYSICIAN: JAGDEEP JERONIMO PCP: ANA MIKE MD REPORT IS CONFIDENTIAL AND NOT TO BE RELEASED WITHOUT AUTHORIZATION [facility] [address] [place], [place] [address] Signed congested tissue that aggregate measure 2.2 x 1.3 x 0.3 cm. Specimen is entirely submitted in cassette (B1). JS (under the direct supervision of a pathologist) The Gross Description was prepared using a voice recognition system. The report was reviewed for accuracy; however, sound-alike word errors, addition and/or deletions may occur. If there is any question about this report, please contact Client Services. PERFORMING LABORATORY: The technical component was performed by [facility], [address] [place] [address] (Body Press Operator: Cyndi Lopez MD; CLIA# [id number]). [facility] [address] [place] [address] (CLIA# [id number]). Diagnostician: Josie Webb MD Pathologist Electronically Signed 08/16/2019 Copies: ~ PATIENT NAME: BARBARA BEAVERS PATHOLOGY DATE OF : [birth year] REPORT #: [id number] PHYSICIAN: JAGDEEP JERONIMO PCP: ANA MIKE MD REPORT IS CONFIDENTIAL AND NOT TO BE RELEASED WITHOUT AUTHORIZATION
[2019-08-20] MEDS ORDERED: LEVOFLOXACIN750 MG PO (10:21)
[2019-08-20] MEDS ORDERED: SULFAMETHOXAZO1 EAC1 PO (10:21)
[2019-08-20] MEDS ORDERED: TYLENOL EXTRA500 MG PO (10:21)
[2019-08-20] MEDS ORDERED: NICOTINE1 EAC1 TD (10:21)
[2019-08-20] MEDS ORDERED: FAMOTIDINE20 MG PO (10:22)
[2019-08-20] MEDS ORDERED: HIBICLENS118 ML TOP (10:24)
--- NOTE | 2019-08-21 10:56 | DS ---
[facility] [address], [place] [address] Signed ADMISSION DATE: 08/14/2019 DISCHARGE DATE: 08/20/2019 REASON FOR ADMISSION: This 28-year-old white man presented to the emergency room, who was evaluated by Dr. Ch at approximately 7:30 p.m. He is well known to have IV drug abuse including heroin. He is on a methadone treatment program, taking 85 mg daily. He is under the overall supervision of Dr. Amilcar rosario. He presented to the hospital with findings of systemic sepsis and multiple skin infections due to injection sites used in the past several days. He was demonstrated to have abscesses on his right deltoid, right lateral thigh, necrotizing infection of his left abdominal wall, and left thigh. He is admitted for further evaluation and care. PERTINENT PHYSICAL EXAMINATION: GENERAL: Showed a well-developed, muscular white male with multiple tattoos including his right neck and right infraclavicular area. He was erythematous generally speaking. VITAL SIGNS: His heart rate was 117, blood pressure 110 systolic, subsequently 90 systolic. He is alert and oriented and able to answer questions well. He had multiple skin excoriations of his torso. There was a fluctuant abscess appearing abnormality of his left abdominal wall with necrotic skin and a satellite such lesion on the left lateral thigh or multiple skin deficits were noted including fungating, draining purulent necrotic wound, as well as a similar lesion of his right anterolateral thigh and an erythematous area with swelling of his right deltoid. A chest x-ray was performed after placement of a left subclavian central line for access as he had no peripheral access, reliably obtainable. HOSPITAL COURSE: He was given fluid resuscitation, IV antibiotics, and noted to be systemically toxic. His lactate level was 1.6. He was given fluid resuscitation and did require some pressor support. Under general endotracheal anesthesia underwent incision, drainage, and debridement of the left abdominal wall necrotic skin, and subcutaneous tissue with abscess, similar debridement of his left lateral thigh and right thigh, and incision and drainage, and placement of yellow vessel loops in his right deltoid area. He was returned to the intensive care unit postoperatively. Aggressive IV fluid resuscitation has been undertaken. A consult was obtained with Dr. Rojas, the hospitalist, who additionally assisted his care. His initial antibiotic combination was Electronically Signed By: LIO CHAMBERLAIN MD 08/21/19 1056 PATIENT NAME: BARBARA BEAVERS DISCHARGE SUMMARY DATE OF : 88 REPORT #: [id number] PHYSICIAN: LIO CHAMBERLAIN MD PCP: ANA MIKE MD REPORT IS CONFIDENTIAL AND NOT TO BE RELEASED WITHOUT AUTHORIZATION [address] [address] Signed meropenem and vancomycin. He had the requirement for pressor agents for about 24 to 36 hours, but these were able to be weaned off. He was transferred from the intensive care unit to the marie. First postoperative day, his wound packing was removed, which was impressively uncomfortable for him. Wounds were then gently packed with plain gauze and the drains that were in place. He had progressive improvement. Cultures obtained from the wounds ultimately demonstrated methicillin-resistant Staph aureus (MRSA) as well as Streptococcus sanguinis. He was transitioned to oral antibiotic, Levaquin, Bactrim, and intravenous vancomycin maintained. By the time of discharge, he has no signs of systemic sepsis. The erythematous change of the skin was resolved. He has been tolerating wound dressing changes well. He will be discharged to home with Levaquin antibiotic, for which the strep sanguinis was sensitive and Bactrim DS for which the MRSA was sensitive. He is instructed to shower daily and use Hibiclens liquid soap. Water should make contact with all of the wounds in question. He will be doing self wound care with wound packing. He will have Home Health overseeing his care and monitoring his progress. He is due to see me back in the office in about a month, it may be a while before the wound is entirely healed. He will maintain his usual methadone program, so as to avoid abstinence of illicit heroin use. DISCHARGE MEDICATIONS: Include: 1. Levaquin 750 mg p.o. at bedtime, #7. 2. Bactrim DS one p.o. b.i.d., #14. 3. Nicotine patch 7 mg topical daily #30, refill 2. 4. Tylenol Extra Strength 1000 mg q.6 hours as needed for pain, #60. 5. Pepcid 20 mg p.o. q.12 hours, #60. 6. Chlorhexidine Hibiclens to use as liquid soap for shower on a daily basis. He will continue with his usual medication of methadone 85 mg daily, administered and taken at the [facility]. DISCHARGE DIAGNOSES: 1. Systemic sepsis related to soft tissue infection of left abdominal wall, left lateral thigh, right lateral thigh, and right deltoid, status post incision, drainage, and debridement of all wounds. 2. Pathogenic bacteria included methicillin-resistant Staphylococcus aureus and Electronically Signed By: LIO CHAMBERLAIN MD 08/21/19 1056 PATIENT NAME: BARBARA BEAVERS DISCHARGE SUMMARY DATE OF : [birth year] REPORT #: [id number] PHYSICIAN: LIO CHAMBERLAIN MD PCP: ANA MIKE MD REPORT IS CONFIDENTIAL AND NOT TO BE RELEASED WITHOUT AUTHORIZATION [facility] [address] [place] [address] Signed Streptococcus sanguinis. 3. History of IV heroin abuse. 4. Tobacco addiction. MD ITARRA Robbins/STEPHANIEL /[id number] cc: Amilcar Coulter MD [facility] MD Copies: AMILCAR COULTER MD [facility] T[facility] CH MD ~ Electronically Signed By: LIO CHMABERLAIN MD 08/21/19 1056 PATIENT NAME: BARBARA BEAVERS DISCHARGE SUMMARY DATE OF : [birth year] REPORT #: [id number] PHYSICIAN: LIO CHAMBERLAIN MD PCP: ANA MIKE MD REPORT IS CONFIDENTIAL AND NOT TO BE RELEASED WITHOUT AUTHORIZATION
== END 2019-08-20 12:35 | disposition home or self-care (01) | DRG 853 ==
LOC: ED 18:57 → MS 20:42 → CCU 20:42 → MS 08-17 12:00
PROVIDERS: ADMIT Surgery
PROC: 02HV33Z Insertion of Infusion Device into Superior Vena Cava, Percutaneous Approach (ICD-10-PCS; principal; 2019-08-14)
PROC: 0KBL0ZZ Excision of Left Abdomen Muscle, Open Approach (ICD-10-PCS; 2019-08-15)
PROC: 0HBJXZZ Excision of Left Upper Leg Skin, External Approach (ICD-10-PCS; 2019-08-15)
PROC: 0HBHXZZ Excision of Right Upper Leg Skin, External Approach (ICD-10-PCS; 2019-08-15)
PROC: 0HBBXZZ Excision of Right Upper Arm Skin, External Approach (ICD-10-PCS; 2019-08-15)
DX: A41.02 Sepsis due to Methicillin resistant Staphylococcus aureus (principal); R65.21 Severe sepsis with septic shock; F11.20 Opioid dependence, uncomplicated; L02.211 Cutaneous abscess of abdominal wall; L02.416 Cutaneous abscess of left lower limb; N39.0 Urinary tract infection, site not specified; E87.1 Hypo-osmolality and hyponatremia; F17.210 Nicotine dependence, cigarettes, uncomplicated; B19.20 Unspecified viral hepatitis C without hepatic coma; E87.6 Hypokalemia; E83.42 Hypomagnesemia; R74.0 Nonspecific elevation of levels of transaminase and lactic acid dehydrogenase [LDH]
CPT/HCPCS: 00400; 36556; 71045; 80048; 80053; 80202; 81001; 83605; 83735; 85025; 85651; 86140; 87040; 87070; 87075; 87077; 87088; 87186; 87205; 88304; 90715; 99285-25; 99406; J0131; J0330; J1644; J2001; J2185; J2270; J2405; J2704; J2997; J3370; J3475; J3480; J7050; J7060; J7121

== ENCOUNTER 2021-02-16 10:26 | Emergency (ER) | payer OTHER ==
[~2021-02-16] VITALS: Ht 165.1 cm; Wt 89.4 kg
[~2021-02-16 10:26] MED LIST changes: +FAMOTIDINE20 MG PO; +HIBICLENS118 ML TOP; +LEVOFLOXACIN750 MG PO; +METHADOSE10 MG/1 ML PO; +NICOTINE1 EAC1 TD; +SULFAMETHOXAZO1 EAC1 PO; +TYLENOL EXTRA500 MG PO
== END 2021-02-16 12:55 | disposition home or self-care (01) ==
LOC: ED 10:26
DX: Z76.5 Malingerer [conscious simulation] (principal); Z86.711 Personal history of pulmonary embolism; F17.200 Nicotine dependence, unspecified, uncomplicated; Z88.0 Allergy status to penicillin; Z79.899 Other long term (current) drug therapy
CPT/HCPCS: 73140; 99283-25; A9270